=== PATIENT | male | born 1950 ===

== ENCOUNTER 2017-04-07 19:30 | Inpatient (IN) | payer OTHER ==
[2017-04-07 21:13] LABS: BASO % 0.6 % (0.0-2.0); EOS % 0.8 % (0.0-4.0); HEMOGLOBIN 9.1 g/dL (12.0-18.0); LYMPH # 0.8 K/uL (1.0-4.3); LYMPH % 20.7 % (20.0-40.0); MEAN CELL VOLUME 88.1 fl (80.0-94.0); MEAN CORPUSCULAR HEMOGLOBIN 28.6 pg (27.0-31.0); MEAN CORPUSCULAR HGB CONC 32.4 g/dL (33.0-37.0); MEAN PLATELET VOLUME 10.5 fl (7.2-11.7); MONO # 0.5 K/uL (0.0-0.8); MONO % 11.8 % (0.0-10.0); NEUT # 2.7 K/uL (1.8-7.0); NEUT % 66.1 % (50.0-75.0); RBC 3.17 Mil/uL (4.40-5.90); RED CELL DISTRIBUTION WIDTH 13.8 % (11.5-14.5)
[2017-04-07 21:21] LABS: BLOOD UREA NITROGEN 17 mg/dl (9-20); CALCIUM 8.5 mg/dL (8.4-10.2); GFR AFRICAN-AMERICAN > 60; GFR NON-AFRICAN AMERICAN > 60; LIPASE 169 U/L (23-300)
[2017-04-07 21:42] LABS: INR 1.2 (0.9-1.2); PROTHROMBIN TIME 12.2 Seconds (9.8-13.1)
[2017-04-07 22:02] LABS: WHITE BLOOD COUNT 4.1 K/uL (4.8-10.8)
--- NOTE | 2017-04-07 22:08 | CT ---
EXAM: CT Head Without Intravenous Contrast CLINICAL HISTORY: 66 years old, male; Signs and symptoms; Altered mental status/memory loss; Confusion or disorientation; Additional info: AMS TECHNIQUE: Axial computed tomography images of the head/brain without intravenous contrast. All CT scans at this facility use one or more dose reduction techniques, viz.: automated exposure control; ma/kV adjustment per patient size (including targeted exams where dose is matched to indication; i.e. head); or iterative reconstruction technique. Coronal and sagittal reformatted images were created and reviewed. COMPARISON: No relevant prior studies available. FINDINGS: Brain: No acute intracranial hemorrhage. Age-appropriate periventricular white matter disease. No edema. Ventricles: Age-appropriate ventriculomegaly. Bones: No acute displaced fracture. Sinuses: Unremarkable as visualized. No acute sinusitis. Mastoid air cells: Unremarkable as visualized. No mastoid effusion. IMPRESSION: No acute intracranial hemorrhage, or suspicious mass effect.
--- NOTE | 2017-04-07 22:22 | ED PDOC ---
HPI: Altered Mental Status Time Seen by Provider: 04/07/17 20:27 Chief Complaint (Nursing): Weakness/Neurological Deficit Chief Complaint (Provider): Altered mental status History Per: Patient Onset/Duration Of Symptoms: Days Additional Complaint(s): Patient is a 49 year old male with a past medical history of diabetes, hypertension, and chronic pain brought in to the emergency department by his family for altered mental status, tremors, and bilateral leg swelling. Family reports seeing a progressive cognitive decline over the past few weeks in which he is unable to recall the date and has become more confused and tired. Of note , patient is on 100 mg Tramadol three times a day and started Gabepentin and Metformin last week. PCP: none provided. Past Medical History Reviewed: Historical Data, Nursing Documentation, Vital Signs Vital Signs: Last Vital Signs Temp 98.0 F 04/07/17 19:38 Pulse 90 04/07/17 19:38 Resp 16 04/07/17 19:38 BP 129/71 04/07/17 19:38 Pulse Ox 100 04/07/17 19:38 - Medical History PMH: Anemia, Arthritis, COPD, Diabetes, HTN, Peripheral Edema (BLE) Other PMH: Chronic pain - Surgical History Surgical History: Appendectomy (Exploratory Laporatomy for ruptured AP), Cholecystectomy, Hernia Repair - Family History Family History: States: Unknown Family Hx - Immunization History Hx Tetanus Toxoid Vaccination: No Hx Influenza Vaccination: No Hx Pneumococcal Vaccination: No - Allergies Allergies/Adverse Reactions: Allergies Allergy/AdvReac Type Severity Reaction Status Date / Time Penicillins Allergy RASH Verified 12/13/15 13:38 Review of Systems ROS Statement: Except As Marked, All Systems Reviewed And Found Negative Musculoskeletal: Positive for: Other (bilateral leg swelling) Neurological: Positive for: Altered Mental Status (progessively declining cognitive state over the past few weeks), Other (Tremors) Physical Exam - Reviewed Nursing Documentation Reviewed: Yes Vital Signs Reviewed: Yes - Physical Exam Appears: Positive for: Well, Non-toxic, No Acute Distress Head Exam: Positive for: ATRAUMATIC, NORMAL INSPECTION, NORMOCEPHALIC Skin: Positive for: Normal Color, Warm, Dry Eye Exam: Positive for: EOMI, Normal appearance, PERRL ENT: Positive for: Normal ENT Inspection Neck: Positive for: Normal, Supple Cardiovascular/Chest: Positive for: Regular Rate, Rhythm. Negative for: Murmur Respiratory: Positive for: Normal Breath Sounds. Negative for: Accessory Muscle Use, Respiratory Distress Gastrointestinal/Abdominal: Positive for: Normal Exam, Soft Back: Positive for: Normal Inspection Extremity: Positive for: Normal ROM, Swelling (bilateral pitting edema 1+ to the knees). Negative for: Pedal Edema Neurologic/Psych: Positive for: Alert, Oriented (x2), Other (Intention tremor) - Laboratory Results Result Diagrams: 04/07/17 20:45 04/07/17 20:45 - ECG O2 Sat by Pulse Oximetry: 100 (RA) Pulse Ox Interpretation: Normal Medical Decision Making Medical Decision Making: Time: 20:38 Initial Impression: Altered mental status secondary to polypharmacy Initial Plan: -EKG -Head CT Scan -Drug Screening -Chest X-Ray -Reevaluation 22:[address] Scan Findings: Brain: No acute intracranial hemorrhage. Age-appropriate periventricular white matter disease. No edema. Ventricles: Age-appropriate ventriculomegaly. Bones: No acute displaced fracture. Sinuses: Unremarkable as visualized. No acute sinusitis. Mastoid air cells: Unremarkable as visualized. No mastoid effusion. IMPRESSION: No acute intracranial hemorrhage, or suspicious mass effect. 22:30 Workup largely negative. Daughter states that his platelets are at his baseline and had a comprehensive evaluation for thrombocytopenia this year. Will admit for AMS. Case discussed with Dr. Graff. Scribe Attestation: Documented by Sherry Beltrán, acting as a scribe for Humphrey Malik MD. Provider Scribe Attestation: All medical record entries made by the Scribe were at my direction and personally dictated by me. I have reviewed the chart and agree that the record accurately reflects my personal performance of the history, physical exam, medical decision making, and the department course for this patient. I have also personally directed, reviewed, and agree with the discharge instructions and disposition. Disposition - Clinical Impression Clinical Impression: Altered mental status - Disposition Disposition Time: 22:30 Condition: STABLE Forms: Training Advisor (Pashto)
[2017-04-07 22:23] LABS: URINE BACTERIA RARE (<OCC); URINE BILIRUBIN NEGATIVE (NEGATIVE); URINE BLOOD NEGATIVE (NEGATIVE); URINE CLARITY SLIGHTY-CLOUDY (Clear); URINE COLOR YELLOW (YELLOW); URINE GLUCOSE (UA) NEG (Normal); URINE LEUKOCYTE ESTERASE NEG Leu/uL (Negative); URINE NITRATE NEGATIVE (NEGATIVE); URINE PROTEIN NEGATIVE (NEGATIVE)
[2017-04-07 22:36] LABS: BARBITURATES, UR NEGATIVE (NEGATIVE); BENZODIAZEPINES, UR NEGATIVE (NEGATIVE); OPIATES, UR POSITIVE (NEGATIVE); PHENCYCLIDINE, UR NEGATIVE (NEGATIVE)
[2017-04-08 01:16] VITALS: RESP 20
--- NOTE | 2017-04-08 07:23 | CARD ---
APPROVED REPORT EKG Measurement Heart [id number] MD [id number] <Conclusion> Normal sinus rhythm Nonspecific ST and T wave abnormality Abnormal ECG
[2017-04-08] MEDS ORDERED: Albuterol HFA 90 mcg/actuation (8 g) INH PRN (08:21)
[2017-04-08] MEDS ORDERED: Pneumococcal 23-Valent Vaccine IM ONE (10:00)
[2017-04-08] MEDS: Multivitamin With Minerals Tab PO SCH (10:33)
[2017-04-08] MEDS: Pantoprazole 40 mg EC Tab PO SCH (10:35)
--- NOTE | 2017-04-08 10:48 | RAD ---
PROCEDURE: CHEST RADIOGRAPH, 1 VIEW HISTORY: AMS COMPARISON: 05/19/2016. FINDINGS: LUNGS: Clear. PLEURA: No pneumothorax or pleural fluid seen. CARDIOVASCULAR: No radiographic findings to suggest acute or significant cardiovascular disease. OSSEOUS STRUCTURES: No significant abnormalities. VISUALIZED UPPER ABDOMEN: Normal. OTHER FINDINGS: None. IMPRESSION: No active disease. No acute/significant interval changes.
--- NOTE | 2017-04-08 11:08 | US ---
PROCEDURE: Bilateral lower extremity venous duplex Doppler. HISTORY: dvt COMPARISON: Comparison is made to the previous study dated 06/15/2013 TECHNIQUE: Bilateral common femoral, superficial femoral, popliteal and posterior tibial veins were evaluated. Flow was assessed with color Doppler, compressibility, assessment of phasic flow and augmentation response. FINDINGS: COMMON FEMORAL VEIN: Right CFV: Unremarkable. Left CFV: Unremarkable. SUPERFICIAL FEMORAL VEIN: Right SFV: Unremarkable. Left SFV: Unremarkable. POPLITEAL VEIN: Right Popliteal: Unremarkable. Left Popliteal: Unremarkable. POSTERIOR TIBIAL VEIN: Right PTV: Unremarkable. Left PTV: Unremarkable. 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 Re- demonstration of right popliteal fossa complex cystic lesion likely represent Beltran's cyst
[2017-04-08 11:46] VITALS: BMI 48.2
--- NOTE | 2017-04-08 12:16 | RAD ---
PROCEDURE: Radiographs of the bilateral Tibiae and Fibula. HISTORY: fracture COMPARISON: None available. TECHNIQUE: Frontal and lateral views obtained. FINDINGS: BONES: RIGHT TIBIA: No fracture or destructive lesion. LEFT TIBIA: No fracture or destructive lesion. There is focal heterogeneous sclerotic changes seen at the proximal left tibia may represent small old infarction. There is bilateral fibula periosteal thickening noted of uncertain etiology. JOINT SPACES: RIGHT TIBIA: Osteoarthritic degenerative changes LEFT TIBIA: Osteoarthritic degenerative changes SOFT TISSUES: RIGHT TIBIA: Mild soft tissue swelling seen. LEFT TIBIA: Mild soft tissue swelling seen. OTHER FINDINGS: None. IMPRESSION: No evidence of acute fracture or dislocation. Bilateral periosteal thickening seen in the fibula. Small sclerotic changes seen at the proximal left tibia likely old infarction. Bilateral soft tissue swelling.
--- NOTE | 2017-04-09 00:09 | HP ---
HISTORY OF PRESENT ILLNESS: Mr. Palacios is a 66-year-old male, who was admitted via the emergency room because of altered mental status, was brought to the hospital by family because of altered mental status, tremors and bilateral swelling of the legs. Family indicates that the patient has been getting more confused for the past several days. He is on multiple medications about a page long and had been following up with the pain management doctor, in [place]. 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 FAMILY HISTORY: Non-revealing. SOCIAL HISTORY: The patient denies drug use at present, but is on multiple medications. He also denies alcohol use. PHYSICAL EXAMINATION: GENERAL: The patient is alert, and oriented this morning, but does not remember reason why he came to the hospital. VITAL SIGNS: Blood pressure 129/70 with a pulse of 90, respirations 18. He is afebrile. O2 sat is 100% on room air. The patient appears awake and alert. Responsive to verbal command. HEENT: Pupils equal, reactive to light, and accommodation. Mouth shows fair hygiene. JVP is flat. LUNGS: Clear. HEART: Regular, no murmurs or gallops. ABDOMEN: Soft, nontender, no organomegaly appreciated. EXTREMITIES: Bilateral pitting pedal edema with bilateral leg tenderness, right worse than left. CENTRAL NERVOUS SYSTEM: Grossly intact. LABORATORY DATA: Remarkable for WBC of 4.1, hemoglobin 9.1, platelet count 98,000. Sodium 140, potassium 3.8, BUN of 17, creatinine 1.0, serum glucose 158. Urine toxicology positive for opioids. CT scan of the head, no acute intracranial hemorrhage, age appropriate periventricular white matter disease. No other pathology noted. Chest x-ray: Official report pending. EKG: Normal sinus rhythm, nonspecific ST-T changes. IMPRESSION: Altered mental status probably secondary to polypharmacy, history of diabetes mellitus, history of hypertension, history of heroin use in the past, history of hypersplenism and cirrhosis of the liver, history of thrombocytopenia in the past and history of chronic alcohol and drug abuse in the past. PLAN: Discontinue most of the patient's multiple medications. Obtain venous Doppler of lower extremities to rule out deep venous thrombosis of the lower extremity with edema and tenderness. We will give analgesics for pain in the lower extremities. Monitor blood pressure and serum glucose properly. Further therapy will depend on findings. Mehdi Graff MD
[2017-04-09 00:23] VITALS: O2SAT 98
[2017-04-09 08:16] VITALS: BP 136/81; PULSE 78; TEMP 98.4
[2017-04-09] MEDS: Pantoprazole 40 mg EC Tab PO SCH (08:39)
[2017-04-09] MEDS: Multivitamin With Minerals Tab PO SCH (08:46)
--- NOTE | 2017-04-09 10:50 | CP.PCM.DIS ---
Provider - Provider Date of Admission: 04/08/17 08:12 Attending physician: Mehdi Graff MD Time Spent in preparation of Discharge (in minutes): 35 Diagnosis - Discharge Diagnosis (1) Diabetes 1.5, managed as type 2 Status: Acute (2) Neuropathy Status: Acute (3) Hypertension Status: Acute (4) Altered mental status Status: Acute (5) Multiple substance abuse Status: Acute (6) Osteoarthritis Status: Acute (7) Thrombocythemia Status: Acute (8) Cirrhosis of liver Status: Acute (9) Occasional tremors Status: Acute Hospital Course - Lab Results Lab Results: Most Recent Lab Values WBC 4.1 K/uL (4.8-10.8) L D 04/07/17 20:45 RBC 3.17 Mil/uL (4.40-5.90) L 04/07/17 20:45 Hgb 9.1 g/dL (12.0-18.0) L 04/07/17 20:45 Hct 27.9 % (35.0-51.0) L 04/07/17 20:45 MCV 88.1 fl (80.0-94.0) D 04/07/17 20:45 MCH 28.6 pg (27.0-31.0) 04/07/17 20:45 MCHC 32.4 g/dL (33.0-37.0) L 04/07/17 20:45 RDW 13.8 % (11.5-14.5) 04/07/17 20:45 Plt Count 98 K/uL (130-400) L D 04/07/17 20:45 MPV 10.5 fl (7.2-11.7) 04/07/17 20:45 Neut % (Auto) 66.1 % (50.0-75.0) 04/07/17 20:45 Lymph % (Auto) 20.7 % (20.0-40.0) 04/07/17 20:45 [place] % (Auto) 11.8 % (0.0-10.0) H 04/07/17 20:45 Eos % (Auto) 0.8 % (0.0-4.0) 04/07/17 20:45 Baso % (Auto) 0.6 % (0.0-2.0) 04/07/17 20:45 Neut # 2.7 K/uL (1.8-7.0) 04/07/17 20:45 Lymph # 0.8 K/uL (1.0-4.3) L 04/07/17 20:45 [place] # 0.5 K/uL (0.0-0.8) 04/07/17 20:45 Eos # 0.0 K/uL (0.0-0.7) 04/07/17 20:45 Baso # 0.0 K/uL (0.0-0.2) 04/07/17 20:45 PT 12.2 Seconds (9.8-13.1) 04/07/17 20:45 INR 1.2 (0.9-1.2) 04/07/17 20:45 APTT 29.0 Seconds (25.6-37.1) 04/07/17 20:45 Sodium 140 mmol/l (132-148) 04/07/17 20:45 Potassium 3.8 MMOL/L (3.6-5.0) 04/07/17 20:45 Chloride 108 mmol/L (98-107) H 04/07/17 20:45 Carbon Dioxide 25 mmol/L (22-30) 04/07/17 20:45 Anion Gap 11 (10-20) 04/07/17 20:45 BUN 17 mg/dl (9-20) 04/07/17 20:45 Creatinine 1.0 mg/dL (0.8-1.5) 04/07/17 20:45 Est GFR ( Amer) > 60 04/07/17 20:45 Est GFR (Non-Af Amer) > 60 04/07/17 20:45 POC Glucose (mg/dL) 155 mg/dL (65-110) H 04/09/17 05:44 Random Glucose 142 mg/dL (75-110) H 04/07/17 20:45 Calcium 8.5 mg/dL (8.4-10.2) 04/07/17 20:45 Troponin I < 0.0120 ng/mL (0.00-0.120) 04/07/17 20:45 NT-Pro-B Natriuret Pep 74.4 pg/ml (0-900) 04/07/17 21:24 Lipase 169 U/L (23-300) 04/07/17 20:45 Urine Color Yellow (YELLOW) 04/07/17 22:10 Urine Clarity Slighty-cloudy (Clear) 04/07/17 22:10 Urine pH 6.0 (5.0-8.0) 04/07/17 22:10 Ur Specific [place] 1.011 (1.003-1.030) 04/07/17 22:10 Urine Protein Negative mg/dL (NEGATIVE) 04/07/17 22:10 Urine Glucose (UA) Neg mg/dL (Normal) 04/07/17 22:10 Urine Ketones Negative mg/dL (NEGATIVE) 04/07/17 22:10 Urine Blood Negative (NEGATIVE) 04/07/17 22:10 Urine Nitrate Negative (NEGATIVE) 04/07/17 22:10 Urine Bilirubin Negative (NEGATIVE) 04/07/17 22:10 Urine Urobilinogen 2.0 mg/dL (0.2-1.0) 04/07/17 22:10 Ur Leukocyte Esterase Neg [place]/uL (Negative) 04/07/17 22:10 Urine RBC (Auto) 1 /hpf (0-3) 04/07/17 22:10 Urine Microscopic WBC 1 /hpf (0-5) 04/07/17 22:10 Urine Bacteria Rare (<OCC) 04/07/17 22:10 Urine Opiates Screen Positive (NEGATIVE) H 04/07/17 22:10 Urine Methadone Screen Negative (NEGATIVE) 04/07/17 22:10 Ur Barbiturates Screen Negative (NEGATIVE) 04/07/17 22:10 Ur Phencyclidine Scrn Negative (NEGATIVE) 04/07/17 22:10 Ur Amphetamines Screen Negative (NEGATIVE) 04/07/17 22:10 U Benzodiazepines Scrn Negative (NEGATIVE) 04/07/17 22:10 U Oth Cocaine Metabols Negative (NEGATIVE) 04/07/17 22:10 U Cannabinoids Screen Negative (NEGATIVE) 04/07/17 22:10 Alcohol, Quantitative < 10 mg/dl (0-10) 04/07/17 20:45 - Hospital Course Hospital Course: ALERT AND ORIENTED X 3 JT PAINS IMPROVED Discharge Exam - Head Exam Head Exam: ATRAUMATIC, NORMAL INSPECTION, NORMOCEPHALIC - Eye Exam Eye Exam: EOMI, Normal appearance, PERRL Pupil Exam: NORMAL ACCOMODATION, PERRL - GI/Abdominal Exam GI & Abdominal Exam: Normal Bowel Sounds - Rectal Exam Rectal Exam: NORMAL INSPECTION - Extremities Exam Extremities exam: tenderness - Neurological Exam Neurological exam: Alert, CN II-XII Intact, Normal Gait, Oriented x3, Reflexes Normal - Psychiatric Exam Psychiatric exam: Normal Affect, Normal Mood - Skin Skin Exam: Dry, Intact, Normal Color, Warm Discharge Plan - Follow Up Plan Condition: STABLE Disposition: HOME/ ROUTINE Patient education suggested?: Yes Additional Instructions: REDUCE NUMBER OF MEDS AND DOSAGE ADVISED FOLLOW UP WITH PMD AND NEUROLOGIST OUT PT CASE DISCUSSEDWITH PT AND MARIAN
== END 2017-04-09 14:33 | disposition home or self-care (01) | DRG 463 ==
LOC: H.ER 19:30 → H.ERHOLD 22:42 → H.MEDSURG1 04-08 00:45 → OBSVTOIN 04-08 08:12
PROVIDERS: ADMIT Internal Medicine Pulmonary Disease; ATTEND Internal Medicine Pulmonary Disease
DX: R41.82 Altered mental status, unspecified (principal); J44.9 Chronic obstructive pulmonary disease, unspecified; E13.42 Other specified diabetes mellitus with diabetic polyneuropathy; K74.60 Unspecified cirrhosis of liver; F11.90 Opioid use, unspecified, uncomplicated; I10 Essential (primary) hypertension; D47.3 Essential (hemorrhagic) thrombocythemia; D73.1 Hypersplenism; M19.90 Unspecified osteoarthritis, unspecified site; R25.1 Tremor, unspecified

== ENCOUNTER 2017-05-19 09:09 | Inpatient (IN) | payer OTHER ==
[2017-05-19 09:32] VITALS: BMI 37.3
[2017-05-19] MEDS ORDERED: Iohexol 240 (50 ml) PO ONE (10:41)
--- NOTE | 2017-05-19 10:45 | ED PDOC ---
HPI: General Adult Time Seen by Provider: 05/19/17 10:04 Chief Complaint (Nursing): Abdominal Pain History Per: Patient Additional Complaint(s): Pt. states since yesterday he's had diffuse abdominal pain associated with constipation. States he has not had a BM since Tuesday. He attempted to have one yesterday without success. Also reports feeling nauseous. States that abdominal pain came about after he began taking a new medication. Pt. is uncertain of the name of the medication and also does not know why he is taking it. Denies vomiting, fever, chest pain, melena, hematocheiza, BRBPR, hematemesis , SOB, dysuria, hematuria. Pt. is a poor historian. Attempted to call his niece, Eva, who according to him knows his medical hx. Past Medical History Reviewed: Historical Data, Nursing Documentation, Vital Signs Vital Signs: Last Vital Signs Temp 98.2 F 05/19/17 15:17 Pulse 92 H 05/19/17 15:17 Resp 18 05/19/17 15:17 BP 118/60 05/19/17 15:17 Pulse Ox 99 05/19/17 16:07 - Medical History PMH: Anemia, Arthritis, COPD, Diabetes, HTN, Peripheral Edema (BLE) Denies: Chronic Kidney Disease - Surgical History Surgical History: Appendectomy (Exploratory Laporatomy for ruptured AP), Cholecystectomy, Hernia Repair - Family History Family History: States: No Known Family Hx - Immunization History Hx Tetanus Toxoid Vaccination: No Hx Influenza Vaccination: No Hx Pneumococcal Vaccination: No - Home Medications Home Medications: Ambulatory Orders Medication Instructions Recorded Albuterol HFA [Ventolin HFA 90 2 puff INH Q6H PRN 04/08/17 mcg/actuation (8 g)] Pantoprazole Sodium [Protonix] 40 mg PO DAILY 04/08/17 metFORMIN [glucOPHAGE] 500 mg PO BID 04/08/17 traMADol [Ultram] 100 mg PO TID 04/08/17 Losartan [Cozaar] 100 mg PO DAILY #30 tab 04/09/17 Ergocalciferol (Vitamin D2) 50,000 unit PO SAT 05/19/17 [Vitamin D2] Etodolac [Etodolac] 500 mg PO BID 05/19/17 Ferrous Sulfate [Ferosul] 325 mg PO TID 05/19/17 Furosemide [Lasix] 20 mg PO DAILY PRN 05/19/17 Gabapentin [Neurontin] 600 mg PO TID 05/19/17 Multivitamin [Multi-Vitamin Daily] 1 tab PO DAILY 05/19/17 Potassium Chloride [K-Dur 20 mEq 20 meq PO DAILY PRN 05/19/17 ER Tab] SITagliptin [Januvia] 100 mg PO DAILY 05/19/17 - Allergies Allergies/Adverse Reactions: Allergies Allergy/AdvReac Type Severity Reaction Status Date / Time Penicillins Allergy RASH Verified 12/13/15 13:38 Review of Systems ROS Statement: Except As Marked, All Systems Reviewed And Found Negative Gastrointestinal: Positive for: Nausea, Abdominal Pain, Constipation Physical Exam - Reviewed Nursing Documentation Reviewed: Yes Vital Signs Reviewed: Yes - Physical Exam Appears: Positive for: Well, Non-toxic, No Acute Distress Head Exam: Positive for: ATRAUMATIC, NORMAL INSPECTION, NORMOCEPHALIC Skin: Positive for: Normal Color, Warm. Negative for: Rash Eye Exam: Positive for: EOMI, Normal appearance, PERRL ENT: Positive for: Normal ENT Inspection Neck: Positive for: Normal, Painless ROM Cardiovascular/Chest: Positive for: Regular Rate, Rhythm Respiratory: Positive for: CNT, Normal Breath Sounds Gastrointestinal/Abdominal: Positive for: Normal Exam, Bowel Sounds, Soft, Distended, Other (large ventral surgical scar noted). Negative for: Tenderness Back: Positive for: Normal Inspection. Negative for: L CVA Tenderness, R CVA Tenderness Extremity: Positive for: Normal ROM Neurologic/Psych: Positive for: Alert, Oriented - Laboratory Results Result Diagrams: 05/19/17 11:34 05/19/17 11:34 - ECG O2 Sat by Pulse Oximetry: 99 ED OBSERVATION Date of observation admission: 05/19/17 Time of observation admission: 10:46 - Observation admission statement Patient is being placed in observation because:: abdominal pain - Progress Note Progress Note: 05/19/17 10:[address] abd/pelvis w/ PO and IV contrast ordered. Obstructive series ordered. 05/19/17 12:44 Pt. in no distress. HgB 7.4 Rectal exam showed brown stool. Hemoccult positive. Consent for transfusion obtained. 2 Units ordered. 05/19/17 15:49 CT abd/pelvis w/ PO and IV contrast: Dyuwzw-cg-iaavptjobv dilated small bowel loops demonstrate diffuse mild wall thickening up to right lateral abdominal wall ventral hernia. The terminal ileum is partially collapse. Findings suspicious for low grade bowel obstruction likely due to adhesions adjacent to the right lateral ventral hernia. Oral contrast reached the large bowel. Nonspecific mesenteric stranding and infiltrate at the right mid and lower abdomen. No CT evidence of appendicitis. Large diastases recti in the mid and lower anterior abdominal wall. Mild splenomegaly. Aizx-lo-ruxymyxv urinary bladder circumferential wall thickening. Small amount of free fluid in the lower abdomen and pelvis. Case d/w Dr. López, covering for Dr. Delcid, and agrees with care. Pt. evaluated by Kacey, vice president fixed income. Case d/w Dr. Foote, covering for Dr. Michael, and requests that pt. be given Protonix 40mg PO daily instead of IV since pt. is tolerating PO. Also requests that pt. be kept NPO. Case d/w Vel Mandujano and arrangements made for admission. Disposition - Clinical Impression Clinical Impression: GI bleed, Partial bowel obstruction, Severe anemia - Patient ED Disposition Is Patient to be Admitted: Yes - Disposition Disposition Time: 16:53 Condition: STABLE
--- NOTE | 2017-05-19 11:04 | RAD ---
PROCEDURE: Radiographs of the chest and abdomen (obstructive series) HISTORY: abdominal pain w/ constipation COMPARISON: No prior. TECHNIQUE: AP radiograph of the chest, with upright and supine radiographs of the abdomen. FINDINGS: CHEST: Lungs: Clear. Cardiovascular: Normal size heart. No pulmonary vascular congestion. Pleura: No pleural fluid. No pneumothorax. Other findings: None. ABDOMEN AND PELVIS: Bowel: Slightly dilated bowel loop at the midline lower abdomen may represent mildly dilated large bowel. Mild constipation is noted. Free air: None. Bones: Unremarkable. Other findings: None. IMPRESSION: No radiographic evidence of small bowel obstruction. Mildly dilated bowel loop at the midline lower abdomen may represent mildly dilated large bowel loops. Mild constipation.
[2017-05-19 11:10] LABS: URINE BILIRUBIN MODERATE (NEGATIVE); URINE BLOOD NEGATIVE (NEGATIVE); URINE COLOR YELLOW (YELLOW); URINE GLUCOSE (UA) NEG (Normal); URINE KETONE NEGATIVE (NEGATIVE); URINE LEUKOCYTE ESTERASE NEG Leu/uL (Negative); URINE PROTEIN NEGATIVE (NEGATIVE)
[2017-05-19] MEDS ORDERED: Iohexol 240 (50 ml) ONE (11:34)
[2017-05-19 11:42] LABS: BASO % 0.6 % (0.0-2.0); EOS % 0.2 % (0.0-4.0); HEMATOCRIT 23.5 % (35.0-51.0); LYMPH # 0.9 K/uL (1.0-4.3); LYMPH % 17.2 % (20.0-40.0); MEAN CELL VOLUME 75.8 fl (80.0-94.0); MEAN CORPUSCULAR HEMOGLOBIN 23.7 pg (27.0-31.0); MEAN CORPUSCULAR HGB CONC 31.3 g/dL (33.0-37.0); MEAN PLATELET VOLUME 10.3 fl (7.2-11.7); MONO # 0.5 K/uL (0.0-0.8); MONO % 9.3 % (0.0-10.0); NEUT # 3.8 K/uL (1.8-7.0); NEUT % 72.7 % (50.0-75.0); NRBC % 0.1 % (0.0-0.0); RED CELL DISTRIBUTION WIDTH 16.1 % (11.5-14.5); WHITE BLOOD COUNT 5.2 K/uL (4.8-10.8)
[2017-05-19 11:46] LABS: ALKALINE PHOSPHATASE 81 U/L (38-126); ALT/SGPT 32 U/L (21-72); AST/SGOT 26 U/L (17-59); BILIRUBIN,TOTAL 0.7 mg/dl (0.2-1.3); BLOOD UREA NITROGEN 12 mg/dl (9-20); CALCIUM 8.5 mg/dL (8.4-10.2); CARBON DIOXIDE 23 mmol/L (22-30); CHLORIDE 108 mmol/L (98-107); GFR AFRICAN-AMERICAN > 60; GLUCOSE,RANDOM 148 mg/dL (75-110); LIPASE 113 U/L (23-300); SODIUM 141 mmol/l (132-148); TOTAL PROTEIN 7.1 G/DL (6.3-8.2)
[2017-05-19 11:48] LABS: PARTIAL THROMBOPLASTIN TIME 23.5 Seconds (25.6-37.1)
[2017-05-19] MEDS ORDERED: Pantoprazole 40 MG in Sodium Chloride 0.9% 100 ML IVPB SCH (12:30)
[2017-05-19] MEDS ORDERED: Iohexol 300 100 ML IJ ONE (13:37)
[2017-05-19] MEDS ORDERED: Sodium Chloride 0.9% 50 ML IV ONE (13:38)
--- NOTE | 2017-05-19 15:41 | CT ---
PROCEDURE: CT Abdomen and Pelvis with contrast HISTORY: abdominal pain COMPARISON: Comparison is made to the previous study dated 11/13/2010 TECHNIQUE: Contrast dose: 1067.09 Radiation dose: Total exam DLP = 1067.09 mGy-cm. This CT exam was performed using one or more of the following dose reduction techniques: Automated exposure control, adjustment of the mA and/or kV according to patient size, and/or use of iterative reconstruction technique. FINDINGS: LOWER THORAX: No evidence of acute pathology at the lung bases. Small hiatus hernia. Cardiomegaly. No evidence of pleural effusion. LIVER: Unremarkable. No gross lesion or ductal dilatation. GALLBLADDER AND BILE DUCTS: Unremarkable. PANCREAS: Unremarkable. No gross lesion or ductal dilatation. SPLEEN: Mild splenomegaly is noted measures up to 15 centimeter. ADRENALS: Unremarkable. No mass. KIDNEYS AND URETERS: Unremarkable. No hydronephrosis. No solid mass. VASCULATURE: Unremarkable. No aortic aneurysm. BOWEL: Unremarkable. No obstruction. NoThere are zqodns-pt-rvahsgmkkb dilated small bowel loops demonstrate diffuse mild wall thickening. The terminal ileum is partially collapse. Findings suspicious for partial/low grade small bowel obstruction at the right lateral lower abdominal wall hernia or due to adhesion adjacent to the right abdominal wall hernia. Mild constipation is noted in the sigmoid colon. The oral contrast reached the cecum. The stomach is not distended. APPENDIX: There is no evidence of appendicitis. PERITONEUM: There is a small amount of free fluid at the lower abdomen/upper pelvis. No evidence of free air. Mesenteric stranding seen at the mid and right lower abdomen. LYMPH NODES: Unremarkable. No enlarged lymph nodes. BLADDER: Moderate circumferential urinary bladder wall thickening is noted. REPRODUCTIVE: Unremarkable. BONES: No acute fracture. OTHER FINDINGS: None. IMPRESSION: Gcstsj-ex-qjppnsylre dilated small bowel loops demonstrate diffuse mild wall thickening up to right lateral abdominal wall ventral hernia. The terminal ileum is partially collapse. Findings suspicious for low grade bowel obstruction likely due to adhesions adjacent to the right lateral ventral hernia. Oral contrast reached the large bowel. Nonspecific mesenteric stranding and infiltrate at the right mid and lower abdomen. No CT evidence of appendicitis. Large diastases recti in the mid and lower anterior abdominal wall. Mild splenomegaly. Naql-xd-ywvwfjnz urinary bladder circumferential wall thickening. Small amount of free fluid in the lower abdomen and pelvis.
--- NOTE | 2017-05-19 16:07 | CARD ---
APPROVED REPORT EKG Measurement Heart [id number] NM [id number] <Conclusion> Normal sinus rhythm Nonspecific ST and T wave abnormality Abnormal ECG
[2017-05-19 16:28] LABS: VENOUS BLOOD GAS BASE EXCESS 1.7 mmol/L (0.0-2.0); VENOUS BLOOD GAS PCO2 42 mmHg (40-60); VENOUS BLOOD PH 7.41 (7.32-7.43)
[2017-05-19] MEDS ORDERED: Albuterol HFA 90 mcg/actuation (8 g) INH PRN (17:46)
--- NOTE | 2017-05-19 18:23 | CP.PCM.CON ---
History of Present Illness - History of Present Illness History of Present Illness: General Surgery consult note for Dr. Lam Consulted for: SBO and GI bleed Patient is a 66M with PMH of HLD, HTN, DM, COPD, anemia and PSH of appendectomy , cholecystectomy, and ventral hernia repair who presents with 3 days of abdominal pain. Patient states that pain is diffuse, worse with eating. Patient states that he hasn't had a bowel movement since yesterday but is passing gas. Patient was found to have a hemoglobin of 7.9 and a positive hemocult blood test and is receiving a unit of blood. Patient denies any nausea, vomiting, hematochezia or melena, fevers, chills, diarrhea, dysuria, or hematuria. Patient denies any sick contacts or foreign travel. CT shows a recurrent incisional hernia right lateral to the previous surgery containing loops of small bowel. There are mildly dilated proximal small bowel loops with decompression distal to the hernia but contrast travels through to the colon. No free air. PMH: HLD, HTN, DM, COPD, anemia PSH: appendectomy, cholecystectomy, ventral hernia repair All: PCN Social: former smoker >30 pack years, quit 1 year ago. Former heavy drinker. Admits to former multiple drug use Review of Systems - Review of Systems All systems: reviewed and no additional remarkable complaints except - Constitutional Constitutional: absent: Chills, Fever - Cardiovascular Cardiovascular: absent: Chest Pain, Chest Pain at Rest, Dyspnea - Respiratory Respiratory: absent: Cough, Dyspnea, Dyspnea on Exertion - Gastrointestinal Gastrointestinal: As Per HPI, Abdominal Pain. absent: Constipation, Diarrhea, Hematochezia, Melena, Nausea, Vomiting - Genitourinary Genitourinary: Nocturia. absent: Dysuria, Hematuria - Musculoskeletal Musculoskeletal: Arthralgias. absent: Back Pain Additional comments: knee pain - Neurological Neurological: absent: Numbness, Tingling Past Patient History - Past Medical History & Family History Past Medical History?: Yes - Past Social History Smoking Status: Former Smoker - CARDIAC Hx Hypertension: Yes Hx Peripheral Edema: Yes (BLE) - PULMONARY Hx Chronic Obstructive Pulmonary Disease (COPD): Yes - NEUROLOGICAL Hx Neurological Disorder: Yes Other/Comment: Hx Diabetic Neuropathy BLE - HEENT Hx HEENT Problems: No - RENAL Hx Chronic Kidney Disease: No - ENDOCRINE/METABOLIC Hx Endocrine Disorders: Yes Hx Diabetes Mellitus Type 2: Yes - HEMATOLOGICAL/ONCOLOGICAL Hx Anemia: Yes - INTEGUMENTARY Hx Dermatological Problems: No - MUSCULOSKELETAL/RHEUMATOLOGICAL Hx Arthritis: Yes - GASTROINTESTINAL Hx Gastrointestinal Disorders: Yes Hx Gastroesophageal Reflux: Yes - GENITOURINARY/GYNECOLOGICAL Hx Genitourinary Disorders: No - PSYCHIATRIC Hx Psychophysiologic Disorder: Yes Hx Substance Use: Yes (Heroine abuse- quit one year ago) - SURGICAL HISTORY Hx Appendectomy: Yes (Exploratory Laporatomy for ruptured AP) Hx Cholecystectomy: Yes - ANESTHESIA Hx Anesthesia: Yes Hx Anesthesia Reactions: No Meds Allergies/Adverse Reactions: Allergies Allergy/AdvReac Type Severity Reaction Status Date / Time Penicillins Allergy RASH Verified 12/13/15 13:38 - Medications Medications: Current Medications Albuterol (Ventolin Hfa 90 Mcg/Actuation (8 G)) 2 puff INH Q6H PRN PRN Reason: Shortness of Breath Ergocalciferol (Drisdol 50,000 Intl Units Cap) cap PO SAT [facility] Gabapentin (Neurontin) 600 mg PO TID [facility] Home Med (Multivitamin [Multi-Vitamin Daily]) 1 tab PO DAILY [facility] Lactated Ringer's (Lactated Ringer's) 1,000 mls @ 150 mls/hr IV .Q6H40M [facility] Losartan Potassium (Cozaar) 100 mg PO DAILY [facility] Metformin HCl (Glucophage) 500 mg PO BID [facility] Pantoprazole Sodium (Protonix Ec Tab) 40 mg PO DAILY [facility] Pantoprazole Sodium (Protonix Inj) 40 mg IVP DAILY [facility] Sitagliptin Phosphate (Januvia) 100 mg PO DAILY [facility] Tramadol HCl (Ultram) 100 mg PO TID [facility]ISA Physical Exam - Constitutional Appears: Non-toxic, No Acute Distress - Head Exam Head Exam: ATRAUMATIC, NORMOCEPHALIC - Eye Exam Eye Exam: Normal appearance. absent: Conjunctival injection, Scleral icterus - ENT Exam ENT Exam: Mucous Membranes Moist, Normal Oropharynx - Respiratory Exam Respiratory Exam: NORMAL BREATHING PATTERN. absent: Accessory Muscle Use, Respiratory Distress - Cardiovascular Exam Cardiovascular Exam: RRR - GI/Abdominal Exam GI & Abdominal Exam: Distended, Guarding (voluntary), Soft, Tenderness (LLQ and RLQ). absent: Rigid Additional comments: diastasis recti, hernia in RLQ--soft, non-tender, non-reducible - Extremities Exam Extremities exam: Positive for: pedal edema, pedal pulses present. Negative for : calf tenderness, tenderness - Back Exam Back exam: NORMAL INSPECTION. absent: CVA tenderness (L), CVA tenderness (R), rash noted - Neurological Exam Neurological exam: Alert, Oriented x3 - Psychiatric Exam Psychiatric exam: Normal Affect, Normal Mood - Skin Skin Exam: Dry, Normal Color, Warm Results - Vital Signs Recent Vital Signs: Last Vital Signs Temp 98.2 F 05/19/17 15: Pulse 92 H 05/19/17 15: Resp 18 05/19/17 15:17 BP 118/60 05/19/17 15: Pulse Ox 99 05/19/17 16:07 - Labs Result Diagrams: 05/19/17 11:34 05/19/17 11:34 Labs: Laboratory Results - last 24 hr 05/19/17 05/19/17 05/19/17 10:00 10:03 11:34 WBC 5.2 RBC 3.11 L Hgb 7.4 L Hct 23.5 L MCV 75.8 L D MCH 23.7 L MCHC 31.3 L RDW 16.1 H Plt Count 118 L D MPV 10.3 Neut % (Auto) 72.7 Lymph % (Auto) 17.2 L [place] % (Auto) 9.3 Eos % (Auto) 0.2 Baso % (Auto) 0.6 Neut # 3.8 Lymph # 0.9 L [place] # 0.5 Eos # 0.0 Baso # 0.0 PT INR APTT pO2 VBG pH VBG pCO2 VBG HCO3 VBG Total CO2 VBG O2 Sat (Calc) VBG Base Excess VBG Potassium Glucose Lactate FiO2 Sodium Potassium Chloride Carbon Dioxide Anion Gap BUN Creatinine Est GFR ( Amer) Est GFR (Non-Af Amer) POC Glucose (mg/dL) 190 H Random Glucose Calcium Total Bilirubin AST ALT Alkaline Phosphatase Total Protein Albumin Globulin Albumin/Globulin Ratio Lipase Venous Blood Potassium Urine Color Yellow Urine Clarity Slighty-cloudy Urine pH 6.0 Ur Specific [place] 1.021 Urine Protein Negative Urine Glucose (UA) Neg Urine Ketones Negative Urine Blood Negative Urine Nitrate Negative Urine Bilirubin Moderate Urine Urobilinogen 4.0 Ur Leukocyte Esterase Neg Ur Squamous Epith Cells < 1 Amorphous Sediment Rare H Blood Type Blood Type Confirm Antibody Screen Crossmatch BBK History Checked 05/19/17 05/19/17 05/19/17 11:34 11:34 11:34 WBC RBC Hgb Hct MCV MCH MCHC RDW Plt Count MPV Neut % (Auto) Lymph % (Auto) [place] % (Auto) Eos % (Auto) Baso % (Auto) Neut # Lymph # [place] # Eos # Baso # PT 12.5 INR 1.2 APTT 23.5 L pO2 VBG pH VBG pCO2 VBG HCO3 VBG Total CO2 VBG O2 Sat (Calc) VBG Base Excess VBG Potassium Glucose Lactate FiO2 Sodium 141 Potassium 4.0 Chloride 108 H Carbon Dioxide 23 Anion Gap 14 BUN 12 Creatinine 0.9 Est GFR ( Amer) > 60 Est GFR (Non-Af Amer) > 60 POC Glucose (mg/dL) Random Glucose 148 H Calcium 8.5 Total Bilirubin 0.7 AST 26 ALT 32 Alkaline Phosphatase 81 Total Protein 7.1 Albumin 3.5 Globulin 3.6 Albumin/Globulin Ratio 1.0 Lipase 113 Venous Blood Potassium Urine Color Urine Clarity Urine pH Ur Specific [place] Urine Protein Urine Glucose (UA) Urine Ketones Urine Blood Urine Nitrate Urine Bilirubin Urine Urobilinogen Ur Leukocyte Esterase Ur Squamous Epith Cells Amorphous Sediment Blood Type B POSITIVE Blood Type Confirm Antibody Screen Negative Crossmatch See Detail BBK History Checked No verified bt 05/19/17 05/19/17 05/19/17 12:43 16:20 18:04 WBC RBC Hgb Hct MCV MCH MCHC RDW Plt Count MPV Neut % (Auto) Lymph % (Auto) [place] % (Auto) Eos % (Auto) Baso % (Auto) Neut # Lymph # [place] # Eos # Baso # PT INR APTT pO2 24 L VBG pH 7.41 VBG pCO2 42 VBG HCO3 24.8 VBG Total CO2 27.9 VBG O2 Sat (Calc) 51.2 VBG Base Excess 1.7 VBG Potassium 3.3 L Glucose 105 Lactate 2.0 FiO2 21.0 Sodium 141.0 Potassium Chloride 110.0 H Carbon Dioxide Anion Gap BUN Creatinine Est GFR ( Amer) Est GFR (Non-Af Amer) POC Glucose (mg/dL) 135 H Random Glucose Calcium Total Bilirubin AST ALT Alkaline Phosphatase Total Protein Albumin Globulin Albumin/Globulin Ratio Lipase Venous Blood Potassium 3.3 L Urine Color Urine Clarity Urine pH Ur Specific [place] Urine Protein Urine Glucose (UA) Urine Ketones Urine Blood Urine Nitrate Urine Bilirubin Urine Urobilinogen Ur Leukocyte Esterase Ur Squamous Epith Cells Amorphous Sediment Blood Type Blood Type Confirm B POSITIVE Antibody Screen Crossmatch BBK History Checked Assessment & Plan - Assessment and Plan (Free Text) Assessment: 66M with PMH of GERD, anemia, obesity, COPD and many other comorbidities and PSH including incisional hernia repair with abdominal pain, partial small bowel obstruction, and GI bleed Hgb: 7.4 CT: mild and moderately dilated small bowel loops in a ventral hernia with partial collapse in the distal small bowel. Contrast reached the colon. No free air Plan: - No emergent surgical intervention indicated at this time as patient is not fully obstructed - Continue to trend CBC and CMP - Follow up GI recs - Serial abdominal exams - NPO - Agressive fluid resuscitation - Electrolyte supplementation - Pain and nausea medication PRN - GI/DVT ppx Patient seen and discussed with Dr. Rene Camacho, PGY2 Thank you for this consult
[2017-05-19] MEDS: Lactated Ringer's 1,000 ML IV SCH (19:44)
[2017-05-20] MEDS: Lactated Ringer's 1,000 ML IV SCH ×3 (00:43→14:02)
--- NOTE | 2017-05-20 08:54 | CP.PCM.PN ---
Subjective - Date & Time of Evaluation Date of Evaluation: 05/20/17 Time of Evaluation: 06:40 - Subjective Subjective: Patient seen and examined at bedside this AM. MICHOACANOEO. Patient states that his pain is improved, denies nausea and vomiting, and is passing gas Objective - Vital Signs/Intake and Output Vital Signs (last 24 hours): Temp Pulse Resp BP Pulse Ox 98.4 F 72 18 115/69 99 05/20/17 08:17 05/20/17 08:17 05/20/17 08:17 05/20/17 08:17 05/20/17 08:17 - Medications Medications: Current Medications Albuterol (Ventolin Hfa 90 Mcg/Actuation (8 G)) 2 puff INH Q6H PRN PRN Reason: Shortness of Breath Ergocalciferol (Drisdol 50,000 Intl Units Cap) 1 cap PO SAT [facility] Gabapentin (Neurontin) 600 mg PO TID [facility] Lactated Ringer's (Lactated Ringer's) 1,000 mls @ 150 mls/hr IV .Q6H40M [facility] Last Admin: 05/20/17 00:43 Dose: Not Given Influenza Virus Vaccine (Afluria (Pf)(18yr & Older)) 0.5 ml IM .ONCE ONE Stop: 05/20/17 09:01 Losartan Potassium (Cozaar) 100 mg PO DAILY [facility] Metformin HCl (Glucophage) 500 mg PO BIDWM [facility] Morphine Sulfate (Morphine) 2 mg IVP Q4 PRN PRN Reason: Pain, moderate (4-7) Multivitamins/Minerals (Therapeutic-M Tab) 1 tab PO DAILY [facility] Ondansetron HCl (Zofran Inj) 4 mg IVP Q6 PRN PRN Reason: Nausea/Vomiting Pantoprazole Sodium (Protonix Ec Tab) 40 mg PO DAILY [facility] Pantoprazole Sodium (Protonix Inj) 40 mg IVP DAILY [facility] Pneumococcal Polyvalent Vaccine (Pneumovax 23 Vaccine) 0.5 ml IM .ONCE ONE Stop: 05/20/17 09:01 Sitagliptin Phosphate (Januvia) 100 mg PO DAILY [facility] Tramadol HCl (Ultram) 100 mg PO TID [facility] - Labs Labs: 05/19/17 11:34 05/19/17 11:34 PT 12.5 Seconds (9.8-13.1) 05/19/17 11:34 INR 1.2 (0.9-1.2) 05/19/17 11:34 APTT 23.5 Seconds (25.6-37.1) L 05/19/17 11:34 - Constitutional Appears: Non-toxic, No Acute Distress - Head Exam Head Exam: ATRAUMATIC, NORMOCEPHALIC - Eye Exam Eye Exam: Normal appearance. absent: Conjunctival injection, Scleral icterus - ENT Exam ENT Exam: Mucous Membranes Moist, Normal Oropharynx - Respiratory Exam Respiratory Exam: NORMAL BREATHING PATTERN. absent: Accessory Muscle Use, Respiratory Distress - GI/Abdominal Exam GI & Abdominal Exam: Distended, Soft, Tenderness Additional comments: diastasis recti - Extremities Exam Extremities Exam: Pedal Edema. absent: Calf Tenderness, Tenderness - Back Exam Back Exam: absent: CVA tenderness (L), CVA tenderness (R) - Neurological Exam Neurological Exam: Alert, Awake, Oriented x3 - Psychiatric Exam Psychiatric exam: Normal Affect, Normal Mood - Skin Skin Exam: Dry, Normal Color, Warm Assessment and Plan - Assessment and Plan (Free Text) Assessment: 66M with recurrent incisional hernia with partial small bowel obstruction and GI bleed Plan: - No surgical intervention indicated at this time - Continue to trend CBC and CMP - Follow up GI recs - NPO--Advance diet per GI recs - Agressive fluid resuscitation - Electrolyte supplementation - Pain and nausea medication PRN - Encourage ambulation and incentive spirometer use - GI/DVT ppx Discussed with Dr. López--further recs per him Meredith Camacho, PGY2
[2017-05-20] MEDS ORDERED: Influenza Vaccine 18yr & older 0.5 ML/45 MCG SYR IM ONE (09:00)
[2017-05-20] MEDS ORDERED: Pneumococcal 23-Valent Vaccine IM ONE (09:00)
--- NOTE | 2017-05-20 09:01 | CP.PCM.HP ---
History of Present Illness - History of Present Illness History of Present Illness: pt admitted for sbo/gi bleeding. no pain at present states has had pain for a long time but worsened over last coupld days. no f/c, n/v/d. at present feels better and is passing gas. no further bloody bm. states had a coupld bloody bm at home. bw noted from [facility] abd tender and firm ruq surgical note appriciated. pending gi eval, ?? endo s/p 2 unit prb. pending am labs Present on Admission - Present on Admission Any Indicators Present on Admission: Yes History of Uncontrolled Diabetes: Yes Review of Systems - Gastrointestinal Gastrointestinal: As Per HPI, Abdominal Pain, Hematochezia Past Patient History - Past Medical History & Family History Past Medical History?: Yes - Past Social History Smoking Status: Former Smoker - CARDIAC Hx Cardiac Disorders: Yes Hx Hypercholesterolemia: Yes Hx Hypertension: Yes Hx Peripheral Edema: Yes (BLE) - PULMONARY Hx Respiratory Disorders: Yes Hx Chronic Obstructive Pulmonary Disease (COPD): Yes - NEUROLOGICAL Hx Neurological Disorder: Yes Other/Comment: Hx Diabetic Neuropathy BLE - HEENT Hx HEENT Problems: Yes Other/Comment: eyeglasses - RENAL Hx Chronic Kidney Disease: No - ENDOCRINE/METABOLIC Hx Endocrine Disorders: Yes Hx Diabetes Mellitus Type 2: Yes - HEMATOLOGICAL/ONCOLOGICAL Hx Blood Disorders: Yes Hx AIDS: No Hx Anemia: Yes Hx Hepatitis C: No Hx Human Immunodeficiency Virus (HIV): No - INTEGUMENTARY Hx Dermatological Problems: No - MUSCULOSKELETAL/RHEUMATOLOGICAL Hx Musculoskeletal Disorders: Yes Hx Falls: Yes (1 month ago denies fx) Hx Fractures: No - GASTROINTESTINAL Hx Gastrointestinal Disorders: Yes Hx Gastroesophageal Reflux: Yes - GENITOURINARY/GYNECOLOGICAL Hx Genitourinary Disorders: No - PSYCHIATRIC Hx Psychophysiologic Disorder: Yes Hx Substance Use: Yes (opiod use and heroin, quit 1 yr ago) Other/Comment: hx of etoh abuse, quit 1 yr ago - SURGICAL HISTORY Hx Surgeries: Yes Hx Appendectomy: Yes (Exploratory Laporatomy for ruptured AP) Hx Cholecystectomy: Yes - ANESTHESIA Hx Anesthesia: Yes Hx Anesthesia Reactions: No Meds Allergies/Adverse Reactions: Allergies Allergy/AdvReac Type Severity Reaction Status Date / Time Penicillins Allergy RASH Verified 12/13/15 13:38 Physical Exam - Constitutional Appears: Well, Non-toxic, No Acute Distress - Head Exam Head Exam: ATRAUMATIC, NORMAL INSPECTION, NORMOCEPHALIC - Eye Exam Eye Exam: EOMI, Normal appearance, PERRL Pupil Exam: NORMAL ACCOMODATION, PERRL - ENT Exam ENT Exam: Mucous Membranes Moist, Normal Exam - Neck Exam Neck exam: Positive for: Normal Inspection - Respiratory Exam Respiratory Exam: Clear to Auscultation Bilateral, NORMAL BREATHING PATTERN - Cardiovascular Exam Cardiovascular Exam: REGULAR RHYTHM, RRR, +S1, +S2 - GI/Abdominal Exam GI & Abdominal Exam: Distended, Firm, Normal Bowel Sounds, Soft. absent: Tenderness - Extremities Exam Extremities exam: Positive for: full ROM, normal capillary refill, normal inspection, pedal pulses present - Back Exam Back exam: NORMAL INSPECTION - Neurological Exam Neurological exam: Alert, CN II-XII Intact, Normal Gait, Oriented x3, Reflexes Normal - Psychiatric Exam Psychiatric exam: Normal Affect, Normal Mood - Skin Skin Exam: Dry, Intact, Normal Color, Warm Results - Vital Signs Recent Vital Signs: Last Vital Signs Temp 98.4 F 05/20/17 08:17 Pulse 72 05/20/17 08:17 Resp 18 05/20/17 08:17 BP 115/69 05/20/17 08:17 Pulse Ox 99 05/20/17 08:17 - Labs Result Diagrams: 05/19/17 11:34 05/19/17 11:34 Labs: Laboratory Results - last 24 hr 05/19/17 05/19/17 05/19/17 10:00 10:03 11:34 WBC 5.2 RBC 3.11 L Hgb 7.4 L Hct 23.5 L MCV 75.8 L D MCH 23.7 L MCHC 31.3 L RDW 16.1 H Plt Count 118 L D MPV 10.3 Neut % (Auto) 72.7 Lymph % (Auto) 17.2 L [place] % (Auto) 9.3 Eos % (Auto) 0.2 Baso % (Auto) 0.6 Neut # 3.8 Lymph # 0.9 L [place] # 0.5 Eos # 0.0 Baso # 0.0 PT INR APTT pO2 VBG pH VBG pCO2 VBG HCO3 VBG Total CO2 VBG O2 Sat (Calc) VBG Base Excess VBG Potassium Glucose Lactate FiO2 Sodium Potassium Chloride Carbon Dioxide Anion Gap BUN Creatinine Est GFR ( Amer) Est GFR (Non-Af Amer) POC Glucose (mg/dL) 190 H Random Glucose Calcium Total Bilirubin AST ALT Alkaline Phosphatase Total Protein Albumin Globulin Albumin/Globulin Ratio Lipase Venous Blood Potassium Urine Color Yellow Urine Clarity Slighty-cloudy Urine pH 6.0 Ur Specific [place] 1.021 Urine Protein Negative Urine Glucose (UA) Neg Urine Ketones Negative Urine Blood Negative Urine Nitrate Negative Urine Bilirubin Moderate Urine Urobilinogen 4.0 Ur Leukocyte Esterase Neg Ur Squamous Epith Cells < 1 Amorphous Sediment Rare H Blood Type Blood Type Confirm Antibody Screen Crossmatch BBK History Checked 05/19/17 05/19/17 05/19/17 11:34 11:34 11:34 WBC RBC Hgb Hct MCV MCH MCHC RDW Plt Count MPV Neut % (Auto) Lymph % (Auto) [place] % (Auto) Eos % (Auto) Baso % (Auto) Neut # Lymph # [place] # Eos # Baso # PT 12.5 INR 1.2 APTT 23.5 L pO2 VBG pH VBG pCO2 VBG HCO3 VBG Total CO2 VBG O2 Sat (Calc) VBG Base Excess VBG Potassium Glucose Lactate FiO2 Sodium 141 Potassium 4.0 Chloride 108 H Carbon Dioxide 23 Anion Gap 14 BUN 12 Creatinine 0.9 Est GFR ( Amer) > 60 Est GFR (Non-Af Amer) > 60 POC Glucose (mg/dL) Random Glucose 148 H Calcium 8.5 Total Bilirubin 0.7 AST 26 ALT 32 Alkaline Phosphatase 81 Total Protein 7.1 Albumin 3.5 Globulin 3.6 Albumin/Globulin Ratio 1.0 Lipase 113 Venous Blood Potassium Urine Color Urine Clarity Urine pH Ur Specific [place] Urine Protein Urine Glucose (UA) Urine Ketones Urine Blood Urine Nitrate Urine Bilirubin Urine Urobilinogen Ur Leukocyte Esterase Ur Squamous Epith Cells Amorphous Sediment Blood Type B POSITIVE Blood Type Confirm Antibody Screen Negative Crossmatch See Detail BBK History Checked No verified bt 05/19/17 05/19/17 05/19/17 12:43 16:20 18:04 WBC RBC Hgb Hct MCV MCH MCHC RDW Plt Count MPV Neut % (Auto) Lymph % (Auto) [place] % (Auto) Eos % (Auto) Baso % (Auto) Neut # Lymph # [place] # Eos # Baso # PT INR APTT pO2 24 L VBG pH 7.41 VBG pCO2 42 VBG HCO3 24.8 VBG Total CO2 27.9 VBG O2 Sat (Calc) 51.2 VBG Base Excess 1.7 VBG Potassium 3.3 L Glucose 105 Lactate 2.0 FiO2 21.0 Sodium 141.0 Potassium Chloride 110.0 H Carbon Dioxide Anion Gap BUN Creatinine Est GFR ( Amer) Est GFR (Non-Af Amer) POC Glucose (mg/dL) 135 H Random Glucose Calcium Total Bilirubin AST ALT Alkaline Phosphatase Total Protein Albumin Globulin Albumin/Globulin Ratio Lipase Venous Blood Potassium 3.3 L Urine Color Urine Clarity Urine pH Ur Specific [place] Urine Protein Urine Glucose (UA) Urine Ketones Urine Blood Urine Nitrate Urine Bilirubin Urine Urobilinogen Ur Leukocyte Esterase Ur Squamous Epith Cells Amorphous Sediment Blood Type Blood Type Confirm B POSITIVE Antibody Screen Crossmatch BBK History Checked 05/19/17 05/20/17 23:27 05:07 WBC RBC Hgb Hct MCV MCH MCHC RDW Plt Count MPV Neut % (Auto) Lymph % (Auto) [place] % (Auto) Eos % (Auto) Baso % (Auto) Neut # Lymph # [place] # Eos # Baso # PT INR APTT pO2 VBG pH VBG pCO2 VBG HCO3 VBG Total CO2 VBG O2 Sat (Calc) VBG Base Excess VBG Potassium Glucose Lactate FiO2 Sodium Potassium Chloride Carbon Dioxide Anion Gap BUN Creatinine Est GFR ( Amer) Est GFR (Non-Af Amer) POC Glucose (mg/dL) 143 H 137 H Random Glucose Calcium Total Bilirubin AST ALT Alkaline Phosphatase Total Protein Albumin Globulin Albumin/Globulin Ratio Lipase Venous Blood Potassium Urine Color Urine Clarity Urine pH Ur Specific [place] Urine Protein Urine Glucose (UA) Urine Ketones Urine Blood Urine Nitrate Urine Bilirubin Urine Urobilinogen Ur Leukocyte Esterase Ur Squamous Epith Cells Amorphous Sediment Blood Type Blood Type Confirm Antibody Screen Crossmatch BBK History Checked Assessment & Plan (1) DVT prophylaxis Assessment and Plan: scd nad ae hose hold anticoag r/i gib ambulation Status: Acute (2) GI bleed Assessment and Plan: gi surgery ppi npo ivf pain and nausea control Status: Acute (3) Partial bowel obstruction Assessment and Plan: surgery-no intervention planned. monitor npo Status: Acute (4) Severe anemia Assessment and Plan: s/p 2 unit prbc. pending am labs. further transfusion prn Status: Acute (5) Diabetes 1.5, managed as type 2 Assessment and Plan: cont hoem meds, dietary control, fsbg bmi is 37.3 dx [id number] control, outpt f/u Status: Acute Decision To Admit - Pt Status Changed To: Hospital Disposition Of: Inpatient - Admit Certification Admit to Inpatient:: After my assessment, the patient will require hospitalization for at least two midnights. This is because of the severity of symptoms shown, intensity of services needed, and/or the medical risk in this patient being treated as an outpatient. - . Bed Request Type: Telemetry Admitting Physician: Vinicio Beltran
[2017-05-20 09:04] LABS: BASO % 1.2 % (0.0-2.0); EOS % 0.8 % (0.0-4.0); LYMPH # 0.9 K/uL (1.0-4.3); LYMPH % 27.9 % (20.0-40.0); MEAN CELL VOLUME 78.2 fl (80.0-94.0); MEAN CORPUSCULAR HEMOGLOBIN 24.9 pg (27.0-31.0); MEAN CORPUSCULAR HGB CONC 31.9 g/dL (33.0-37.0); MEAN PLATELET VOLUME 9.2 fl (7.2-11.7); MONO # 0.4 K/uL (0.0-0.8); MONO % 11.6 % (0.0-10.0); NEUT # 1.8 K/uL (1.8-7.0); NEUT % 58.5 % (50.0-75.0); NRBC % 0.1 % (0.0-0.0); RED CELL DISTRIBUTION WIDTH 16.7 % (11.5-14.5); WHITE BLOOD COUNT 3.1 K/uL (4.8-10.8)
[2017-05-20 09:15] LABS: ALKALINE PHOSPHATASE 82 U/L (38-126); ALT/SGPT 30 U/L (21-72); AST/SGOT 31 U/L (17-59); BILIRUBIN,TOTAL 1.3 mg/dl (0.2-1.3); BLOOD UREA NITROGEN 9 mg/dl (9-20); CARBON DIOXIDE 24 mmol/L (22-30); CHLORIDE 112 mmol/L (98-107); GFR AFRICAN-AMERICAN > 60; GLUCOSE,RANDOM 143 mg/dL (75-110); SODIUM 147 mmol/l (132-148); TOTAL PROTEIN 7.6 G/DL (6.3-8.2)
[2017-05-20] MEDS: Multivitamin With Minerals Tab PO SCH (09:19)
[2017-05-20] MEDS: Pantoprazole 40 mg EC Tab PO SCH (09:22)
--- NOTE | 2017-05-20 10:49 | CP.PCM.CON ---
<Cathy Foote - Last Filed: 05/20/17 13:37> History of Present Illness - History of Present Illness History of Present Illness: Vijay Palacios is a 66M w/ hx of HLD, HTN, DM, COPD, and anemia who presents with abd pain and found to have anemia. Pt states that he has had chronic abd pain for years. He states that the pain is diffuse. He cannot recall any aggravating or alleviating factors. He states that the pain has not progressively worsens and usually alleviated after time. He denies any pain post -prandialy. He denies any melena, hematesesis, coffee-ground emesis, nausea and vomiting. Pt initially presented with a hgb of 7.4. He was given 2 units of PBC which increased his hgb to 9.4. Since admission does not report any gross GI bleed and did not have any vital changes. Patient denies any sick contacts or foreign travel. CT shows a recurrent incisional hernia right lateral to the previous surgery containing loops of small bowel. There are mildly dilated proximal small bowel loops with decompression distal to the hernia but contrast travels through to the colon. No free air. PMH: HLD, HTN, DM, COPD, anemia PSH: appendectomy, cholecystectomy, ventral hernia repair All: PCN Social: former smoker >30 pack years, quit 1 year ago. Former heavy drinker. Admits to former multiple drug use Endoscopy hx: none ROS: 12point ROS conducted, neg other than above Past Patient History - Past Medical History & Family History Past Medical History?: Yes - Past Social History Smoking Status: Former Smoker - CARDIAC Hx Cardiac Disorders: Yes Hx Hypercholesterolemia: Yes Hx Hypertension: Yes Hx Peripheral Edema: Yes (BLE) - PULMONARY Hx Respiratory Disorders: Yes Hx Chronic Obstructive Pulmonary Disease (COPD): Yes - NEUROLOGICAL Hx Neurological Disorder: Yes Other/Comment: Hx Diabetic Neuropathy BLE - HEENT Hx HEENT Problems: Yes Other/Comment: eyeglasses - RENAL Hx Chronic Kidney Disease: No - ENDOCRINE/METABOLIC Hx Endocrine Disorders: Yes Hx Diabetes Mellitus Type 2: Yes - HEMATOLOGICAL/ONCOLOGICAL Hx Blood Disorders: Yes Hx AIDS: No Hx Anemia: Yes Hx Hepatitis C: No Hx Human Immunodeficiency Virus (HIV): No - INTEGUMENTARY Hx Dermatological Problems: No - MUSCULOSKELETAL/RHEUMATOLOGICAL Hx Musculoskeletal Disorders: Yes Hx Falls: Yes (1 month ago denies fx) Hx Fractures: No - GASTROINTESTINAL Hx Gastrointestinal Disorders: Yes Hx Gastroesophageal Reflux: Yes - GENITOURINARY/GYNECOLOGICAL Hx Genitourinary Disorders: No - PSYCHIATRIC Hx Psychophysiologic Disorder: Yes Hx Substance Use: Yes (opiod use and heroin, 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 ago) Other/Comment: hx of etoh abuse, quit 1 yr ago - SURGICAL HISTORY Hx Surgeries: Yes Hx Appendectomy: Yes (Exploratory Laporatomy for ruptured AP) Hx Cholecystectomy: Yes - ANESTHESIA Hx Anesthesia: Yes Hx Anesthesia Reactions: No Meds Allergies/Adverse Reactions: Allergies Allergy/AdvReac Type Severity Reaction Status Date / Time Penicillins Allergy RASH Verified 12/13/15 13:38 - Medications Medications: Current Medications Albuterol (Ventolin Hfa 90 Mcg/Actuation (8 G)) 2 puff INH Q6H PRN PRN Reason: Shortness of Breath Ergocalciferol (Drisdol 50,000 Intl Units Cap) 1 cap PO SAT [facility] Gabapentin (Neurontin) 600 mg PO TID [facility] Last Admin: 05/20/17 09:18 Dose: 600 mg Lactated Ringer's (Lactated Ringer's) 1,000 mls @ 150 mls/hr IV .Q6H40M [facility] Last Admin: 05/20/17 09:17 Dose: 150 mls/hr Losartan Potassium (Cozaar) 100 mg PO DAILY [facility] Last Admin: 05/20/17 09:16 Dose: 100 mg Metformin HCl (Glucophage) 500 mg PO BIDWM [facility] Last Admin: 05/20/17 09:17 Dose: 500 mg Morphine Sulfate (Morphine) 2 mg IVP Q4 PRN PRN Reason: Pain, moderate (4-7) Multivitamins/Minerals (Therapeutic-M Tab) 1 tab PO DAILY [facility] Last Admin: 05/20/17 09:19 Dose: 1 tab Ondansetron HCl (Zofran Inj) 4 mg IVP Q6 PRN PRN Reason: Nausea/Vomiting Pantoprazole Sodium (Protonix Ec Tab) 40 mg PO DAILY [facility] Last Admin: 05/20/17 09:22 Dose: Not Given Pantoprazole Sodium (Protonix Inj) 40 mg IVP DAILY [facility] Last Admin: 05/20/17 09:19 Dose: 40 mg Sitagliptin Phosphate (Januvia) 100 mg PO DAILY [facility] Last Admin: 05/20/17 09:17 Dose: 100 mg Tramadol HCl (Ultram) 100 mg PO TID [facility] Last Admin: 05/20/17 09:38 Dose: 100 mg Physical Exam - Constitutional Appears: Well, Non-toxic, No Acute Distress - Head Exam Head Exam: ATRAUMATIC, NORMOCEPHALIC - Eye Exam Eye Exam: Normal appearance - ENT Exam ENT Exam: Mucous Membranes Moist, Normal Exam - Respiratory Exam Respiratory Exam: Clear to Auscultation Bilateral, NORMAL BREATHING PATTERN. absent: Prolonged Expiratory Phase, Rales, Rhonchi, Wheezes, Respiratory Distress - Cardiovascular Exam Cardiovascular Exam: REGULAR RHYTHM, +S1, +S2 - GI/Abdominal Exam GI & Abdominal Exam: Hernia, Normal Bowel Sounds, Soft. absent: Distended, Firm , Guarding, Organomegaly - Neurological Exam Neurological exam: Alert, Oriented x3 - Psychiatric Exam Psychiatric exam: Normal Affect, Normal Mood - Skin Skin Exam: Dry, Intact, Normal Color, Warm Results - Vital Signs Recent Vital Signs: Last Vital Signs Temp 98.4 F 05/20/17 08:17 Pulse 72 05/20/17 09:16 Resp 18 05/20/17 08:17 BP 115/69 05/20/17 09:16 Pulse Ox 99 05/20/17 08:17 - Labs Result Diagrams: 05/20/17 08:45 05/20/17 08:45 Labs: Laboratory Results - last 24 hr 05/19/17 05/19/17 05/19/17 10:00 10:03 11:34 WBC 5.2 RBC 3.11 L Hgb 7.4 L Hct 23.5 L MCV 75.8 L D MCH 23.7 L MCHC 31.3 L RDW 16.1 H Plt Count 118 L D MPV 10.3 Neut % (Auto) 72.7 Lymph % (Auto) 17.2 L Barber % (Auto) 9.3 Eos % (Auto) 0.2 Baso % (Auto) 0.6 Neut # 3.8 Lymph # 0.9 L Barber # 0.5 Eos # 0.0 Baso # 0.0 PT INR APTT pO2 VBG pH VBG pCO2 VBG HCO3 VBG Total CO2 VBG O2 Sat (Calc) VBG Base Excess VBG Potassium Glucose Lactate FiO2 Sodium Potassium Chloride Carbon Dioxide Anion Gap BUN Creatinine Est GFR ( Amer) Est GFR (Non-Af Amer) POC Glucose (mg/dL) 190 H Random Glucose Calcium Total Bilirubin AST ALT Alkaline Phosphatase Total Protein Albumin Globulin Albumin/Globulin Ratio Lipase Venous Blood Potassium Urine Color Yellow Urine Clarity Slighty-cloudy Urine pH 6.0 Ur Specific [place] 1.021 Urine Protein Negative Urine Glucose (UA) Neg Urine Ketones Negative Urine Blood Negative Urine Nitrate Negative Urine Bilirubin Moderate Urine Urobilinogen 4.0 Ur Leukocyte Esterase Neg Ur Squamous Epith Cells < 1 Amorphous Sediment Rare H Blood Type Blood Type Confirm Antibody Screen Crossmatch BBK History Checked 05/19/17 05/19/17 05/19/17 11:34 11:34 11:34 WBC RBC Hgb Hct MCV MCH MCHC RDW Plt Count MPV Neut % (Auto) Lymph % (Auto) Barber % (Auto) Eos % (Auto) Baso % (Auto) Neut # Lymph # Barber # Eos # Baso # PT 12.5 INR 1.2 APTT 23.5 L pO2 VBG pH VBG pCO2 VBG HCO3 VBG Total CO2 VBG O2 Sat (Calc) VBG Base Excess VBG Potassium Glucose Lactate FiO2 Sodium 141 Potassium 4.0 Chloride 108 H Carbon Dioxide 23 Anion Gap 14 BUN 12 Creatinine 0.9 Est GFR ( Amer) > 60 Est GFR (Non-Af Amer) > 60 POC Glucose (mg/dL) Random Glucose 148 H Calcium 8.5 Total Bilirubin 0.7 AST 26 ALT 32 Alkaline Phosphatase 81 Total Protein 7.1 Albumin 3.5 Globulin 3.6 Albumin/Globulin Ratio 1.0 Lipase 113 Venous Blood Potassium Urine Color Urine Clarity Urine pH Ur Specific [place] Urine Protein Urine Glucose (UA) Urine Ketones Urine Blood Urine Nitrate Urine Bilirubin Urine Urobilinogen Ur Leukocyte Esterase Ur Squamous Epith Cells Amorphous Sediment Blood Type B POSITIVE Blood Type Confirm Antibody Screen Negative Crossmatch See Detail BBK History Checked No verified bt 05/19/17 05/19/17 05/19/17 12:43 16:20 18:04 WBC RBC Hgb Hct MCV MCH MCHC RDW Plt Count MPV Neut % (Auto) Lymph % (Auto) Barber % (Auto) Eos % (Auto) Baso % (Auto) Neut # Lymph # Barber # Eos # Baso # PT INR APTT pO2 24 L VBG pH 7.41 VBG pCO2 42 VBG HCO3 24.8 VBG Total CO2 27.9 VBG O2 Sat (Calc) 51.2 VBG Base Excess 1.7 VBG Potassium 3.3 L Glucose 105 Lactate 2.0 FiO2 21.0 Sodium 141.0 Potassium Chloride 110.0 H Carbon Dioxide Anion Gap BUN Creatinine Est GFR ( Amer) Est GFR (Non-Af Amer) POC Glucose (mg/dL) 135 H Random Glucose Calcium Total Bilirubin AST ALT Alkaline Phosphatase Total Protein Albumin Globulin Albumin/Globulin Ratio Lipase Venous Blood Potassium 3.3 L Urine Color Urine Clarity Urine pH Ur Specific [place] Urine Protein Urine Glucose (UA) Urine Ketones Urine Blood Urine Nitrate Urine Bilirubin Urine Urobilinogen Ur Leukocyte Esterase Ur Squamous Epith Cells Amorphous Sediment Blood Type Blood Type Confirm B POSITIVE Antibody Screen Crossmatch BBK History Checked 05/19/17 05/20/17 05/20/17 23:27 05:07 08:45 WBC 3.1 L RBC 3.71 L Hgb 9.3 L Hct 29.0 L MCV 78.2 L D MCH 24.9 L MCHC 31.9 L RDW 16.7 H Plt Count 111 L MPV 9.2 Neut % (Auto) 58.5 Lymph % (Auto) 27.9 Barber % (Auto) 11.6 H Eos % (Auto) 0.8 Baso % (Auto) 1.2 Neut # 1.8 Lymph # 0.9 L Barber # 0.4 Eos # 0.0 Baso # 0.0 PT INR APTT pO2 VBG pH VBG pCO2 VBG HCO3 VBG Total CO2 VBG O2 Sat (Calc) VBG Base Excess VBG Potassium Glucose Lactate FiO2 Sodium Potassium Chloride Carbon Dioxide Anion Gap BUN Creatinine Est GFR ( Amer) Est GFR (Non-Af Amer) POC Glucose (mg/dL) 143 H 137 H Random Glucose Calcium Total Bilirubin AST ALT Alkaline Phosphatase Total Protein Albumin Globulin Albumin/Globulin Ratio Lipase Venous Blood Potassium Urine Color Urine Clarity Urine pH Ur Specific [place] Urine Protein Urine Glucose (UA) Urine Ketones Urine Blood Urine Nitrate Urine Bilirubin Urine Urobilinogen Ur Leukocyte Esterase Ur Squamous Epith Cells Amorphous Sediment Blood Type Blood Type Confirm Antibody Screen Crossmatch BBK History Checked 05/20/17 08:45 WBC RBC Hgb Hct MCV MCH MCHC RDW Plt Count MPV Neut % (Auto) Lymph % (Auto) Barber % (Auto) Eos % (Auto) Baso % (Auto) Neut # Lymph # Barber # Eos # Baso # PT INR APTT pO2 VBG pH VBG pCO2 VBG HCO3 VBG Total CO2 VBG O2 Sat (Calc) VBG Base Excess VBG Potassium Glucose Lactate FiO2 Sodium 147 Potassium 4.0 Chloride 112 H Carbon Dioxide 24 Anion Gap 15 BUN 9 Creatinine 0.9 Est GFR ( Amer) > 60 Est GFR (Non-Af Amer) > 60 POC Glucose (mg/dL) Random Glucose 143 H Calcium 9.0 Total Bilirubin 1.3 AST 31 ALT 30 Alkaline Phosphatase 82 Total Protein 7.6 Albumin 3.9 Globulin 3.7 Albumin/Globulin Ratio 1.0 Lipase Venous Blood Potassium Urine Color Urine Clarity Urine pH Ur Specific [place] Urine Protein Urine Glucose (UA) Urine Ketones Urine Blood Urine Nitrate Urine Bilirubin Urine Urobilinogen Ur Leukocyte Esterase Ur Squamous Epith Cells Amorphous Sediment Blood Type Blood Type Confirm Antibody Screen Crossmatch BBK History Checked Assessment & Plan - Assessment and Plan (Free Text) Assessment: Vijay Palacios is a 66M w/ hx of HTN, obesity, IV drug use who present with abd pain and microcytic anemia. DDx: iron-def, chronic disease, bone marrow suppression; r/o GI pathology including malignancy, AVM, polyps, diverticular Microcytic Anemia etiology unknown Chronic abd pain Ventral Hernia Plan: -s/p 2 units PRBC -recommend only transfusing to keep hgb >7 -monitor hgb -there is no active bleeding -pt is stable -would recommend endoscopy and colonscopy as oupt -contact information to Dr. cronin office given D/W Dr. Cronin <Alec MÉNDEZ,[facility] - Last Filed: 05/20/17 16:28> Meds - Medications Medications: Current Medications Albuterol (Ventolin Hfa 90 Mcg/Actuation (8 G)) 2 puff INH Q6H PRN PRN Reason: Shortness of Breath Ergocalciferol (Drisdol 50,000 Intl Units Cap) 1 cap PO SAT [facility] Gabapentin (Neurontin) 600 mg PO TID [facility] Last Admin: 05/20/17 12:10 Dose: 600 mg Lactated Ringer's (Lactated Ringer's) 1,000 mls @ 150 mls/hr IV .Q6H40M [facility] Last Admin: 05/20/17 14:02 Dose: 150 mls/hr Losartan Potassium (Cozaar) 100 mg PO DAILY [facility] Last Admin: 05/20/17 09:16 Dose: 100 mg Metformin HCl (Glucophage) 500 mg PO BIDWM [facility] Last Admin: 05/20/17 09:17 Dose: 500 mg Morphine Sulfate (Morphine) 2 mg IVP Q4 PRN PRN Reason: Pain, moderate (4-7) Multivitamins/Minerals (Therapeutic-M Tab) 1 tab PO DAILY [facility] Last Admin: 05/20/17 09:19 Dose: 1 tab Ondansetron HCl (Zofran Inj) 4 mg IVP Q6 PRN PRN Reason: Nausea/Vomiting Pantoprazole Sodium (Protonix Ec Tab) 40 mg PO DAILY [facility] Last Admin: 05/20/17 09:22 Dose: Not Given Pantoprazole Sodium (Protonix Inj) 40 mg IVP DAILY [facility] Last Admin: 05/20/17 09:19 Dose: 40 mg Sitagliptin Phosphate (Januvia) 100 mg PO DAILY [facility] Last Admin: 05/20/17 09:17 Dose: 100 mg Tramadol HCl (Ultram) 100 mg PO TID [facility] Last Admin: 05/20/17 13:14 Dose: 100 mg Results - Vital Signs Recent Vital Signs: Last Vital Signs Temp 98.1 F 05/20/17 15:42 Pulse 80 05/20/17 15:42 Resp 20 05/20/17 15:42 BP 116/67 05/20/17 15:42 Pulse Ox 96 05/20/17 15:42 - Labs Result Diagrams: 05/20/17 08:45 05/20/17 08:45 Labs: Laboratory Results - last 24 hr 05/19/17 05/19/17 05/19/17 10:03 11:34 16:20 WBC RBC Hgb Hct MCV MCH MCHC RDW Plt Count MPV Neut % (Auto) Lymph % (Auto) Barber % (Auto) Eos % (Auto) Baso % (Auto) Neut # Lymph # Barber # Eos # Baso # pO2 24 L VBG pH 7.41 VBG pCO2 42 VBG HCO3 24.8 VBG Total CO2 27.9 VBG O2 Sat (Calc) 51.2 VBG Base Excess 1.7 VBG Potassium 3.3 L Sodium 141.0 Chloride 110.0 H Glucose 105 Lactate 2.0 FiO2 21.0 Potassium Carbon Dioxide Anion Gap BUN Creatinine Est GFR ( Amer) Est GFR (Non-Af Amer) POC Glucose (mg/dL) 190 H Random Glucose Calcium Iron TIBC % Saturation Ferritin Total Bilirubin AST ALT Alkaline Phosphatase Total Protein Albumin Globulin Albumin/Globulin Ratio Vitamin B12 Venous Blood Potassium 3.3 L Blood Type B POSITIVE Antibody Screen Negative Crossmatch See Detail BBK History Checked No verified bt 05/19/17 05/19/17 05/20/17 18:04 23:27 05:07 WBC RBC Hgb Hct MCV MCH MCHC RDW Plt Count MPV Neut % (Auto) Lymph % (Auto) Barber % (Auto) Eos % (Auto) Baso % (Auto) Neut # Lymph # Barber # Eos # Baso # pO2 VBG pH VBG pCO2 VBG HCO3 VBG Total CO2 VBG O2 Sat (Calc) VBG Base Excess VBG Potassium Sodium Chloride Glucose Lactate FiO2 Potassium Carbon Dioxide Anion Gap BUN Creatinine Est GFR ( Amer) Est GFR (Non-Af Amer) POC Glucose (mg/dL) 135 H 143 H 137 H Random Glucose Calcium Iron TIBC % Saturation Ferritin Total Bilirubin AST ALT Alkaline Phosphatase Total Protein Albumin Globulin Albumin/Globulin Ratio Vitamin B12 Venous Blood Potassium Blood Type Antibody Screen Crossmatch BBK History Checked 05/20/17 05/20/17 05/20/17 08:45 08:45 08:45 WBC 3.1 L RBC 3.71 L Hgb 9.3 L Hct 29.0 L MCV 78.2 L D MCH 24.9 L MCHC 31.9 L RDW 16.7 H Plt Count 111 L MPV 9.2 Neut % (Auto) 58.5 Lymph % (Auto) 27.9 Barber % (Auto) 11.6 H Eos % (Auto) 0.8 Baso % (Auto) 1.2 Neut # 1.8 Lymph # 0.9 L Barber # 0.4 Eos # 0.0 Baso # 0.0 pO2 VBG pH VBG pCO2 VBG HCO3 VBG Total CO2 VBG O2 Sat (Calc) VBG Base Excess VBG Potassium Sodium 147 Chloride 112 H Glucose Lactate FiO2 Potassium 4.0 Carbon Dioxide 24 Anion Gap 15 BUN 9 Creatinine 0.9 Est GFR ( Amer) > 60 Est GFR (Non-Af Amer) > 60 POC Glucose (mg/dL) Random Glucose 143 H Calcium 9.0 Iron 57 TIBC 434 % Saturation 13 L Ferritin Total Bilirubin 1.3 AST 31 ALT 30 Alkaline Phosphatase 82 Total Protein 7.6 Albumin 3.9 Globulin 3.7 Albumin/Globulin Ratio 1.0 Vitamin B12 Venous Blood Potassium Blood Type Antibody Screen Crossmatch BBK History Checked 05/20/17 05/20/17 05/20/17 08:45 11:02 15:52 WBC RBC Hgb Hct MCV MCH MCHC RDW Plt Count MPV Neut % (Auto) Lymph % (Auto) Barber % (Auto) Eos % (Auto) Baso % (Auto) Neut # Lymph # Barber # Eos # Baso # pO2 VBG pH VBG pCO2 VBG HCO3 VBG Total CO2 VBG O2 Sat (Calc) VBG Base Excess VBG Potassium Sodium Chloride Glucose Lactate FiO2 Potassium Carbon Dioxide Anion Gap BUN Creatinine Est GFR ( Amer) Est GFR (Non-Af Amer) POC Glucose (mg/dL) 129 H 205 H Random Glucose Calcium Iron TIBC % Saturation Ferritin 12.1 Total Bilirubin AST ALT Alkaline Phosphatase Total Protein Albumin Globulin Albumin/Globulin Ratio Vitamin B12 510 Venous Blood Potassium Blood Type Antibody Screen Crossmatch BBK History Checked Attending/Attestation - Attestation I have personally seen and examined this patient.: Yes I have fully participated in the care of the patient.: Yes I have reviewed all pertinent clinical information: Yes Notes (Text): 05/20/17 16:25 Patient seen and examined with GI fellow on rounds. This is a 66 yr old M w/ hx of HTN, obesity, IV drug use who present with abdominal pain now resolved and microcytic anemia. DDx: iron-def, chronic disease, bone marrow suppression; r/o GI pathology including malignancy, AVM, polyps, diverticular. Physical exam without any s/s of bowel obstruction. s/p 2 units PRBC which he responded. No overt GI bleeding. Can get EGD/ colonoscopy as outpatient. Information given for my office for outpatient procedure
[2017-05-20 11:02] LABS: IRON 57 ug/dL (49-181)
--- NOTE | 2017-05-20 15:15 | PQF GENQUE ---
Jeffrey Mandujano HEALTH CARE FACILITIES INSPECTOR, Etiology of GI Bleed? if known after the work up is completed OR: Unable to determine H and P: diagnoses include: (2) GI bleed: PPI, NPO, IVF, pain and nausea control GI consult pending This form is a permanent part of the medical record Clarification of your documentation is requested to better reflect the severity of illness and intensity of treatment of your patient. Indicators present [] Specify: [] [] Specify: [] [] Specify: [] [] Specify: [] Location in the medical record that reflects the above clinical findings: [] Treatment Provided: [] PHYSICIAN'S RESPONSE Based on your medical judgment of the clinical indicators outlined above please clarify the following: [] Practitioner response unkn at this time [] If unable to determine, please check the box, sign and date. Present On Admission (POA) Indicator: [] Present at the time of admission x [] Not present at the time of admission [] Clinically Undetermined In responding to this query, please exercise your independent professional judgment. The fact that a question is asked does not imply that any particular answer is desired or expected. Thank you for your clarification on this documentation. If you have any questions please call. * Thank you, Poly Nielsen RN BSN ext. #[phone]: Chitra Sainz RN MTDD
--- NOTE | 2017-05-20 15:20 | PQF GENQUE ---
Nicole Mandujano CALL OR CONTACT CENTRE OPERATOR, Is there an associated diagnosis to go along with the following clinical lab: : WBC:3.1 ;RBC:3.71 ; H/H:9.3/29.0; Plt Ct.:111: and etiology if known ? OR: Disagree OR: Other explanation of clinical finding This form is a permanent part of the medical record Clarification of your documentation is requested to better reflect the severity of illness and intensity of treatment of your patient. Indicators present [] Specify: [] [] Specify: [] [] Specify: [] [] Specify: [] Location in the medical record that reflects the above clinical findings: [] Treatment Provided: [] PHYSICIAN'S RESPONSE Based on your medical judgment of the clinical indicators outlined above please clarify the following: [] Practitioner response anemia r/t gib, itp unkn etiology, likley gib [] If unable to determine, please check the box, sign and date. Present On Admission (POA) Indicator: [] Present at the time of admission [] Not present at the time of admission [] Clinically Undetermined In responding to this query, please exercise your independent professional judgment. The fact that a question is asked does not imply that any particular answer is desired or expected. Thank you for your clarification on this documentation. If you have any questions please call. * Thank you, Poly Nielsen RN ext. #[phone]: Chitra Sainz delinquent tax collector assistant SIENA
[2017-05-20 17:56] LABS: FOLATE > 20.0 ng/mL
[2017-05-20] MEDS: Potassium Ch 20mEq in D5-1/2NS 1,000 ML IV SCH (19:00)
[2017-05-21] MEDS: Potassium Ch 20mEq in D5-1/2NS 1,000 ML IV SCH ×3 (01:48→13:30)
[2017-05-21 07:37] LABS: EOS % 1.5 % (0.0-4.0); HEMATOCRIT 26.4 % (35.0-51.0); LYMPH # 0.6 K/uL (1.0-4.3); LYMPH % 24.7 % (20.0-40.0); MEAN CELL VOLUME 79.2 fl (80.0-94.0); MEAN CORPUSCULAR HEMOGLOBIN 24.7 pg (27.0-31.0); MEAN CORPUSCULAR HGB CONC 31.2 g/dL (33.0-37.0); MEAN PLATELET VOLUME 10.2 fl (7.2-11.7); MONO # 0.3 K/uL (0.0-0.8); MONO % 13.2 % (0.0-10.0); NEUT # 1.5 K/uL (1.8-7.0); NEUT % 59.6 % (50.0-75.0); NRBC % 0.1 % (0.0-0.0); RED CELL DISTRIBUTION WIDTH 17.1 % (11.5-14.5); WHITE BLOOD COUNT 2.5 K/uL (4.8-10.8)
[2017-05-21 07:50] LABS: ALB/GLOB RATIO 0.9 (1.0-2.1); ALKALINE PHOSPHATASE 67 U/L (38-126); AST/SGOT 26 U/L (17-59); BILIRUBIN,TOTAL 0.8 mg/dl (0.2-1.3); BLOOD UREA NITROGEN 6 mg/dl (9-20); CALCIUM 8.3 mg/dL (8.4-10.2); CARBON DIOXIDE 22 mmol/L (22-30); CHLORIDE 113 mmol/L (98-107); GFR AFRICAN-AMERICAN > 60; GLUCOSE,RANDOM 162 mg/dL (75-110); POTASSIUM 3.9 MMOL/L (3.6-5.0); SODIUM 146 mmol/l (132-148); TOTAL PROTEIN 6.5 G/DL (6.3-8.2)
[2017-05-21 08:06] LABS: ALT/SGPT 28 U/L (21-72)
[2017-05-21] MEDS ORDERED: Ergocalciferol 50,000 Intl Units Cap PO SCH (09:00)
--- NOTE | 2017-05-21 09:22 | CP.PCM.PN ---
<Kerrie GalindoJessicamaya - Last Filed: 05/21/17 09:19> Subjective - Date & Time of Evaluation Date of Evaluation: 05/21/17 Time of Evaluation: 09:19 - Subjective Subjective: Surgery: Dr. Jenkins Patient doing well today. Denies pain in the abdomen. Denies bowel movement since being admitted. He denies noticing any further bleeding episodes. He states the GI doctor saw him and he is for scopes on Tuesday. Objective - Vital Signs/Intake and Output Vital Signs (last 24 hours): Temp Pulse Resp BP Pulse Ox 98.3 F 68 20 143/82 100 05/21/17 08:20 05/21/17 08:20 05/21/17 08:20 05/21/17 08:20 05/21/17 08:20 - Medications Medications: Current Medications Albuterol (Ventolin Hfa 90 Mcg/Actuation (8 G)) 2 puff INH Q6H PRN PRN Reason: Shortness of Breath Ergocalciferol (Drisdol 50,000 Intl Units Cap) 1 cap PO SAT [facility] Gabapentin (Neurontin) 600 mg PO TID [facility] Last Admin: 05/20/17 17:27 Dose: 600 mg Potassium Chloride/Dextrose/Sod Cl (Potassium Chl 20 Meq In D5-1/2ns) 1,000 mls @ 150 mls/hr IV .Q6H40M [facility] Stop: 05/21/17 17:18 Last Admin: 05/21/17 01:48 Dose: 150 mls/hr Losartan Potassium (Cozaar) 100 mg PO DAILY [facility] Last Admin: 05/20/17 09:16 Dose: 100 mg Metformin HCl (Glucophage) 500 mg PO BIDWM [facility] Last Admin: 05/20/17 17:27 Dose: 500 mg Morphine Sulfate (Morphine) 2 mg IVP Q4 PRN PRN Reason: Pain, moderate (4-7) Multivitamins/Minerals (Therapeutic-M Tab) 1 tab PO DAILY [facility] Last Admin: 05/20/17 09:19 Dose: 1 tab Ondansetron HCl (Zofran Inj) 4 mg IVP Q6 PRN PRN Reason: Nausea/Vomiting Pantoprazole Sodium (Protonix Ec Tab) 40 mg PO DAILY [facility] Last Admin: 05/20/17 09:22 Dose: Not Given Pantoprazole Sodium (Protonix Inj) 40 mg IVP DAILY [facility] Last Admin: 05/20/17 09:19 Dose: 40 mg Sitagliptin Phosphate (Januvia) 100 mg PO DAILY [facility] Last Admin: 05/20/17 09:17 Dose: 100 mg Tramadol HCl (Ultram) 100 mg PO TID [facility] Last Admin: 05/20/17 17:28 Dose: Not Given - Labs Labs: 05/21/17 07:00 05/21/17 05:30 PT 12.5 Seconds (9.8-13.1) 05/19/17 11:34 INR 1.2 (0.9-1.2) 05/19/17 11:34 APTT 23.5 Seconds (25.6-37.1) L 05/19/17 11:34 - Constitutional Appears: Non-toxic, No Acute Distress - Head Exam Head Exam: ATRAUMATIC, NORMOCEPHALIC - Eye Exam Eye Exam: EOMI, Normal appearance - ENT Exam ENT Exam: Mucous Membranes Moist - Respiratory Exam Respiratory Exam: NORMAL BREATHING PATTERN. absent: Prolonged Expiratory Phase - Cardiovascular Exam Cardiovascular Exam: REGULAR RHYTHM. absent: Tachycardia - GI/Abdominal Exam GI & Abdominal Exam: Soft, Hernia. absent: Guarding, Rigid, Tenderness, Rebound - Neurological Exam Neurological Exam: Alert, Awake - Psychiatric Exam Psychiatric exam: Normal Affect, Normal Mood - Skin Skin Exam: Normal Color, Warm Assessment and Plan - Assessment and Plan (Free Text) Assessment: 66 y/o male admitted for GI bleed w/ recurrent ventral wall hernia- nonobstructing Plan: -cont CLD -scope per GI -transfuse prn per primary -monitor for bowel function -encourage OOB -no acute surgical intervention at this time -will follow -d/w Dr. Jenkins [facility] PGY3 <Vijay Jenkins - Last Filed: 05/21/17 13:54> Subjective - Date & Time of Evaluation Time of Evaluation: 13:35 - Subjective Subjective: Patient was seen and examined at the bedside. Agree with resident's note above. Objective - Vital Signs/Intake and Output Vital Signs (last 24 hours): Temp Pulse Resp BP Pulse Ox 98.3 F 68 18 115/65 100 05/21/17 12:15 05/21/17 12:15 05/21/17 12:15 05/21/17 12:15 05/21/17 12:15 - Medications Medications: Current Medications Albuterol (Ventolin Hfa 90 Mcg/Actuation (8 G)) 2 puff INH Q6H PRN PRN Reason: Shortness of Breath Ergocalciferol (Drisdol 50,000 Intl Units Cap) 1 cap PO SAT [facility] Last Admin: 05/21/17 10:03 Dose: 1 cap Gabapentin (Neurontin) 600 mg PO TID [facility] Last Admin: 05/21/17 12:14 Dose: 600 mg Potassium Chloride/Dextrose/Sod Cl (Potassium Chl 20 Meq In D5-1/2ns) 1,000 mls @ 150 mls/hr IV .Q6H40M [facility] Stop: 05/21/17 17:18 Last Admin: 05/21/17 11:21 Dose: 150 mls/hr Insulin Human Regular (Humulin R) 0 units SC ACHS [facility] PRN Reason: Protocol Losartan Potassium (Cozaar) 100 mg PO DAILY [facility] Last Admin: 05/21/17 10:03 Dose: 100 mg Metformin HCl (Glucophage) 500 mg PO BIDWM [facility] Last Admin: 05/21/17 10:04 Dose: 500 mg Morphine Sulfate (Morphine) 2 mg IVP Q4 PRN PRN Reason: Pain, moderate (4-7) Multivitamins/Minerals (Therapeutic-M Tab) 1 tab PO DAILY [facility] Last Admin: 05/21/17 10:05 Dose: 1 tab Ondansetron HCl (Zofran Inj) 4 mg IVP Q6 PRN PRN Reason: Nausea/Vomiting Pantoprazole Sodium (Protonix Ec Tab) 40 mg PO DAILY [facility] Last Admin: 05/21/17 10:05 Dose: Not Given Pantoprazole Sodium (Protonix Inj) 40 mg IVP DAILY [facility] Last Admin: 05/21/17 10:05 Dose: 40 mg Sitagliptin Phosphate (Januvia) 100 mg PO DAILY [facility] Last Admin: 05/21/17 10:04 Dose: 100 mg Tramadol HCl (Ultram) 100 mg PO TID [facility] Last Admin: 05/21/17 12:13 Dose: Not Given - Labs Labs: 05/21/17 07:00 05/21/17 05:30 PT 12.5 Seconds (9.8-13.1) 05/19/17 11:34 INR 1.2 (0.9-1.2) 05/19/17 11:34 APTT 23.5 Seconds (25.6-37.1) L 05/19/17 11:34 Assessment and Plan - Assessment and Plan (Free Text) Plan: - advance diet as tolerated - repeat labs in am
[2017-05-21] MEDS: Multivitamin With Minerals Tab PO SCH (10:05)
[2017-05-21] MEDS: Pantoprazole 40 mg EC Tab PO SCH (10:05)
--- NOTE | 2017-05-21 10:29 | CP.PCM.PN ---
Subjective - Date & Time of Evaluation Date of Evaluation: 05/21/17 Time of Evaluation: 10:29 - Subjective Subjective: pt doing well, no f/c, n/v/d. no further blood in bm. hgb up to 9.3 then today 8.2 mild ruq pain. less distention/firmness Objective - Vital Signs/Intake and Output Vital Signs (last 24 hours): Temp Pulse Resp BP Pulse Ox 98.3 F 68 20 143/82 100 05/21/17 08:20 05/21/17 10:03 05/21/17 08:20 05/21/17 10:03 05/21/17 08:20 - Medications Medications: Current Medications Albuterol (Ventolin Hfa 90 Mcg/Actuation (8 G)) 2 puff INH Q6H PRN PRN Reason: Shortness of Breath Ergocalciferol (Drisdol 50,000 Intl Units Cap) 1 cap PO SAT [facility] Last Admin: 05/21/17 10:03 Dose: 1 cap Gabapentin (Neurontin) 600 mg PO TID [facility] Last Admin: 05/21/17 10:04 Dose: 600 mg Potassium Chloride/Dextrose/Sod Cl (Potassium Chl 20 Meq In D5-1/2ns) 1,000 mls @ 150 mls/hr IV .Q6H40M [facility] Stop: 05/21/17 17:18 Last Admin: 05/21/17 01:48 Dose: 150 mls/hr Losartan Potassium (Cozaar) 100 mg PO DAILY [facility] Last Admin: 05/21/17 10:03 Dose: 100 mg Metformin HCl (Glucophage) 500 mg PO BIDWM [facility] Last Admin: 05/21/17 10:04 Dose: 500 mg Morphine Sulfate (Morphine) 2 mg IVP Q4 PRN PRN Reason: Pain, moderate (4-7) Multivitamins/Minerals (Therapeutic-M Tab) 1 tab PO DAILY [facility] Last Admin: 05/21/17 10:05 Dose: 1 tab Ondansetron HCl (Zofran Inj) 4 mg IVP Q6 PRN PRN Reason: Nausea/Vomiting Pantoprazole Sodium (Protonix Ec Tab) 40 mg PO DAILY [facility] Last Admin: 05/21/17 10:05 Dose: Not Given Pantoprazole Sodium (Protonix Inj) 40 mg IVP DAILY [facility] Last Admin: 05/21/17 10:05 Dose: 40 mg Sitagliptin Phosphate (Januvia) 100 mg PO DAILY [facility] Last Admin: 05/21/17 10:04 Dose: 100 mg Tramadol HCl (Ultram) 100 mg PO TID [facility] Last Admin: 05/21/17 10:05 Dose: Not Given - Labs Labs: 05/21/17 07:00 05/21/17 05:30 PT 12.5 Seconds (9.8-13.1) 05/19/17 11:34 INR 1.2 (0.9-1.2) 05/19/17 11:34 APTT 23.5 Seconds (25.6-37.1) L 05/19/17 11:34 - Constitutional Appears: Well, Non-toxic, No Acute Distress - Head Exam Head Exam: ATRAUMATIC, NORMAL INSPECTION, NORMOCEPHALIC - Eye Exam Eye Exam: EOMI, Normal appearance, PERRL Pupil Exam: NORMAL ACCOMODATION, PERRL - ENT Exam ENT Exam: Mucous Membranes Moist, Normal Exam - Neck Exam Neck Exam: Full ROM, Normal Inspection. absent: Lymphadenopathy - Respiratory Exam Respiratory Exam: Clear to Ausculation Bilateral, NORMAL BREATHING PATTERN - Cardiovascular Exam Cardiovascular Exam: REGULAR RHYTHM, RRR, +S1, +S2. absent: Murmur - GI/Abdominal Exam GI & Abdominal Exam: Distended, Firm, Soft, Normal Bowel Sounds. absent: Tenderness - Extremities Exam Extremities Exam: Full ROM, Normal Capillary Refill, Normal Inspection. absent : Joint Swelling, Pedal Edema - Back Exam Back Exam: NORMAL INSPECTION - Neurological Exam Neurological Exam: Alert, Awake, CN II-XII Intact, Normal Gait, Oriented x3 - Psychiatric Exam Psychiatric exam: Normal Affect, Normal Mood - Skin Skin Exam: Dry, Intact, Normal Color, Warm Assessment and Plan (1) DVT prophylaxis Status: Acute (2) GI bleed Status: Acute (3) Partial bowel obstruction Status: Acute (4) Severe anemia Status: Acute (5) Diabetes 1.5, managed as type 2 Status: Acute - Assessment and Plan (Free Text) Assessment: (1) DVT prophylaxis Assessment and Plan: scd nad ae hose hold anticoag r/i gib ambulation Status: Acute (2) GI bleed Assessment and Plan: gi surgery ppi npo ivf pain and nausea control Status: Acute (3) Partial bowel obstruction Assessment and Plan: surgery-no intervention planned. monitor npo Status: Acute (4) Severe anemia Assessment and Plan: s/p 2 unit prbc. pending am labs. further transfusion prn Status: Acute (5) Diabetes 1.5, managed as type 2 Assessment and Plan: cont hoem meds, dietary control, fsbg bmi is 37.3 dx [id number] control, outpt f/u transfuse less than 7 downgrade to m/s
[2017-05-21] MEDS: Insulin Regular 100 units/ml SC SCH ×2 (17:48→21:23)
[2017-05-22] MEDS: Insulin Regular 100 units/ml SC SCH ×4 (06:53→23:00)
[2017-05-22 08:16] LABS: BASO % 0.7 % (0.0-2.0); EOS % 1.4 % (0.0-4.0); HEMATOCRIT 27.4 % (35.0-51.0); LYMPH # 0.7 K/uL (1.0-4.3); LYMPH % 23.8 % (20.0-40.0); MEAN CELL VOLUME 79.2 fl (80.0-94.0); MEAN CORPUSCULAR HEMOGLOBIN 24.6 pg (27.0-31.0); MEAN PLATELET VOLUME 10.5 fl (7.2-11.7); MONO # 0.4 K/uL (0.0-0.8); MONO % 12.6 % (0.0-10.0); NEUT # 1.7 K/uL (1.8-7.0); NEUT % 61.5 % (50.0-75.0); NRBC % 0.2 % (0.0-0.0); RED CELL DISTRIBUTION WIDTH 17.4 % (11.5-14.5); WHITE BLOOD COUNT 2.8 K/uL (4.8-10.8)
[2017-05-22 08:29] LABS: ALKALINE PHOSPHATASE 70 U/L (38-126); ALT/SGPT 29 U/L (21-72); AST/SGOT 25 U/L (17-59); BILIRUBIN,TOTAL 0.8 mg/dl (0.2-1.3); BLOOD UREA NITROGEN 8 mg/dl (9-20); CALCIUM 8.4 mg/dL (8.4-10.2); CARBON DIOXIDE 22 mmol/L (22-30); CHLORIDE 111 mmol/L (98-107); GFR AFRICAN-AMERICAN > 60; GLUCOSE,RANDOM 122 mg/dL (75-110); SODIUM 145 mmol/l (132-148); TOTAL PROTEIN 6.7 G/DL (6.3-8.2)
[2017-05-22 08:31] LABS: POTASSIUM 3.8 MMOL/L (3.6-5.0)
[2017-05-22] MEDS: Multivitamin With Minerals Tab PO SCH (09:20)
[2017-05-22] MEDS: Pantoprazole 40 mg EC Tab PO SCH (09:23)
--- NOTE | 2017-05-22 09:59 | CP.PCM.PN ---
Subjective - Date & Time of Evaluation Date of Evaluation: 05/22/17 Time of Evaluation: 09:56 - Subjective Subjective: doign well, less pain. no f/c, n/v/d bw noted w/ pancytopenia but hgb stable in 8.5 no bleeding. all consults appriciated. Objective - Vital Signs/Intake and Output Vital Signs (last 24 hours): Temp Pulse Resp BP Pulse Ox 98.4 F 76 20 124/77 98 05/22/17 08:40 05/22/17 08:40 05/22/17 08:40 05/22/17 09:22 05/22/17 08:40 - Medications Medications: Current Medications Albuterol (Ventolin Hfa 90 Mcg/Actuation (8 G)) 2 puff INH Q6H PRN PRN Reason: Shortness of Breath Ergocalciferol (Drisdol 50,000 Intl Units Cap) 1 cap PO SAT [facility] Last Admin: 05/21/17 10:03 Dose: 1 cap Gabapentin (Neurontin) 600 mg PO TID [facility] Last Admin: 05/22/17 09:22 Dose: 600 mg Insulin Human Regular (Humulin R) 0 units SC ACHS [facility] PRN Reason: Protocol Last Admin: 05/22/17 06:53 Dose: Not Given Losartan Potassium (Cozaar) 100 mg PO DAILY [facility] Last Admin: 05/22/17 09:22 Dose: 100 mg Metformin HCl (Glucophage) 500 mg PO BIDWM [facility] Last Admin: 05/22/17 09:20 Dose: 500 mg Morphine Sulfate (Morphine) 2 mg IVP Q4 PRN PRN Reason: Pain, moderate (4-7) Multivitamins/Minerals (Therapeutic-M Tab) 1 tab PO DAILY [facility] Last Admin: 05/22/17 09:20 Dose: 1 tab Ondansetron HCl (Zofran Inj) 4 mg IVP Q6 PRN PRN Reason: Nausea/Vomiting Pantoprazole Sodium (Protonix Ec Tab) 40 mg PO DAILY [facility] Last Admin: 05/22/17 09:23 Dose: 40 mg Sitagliptin Phosphate (Januvia) 100 mg PO DAILY [facility] Last Admin: 05/22/17 09:22 Dose: 100 mg Tramadol HCl (Ultram) 100 mg PO TID [facility] Last Admin: 05/22/17 09:26 Dose: 100 mg - Labs Labs: 05/22/17 07:00 05/22/17 07:00 PT 12.5 Seconds (9.8-13.1) 05/19/17 11:34 INR 1.2 (0.9-1.2) 05/19/17 11:34 APTT 23.5 Seconds (25.6-37.1) L 05/19/17 11:34 - Constitutional Appears: Well, Non-toxic, No Acute Distress - Head Exam Head Exam: ATRAUMATIC, NORMAL INSPECTION, NORMOCEPHALIC - Eye Exam Eye Exam: EOMI, Normal appearance, PERRL Pupil Exam: NORMAL ACCOMODATION, PERRL - ENT Exam ENT Exam: Mucous Membranes Moist, Normal Exam - Neck Exam Neck Exam: Full ROM, Normal Inspection. absent: Lymphadenopathy - Respiratory Exam Respiratory Exam: Clear to Ausculation Bilateral, NORMAL BREATHING PATTERN - Cardiovascular Exam Cardiovascular Exam: REGULAR RHYTHM, RRR, +S1, +S2. absent: Murmur - GI/Abdominal Exam GI & Abdominal Exam: Soft, Normal Bowel Sounds. absent: Tenderness - Extremities Exam Extremities Exam: Full ROM, Normal Capillary Refill, Normal Inspection. absent : Joint Swelling, Pedal Edema - Back Exam Back Exam: NORMAL INSPECTION - Neurological Exam Neurological Exam: Alert, Awake, CN II-XII Intact, Normal Gait, Oriented x3 - Psychiatric Exam Psychiatric exam: Normal Affect, Normal Mood - Skin Skin Exam: Dry, Intact, Normal Color, Warm Assessment and Plan (1) DVT prophylaxis Status: Acute (2) GI bleed Status: Acute (3) Partial bowel obstruction Status: Acute (4) Severe anemia Status: Acute (5) Diabetes 1.5, managed as type 2 Status: Acute - Assessment and Plan (Free Text) Assessment: (1) DVT prophylaxis Assessment and Plan: scd nad ae hose hold anticoag r/i gib ambulation Status: Acute (2) GI bleed Assessment and Plan: gi surgery ppi ivf pain and nausea control Status: Acute (3) Partial bowel obstruction Assessment and Plan: surgery-no intervention planned. monitor adv diet as eliel, doing well Status: Acute (4) Severe anemia/pancytopenia Assessment and Plan: s/p 2 unit prbc. pending am labs. further transfusion prn heme/onc consult Status: Acute (5) Diabetes 1.5, managed as type 2 Assessment and Plan: cont hoem meds, dietary control, fsbg bmi is 37.3 dx [id number] control, outpt f/u transfuse less than 7
--- NOTE | 2017-05-22 11:53 | CP.PCM.PN ---
<Chana Pappas - Last Filed: 05/22/17 11:54> Subjective - Date & Time of Evaluation Date of Evaluation: 05/22/17 Time of Evaluation: 08:00 - Subjective Subjective: GENERAL SURGERY PROGRESS NOTE FOR DR. JENKINS Patient seen and examined at bedside. He reports feeling better than yesterday. He had some pain in his right abdomen last night but it is now resolved. He is tolerating CLD and denies nausea or vomiting. He had a BM yesterday which was brown/black per nursing notes. Objective - Vital Signs/Intake and Output Vital Signs (last 24 hours): Temp Pulse Resp BP Pulse Ox 98.4 F 76 20 124/77 98 05/22/17 08:40 05/22/17 08:40 05/22/17 08:40 05/22/17 09:22 05/22/17 08:40 - Medications Medications: Current Medications Albuterol (Ventolin Hfa 90 Mcg/Actuation (8 G)) 2 puff INH Q6H PRN PRN Reason: Shortness of Breath Ergocalciferol (Drisdol 50,000 Intl Units Cap) 1 cap PO SAT [facility] Last Admin: 05/21/17 10:03 Dose: 1 cap Gabapentin (Neurontin) 600 mg PO TID [facility] Last Admin: 05/22/17 09:22 Dose: 600 mg Insulin Human Regular (Humulin R) 0 units SC ACHS [facility] PRN Reason: Protocol Last Admin: 05/22/17 06:53 Dose: Not Given Losartan Potassium (Cozaar) 100 mg PO DAILY [facility] Last Admin: 05/22/17 09:22 Dose: 100 mg Metformin HCl (Glucophage) 500 mg PO BIDWM [facility] Last Admin: 05/22/17 09:20 Dose: 500 mg Morphine Sulfate (Morphine) 2 mg IVP Q4 PRN PRN Reason: Pain, moderate (4-7) Multivitamins/Minerals (Therapeutic-M Tab) 1 tab PO DAILY [facility] Last Admin: 05/22/17 09:20 Dose: 1 tab Ondansetron HCl (Zofran Inj) 4 mg IVP Q6 PRN PRN Reason: Nausea/Vomiting Pantoprazole Sodium (Protonix Ec Tab) 40 mg PO DAILY [facility] Last Admin: 05/22/17 09:23 Dose: 40 mg Sitagliptin Phosphate (Januvia) 100 mg PO DAILY [facility] Last Admin: 05/22/17 09:22 Dose: 100 mg Tramadol HCl (Ultram) 100 mg PO TID [facility] Last Admin: 05/22/17 09:26 Dose: 100 mg - Labs Labs: 05/22/17 07:00 05/22/17 07:00 PT 12.5 Seconds (9.8-13.1) 05/19/17 11:34 INR 1.2 (0.9-1.2) 05/19/17 11:34 APTT 23.5 Seconds (25.6-37.1) L 05/19/17 11:34 - Constitutional Appears: Non-toxic, No Acute Distress - Head Exam Head Exam: ATRAUMATIC, NORMAL INSPECTION - Respiratory Exam Respiratory Exam: NORMAL BREATHING PATTERN. absent: Respiratory Distress - Cardiovascular Exam Cardiovascular Exam: +S1, +S2 - GI/Abdominal Exam GI & Abdominal Exam: Soft, Tenderness (mild tenderness right and left of umbilicus). absent: Firm, Guarding, Rigid, Rebound - Neurological Exam Neurological Exam: Alert, Awake, Oriented x3 - Psychiatric Exam Psychiatric exam: Normal Affect, Normal Mood - Skin Skin Exam: Dry, Normal Color, Warm Assessment and Plan - Assessment and Plan (Free Text) Assessment: 66yo M with GI bleedin and recurrent ventral wall hernia - non obstructing - Pancytopenia, Hgb 8.5 - Continue CLD - Possible colonoscopy tomorrow - Encourage OOB - No acute surgical intervention at this time - Discussed plan with Dr. Alice Pappas PGY-3 <Vijay Jenkins - Last Filed: 05/22/17 14:00> Subjective - Date & Time of Evaluation Time of Evaluation: 13:25 - Subjective Subjective: Patient was seen and examined at the bedside. Agree with resident's note above. Objective - Vital Signs/Intake and Output Vital Signs (last 24 hours): Temp Pulse Resp BP Pulse Ox 98.4 F 76 20 124/77 98 05/22/17 08:40 05/22/17 08:40 05/22/17 08:40 05/22/17 09:22 05/22/17 08:40 - Medications Medications: Current Medications Albuterol (Ventolin Hfa 90 Mcg/Actuation (8 G)) 2 puff INH Q6H PRN PRN Reason: Shortness of Breath Ergocalciferol (Drisdol 50,000 Intl Units Cap) 1 cap PO SAT [facility] Last Admin: 05/21/17 10:03 Dose: 1 cap Gabapentin (Neurontin) 600 mg PO TID [facility] Last Admin: 05/22/17 09:22 Dose: 600 mg Insulin Human Regular (Humulin R) 0 units SC ACHS [facility] PRN Reason: Protocol Last Admin: 05/22/17 06:53 Dose: Not Given Losartan Potassium (Cozaar) 100 mg PO DAILY [facility] Last Admin: 05/22/17 09:22 Dose: 100 mg Metformin HCl (Glucophage) 500 mg PO BIDWM [facility] Last Admin: 05/22/17 09:20 Dose: 500 mg Morphine Sulfate (Morphine) 2 mg IVP Q4 PRN PRN Reason: Pain, moderate (4-7) Multivitamins/Minerals (Therapeutic-M Tab) 1 tab PO DAILY [facility] Last Admin: 05/22/17 09:20 Dose: 1 tab Ondansetron HCl (Zofran Inj) 4 mg IVP Q6 PRN PRN Reason: Nausea/Vomiting Pantoprazole Sodium (Protonix Ec Tab) 40 mg PO DAILY [facility] Last Admin: 05/22/17 09:23 Dose: 40 mg Sitagliptin Phosphate (Januvia) 100 mg PO DAILY [facility] Last Admin: 05/22/17 09:22 Dose: 100 mg Tramadol HCl (Ultram) 100 mg PO TID [facility] Last Admin: 05/22/17 09:26 Dose: 100 mg - Labs Labs: 05/22/17 07:00 05/22/17 07:00 PT 12.5 Seconds (9.8-13.1) 05/19/17 11:34 INR 1.2 (0.9-1.2) 05/19/17 11:34 APTT 23.5 Seconds (25.6-37.1) L 05/19/17 11:34 Assessment and Plan - Assessment and Plan (Free Text) Plan: - Continue regular diet - pain control - Monitor Hb/Hct - GI follow up - repeat labs in am - Will follow
--- NOTE | 2017-05-22 15:39 | CP.PCM.CON ---
History of Present Illness - History of Present Illness History of Present Illness: 66 year old male with a history of HL, HTN, DM, COPD, admitted with abdominal pain, found to be pancytopenic. The patient reports to increasing abdominal pain for 3-4 days. His pain was associated with blood bowel movements. He denies fevers and chills. He has no nausea/vomiting, and diarrhea. He is unaware of having blood problems in the past. He is currently s/p 2U PRBC and reports to feeling better. Past medical history: HL, HTN, DM, COPD Past surgical history: Ventral hernia repair, appendectomy, cholecystectomy Family history: Denies hematologic and oncologic problems Social history: Former tobacco and alcohol abuse, denies illicit drug use. Allergies: Penicillins Review of systems: All remaining review of systems including HEENT, cardiovascular, respiratory, gastrointestinal, genitourinary, musculoskeletal, dermatologic, neurologic, and psychiatric are negative unless mentioned in the HPI. Past Patient History - Past Medical History & Family History Past Medical History?: Yes - Past Social History Smoking Status: Former Smoker - CARDIAC Hx Cardiac Disorders: Yes Hx Hypercholesterolemia: Yes Hx Hypertension: Yes Hx Peripheral Edema: Yes (BLE) - PULMONARY Hx Respiratory Disorders: Yes Hx Chronic Obstructive Pulmonary Disease (COPD): Yes - NEUROLOGICAL Hx Neurological Disorder: Yes Other/Comment: Hx Diabetic Neuropathy BLE - HEENT Hx HEENT Problems: Yes Other/Comment: eyeglasses - RENAL Hx Chronic Kidney Disease: No - ENDOCRINE/METABOLIC Hx Endocrine Disorders: Yes Hx Diabetes Mellitus Type 2: Yes - HEMATOLOGICAL/ONCOLOGICAL Hx Blood Disorders: Yes Hx AIDS: No Hx Anemia: Yes Hx Hepatitis C: No Hx Human Immunodeficiency Virus (HIV): No - INTEGUMENTARY Hx Dermatological Problems: No - MUSCULOSKELETAL/RHEUMATOLOGICAL Hx Musculoskeletal Disorders: Yes Hx Falls: Yes (1 month ago denies fx) Hx Fractures: No - GASTROINTESTINAL Hx Gastrointestinal Disorders: Yes Hx Gastroesophageal Reflux: Yes - GENITOURINARY/GYNECOLOGICAL Hx Genitourinary Disorders: No - PSYCHIATRIC Hx Psychophysiologic Disorder: Yes Hx Substance Use: Yes (opiod use and heroin, quit 1 yr ago) Other/Comment: hx of etoh abuse, quit 1 yr ago - SURGICAL HISTORY Hx Surgeries: Yes Hx Appendectomy: Yes (Exploratory Laporatomy for ruptured AP) Hx Cholecystectomy: Yes - ANESTHESIA Hx Anesthesia: Yes Hx Anesthesia Reactions: No Meds Allergies/Adverse Reactions: Allergies Allergy/AdvReac Type Severity Reaction Status Date / Time Penicillins Allergy RASH Verified 12/13/15 13:38 - Medications Medications: Current Medications Albuterol (Ventolin Hfa 90 Mcg/Actuation (8 G)) 2 puff INH Q6H PRN PRN Reason: Shortness of Breath Ergocalciferol (Drisdol 50,000 Intl Units Cap) 1 cap PO SAT [facility] Last Admin: 05/21/17 10:03 Dose: 1 cap Gabapentin (Neurontin) 600 mg PO TID [facility] Last Admin: 05/22/17 09:22 Dose: 600 mg Insulin Human Regular (Humulin R) 0 units SC ACHS [facility] PRN Reason: Protocol Last Admin: 05/22/17 06:53 Dose: Not Given Losartan Potassium (Cozaar) 100 mg PO DAILY [facility] Last Admin: 05/22/17 09:22 Dose: 100 mg Metformin HCl (Glucophage) 500 mg PO BIDWM [facility] Last Admin: 05/22/17 09:20 Dose: 500 mg Morphine Sulfate (Morphine) 2 mg IVP Q4 PRN PRN Reason: Pain, moderate (4-7) Multivitamins/Minerals (Therapeutic-M Tab) 1 tab PO DAILY [facility] Last Admin: 05/22/17 09:20 Dose: 1 tab Ondansetron HCl (Zofran Inj) 4 mg IVP Q6 PRN PRN Reason: Nausea/Vomiting Pantoprazole Sodium (Protonix Ec Tab) 40 mg PO DAILY [facility] Last Admin: 05/22/17 09:23 Dose: 40 mg Sitagliptin Phosphate (Januvia) 100 mg PO DAILY [facility] Last Admin: 05/22/17 09:22 Dose: 100 mg Tramadol HCl (Ultram) 100 mg PO TID [facility] Last Admin: 05/22/17 09:26 Dose: 100 mg Physical Exam - Head Exam Head Exam: ATRAUMATIC - Eye Exam Eye Exam: Normal appearance - ENT Exam ENT Exam: Mucous Membranes Dry - Respiratory Exam Respiratory Exam: NORMAL BREATHING PATTERN - Cardiovascular Exam Cardiovascular Exam: +S1, +S2 - GI/Abdominal Exam GI & Abdominal Exam: Normal Bowel Sounds - Extremities Exam Extremities exam: Positive for: normal inspection - Neurological Exam Neurological exam: Oriented x3 - Psychiatric Exam Psychiatric exam: Normal Affect, Normal Mood - Skin Skin Exam: Warm Results - Vital Signs Recent Vital Signs: Last Vital Signs Temp 98.4 F 05/22/17 08:40 Pulse 76 05/22/17 08:40 Resp 20 05/22/17 08:40 BP 124/77 05/22/17 09:22 Pulse Ox 98 05/22/17 08:40 - Labs Result Diagrams: 05/22/17 07:00 05/22/17 07:00 Labs: Laboratory Results - last 24 hr 05/21/17 05/21/17 05/22/17 16:18 21:16 06:24 WBC RBC Hgb Hct MCV MCH MCHC RDW Plt Count MPV Neut % (Auto) Lymph % (Auto) [place] % (Auto) Eos % (Auto) Baso % (Auto) Neut # Lymph # [place] # Eos # Baso # Sodium Potassium Chloride Carbon Dioxide Anion Gap BUN Creatinine Est GFR ( Amer) Est GFR (Non-Af Amer) POC Glucose (mg/dL) 146 H 133 H 132 H Random Glucose Calcium Total Bilirubin AST ALT Alkaline Phosphatase Total Protein Albumin Globulin Albumin/Globulin Ratio 05/22/17 05/22/17 05/22/17 07:00 07:00 11:11 WBC 2.8 L RBC 3.46 L Hgb 8.5 L Hct 27.4 L MCV 79.2 L MCH 24.6 L MCHC 31.0 L RDW 17.4 H Plt Count 95 L MPV 10.5 Neut % (Auto) 61.5 Lymph % (Auto) 23.8 [place] % (Auto) 12.6 H Eos % (Auto) 1.4 Baso % (Auto) 0.7 Neut # 1.7 L Lymph # 0.7 L [place] # 0.4 Eos # 0.0 Baso # 0.0 Sodium 145 Potassium 3.8 Chloride 111 H Carbon Dioxide 22 Anion Gap 16 BUN 8 L Creatinine 0.8 Est GFR ( Amer) > 60 Est GFR (Non-Af Amer) > 60 POC Glucose (mg/dL) 189 H Random Glucose 122 H Calcium 8.4 Total Bilirubin 0.8 AST 25 ALT 29 Alkaline Phosphatase 70 Total Protein 6.7 Albumin 3.3 L Globulin 3.4 Albumin/Globulin Ratio 1.0 Assessment & Plan (1) Pancytopenia Assessment and Plan: splenomegaly; element of splenic sequestration iron deficiency; will start Venofer agree with PRBC transfusion support GI w/u will add hepatitis panel and HIV Thank you for this interesting consult. Status: Acute
[2017-05-23 00:02] VITALS: TEMP 97.9
[2017-05-23 06:56] LABS: ALB/GLOB RATIO 0.9 (1.0-2.1); ALKALINE PHOSPHATASE 73 U/L (38-126); ALT/SGPT 28 U/L (21-72); AST/SGOT 22 U/L (17-59); BASO % 0.8 % (0.0-2.0); BILIRUBIN,TOTAL 0.6 mg/dl (0.2-1.3); BLOOD UREA NITROGEN 10 mg/dl (9-20); CALCIUM 8.7 mg/dL (8.4-10.2); CARBON DIOXIDE 23 mmol/L (22-30); CHLORIDE 109 mmol/L (98-107); EOS % 1.1 % (0.0-4.0); GFR AFRICAN-AMERICAN > 60; GLUCOSE,RANDOM 130 mg/dL (75-110); HEMATOCRIT 27.1 % (35.0-51.0); LYMPH # 0.7 K/uL (1.0-4.3); LYMPH % 24.5 % (20.0-40.0); MEAN CELL VOLUME 78.3 fl (80.0-94.0); MEAN CORPUSCULAR HEMOGLOBIN 24.8 pg (27.0-31.0); MEAN CORPUSCULAR HGB CONC 31.7 g/dL (33.0-37.0); MONO # 0.3 K/uL (0.0-0.8); MONO % 11.7 % (0.0-10.0); NEUT # 1.8 K/uL (1.8-7.0); NEUT % 61.9 % (50.0-75.0); RED CELL DISTRIBUTION WIDTH 17.9 % (11.5-14.5); SODIUM 142 mmol/l (132-148); TOTAL PROTEIN 6.9 G/DL (6.3-8.2); WHITE BLOOD COUNT 2.9 K/uL (4.8-10.8)
[2017-05-23] MEDS: Insulin Regular 100 units/ml SC SCH ×2 (06:58→12:43)
--- NOTE | 2017-05-23 07:51 | CP.PCM.PN ---
<Meredith Camacho - Last Filed: 05/23/17 08:09> Subjective - Date & Time of Evaluation Date of Evaluation: 05/23/17 Time of Evaluation: 06:40 - Subjective Subjective: Patient seen and examined this AM. NAEO. Patient denies any pain, nausea, vomiting, or bloody bowel movements. Is tolerating a regular diet. Objective - Vital Signs/Intake and Output Vital Signs (last 24 hours): Temp Pulse Resp BP Pulse Ox 97.9 F 73 19 115/71 97 05/23/17 00:01 05/23/17 00:01 05/23/17 00:01 05/23/17 00:01 05/23/17 00:01 - Medications Medications: Current Medications Albuterol (Ventolin Hfa 90 Mcg/Actuation (8 G)) 2 puff INH Q6H PRN PRN Reason: Shortness of Breath Ergocalciferol (Drisdol 50,000 Intl Units Cap) 1 cap PO SAT [facility] Last Admin: 05/21/17 10:03 Dose: 1 cap Gabapentin (Neurontin) 600 mg PO TID [facility] Last Admin: 05/22/17 16:16 Dose: 600 mg Iron Sucrose 200 mg/ Sodium (Chloride) 110 mls @ 110 mls/hr IVPB DAILY [facility] Stop: 05/27/17 15:46 Last Admin: 05/22/17 18:37 Dose: 110 mls/hr Insulin Human Regular (Humulin R) 0 units SC ACHS [facility] PRN Reason: Protocol Last Admin: 05/23/17 06:58 Dose: 1 unit Losartan Potassium (Cozaar) 100 mg PO DAILY [facility] Last Admin: 05/22/17 09:22 Dose: 100 mg Metformin HCl (Glucophage) 500 mg PO BIDWM [facility] Last Admin: 05/22/17 16:17 Dose: 500 mg Morphine Sulfate (Morphine) 2 mg IVP Q4 PRN PRN Reason: Pain, moderate (4-7) Multivitamins/Minerals (Therapeutic-M Tab) 1 tab PO DAILY [facility] Last Admin: 05/22/17 09:20 Dose: 1 tab Ondansetron HCl (Zofran Inj) 4 mg IVP Q6 PRN PRN Reason: Nausea/Vomiting Pantoprazole Sodium (Protonix Ec Tab) 40 mg PO DAILY [facility] Last Admin: 05/22/17 09:23 Dose: 40 mg Sitagliptin Phosphate (Januvia) 100 mg PO DAILY [facility] Last Admin: 05/22/17 09:22 Dose: 100 mg Tramadol HCl (Ultram) 100 mg PO Q8@0700,1500,2300 [facility] Last Admin: 05/23/17 06:00 Dose: 100 mg - Labs Labs: 05/22/17 07:00 05/22/17 07:00 PT 12.5 Seconds (9.8-13.1) 05/19/17 11:34 INR 1.2 (0.9-1.2) 05/19/17 11:34 APTT 23.5 Seconds (25.6-37.1) L 05/19/17 11:34 - Constitutional Appears: Non-toxic, No Acute Distress - Head Exam Head Exam: ATRAUMATIC, NORMOCEPHALIC - Eye Exam Eye Exam: Normal appearance. absent: Conjunctival injection, Scleral icterus - ENT Exam ENT Exam: Mucous Membranes Moist, Normal Oropharynx - Respiratory Exam Respiratory Exam: NORMAL BREATHING PATTERN. absent: Accessory Muscle Use, Respiratory Distress - Cardiovascular Exam Cardiovascular Exam: RRR - GI/Abdominal Exam GI & Abdominal Exam: Distended, Soft, Tenderness (mild RLQ tenderness), Hernia ( hernia contents soft and mildly tender, non-reducible) - Extremities Exam Extremities Exam: absent: Calf Tenderness, Pedal Edema, Tenderness - Neurological Exam Neurological Exam: Alert, Awake, Oriented x3 - Psychiatric Exam Psychiatric exam: Normal Affect, Normal Mood - Skin Skin Exam: Dry, Normal Color, Warm Assessment and Plan - Assessment and Plan (Free Text) Assessment: 66yo M with GI bleeding and recurrent incisional abdominal hernia Plan: - Follow up hgb this AM - No surgical intervention indicated at this time. Hernia is not obstructing - Per GI, will get a outpatient colonoscopy to assess for GI bleed - Encourage OOB - Continue diet as tolerating - Patient is clear for discharge with follow up with Dr. López in his office as an outpatient Discussed plan with attending Meredith Camacho, [id number] <Vijay Jenkins - Last Filed: 05/23/17 10:30> Subjective - Date & Time of Evaluation Time of Evaluation: 09:35 - Subjective Subjective: Patient was seen and examined at the bedside. Agree with resident's note above. Objective - Vital Signs/Intake and Output Vital Signs (last 24 hours): Temp Pulse Resp BP Pulse Ox 97.9 F 68 20 110/72 98 05/23/17 08:28 05/23/17 08:56 05/23/17 08:28 05/23/17 08:56 05/23/17 08:28 - Medications Medications: Current Medications Albuterol (Ventolin Hfa 90 Mcg/Actuation (8 G)) 2 puff INH Q6H PRN PRN Reason: Shortness of Breath Ergocalciferol (Drisdol 50,000 Intl Units Cap) 1 cap PO SAT [facility] Last Admin: 05/21/17 10:03 Dose: 1 cap Gabapentin (Neurontin) 600 mg PO TID [facility] Last Admin: 05/23/17 08:57 Dose: 600 mg Iron Sucrose 200 mg/ Sodium (Chloride) 110 mls @ 110 mls/hr IVPB DAILY [facility] Stop: 05/27/17 15:46 Last Admin: 05/22/17 18:37 Dose: 110 mls/hr Insulin Human Regular (Humulin R) 0 units SC ACHS [facility] PRN Reason: Protocol Last Admin: 05/23/17 06:58 Dose: 1 unit Losartan Potassium (Cozaar) 100 mg PO DAILY [facility] Last Admin: 05/23/17 08:56 Dose: 100 mg Metformin HCl (Glucophage) 500 mg PO BIDWM [facility] Last Admin: 05/23/17 08:56 Dose: 500 mg Morphine Sulfate (Morphine) 2 mg IVP Q4 PRN PRN Reason: Pain, moderate (4-7) Multivitamins/Minerals (Therapeutic-M Tab) 1 tab PO DAILY [facility] Last Admin: 05/23/17 08:57 Dose: 1 tab Ondansetron HCl (Zofran Inj) 4 mg IVP Q6 PRN PRN Reason: Nausea/Vomiting Pantoprazole Sodium (Protonix Ec Tab) 40 mg PO DAILY [facility] Last Admin: 05/23/17 08:57 Dose: 40 mg Sitagliptin Phosphate (Januvia) 100 mg PO DAILY [facility] Last Admin: 05/23/17 08:56 Dose: 100 mg Tramadol HCl (Ultram) 100 mg PO Q8@0700,1500,2300 [facility] Last Admin: 05/23/17 06:00 Dose: 100 mg - Labs Labs: 05/23/17 06:20 05/23/17 06:20 PT 12.5 Seconds (9.8-13.1) 05/19/17 11:34 INR 1.2 (0.9-1.2) 05/19/17 11:34 APTT 23.5 Seconds (25.6-37.1) L 05/19/17 11:34
--- NOTE | 2017-05-23 08:11 | CP.PCM.PN ---
Subjective - Date & Time of Evaluation Date of Evaluation: 05/23/17 Time of Evaluation: 08:09 - Subjective Subjective: no complaints. no f/c, n/v/d. no further bleeding. no abd pain. bw noted. hgb stable d/c case w/ baldemar mcdermott now states pt was abusing heroin and alcohol up to 1 yr ago. splenomegly on ct is old finding. Objective - Vital Signs/Intake and Output Vital Signs (last 24 hours): Temp Pulse Resp BP Pulse Ox 97.9 F 73 19 115/71 97 05/23/17 00:01 05/23/17 00:01 05/23/17 00:01 05/23/17 00:01 05/23/17 00:01 - Medications Medications: Current Medications Albuterol (Ventolin Hfa 90 Mcg/Actuation (8 G)) 2 puff INH Q6H PRN PRN Reason: Shortness of Breath Ergocalciferol (Drisdol 50,000 Intl Units Cap) 1 cap PO SAT [facility] Last Admin: 05/21/17 10:03 Dose: 1 cap Gabapentin (Neurontin) 600 mg PO TID [facility] Last Admin: 05/22/17 16:16 Dose: 600 mg Iron Sucrose 200 mg/ Sodium (Chloride) 110 mls @ 110 mls/hr IVPB DAILY [facility] Stop: 05/27/17 15:46 Last Admin: 05/22/17 18:37 Dose: 110 mls/hr Insulin Human Regular (Humulin R) 0 units SC ACHS [facility] PRN Reason: Protocol Last Admin: 05/23/17 06:58 Dose: 1 unit Losartan Potassium (Cozaar) 100 mg PO DAILY [facility] Last Admin: 05/22/17 09:22 Dose: 100 mg Metformin HCl (Glucophage) 500 mg PO BIDWM [facility] Last Admin: 05/22/17 16:17 Dose: 500 mg Morphine Sulfate (Morphine) 2 mg IVP Q4 PRN PRN Reason: Pain, moderate (4-7) Multivitamins/Minerals (Therapeutic-M Tab) 1 tab PO DAILY [facility] Last Admin: 05/22/17 09:20 Dose: 1 tab Ondansetron HCl (Zofran Inj) 4 mg IVP Q6 PRN PRN Reason: Nausea/Vomiting Pantoprazole Sodium (Protonix Ec Tab) 40 mg PO DAILY [facility] Last Admin: 05/22/17 09:23 Dose: 40 mg Sitagliptin Phosphate (Januvia) 100 mg PO DAILY [facility] Last Admin: 05/22/17 09:22 Dose: 100 mg Tramadol HCl (Ultram) 100 mg PO Q8@0700,1500,2300 [facility] Last Admin: 05/23/17 06:00 Dose: 100 mg - Labs Labs: 05/23/17 06:20 05/23/17 06:20 PT 12.5 Seconds (9.8-13.1) 05/19/17 11:34 INR 1.2 (0.9-1.2) 05/19/17 11:34 APTT 23.5 Seconds (25.6-37.1) L 05/19/17 11:34 - Constitutional Appears: Well, Non-toxic, No Acute Distress - Head Exam Head Exam: ATRAUMATIC, NORMAL INSPECTION, NORMOCEPHALIC - Eye Exam Eye Exam: EOMI, Normal appearance, PERRL Pupil Exam: NORMAL ACCOMODATION, PERRL - ENT Exam ENT Exam: Mucous Membranes Moist, Normal Exam - Neck Exam Neck Exam: Full ROM, Normal Inspection. absent: Lymphadenopathy - Respiratory Exam Respiratory Exam: Clear to Ausculation Bilateral, NORMAL BREATHING PATTERN - Cardiovascular Exam Cardiovascular Exam: REGULAR RHYTHM, RRR, +S1, +S2. absent: Murmur - GI/Abdominal Exam GI & Abdominal Exam: Soft, Normal Bowel Sounds. absent: Tenderness - Extremities Exam Extremities Exam: Full ROM, Normal Capillary Refill, Normal Inspection. absent : Joint Swelling, Pedal Edema - Back Exam Back Exam: NORMAL INSPECTION - Neurological Exam Neurological Exam: Alert, Awake, CN II-XII Intact, Normal Gait, Oriented x3 - Psychiatric Exam Psychiatric exam: Normal Affect, Normal Mood - Skin Skin Exam: Dry, Intact, Normal Color, Warm Assessment and Plan (1) DVT prophylaxis Status: Acute (2) GI bleed Status: Acute (3) Partial bowel obstruction Status: Acute (4) Severe anemia Status: Acute (5) Diabetes 1.5, managed as type 2 Status: Acute - Assessment and Plan (Free Text) Assessment: (1) DVT prophylaxis Assessment and Plan: scd nad ae hose hold anticoag r/i gib ambulation Status: Acute (2) GI bleed Assessment and Plan: gi surgery ppi ivf pain and nausea control Status: Acute (3) Partial bowel obstruction Assessment and Plan: surgery-no intervention planned. monitor adv diet as eliel, doing well Status: Acute (4) Severe anemia/pancytopenia Assessment and Plan: s/p 2 unit prbc. pending am labs. further transfusion prn heme/onc consult hiv pending h/o substance abuse-likely causing the pancytopenia Status: Acute (5) Diabetes 1.5, managed as type 2 Assessment and Plan: cont hoem meds, dietary control, fsbg bmi is 37.3 dx [id number] control, outpt f/u transfuse less than 7
[2017-05-23 08:28] VITALS: BP 110/72; PULSE 68; RESP 20; O2SAT 98
[2017-05-23] MEDS: Multivitamin With Minerals Tab PO SCH (08:57)
[2017-05-23] MEDS: Pantoprazole 40 mg EC Tab PO SCH (08:57)
--- NOTE | 2017-05-23 11:28 | CP.PCM.DIS ---
Provider - Provider Date of Admission: 05/19/17 16:53 Attending physician: Vinicio Beltran MD Time Spent in preparation of Discharge (in minutes): 15 Diagnosis - Discharge Diagnosis (1) DVT prophylaxis Status: Acute (2) GI bleed Status: Acute (3) Partial bowel obstruction Status: Acute (4) Severe anemia Status: Acute (5) Diabetes 1.5, managed as type 2 Status: Acute Hospital Course - Lab Results Lab Results: Most Recent Lab Values WBC 2.9 K/uL (4.8-10.8) L 05/23/17 06:20 RBC 3.46 Mil/uL (4.40-5.90) L 05/23/17 06:20 Hgb 8.6 g/dL (12.0-18.0) L 05/23/17 06:20 Hct 27.1 % (35.0-51.0) L 05/23/17 06:20 MCV 78.3 fl (80.0-94.0) L 05/23/17 06:20 MCH 24.8 pg (27.0-31.0) L 05/23/17 06:20 MCHC 31.7 g/dL (33.0-37.0) L 05/23/17 06:20 RDW 17.9 % (11.5-14.5) H 05/23/17 06:20 Plt Count 92 K/uL (130-400) L 05/23/17 06:20 MPV 10.0 fl (7.2-11.7) 05/23/17 06:20 Neut % (Auto) 61.9 % (50.0-75.0) 05/23/17 06:20 Lymph % (Auto) 24.5 % (20.0-40.0) 05/23/17 06:20 [place] % (Auto) 11.7 % (0.0-10.0) H 05/23/17 06:20 Eos % (Auto) 1.1 % (0.0-4.0) 05/23/17 06:20 Baso % (Auto) 0.8 % (0.0-2.0) 05/23/17 06:20 Neut # 1.8 K/uL (1.8-7.0) 05/23/17 06:20 Lymph # 0.7 K/uL (1.0-4.3) L 05/23/17 06:20 [place] # 0.3 K/uL (0.0-0.8) 05/23/17 06:20 Eos # 0.0 K/uL (0.0-0.7) 05/23/17 06:20 Baso # 0.0 K/uL (0.0-0.2) 05/23/17 06:20 PT 12.5 Seconds (9.8-13.1) 05/19/17 11:34 INR 1.2 (0.9-1.2) 05/19/17 11:34 APTT 23.5 Seconds (25.6-37.1) L 05/19/17 11:34 pO2 24 mm/Hg (30-55) L 05/19/17 16:20 VBG pH 7.41 (7.32-7.43) 05/19/17 16:20 VBG pCO2 42 mmHg (40-60) 05/19/17 16:20 VBG HCO3 24.8 mmol/L 05/19/17 16:20 VBG Total CO2 27.9 mmol/L (22-28) 05/19/17 16:20 VBG O2 Sat (Calc) 51.2 % (40-65) 05/19/17 16:20 VBG Base Excess 1.7 mmol/L (0.0-2.0) 05/19/17 16:20 VBG Potassium 3.3 mmol/L (3.6-5.2) L 05/19/17 16:20 Sodium 141.0 mmol/L (132-148) 05/19/17 16:20 Chloride 110.0 mmol/L (98-107) H 05/19/17 16:20 Glucose 105 mg/dL (75-110) 05/19/17 16:20 Lactate 2.0 mmol/L (0.7-2.1) 05/19/17 16:20 FiO2 21.0 % 05/19/17 16:20 Sodium 142 mmol/l (132-148) 05/23/17 06:20 Potassium 4.0 MMOL/L (3.6-5.0) 05/23/17 06:20 Chloride 109 mmol/L (98-107) H 05/23/17 06:20 Carbon Dioxide 23 mmol/L (22-30) 05/23/17 06:20 Anion Gap 14 (10-20) 05/23/17 06:20 BUN 10 mg/dl (9-20) 05/23/17 06:20 Creatinine 0.9 mg/dL (0.8-1.5) 05/23/17 06:20 Est GFR ( Amer) > 60 05/23/17 06:20 Est GFR (Non-Af Amer) > 60 05/23/17 06:20 POC Glucose (mg/dL) 159 mg/dL (65-110) H 05/23/17 06:39 Random Glucose 130 mg/dL (75-110) H 05/23/17 06:20 Calcium 8.7 mg/dL (8.4-10.2) 05/23/17 06:20 Iron 57 ug/dL (49-181) 05/20/17 08:45 TIBC 434 ug/dL (250-450) 05/20/17 08:45 % Saturation 13 % (20-55) L 05/20/17 08:45 Ferritin 12.1 ng/mL 05/20/17 08:45 Total Bilirubin 0.6 mg/dl (0.2-1.3) 05/23/17 06:20 AST 22 U/L (17-59) 05/23/17 06:20 ALT 28 U/L (21-72) 05/23/17 06:20 Alkaline Phosphatase 73 U/L (38-126) 05/23/17 06:20 Total Protein 6.9 G/DL (6.3-8.2) 05/23/17 06:20 Albumin 3.2 g/dL (3.5-5.0) L 05/23/17 06:20 Globulin 3.6 gm/dL (2.2-3.9) 05/23/17 06:20 Albumin/Globulin Ratio 0.9 (1.0-2.1) L 05/23/17 06:20 Lipase 113 U/L (23-300) 05/19/17 11:34 Vitamin B12 510 pg/mL (239-931) 05/20/17 08:45 Folate > 20.0 ng/mL 05/20/17 08:45 Venous Blood Potassium 3.3 mmol/L (3.6-5.2) L 05/19/17 16:20 Urine Color Yellow (YELLOW) 05/19/17 10:00 Urine Clarity Slighty-cloudy (Clear) 05/19/17 10:00 Urine pH 6.0 (5.0-8.0) 05/19/17 10:00 Ur Specific [place] 1.021 (1.003-1.030) 05/19/17 10:00 Urine Protein Negative mg/dL (NEGATIVE) 05/19/17 10:00 Urine Glucose (UA) Neg mg/dL (Normal) 05/19/17 10:00 Urine Ketones Negative mg/dL (NEGATIVE) 05/19/17 10:00 Urine Blood Negative (NEGATIVE) 05/19/17 10:00 Urine Nitrate Negative (NEGATIVE) 05/19/17 10:00 Urine Bilirubin Moderate (NEGATIVE) 05/19/17 10:00 Urine Urobilinogen 4.0 mg/dL (0.2-1.0) 05/19/17 10:00 Ur Leukocyte Esterase Neg [place]/uL (Negative) 05/19/17 10:00 Ur Squamous Epith Cells < 1 /hpf (0-5) 05/19/17 10:00 Amorphous Sediment Rare /ul (<OCC) H 05/19/17 10:00 Blood Type B POSITIVE 05/19/17 11:34 Blood Type Confirm B POSITIVE 05/19/17 12:43 Antibody Screen Negative 05/19/17 11:34 Crossmatch See Detail 05/19/17 11:34 BBK History Checked No verified bt 05/19/17 11:34 Discharge Exam - Head Exam Head Exam: ATRAUMATIC, NORMAL INSPECTION, NORMOCEPHALIC Discharge Plan - Follow Up Plan Condition: STABLE Disposition: HOME/ ROUTINE Instructions: Iron Supplements (By mouth), Tramadol (By mouth), Iron Rich Diet (DC), Blood Transfusion (DC), Anemia (DC) Additional Instructions: follow up with dr Beltran tomorrow 05/24/17 for d/c p venofer. f/u outpt primary, gi, heme/onc. no nsaids,etoh fianl dx- gibleed, abd pain, pancytopenia-chronic. spoke w/ neice, attempted to speak w/ pts heme/onc-no answer Referrals: Aleks Mejias MD [Staff Provider] - Vinicio Beltran MD [Staff Provider] - Alec MÉNDEZ,MD Lucio [Medical Doctor] -
== END 2017-05-23 13:20 | disposition home or self-care (01) | DRG 174 ==
LOC: H.ER 09:09 → H.EROBSV 10:40 → OBSVTOIN 16:53 → H.ERHOLD 17:19 → H.TEL 22:26 → H.MEDSURG1 05-21 15:18
PROVIDERS: ADMIT Family Medicine; ATTEND Family Medicine
PROC: 30233N1 Transfusion of Nonautologous Red Blood Cells into Peripheral Vein, Percutaneous Approach (ICD-10-PCS; 2017-05-19)
PROC: 3E0234Z Introduction of Serum, Toxoid and Vaccine into Muscle, Percutaneous Approach (ICD-10-PCS; principal; 2017-05-20)
DX: K92.2 Gastrointestinal hemorrhage, unspecified (principal); D61.818 Other pancytopenia; D69.3 Immune thrombocytopenic purpura; E11.40 Type 2 diabetes mellitus with diabetic neuropathy, unspecified; K43.0 Incisional hernia with obstruction, without gangrene; J44.9 Chronic obstructive pulmonary disease, unspecified; D50.0 Iron deficiency anemia secondary to blood loss (chronic); R16.1 Splenomegaly, not elsewhere classified; E66.9 Obesity, unspecified; Z68.37 Body mass index [BMI] 37.0-37.9, adult; Z87.891 Personal history of nicotine dependence; Z88.0 Allergy status to penicillin; Z23 Encounter for immunization; K21.9 Gastro-esophageal reflux disease without esophagitis; G89.29 Other chronic pain; I10 Essential (primary) hypertension; E78.5 Hyperlipidemia, unspecified

== ENCOUNTER 2017-05-29 10:50 | Inpatient (IN) | payer OTHER ==
[2017-05-29 10:51] VITALS: BMI 37.3
[2017-05-29] MEDS ORDERED: Sodium Chloride 0.9% 1,000 ML IV STA (11:32)
[2017-05-29 12:15] LABS: BASO % 0.4 % (0.0-2.0); EOS % 0.1 % (0.0-4.0); HEMATOCRIT 31.7 % (35.0-51.0); LYMPH # 0.5 K/uL (1.0-4.3); LYMPH % 12.3 % (20.0-40.0); MEAN CELL VOLUME 80.6 fl (80.0-94.0); MEAN CORPUSCULAR HEMOGLOBIN 25.3 pg (27.0-31.0); MEAN CORPUSCULAR HGB CONC 31.4 g/dL (33.0-37.0); MEAN PLATELET VOLUME 10.6 fl (7.2-11.7); MONO # 0.3 K/uL (0.0-0.8); MONO % 6.4 % (0.0-10.0); NEUT # 3.6 K/uL (1.8-7.0); NEUT % 80.8 % (50.0-75.0); RED CELL DISTRIBUTION WIDTH 21.6 % (11.5-14.5); WHITE BLOOD COUNT 4.5 K/uL (4.8-10.8)
[2017-05-29 12:25] LABS: ALKALINE PHOSPHATASE 79 U/L (38-126); ALT/SGPT 20 U/L (21-72); AST/SGOT 38 U/L (17-59); BILIRUBIN,TOTAL 1.1 mg/dl (0.2-1.3); BLOOD UREA NITROGEN 11 mg/dl (9-20); CALCIUM 9.3 mg/dL (8.4-10.2); CARBON DIOXIDE 21 mmol/L (22-30); CHLORIDE 110 mmol/L (98-107); GFR AFRICAN-AMERICAN > 60; GLUCOSE,RANDOM 165 mg/dL (75-110); SODIUM 146 mmol/l (132-148)
[2017-05-29 12:26] LABS: POTASSIUM 4.5 MMOL/L (3.6-5.0)
[2017-05-29 12:39] LABS: PARTIAL THROMBOPLASTIN TIME 30.6 Seconds (25.6-37.1)
--- NOTE | 2017-05-29 14:23 | ED PDOC ---
HPI: Abdomen Time Seen by Provider: 05/29/17 11:49 Chief Complaint (Nursing): Abdominal Pain Chief Complaint (Provider): abdominal pain Additional Complaint(s): 66yo M in ED for eval of abdominal pain developed last night worsened this AM with vomiting x4 and normal BM without blood occult noted. pt admits to increased fatigue and gas in belly. Pt was admitted to inpt 05/19/17-for GI bleeding and recurrent incisional abdominal hernia and pancytopenia. PT was evaluated by ISAAC Michael, GI/ surgical scrub technologist and has appointment with GI 06/09/17 and has been getting weekly iron infusions with f/u this week. Pt denies fever, chills, hemotypsis, melena, hematuira. denies use of NSAIDs. Past Medical History Reviewed: Historical Data, Nursing Documentation, Vital Signs - Medical History PMH: Anemia, Arthritis, COPD, Diabetes, HTN, Hypercholesterolemia, Peripheral Edema (BLE) Denies: Fractures, HIV, Chronic Kidney Disease - Surgical History Surgical History: Appendectomy (Exploratory Laporatomy for ruptured AP), Cholecystectomy, Hernia Repair - Family History Family History: States: Unknown Family Hx - Immunization History Hx Tetanus Toxoid Vaccination: No Hx Influenza Vaccination: No Hx Pneumococcal Vaccination: No - Home Medications Home Medications: Ambulatory Orders Medication Instructions Recorded Albuterol HFA [Ventolin HFA 90 2 puff INH Q6H PRN 04/08/17 mcg/actuation (8 g)] Pantoprazole Sodium [Protonix] 40 mg PO DAILY 04/08/17 metFORMIN [glucOPHAGE] 500 mg PO BID 04/08/17 Losartan [Cozaar] 100 mg PO DAILY #30 tab 04/09/17 Ergocalciferol (Vitamin D2) 50,000 unit PO SAT 05/19/17 [Vitamin D2] Ferrous Sulfate [Ferosul] 325 mg PO TID 05/19/17 Furosemide [Lasix] 20 mg PO DAILY PRN 05/19/17 Gabapentin [Neurontin] 600 mg PO TID 05/19/17 Multivitamin [Multi-Vitamin Daily] 1 tab PO DAILY 05/19/17 Potassium Chloride [K-Dur 20 mEq 20 meq PO DAILY PRN 05/19/17 ER Tab] SITagliptin [Januvia] 100 mg PO DAILY 05/19/17 traMADol [Ultram] 100 mg PO TID #6 05/23/17 - Allergies Allergies/Adverse Reactions: Allergies Allergy/AdvReac Type Severity Reaction Status Date / Time Penicillins Allergy RASH Verified 12/13/15 13:38 Review of Systems ROS Statement: Except As Marked, All Systems Reviewed And Found Negative Constitutional: Negative for: Fever, Chills Gastrointestinal: Positive for: Nausea, Vomiting, Abdominal Pain, Diarrhea Genitourinary Male: Negative for: Dysuria Physical Exam - Reviewed Nursing Documentation Reviewed: Yes Vital Signs Reviewed: Yes - Physical Exam Appears: Positive for: Non-toxic, No Acute Distress, Uncomfortable Head Exam: Positive for: ATRAUMATIC, NORMAL INSPECTION, NORMOCEPHALIC Skin: Positive for: Warm, Pallor Eye Exam: Positive for: EOMI, Normal appearance, PERRL Cardiovascular/Chest: Positive for: Regular Rate, Rhythm Respiratory: Positive for: CNT, Normal Breath Sounds Gastrointestinal/Abdominal: Positive for: Bowel Sounds (increased BS), Soft, Tenderness (diffuse), Distended. Negative for: Organomegaly, Mass, Guarding, Rebound, Asicites Back: Positive for: Normal Inspection Extremity: Positive for: Normal ROM Neurologic/Psych: Positive for: Alert, Oriented - Laboratory Results Result Diagrams: 05/29/17 12:05 05/29/17 12:05 - Progress ED Course And Treament: impression: obstruction vs abdominal pain. will get CT scan Orders Category Date Time Status TYPE AND SCREEN Stat BBK 05/29/17 13:35 Ordered ABD & PELVIS IV CONTRAST ONLY [CT] Stat CT 05/29/17 11:50 Ordered COMP METABOLIC PANEL Stat Chem 05/29/17 12:05 Completed CBC (WITH DIFFERENTIAL) Stat JOHN 05/29/17 12:05 Completed PARTIAL THROMBOPLASTIN TIME [COAG] Stat JOHN 05/29/17 12:05 Completed PROTHROMBIN TIME [COAG] Stat JOHN 05/29/17 12:05 Completed Morphine Med 05/29/17 12:41 Discontinued 4 mg .ROUTE .STK-MED ONE Morphine Med 05/29/17 11:50 Discontinued 4 mg IVP ONCE ONE Ondansetron [Zofran Inj] Med 05/29/17 12:42 Discontinued 4 mg .ROUTE .STK-MED ONE Ondansetron [Zofran Inj] Med 05/29/17 11:50 Discontinued 4 mg IVP STAT STA Sodium Chloride 0.9% 1,000 ml Med 05/29/17 11:32 Discontinued IV 1,000 mls/hr Guiac Stool [OCCULT BLOOD, STOOL] Stat URINALYSIS 05/29/17 12:56 Ordered UA [URINALYSIS] Stat URINALYSIS 05/29/17 11:31 Uncollected 05/29/17 05/29/17 05/29/17 12:05 12:05 12:05 WBC RBC Hgb Hct MCV MCH MCHC RDW Plt Count MPV Neut % (Auto) Lymph % (Auto) [place] % (Auto) Eos % (Auto) Baso % (Auto) Neut # Lymph # [place] # Eos # Baso # PT 12.2 INR 1.2 APTT 30.6 Sodium 146 Potassium 4.5 Chloride 110 H Carbon Dioxide 21 L Anion Gap 20 BUN 11 Creatinine 0.7 L Est GFR ( Amer) > 60 Est GFR (Non-Af Amer) > 60 Random Glucose 165 H Calcium 9.3 Total Bilirubin 1.1 AST 38 ALT 20 L D Alkaline Phosphatase 79 Total Protein 8.0 Albumin 4.0 Globulin 4.0 H Albumin/Globulin Ratio 1.0 Blood Type Cancelled Antibody Screen Cancelled BBK History Checked Cancelled 05/29/17 12:05 WBC 4.5 L D RBC 3.94 L Hgb 10.0 L Hct 31.7 L MCV 80.6 D MCH 25.3 L MCHC 31.4 L RDW 21.6 H Plt Count 85 L MPV 10.6 Neut % (Auto) 80.8 H Lymph % (Auto) 12.3 L [place] % (Auto) 6.4 Eos % (Auto) 0.1 Baso % (Auto) 0.4 Neut # 3.6 Lymph # 0.5 L [place] # 0.3 Eos # 0.0 Baso # 0.0 PT INR APTT Sodium Potassium Chloride Carbon Dioxide Anion Gap BUN Creatinine Est GFR ( Amer) Est GFR (Non-Af Amer) Random Glucose Calcium Total Bilirubin AST ALT Alkaline Phosphatase Total Protein Albumin Globulin Albumin/Globulin Ratio Blood Type Antibody Screen BBK History Checked Medical Decision Making Medical Decision Making: CT report shows worsened obstruction from prior examination. Kofman, surgery consults-pt will be admitted with NPO and NG tube in place and admission under [facility], [facility] medicine second vp hr assessment for consult in the AM. PT re-examined stable with no nasuea and mild abd pain. Disposition - Clinical Impression Clinical Impression: Bowel obstruction - Patient ED Disposition Is Patient to be Admitted: Yes - Disposition Disposition Time: 17:27 Condition: FAIR Forms: [facility] ([place]ovan) - Pt Status Changed To: Hospital Disposition Of: Inpatient - Admit Certification Admit to Inpatient:: After my assessment, the patient will require hospitalization for at least two midnights. This is because of the severity of symptoms shown, intensity of services needed, and/or the medical risk in this patient being treated as an outpatient. - POA Present On Arrival: None
[2017-05-29] MEDS ORDERED: Iohexol 300 100 ML IJ ONE (15:10)
[2017-05-29] MEDS ORDERED: Sodium Chloride 0.9% 50 ML IV ONE (15:10)
[2017-05-29 16:28] LABS: RBC URINE 2 /hpf (0-3); URINE BILIRUBIN NEGATIVE (NEGATIVE); URINE BLOOD NEGATIVE (NEGATIVE); URINE COLOR YELLOW (YELLOW); URINE GLUCOSE (UA) NEG (Normal); URINE KETONE NEGATIVE (NEGATIVE); URINE LEUKOCYTE ESTERASE NEG Leu/uL (Negative); URINE PROTEIN NEGATIVE (NEGATIVE); WBC URINE 1 /hpf (0-5)
--- NOTE | 2017-05-29 17:10 | CT ---
PROCEDURE: CT Abdomen and Pelvis with contrast HISTORY: abd distention, pain COMPARISON: 05/19/2017 CT scan TECHNIQUE: Contrast dose: 90 milliliters Radiation dose: Total exam DLP = 1087 mGy-cm. This CT exam was performed using one or more of the following dose reduction techniques: Automated exposure control, adjustment of the mA and/or kV according to patient size, and/or use of iterative reconstruction technique. FINDINGS: LOWER THORAX: Evaluation of the lung bases reveals no evidence of infiltrate or effusion. No pericardial effusion is seen. Visualized esophagus is evidence of small hiatal hernia. Visualized stomach shows no evidence of wall thickening. Duodenum is unremarkable. LIVER: Liver is fatty infiltrated, without evidence of focal mass or intrahepatic ductal dilatation. GALLBLADDER AND BILE DUCTS: Unremarkable. PANCREAS: Unremarkable. No gross lesion or ductal dilatation. SPLEEN: Spleen is stable in size but mildly enlarged without mass measuring 14.5 in length. ADRENALS: Unremarkable. No mass. KIDNEYS AND URETERS: Kidneys are unchanged in the prior examination. No new renal calculus, perinephric change, or hydronephrosis is seen. VASCULATURE: There is stable atherosclerotic disease of the aorta. No aneurysmal dilatation is seen. BOWEL: There is evidence of increased small bowel dilatation involving jejunal bowel loops in the anterior aspect of the abdomen and upper pelvis. Fecalization is appreciated in this area as well as increased air-fluid levels. There is once again evidence of a right lower anterior abdomen and upper pelvic ventral hernia with some decompressed bowel loops extending into the hernia. Site of obstruction is probably at the level of an area of anastomotic bowel in the anterior abdomen proximal to the ventral hernia. There is some mild new areas of thickening of the mesenteric and some mild new subtle ascites appreciated. Visualized colon is decompressed. Terminal ileum is unremarkable. Rectosigmoid region is unremarkable. APPENDIX: No right lower quadrant inflammatory process is appreciated. PERITONEUM: There may be some minor induration of portions of the right-sided omentum mesenteric, nonspecific. LYMPH NODES: No new adenopathy is seen. BLADDER: Unremarkable. REPRODUCTIVE: Unremarkable. BONES: Degenerative changes are once again seen in the spine without compression fracture. OTHER FINDINGS: None. IMPRESSION: Increased small-bowel obstruction from prior examination. Multiple dilated small bowel loops within the anterior aspect of the mid abdomen with fecalization appreciated. There is a right-sided anterior ventral hernia with some decompressed bowel loops extending into this region. Site of obstruction may be at the ventral hernia, although possibly related to adhesions in the region of what appears to be anastomotic bowel loops in the mid anterior abdomen and upper pelvis. Areas of induration now are appreciated within the mesenteric as well some mild fluid. Early closed-loop obstruction cannot fully be excluded.
--- NOTE | 2017-05-29 18:09 | CP.PCM.HP ---
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 He was discharged on 05/23/2017 after managed for SBO associated with GI bleed by Dr Beltran with advise to follow up as outpatient with Dr Michael for endoscopy and colonoscopy. Patient was also seen by the surgical group of Dr López and was advised to follow up on their clinic upon discharged. He was noted also to have pancytopenia and was seen by Dr Mejias. He was advised to follow up with his own weaving machine operator (Dr Argueta) when discharged. Present on Admission - Present on Admission Any Indicators Present on Admission: No History of DVT/PE: No History of Uncontrolled Diabetes: No Urinary Catheter: No Decubitus Ulcer Present: No Review of Systems - Review of Systems All systems: reviewed and no additional remarkable complaints except (aside from those mentioned above, 12 point system review were negative by me) Past Patient History - Past Medical History & Family History Past Medical History?: Yes Past Family History: Reviewed and not pertinent - Past Social History Smoking Status: Former Smoker (former heavy smoker) Alcohol: Other (former heavy alcohol drinker, last drink was a year ago) Drugs: Denies (former Heroin and Opioid abuser, quit a year ago) Home Situation {Lives}: Other (live with niece) - CARDIAC Hx Hypercholesterolemia: Yes Hx Hypertension: Yes Hx Peripheral Edema: Yes (BLE) - PULMONARY Hx Chronic Obstructive Pulmonary Disease (COPD): Yes - NEUROLOGICAL Hx Neurological Disorder: Yes Other/Comment: History of Diabetic Neuropathy on BLE - HEENT Hx HEENT Problems: Yes Other/Comment: eyeglasses - RENAL Hx Chronic Kidney Disease: No - ENDOCRINE/METABOLIC Hx Endocrine Disorders: Yes Hx Diabetes Mellitus Type 2: Yes - HEMATOLOGICAL/ONCOLOGICAL Hx Blood Disorders: Yes Hx Anemia: Yes Hx Blood Transfusions: Yes Hx Human Immunodeficiency Virus (HIV): No - INTEGUMENTARY Hx Dermatological Problems: No - MUSCULOSKELETAL/RHEUMATOLOGICAL Hx Arthritis: Yes Hx Fractures: No - GASTROINTESTINAL Hx Gastrointestinal Disorders: Yes Hx Gastroesophageal Reflux: Yes Hx Vomiting: Yes - GENITOURINARY/GYNECOLOGICAL Hx Genitourinary Disorders: No - PSYCHIATRIC Hx Psychophysiologic Disorder: Yes Hx Substance Use: Yes (opiod use and heroin, quit 1 yr ago) Other/Comment: history of etoh abuse, quit 1 yr ago - SURGICAL HISTORY Hx Appendectomy: Yes (Exploratory Laporatomy for ruptured AP) Hx Cholecystectomy: Yes Hx Herniorrhaphy: Yes - ANESTHESIA Hx Anesthesia: Yes Hx Anesthesia Reactions: No Meds Allergies/Adverse Reactions: Allergies Allergy/AdvReac Type Severity Reaction Status Date / Time Penicillins Allergy RASH Verified 12/13/15 13:38 Physical Exam - Constitutional Appears: No Acute Distress - Head Exam Head Exam: ATRAUMATIC - Eye Exam Eye Exam: absent: Scleral icterus - ENT Exam ENT Exam: Mucous Membranes Moist - Neck Exam Neck exam: Negative for: Meningismus - Respiratory Exam Respiratory Exam: absent: Rhonchi, Wheezes, Respiratory Distress - Cardiovascular Exam Cardiovascular Exam: REGULAR RHYTHM, +S1, +S2 - GI/Abdominal Exam GI & Abdominal Exam: Distended, Soft. absent: Guarding, Rebound, Tenderness - Rectal Exam Rectal Exam: Deferred - Extremities Exam Extremities exam: Positive for: pedal edema - Neurological Exam Neurological exam: Alert, Oriented x3 - Psychiatric Exam Psychiatric exam: Normal Affect - Skin Skin Exam: Dry, Intact Results - Labs Result Diagrams: 05/29/17 12:05 05/29/17 12:05 Labs: Laboratory Results - last 24 hr 05/29/17 05/29/17 05/29/17 12:05 12:05 12:05 WBC 4.5 L D RBC 3.94 L Hgb 10.0 L Hct 31.7 L MCV 80.6 D MCH 25.3 L MCHC 31.4 L RDW 21.6 H Plt Count 85 L MPV 10.6 Neut % (Auto) 80.8 H Lymph % (Auto) 12.3 L [place] % (Auto) 6.4 Eos % (Auto) 0.1 Baso % (Auto) 0.4 Neut # 3.6 Lymph # 0.5 L [place] # 0.3 Eos # 0.0 Baso # 0.0 PT 12.2 INR 1.2 APTT 30.6 Sodium 146 Potassium 4.5 Chloride 110 H Carbon Dioxide 21 L Anion Gap 20 BUN 11 Creatinine 0.7 L Est GFR ( Amer) > 60 Est GFR (Non-Af Amer) > 60 Random Glucose 165 H Calcium 9.3 Total Bilirubin 1.1 AST 38 ALT 20 L D Alkaline Phosphatase 79 Total Protein 8.0 Albumin 4.0 Globulin 4.0 H Albumin/Globulin Ratio 1.0 Urine Color Urine Clarity Urine pH Ur Specific [place] Urine Protein Urine Glucose (UA) Urine Ketones Urine Blood Urine Nitrate Urine Bilirubin Urine Urobilinogen Ur Leukocyte Esterase Urine RBC (Auto) Urine Microscopic WBC Blood Type Antibody Screen BBK History Checked 05/29/17 05/29/17 05/29/17 12:05 14:50 16:21 WBC RBC Hgb Hct MCV MCH MCHC RDW Plt Count MPV Neut % (Auto) Lymph % (Auto) [place] % (Auto) Eos % (Auto) Baso % (Auto) Neut # Lymph # [place] # Eos # Baso # PT INR APTT Sodium Potassium Chloride Carbon Dioxide Anion Gap BUN Creatinine Est GFR ( Amer) Est GFR (Non-Af Amer) Random Glucose Calcium Total Bilirubin AST ALT Alkaline Phosphatase Total Protein Albumin Globulin Albumin/Globulin Ratio Urine Color Yellow Urine Clarity Clear Urine pH 6.0 Ur Specific [place] 1.032 H Urine Protein Negative Urine Glucose (UA) Neg Urine Ketones Negative Urine Blood Negative Urine Nitrate Negative Urine Bilirubin Negative Urine Urobilinogen 2.0 Ur Leukocyte Esterase Neg Urine RBC (Auto) 2 Urine Microscopic WBC 1 Blood Type Cancelled B POSITIVE Antibody Screen Cancelled Negative BBK History Checked Cancelled Patient has bt Assessment & Plan (1) Bowel obstruction Status: Acute Comment: admit to med/surg. NGT insertion connected to low suction. surgical consult with Dr Jenkins. GI consult with Dr Michael. 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 hematology consult with Dr Mejias (3) Hypertension Status: Chronic Comment: BP stable. continue monitoring BP (4) DM2 (diabetes mellitus, type 2) Status: Acute Comment: accuchek ACHS with moderate Lispro coverage. HgA1C, BMP in am (5) COPD (chronic obstructive pulmonary disease) Status: Acute Comment: asymptomatic. Duoneb via nebulizer q 4hrs prn for wheezing/SOB (6) DVT prophylaxis Status: Acute Comment: venodyne boots while in bed. avoid anticoagulation because of recent GI bleed
[2017-05-29] MEDS ORDERED: Albuterol HFA 90 mcg/actuation (8 g) INH PRN (18:24)
--- NOTE | 2017-05-29 20:22 | CP.PCM.CON ---
Addendum entered and electronically signed by Oswaldo Mcduffie DO 05/29/17 21:52 : Discussed with Dr. Bhavin Mcduffie PGY4 Original Note: <Oswaldo Mcduffie - Last Filed: 05/29/17 20:22> History of Present Illness - History of Present Illness History of Present Illness: General Surgery Consult Re: SBO HPI: 66M well known to the surgical service presented to the ED c/o progressive abd pain and distension since last night. 4-5 episodes of brownish emesis since last night. Denies F/C, SOB, hematemesis, hematochezia, melena, dysuria. He was discharged on 05/23/2017 after managed for SBO associated with GI bleed. He was to follow up as outpatient with GI and Surgery. CT shows similar scan to the one on the but with slight increase in small bowel distension and fecalization. Currently pt's pain is under control. Last BM was this AM, and was normal and non bloody. PMH: HLD, HTN, DM, COPD, anemia PSH: appendectomy, cholecystectomy, ventral hernia repair SH: Former smoker > 30 pack years, quit ~1 year ago. Former heavy drinker. Admits to former multiple drug use All: PCN Meds: See MAR Review of Systems - Review of Systems All systems: reviewed and no additional remarkable complaints except (as per HPI ) Past Patient History - Past Medical History & Family History Past Medical History?: Yes Past Family History: Reviewed and not pertinent - Past Social History Smoking Status: Former Smoker (former heavy smoker) Alcohol: Other (former heavy alcohol drinker, last drink was a year ago) Drugs: Denies (former Heroin and Opioid abuser, quit a year ago) Home Situation {Lives}: Other (live with niece) - CARDIAC Hx Hypercholesterolemia: Yes Hx Hypertension: Yes Hx Peripheral Edema: Yes (BLE) - PULMONARY Hx Chronic Obstructive Pulmonary Disease (COPD): Yes - NEUROLOGICAL Hx Neurological Disorder: Yes Other/Comment: History of Diabetic Neuropathy on BLE - HEENT Hx HEENT Problems: Yes Other/Comment: eyeglasses - RENAL Hx Chronic Kidney Disease: No - ENDOCRINE/METABOLIC Hx Endocrine Disorders: Yes Hx Diabetes Mellitus Type 2: Yes - HEMATOLOGICAL/ONCOLOGICAL Hx Blood Disorders: Yes Hx Anemia: Yes Hx Blood Transfusions: Yes Hx Human Immunodeficiency Virus (HIV): No - INTEGUMENTARY Hx Dermatological Problems: No - MUSCULOSKELETAL/RHEUMATOLOGICAL Hx Arthritis: Yes Hx Fractures: No - GASTROINTESTINAL Hx Gastrointestinal Disorders: Yes Hx Gastroesophageal Reflux: Yes Hx Vomiting: Yes - GENITOURINARY/GYNECOLOGICAL Hx Genitourinary Disorders: No - PSYCHIATRIC Hx Psychophysiologic Disorder: Yes Hx Substance Use: Yes (opiod use and heroin, quit 1 yr ago) Other/Comment: history of etoh abuse, quit 1 yr ago - SURGICAL HISTORY Hx Appendectomy: Yes (Exploratory Laporatomy for ruptured AP) Hx Cholecystectomy: Yes Hx Herniorrhaphy: Yes - ANESTHESIA Hx Anesthesia: Yes Hx Anesthesia Reactions: No Meds Allergies/Adverse Reactions: Allergies Allergy/AdvReac Type Severity Reaction Status Date / Time Penicillins Allergy RASH Verified 12/13/15 13:38 - Medications Medications: Current Medications Albuterol (Ventolin Hfa 90 Mcg/Actuation (8 G)) 2 puff INH Q6H PRN PRN Reason: Shortness of Breath Sodium Chloride (Sodium Chloride 0.9%) 1,000 mls @ 100 mls/hr IV .Q10H LISA Insulin Human Lispro (Humalog) 0 units SC ACHS [facility] PRN Reason: Protocol Morphine Sulfate (Morphine) 2 mg IVP Q6 PRN PRN Reason: abdominal pain Ondansetron HCl (Zofran Inj) 4 mg IVP Q6 PRN PRN Reason: Nausea/Vomiting Pantoprazole Sodium (Protonix Inj) 40 mg IVP DAILY [facility] Physical Exam - Constitutional Appears: Non-toxic, No Acute Distress - Head Exam Head Exam: ATRAUMATIC, NORMOCEPHALIC - Eye Exam Eye Exam: EOMI. absent: Scleral icterus - ENT Exam ENT Exam: Mucous Membranes Dry Additional comments: NGT in place, minimal clear output - Respiratory Exam Respiratory Exam: NORMAL BREATHING PATTERN. absent: Respiratory Distress - Cardiovascular Exam Cardiovascular Exam: RRR, +S1, +S2 - GI/Abdominal Exam GI & Abdominal Exam: Firm (in area of ventral hernia), Hernia (ventral/ incisional), Soft, Tenderness (over old midline scar and around umbilicus). absent: Distended, Guarding, Rebound, Rigid Additional comments: old midline scar - Rectal Exam Rectal Exam: Deferred - Extremities Exam Extremities exam: Negative for: calf tenderness, pedal edema - Back Exam Back exam: absent: CVA tenderness (L), CVA tenderness (R) - Neurological Exam Neurological exam: Alert, Oriented x3 - Psychiatric Exam Psychiatric exam: Normal Affect, Normal Mood - Skin Skin Exam: Dry, Warm Results - Vital Signs Recent Vital Signs: Last Vital Signs Temp 98.4 F 05/29/17 18:55 Pulse 84 05/29/17 18:55 Resp 19 05/29/17 18:55 BP 152/76 H 05/29/17 18:55 Pulse Ox 100 05/29/17 18:40 - Labs Result Diagrams: 05/29/17 12:05 05/29/17 12:05 Labs: Laboratory Results - last 24 hr 05/29/17 05/29/17 05/29/17 12:05 12:05 12:05 WBC 4.5 L D RBC 3.94 L Hgb 10.0 L Hct 31.7 L MCV 80.6 D MCH 25.3 L MCHC 31.4 L RDW 21.6 H Plt Count 85 L MPV 10.6 Neut % (Auto) 80.8 H Lymph % (Auto) 12.3 L Tate % (Auto) 6.4 Eos % (Auto) 0.1 Baso % (Auto) 0.4 Neut # 3.6 Lymph # 0.5 L Tate # 0.3 Eos # 0.0 Baso # 0.0 PT 12.2 INR 1.2 APTT 30.6 Sodium 146 Potassium 4.5 Chloride 110 H Carbon Dioxide 21 L Anion Gap 20 BUN 11 Creatinine 0.7 L Est GFR ( Amer) > 60 Est GFR (Non-Af Amer) > 60 Random Glucose 165 H Calcium 9.3 Total Bilirubin 1.1 AST 38 ALT 20 L D Alkaline Phosphatase 79 Total Protein 8.0 Albumin 4.0 Globulin 4.0 H Albumin/Globulin Ratio 1.0 Urine Color Urine Clarity Urine pH Ur Specific [place] Urine Protein Urine Glucose (UA) Urine Ketones Urine Blood Urine Nitrate Urine Bilirubin Urine Urobilinogen Ur Leukocyte Esterase Urine RBC (Auto) Urine Microscopic WBC Blood Type Antibody Screen BBK History Checked 05/29/17 05/29/17 05/29/17 12:05 14:50 16:21 WBC RBC Hgb Hct MCV MCH MCHC RDW Plt Count MPV Neut % (Auto) Lymph % (Auto) Tate % (Auto) Eos % (Auto) Baso % (Auto) Neut # Lymph # Tate # Eos # Baso # PT INR APTT Sodium Potassium Chloride Carbon Dioxide Anion Gap BUN Creatinine Est GFR ( Amer) Est GFR (Non-Af Amer) Random Glucose Calcium Total Bilirubin AST ALT Alkaline Phosphatase Total Protein Albumin Globulin Albumin/Globulin Ratio Urine Color Yellow Urine Clarity Clear Urine pH 6.0 Ur Specific [place] 1.032 H Urine Protein Negative Urine Glucose (UA) Neg Urine Ketones Negative Urine Blood Negative Urine Nitrate Negative Urine Bilirubin Negative Urine Urobilinogen 2.0 Ur Leukocyte Esterase Neg Urine RBC (Auto) 2 Urine Microscopic WBC 1 Blood Type Cancelled B POSITIVE Antibody Screen Cancelled Negative BBK History Checked Cancelled Patient has bt - Imaging and Cardiology CT scan - abdomen Status: Image reviewed by me, Report reviewed by me Assessment & Plan - Assessment and Plan (Free Text) Assessment: 66M with incarcerated ventral hernia and pSBO/SBO Plan: NPO IVF Analgesia PRN Monitor for BMs Serial abd exams Zofran PRN I&Os Dr Alice Mcduffie PGY4 <Vijay Jenkins - Last Filed: 05/30/17 14:06> History of Present Illness - History of Present Illness History of Present Illness: Patient was seen and examined at the bedside. Agree with resident's note above. Meds - Medications Medications: Current Medications Albuterol (Ventolin Hfa 90 Mcg/Actuation (8 G)) 2 puff INH Q6H PRN PRN Reason: Shortness of Breath Potassium Chloride/Dextrose/Sod Cl (Potassium Chl 20 Meq In D5-1/2ns) 1,000 mls @ 150 mls/hr IV .Q6H40M [facility] Stop: 05/31/17 09:12 Last Admin: 05/30/17 11:51 Dose: 150 mls/hr Insulin Human Lispro (Humalog) 0 units SC ACHS [facility] PRN Reason: Protocol Last Admin: 05/30/17 11:45 Dose: Not Given Morphine Sulfate (Morphine) 2 mg IVP Q6 PRN PRN Reason: abdominal pain Last Admin: 05/30/17 09:17 Dose: 2 mg Ondansetron HCl (Zofran Inj) 4 mg IVP Q6 PRN PRN Reason: Nausea/Vomiting Pantoprazole Sodium (Protonix Inj) 40 mg IVP DAILY [facility] Last Admin: 05/30/17 09:02 Dose: 40 mg Results - Vital Signs Recent Vital Signs: Last Vital Signs Temp 98.0 F 05/30/17 09:15 Pulse 83 05/30/17 09:15 Resp 20 05/30/17 09:15 BP 124/77 05/30/17 09:15 Pulse Ox 98 05/30/17 09:15 - Labs Result Diagrams: 05/30/17 05:35 05/30/17 05:35 Labs: Laboratory Results - last 24 hr 05/29/17 05/29/17 05/29/17 14:50 16:21 17:54 WBC RBC Hgb Hct MCV MCH MCHC RDW Plt Count MPV Neut % (Auto) Lymph % (Auto) Tate % (Auto) Eos % (Auto) Baso % (Auto) Neut # Lymph # Tate # Eos # Baso # Sodium Potassium Chloride Carbon Dioxide Anion Gap BUN Creatinine Est GFR ( Amer) Est GFR (Non-Af Amer) POC Glucose (mg/dL) Random Glucose Calcium Urine Color Yellow Urine Clarity Clear Urine pH 6.0 Ur Specific [place] 1.032 H Urine Protein Negative Urine Glucose (UA) Neg Urine Ketones Negative Urine Blood Negative Urine Nitrate Negative Urine Bilirubin Negative Urine Urobilinogen 2.0 Ur Leukocyte Esterase Neg Urine RBC (Auto) 2 Urine Microscopic WBC 1 Stool Occult Blood Negative Urine Opiates Screen Urine Methadone Screen Ur Barbiturates Screen Ur Phencyclidine Scrn Ur Amphetamines Screen U Benzodiazepines Scrn U Oth Cocaine Metabols U Cannabinoids Screen Blood Type B POSITIVE Antibody Screen Negative BBK History Checked Patient has bt 05/29/17 05/30/17 05/30/17 21:32 05:35 05:35 WBC 2.9 L RBC 3.63 L Hgb 9.3 L Hct 29.1 L MCV 79.9 L MCH 25.5 L MCHC 31.9 L RDW 21.5 H Plt Count 79 L MPV 11.4 Neut % (Auto) 63.2 Lymph % (Auto) 23.7 Tate % (Auto) 11.3 H Eos % (Auto) 1.1 Baso % (Auto) 0.7 Neut # 1.8 Lymph # 0.7 L Tate # 0.3 Eos # 0.0 Baso # 0.0 Sodium 148 Potassium 3.6 Chloride 112 H Carbon Dioxide 21 L Anion Gap 19 BUN 8 L Creatinine 0.8 Est GFR ( Amer) > 60 Est GFR (Non-Af Amer) > 60 POC Glucose (mg/dL) 115 H Random Glucose 140 H Calcium 8.6 Urine Color Urine Clarity Urine pH Ur Specific [place] Urine Protein Urine Glucose (UA) Urine Ketones Urine Blood Urine Nitrate Urine Bilirubin Urine Urobilinogen Ur Leukocyte Esterase Urine RBC (Auto) Urine Microscopic WBC Stool Occult Blood Urine Opiates Screen Urine Methadone Screen Ur Barbiturates Screen Ur Phencyclidine Scrn Ur Amphetamines Screen U Benzodiazepines Scrn U Oth Cocaine Metabols U Cannabinoids Screen Blood Type Antibody Screen BBK History Checked 05/30/17 05/30/17 05/30/17 05:37 10:21 10:50 WBC RBC Hgb Hct MCV MCH MCHC RDW Plt Count MPV Neut % (Auto) Lymph % (Auto) Tate % (Auto) Eos % (Auto) Baso % (Auto) Neut # Lymph # Tate # Eos # Baso # Sodium Potassium Chloride Carbon Dioxide Anion Gap BUN Creatinine Est GFR ( Amer) Est GFR (Non-Af Amer) POC Glucose (mg/dL) 143 H 133 H Random Glucose Calcium Urine Color Urine Clarity Urine pH Ur Specific [place] Urine Protein Urine Glucose (UA) Urine Ketones Urine Blood Urine Nitrate Urine Bilirubin Urine Urobilinogen Ur Leukocyte Esterase Urine RBC (Auto) Urine Microscopic WBC Stool Occult Blood Urine Opiates Screen Positive H Urine Methadone Screen Negative Ur Barbiturates Screen Negative Ur Phencyclidine Scrn Negative Ur Amphetamines Screen Negative U Benzodiazepines Scrn Negative U Oth Cocaine Metabols Negative U Cannabinoids Screen Negative Blood Type Antibody Screen BBK History Checked
[2017-05-29] MEDS: Sodium Chloride 0.9% 1,000 ML IV SCH (20:32)
[2017-05-29] MEDS: Insulin Lispro (humaLOG) 100 Units/ml Inj SC SCH (22:37)
[2017-05-30] MEDS: Sodium Chloride 0.9% 1,000 ML IV SCH (05:29)
[2017-05-30] MEDS: Insulin Lispro (humaLOG) 100 Units/ml Inj SC SCH ×4 (06:30→21:32)
[2017-05-30 06:33] LABS: BASO % 0.7 % (0.0-2.0); EOS % 1.1 % (0.0-4.0); HEMATOCRIT 29.1 % (35.0-51.0); LYMPH # 0.7 K/uL (1.0-4.3); LYMPH % 23.7 % (20.0-40.0); MEAN CELL VOLUME 79.9 fl (80.0-94.0); MEAN CORPUSCULAR HEMOGLOBIN 25.5 pg (27.0-31.0); MEAN CORPUSCULAR HGB CONC 31.9 g/dL (33.0-37.0); MEAN PLATELET VOLUME 11.4 fl (7.2-11.7); MONO # 0.3 K/uL (0.0-0.8); MONO % 11.3 % (0.0-10.0); NEUT # 1.8 K/uL (1.8-7.0); NEUT % 63.2 % (50.0-75.0); NRBC % 0.1 % (0.0-0.0); RED CELL DISTRIBUTION WIDTH 21.5 % (11.5-14.5); WHITE BLOOD COUNT 2.9 K/uL (4.8-10.8)
[2017-05-30 06:46] LABS: BLOOD UREA NITROGEN 8 mg/dl (9-20); CALCIUM 8.6 mg/dL (8.4-10.2); CARBON DIOXIDE 21 mmol/L (22-30); CHLORIDE 112 mmol/L (98-107); GFR AFRICAN-AMERICAN > 60; GLUCOSE,RANDOM 140 mg/dL (75-110); POTASSIUM 3.6 MMOL/L (3.6-5.0); SODIUM 148 mmol/l (132-148)
--- NOTE | 2017-05-30 08:39 | CP.PCM.PN ---
Subjective - Date & Time of Evaluation Date of Evaluation: 05/30/17 Time of Evaluation: 08:49 - Subjective Subjective: 66 y/o male seen at bedside for abdominal pain and distention. Patient states he was able to pass gas today. Pt denies having any bowel movements today but was experiencing diarrhea yesterday. Pt states the pain is all over his abdomen. Pt states he has not had anything to eat or drink overnight or this morning. Pt says his NG tube was just removed by his nurse following orders from the surgery team. Pt denies any F/C/N/SOB. Objective - Vital Signs/Intake and Output Vital Signs (last 24 hours): Temp Pulse Resp BP Pulse Ox 98.0 F 83 20 124/77 98 05/30/17 07:28 05/30/17 07:28 05/30/17 07:28 05/30/17 07:28 05/30/17 07:28 Intake and Output: 05/30/17 05/30/17 06:59 18:59 Output Total 225 Balance -225 - Medications Medications: Current Medications Albuterol (Ventolin Hfa 90 Mcg/Actuation (8 G)) 2 puff INH Q6H PRN PRN Reason: Shortness of Breath Sodium Chloride (Sodium Chloride 0.9%) 1,000 mls @ 100 mls/hr IV .Q10H [facility] Last Admin: 05/30/17 05:29 Dose: Not Given Insulin Human Lispro (Humalog) 0 units SC ACHS [facility] PRN Reason: Protocol Last Admin: 05/30/17 06:30 Dose: Not Given Morphine Sulfate (Morphine) 2 mg IVP Q6 PRN PRN Reason: abdominal pain Ondansetron HCl (Zofran Inj) 4 mg IVP Q6 PRN PRN Reason: Nausea/Vomiting Pantoprazole Sodium (Protonix Inj) 40 mg IVP DAILY [facility] - Labs Labs: 05/30/17 05:35 05/30/17 05:35 PT 12.2 Seconds (9.8-13.1) 05/29/17 12:05 INR 1.2 (0.9-1.2) 05/29/17 12:05 APTT 30.6 Seconds (25.6-37.1) 05/29/17 12:05 Assessment and Plan (1) Bowel obstruction Assessment & Plan: NGT output 225 overnight clear gastric contents - removed this AM per surgery team Surgery recommends no surgical intervention at this time Recommended that patient see Dr. Michael as outpatient for endoscopic assessment of SBO Pt remains NPO at this time Abdominal pain decreasing since admission Status: Acute (2) Pancytopenia Assessment & Plan: If pt to go to OR, may need platelet infusion prior for medical optimization Hematology Dr. Mejias on board Status: Acute
--- NOTE | 2017-05-30 09:18 | CP.PCM.PN ---
<Meredith Camacho - Last Filed: 05/30/17 09:25> Subjective - Date & Time of Evaluation Date of Evaluation: 05/30/17 Time of Evaluation: 06:50 - Subjective Subjective: Patient seen and examined at bedside this AM. NAEO. Patient denies abdominal pain but report throat pain from the NGT. Denies nausea, vomiting this AM but reports passing gas. Objective - Vital Signs/Intake and Output Vital Signs (last 24 hours): Temp Pulse Resp BP Pulse Ox 98.0 F 83 20 124/77 98 05/30/17 07:28 05/30/17 07:28 05/30/17 07:28 05/30/17 07:28 05/30/17 07:28 Intake and Output: 05/30/17 05/30/17 06:59 18:59 Output Total 225 Balance -225 - Medications Medications: Current Medications Albuterol (Ventolin Hfa 90 Mcg/Actuation (8 G)) 2 puff INH Q6H PRN PRN Reason: Shortness of Breath Potassium Chloride/Dextrose/Sod Cl (Potassium Chl 20 Meq In D5-1/2ns) 1,000 mls @ 150 mls/hr IV .Q6H40M [facility] Stop: 05/31/17 09:12 Insulin Human Lispro (Humalog) 0 units SC ACHS [facility] PRN Reason: Protocol Last Admin: 05/30/17 06:30 Dose: Not Given Morphine Sulfate (Morphine) 2 mg IVP Q6 PRN PRN Reason: abdominal pain Ondansetron HCl (Zofran Inj) 4 mg IVP Q6 PRN PRN Reason: Nausea/Vomiting Pantoprazole Sodium (Protonix Inj) 40 mg IVP DAILY [facility] Last Admin: 05/30/17 09:02 Dose: 40 mg - Labs Labs: 05/30/17 05:35 05/30/17 05:35 PT 12.2 Seconds (9.8-13.1) 05/29/17 12:05 INR 1.2 (0.9-1.2) 05/29/17 12:05 APTT 30.6 Seconds (25.6-37.1) 05/29/17 12:05 - Constitutional Appears: Non-toxic, No Acute Distress - Head Exam Head Exam: ATRAUMATIC - Eye Exam Eye Exam: Normal appearance. absent: Conjunctival injection, Scleral icterus - ENT Exam ENT Exam: Mucous Membranes Moist, Normal Oropharynx - Respiratory Exam Respiratory Exam: NORMAL BREATHING PATTERN. absent: Accessory Muscle Use, Respiratory Distress - Cardiovascular Exam Cardiovascular Exam: RRR - GI/Abdominal Exam GI & Abdominal Exam: Distended, Soft, Hernia (RLQ recurrent ventral hernia soft , non-tender, easily reduced). absent: Guarding, Rigid, Tenderness - Extremities Exam Extremities Exam: absent: Calf Tenderness, Pedal Edema, Tenderness - Neurological Exam Neurological Exam: Alert, Awake, Oriented x3 - Psychiatric Exam Psychiatric exam: Agitated, Normal Affect - Skin Skin Exam: Dry, Normal Color, Warm Assessment and Plan - Assessment and Plan (Free Text) Assessment: 66M with a recurrent ventral hernia, with partial SBO vs gastroenteritis Plan: No indication for surgical intervention at this time--hernia is soft, non-tender , and reducible and patient is a very poor surgical candidate d/t comorbidities and multiple prior abdominal surgeries Monitor for further bowelfunction D/C NGT Continue NPO IVF Analgesia PRN, Zofran PRN I&Os Discussed with Dr. Jenkins--further recs per him Meredith Camacho, PGY2 <Vijay Jenkins - Last Filed: 05/30/17 14:03> Subjective - Date & Time of Evaluation Time of Evaluation: 14:00 - Subjective Subjective: Patient was seen and examined at the bedside. Agree with resident's note above. Objective - Vital Signs/Intake and Output Vital Signs (last 24 hours): Temp Pulse Resp BP Pulse Ox 98.0 F 83 20 124/77 98 05/30/17 09:15 05/30/17 09:15 05/30/17 09:15 05/30/17 09:15 05/30/17 09:15 Intake and Output: 05/30/17 05/30/17 06:59 18:59 Intake Total 300 Output Total 225 Balance -225 300 - Medications Medications: Current Medications Albuterol (Ventolin Hfa 90 Mcg/Actuation (8 G)) 2 puff INH Q6H PRN PRN Reason: Shortness of Breath Potassium Chloride/Dextrose/Sod Cl (Potassium Chl 20 Meq In D5-1/2ns) 1,000 mls @ 150 mls/hr IV .Q6H40M [facility] Stop: 05/31/17 09:12 Last Admin: 05/30/17 11:51 Dose: 150 mls/hr Insulin Human Lispro (Humalog) 0 units SC ACHS [facility] PRN Reason: Protocol Last Admin: 05/30/17 11:45 Dose: Not Given Morphine Sulfate (Morphine) 2 mg IVP Q6 PRN PRN Reason: abdominal pain Last Admin: 05/30/17 09:17 Dose: 2 mg Ondansetron HCl (Zofran Inj) 4 mg IVP Q6 PRN PRN Reason: Nausea/Vomiting Pantoprazole Sodium (Protonix Inj) 40 mg IVP DAILY [facility] Last Admin: 05/30/17 09:02 Dose: 40 mg - Labs Labs: 05/30/17 05:35 05/30/17 05:35 PT 12.2 Seconds (9.8-13.1) 05/29/17 12:05 INR 1.2 (0.9-1.2) 05/29/17 12:05 APTT 30.6 Seconds (25.6-37.1) 05/29/17 12:05
--- NOTE | 2017-05-30 09:50 | CP.PCM.CON ---
History of Present Illness - History of Present Illness History of Present Illness: 66 year old male with a history of HL, HTN, DM, COPD, polysubstance abuse, recently discharged and readmitted with abdominal pain, nausea and vomiting, found to be pancytopenic. The patient reports to increasing abdominal pain for 3-4 days with nausea and vomiting. The patient is well known to me from his prior admission for similar complaints. He was found to have splenomegaly and iron deficiency. He was treated with parenteral iron. He has not followed with me in the outpatient setting. Past medical history: HL, HTN, DM, COPD Past surgical history: Ventral hernia repair, appendectomy, cholecystectomy Family history: Denies hematologic and oncologic problems Social history: Former tobacco and alcohol abuse, denies illicit drug use. Allergies: Penicillins Review of systems: All remaining review of systems including HEENT, cardiovascular, respiratory, gastrointestinal, genitourinary, musculoskeletal, dermatologic, neurologic, and psychiatric are negative unless mentioned in the HPI. Past Patient History - Past Medical History & Family History Past Medical History?: Yes Past Family History: Reviewed and not pertinent - Past Social History Smoking Status: Former Smoker (former heavy smoker) Alcohol: Other (former heavy alcohol drinker, last drink was a year ago) Drugs: Denies (former Heroin and Opioid abuser, quit a year ago) Home Situation {Lives}: Other (live with niece) - CARDIAC Hx Hypercholesterolemia: Yes Hx Hypertension: Yes Hx Peripheral Edema: Yes (BLE) - PULMONARY Hx Chronic Obstructive Pulmonary Disease (COPD): Yes - NEUROLOGICAL Hx Neurological Disorder: Yes Other/Comment: History of Diabetic Neuropathy on BLE - HEENT Hx HEENT Problems: Yes Other/Comment: eyeglasses - RENAL Hx Chronic Kidney Disease: No - ENDOCRINE/METABOLIC Hx Endocrine Disorders: Yes Hx Diabetes Mellitus Type 2: Yes - HEMATOLOGICAL/ONCOLOGICAL Hx Blood Disorders: Yes Hx Anemia: Yes Hx Blood Transfusions: Yes Hx Human Immunodeficiency Virus (HIV): No - INTEGUMENTARY Hx Dermatological Problems: No - MUSCULOSKELETAL/RHEUMATOLOGICAL Hx Arthritis: Yes Hx Fractures: No - GASTROINTESTINAL Hx Gastrointestinal Disorders: Yes Hx Gastroesophageal Reflux: Yes Hx Vomiting: Yes - GENITOURINARY/GYNECOLOGICAL Hx Genitourinary Disorders: No - PSYCHIATRIC Hx Psychophysiologic Disorder: Yes Hx Substance Use: Yes (opiod use and heroin, quit 1 yr ago) Other/Comment: history of etoh abuse, quit 1 yr ago - SURGICAL HISTORY Hx Appendectomy: Yes (Exploratory Laporatomy for ruptured AP) Hx Cholecystectomy: Yes Hx Herniorrhaphy: Yes - ANESTHESIA Hx Anesthesia: Yes Hx Anesthesia Reactions: No Meds Allergies/Adverse Reactions: Allergies Allergy/AdvReac Type Severity Reaction Status Date / Time Penicillins Allergy RASH Verified 12/13/15 13:38 - Medications Medications: Current Medications Albuterol (Ventolin Hfa 90 Mcg/Actuation (8 G)) 2 puff INH Q6H PRN PRN Reason: Shortness of Breath Potassium Chloride/Dextrose/Sod Cl (Potassium Chl 20 Meq In D5-1/2ns) 1,000 mls @ 150 mls/hr IV .Q6H40M [facility] Stop: 05/31/17 09:12 Insulin Human Lispro (Humalog) 0 units SC ACHS [facility] PRN Reason: Protocol Last Admin: 05/30/17 06:30 Dose: Not Given Morphine Sulfate (Morphine) 2 mg IVP Q6 PRN PRN Reason: abdominal pain Last Admin: 05/30/17 09:17 Dose: 2 mg Ondansetron HCl (Zofran Inj) 4 mg IVP Q6 PRN PRN Reason: Nausea/Vomiting Pantoprazole Sodium (Protonix Inj) 40 mg IVP DAILY [facility] Last Admin: 05/30/17 09:02 Dose: 40 mg Physical Exam - Head Exam Head Exam: ATRAUMATIC - Eye Exam Eye Exam: Normal appearance - ENT Exam ENT Exam: Mucous Membranes Dry - Respiratory Exam Respiratory Exam: NORMAL BREATHING PATTERN - Cardiovascular Exam Cardiovascular Exam: +S1, +S2 - GI/Abdominal Exam GI & Abdominal Exam: Normal Bowel Sounds Results - Vital Signs Recent Vital Signs: Last Vital Signs Temp 98.0 F 05/30/17 07:28 Pulse 83 05/30/17 07:28 Resp 20 05/30/17 07:28 BP 124/77 05/30/17 07:28 Pulse Ox 98 05/30/17 07:28 - Labs Result Diagrams: 05/31/17 05:30 05/31/17 05:30 Labs: Laboratory Results - last 24 hr 05/29/17 05/29/17 05/29/17 12:05 12:05 12:05 WBC 4.5 L D RBC 3.94 L Hgb 10.0 L Hct 31.7 L MCV 80.6 D MCH 25.3 L MCHC 31.4 L RDW 21.6 H Plt Count 85 L MPV 10.6 Neut % (Auto) 80.8 H Lymph % (Auto) 12.3 L [place] % (Auto) 6.4 Eos % (Auto) 0.1 Baso % (Auto) 0.4 Neut # 3.6 Lymph # 0.5 L [place] # 0.3 Eos # 0.0 Baso # 0.0 PT 12.2 INR 1.2 APTT 30.6 Sodium 146 Potassium 4.5 Chloride 110 H Carbon Dioxide 21 L Anion Gap 20 BUN 11 Creatinine 0.7 L Est GFR ( Amer) > 60 Est GFR (Non-Af Amer) > 60 POC Glucose (mg/dL) Random Glucose 165 H Calcium 9.3 Total Bilirubin 1.1 AST 38 ALT 20 L D Alkaline Phosphatase 79 Total Protein 8.0 Albumin 4.0 Globulin 4.0 H Albumin/Globulin Ratio 1.0 Urine Color Urine Clarity Urine pH Ur Specific [place] Urine Protein Urine Glucose (UA) Urine Ketones Urine Blood Urine Nitrate Urine Bilirubin Urine Urobilinogen Ur Leukocyte Esterase Urine RBC (Auto) Urine Microscopic WBC Stool Occult Blood Blood Type Antibody Screen BBK History Checked 05/29/17 05/29/17 05/29/17 12:05 14:50 16:21 WBC RBC Hgb Hct MCV MCH MCHC RDW Plt Count MPV Neut % (Auto) Lymph % (Auto) [place] % (Auto) Eos % (Auto) Baso % (Auto) Neut # Lymph # [place] # Eos # Baso # PT INR APTT Sodium Potassium Chloride Carbon Dioxide Anion Gap BUN Creatinine Est GFR ( Amer) Est GFR (Non-Af Amer) POC Glucose (mg/dL) Random Glucose Calcium Total Bilirubin AST ALT Alkaline Phosphatase Total Protein Albumin Globulin Albumin/Globulin Ratio Urine Color Yellow Urine Clarity Clear Urine pH 6.0 Ur Specific [place] 1.032 H Urine Protein Negative Urine Glucose (UA) Neg Urine Ketones Negative Urine Blood Negative Urine Nitrate Negative Urine Bilirubin Negative Urine Urobilinogen 2.0 Ur Leukocyte Esterase Neg Urine RBC (Auto) 2 Urine Microscopic WBC 1 Stool Occult Blood Blood Type Cancelled B POSITIVE Antibody Screen Cancelled Negative BBK History Checked Cancelled Patient has bt 05/29/17 05/29/17 05/30/17 17:54 21:32 05:35 WBC 2.9 L RBC 3.63 L Hgb 9.3 L Hct 29.1 L MCV 79.9 L MCH 25.5 L MCHC 31.9 L RDW 21.5 H Plt Count 79 L MPV 11.4 Neut % (Auto) 63.2 Lymph % (Auto) 23.7 [place] % (Auto) 11.3 H Eos % (Auto) 1.1 Baso % (Auto) 0.7 Neut # 1.8 Lymph # 0.7 L [place] # 0.3 Eos # 0.0 Baso # 0.0 PT INR APTT Sodium Potassium Chloride Carbon Dioxide Anion Gap BUN Creatinine Est GFR ( Amer) Est GFR (Non-Af Amer) POC Glucose (mg/dL) 115 H Random Glucose Calcium Total Bilirubin AST ALT Alkaline Phosphatase Total Protein Albumin Globulin Albumin/Globulin Ratio Urine Color Urine Clarity Urine pH Ur Specific [place] Urine Protein Urine Glucose (UA) Urine Ketones Urine Blood Urine Nitrate Urine Bilirubin Urine Urobilinogen Ur Leukocyte Esterase Urine RBC (Auto) Urine Microscopic WBC Stool Occult Blood Negative Blood Type Antibody Screen BBK History Checked 05/30/17 05/30/17 05:35 05:37 WBC RBC Hgb Hct MCV MCH MCHC RDW Plt Count MPV Neut % (Auto) Lymph % (Auto) [place] % (Auto) Eos % (Auto) Baso % (Auto) Neut # Lymph # [place] # Eos # Baso # PT INR APTT Sodium 148 Potassium 3.6 Chloride 112 H Carbon Dioxide 21 L Anion Gap 19 BUN 8 L Creatinine 0.8 Est GFR ( Amer) > 60 Est GFR (Non-Af Amer) > 60 POC Glucose (mg/dL) 143 H Random Glucose 140 H Calcium 8.6 Total Bilirubin AST ALT Alkaline Phosphatase Total Protein Albumin Globulin Albumin/Globulin Ratio Urine Color Urine Clarity Urine pH Ur Specific [place] Urine Protein Urine Glucose (UA) Urine Ketones Urine Blood Urine Nitrate Urine Bilirubin Urine Urobilinogen Ur Leukocyte Esterase Urine RBC (Auto) Urine Microscopic WBC Stool Occult Blood Blood Type Antibody Screen BBK History Checked Assessment & Plan (1) Pancytopenia Assessment and Plan: chronic pt does have a history of alcohol abuse splenomegaly with sequestration; ?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 Status: Acute
--- NOTE | 2017-05-30 10:01 | CP.PCM.CON ---
<Megan Griffin - Last Filed: 05/30/17 14:16> History of Present Illness - History of Present Illness History of Present Illness: GI Fellow PGY4 Consult Note This is a 66M with pmhx of HLD, HTN, DM, COPD, Anemia, SBO, alcohol abuse who presents with abdominal pain, nausea and vomiting. Pt was just discharged on for SBO which resolved with conservative management, at that time pt was found to be anemic and told to follow up outpt for endoscopic evaluation. Pt reports that he was doing well initially when he first got home but then yesterday started having nausea and vomiting four times. He denies any melena, hematesesis, or coffee-ground emesis. Pt had an NGT overnight and put out 225cc of gastric contents, NGT was removed this am by surgery with no further episodes of nausea or vomiting. Pt reports passing gas but denies BM. No prior EGD/Colonoscopy. ROS: 12point ROS obtained and was negative except as above PmHx: HLD, HTN, DM, COPD, Anemia, Alcohol Abuse PsHx: Appendectomy, cholecystectomy, ventral hernia repair SHx: Former smoker >30 pack years, quit 1 year ago. Former heavy drinker. Admits to former multiple drug use FHx: Denies any hx of colon cancer Past Patient History - Past Medical History & Family History Past Medical History?: Yes Past Family History: Reviewed and not pertinent - Past Social History Smoking Status: Former Smoker (former heavy smoker) Alcohol: Other (former heavy alcohol drinker, last drink was a year ago) Drugs: Denies (former Heroin and Opioid abuser, quit a year ago) Home Situation {Lives}: Other (live with niece) - CARDIAC Hx Hypercholesterolemia: Yes Hx Hypertension: Yes Hx Peripheral Edema: Yes (BLE) - PULMONARY Hx Chronic Obstructive Pulmonary Disease (COPD): Yes - NEUROLOGICAL Hx Neurological Disorder: Yes Other/Comment: History of Diabetic Neuropathy on BLE - HEENT Hx HEENT Problems: Yes Other/Comment: eyeglasses - RENAL Hx Chronic Kidney Disease: No - ENDOCRINE/METABOLIC Hx Endocrine Disorders: Yes Hx Diabetes Mellitus Type 2: Yes - HEMATOLOGICAL/ONCOLOGICAL Hx Blood Disorders: Yes Hx Anemia: Yes Hx Blood Transfusions: Yes Hx Human Immunodeficiency Virus (HIV): No - INTEGUMENTARY Hx Dermatological Problems: No - MUSCULOSKELETAL/RHEUMATOLOGICAL Hx Arthritis: Yes Hx Fractures: No - GASTROINTESTINAL Hx Gastrointestinal Disorders: Yes Hx Gastroesophageal Reflux: Yes Hx Vomiting: Yes - GENITOURINARY/GYNECOLOGICAL Hx Genitourinary Disorders: No - PSYCHIATRIC Hx Psychophysiologic Disorder: Yes Hx Substance Use: Yes (opiod use and heroin, quit 1 yr ago) Other/Comment: history of etoh abuse, quit 1 yr ago - SURGICAL HISTORY Hx Appendectomy: Yes (Exploratory Laporatomy for ruptured AP) Hx Cholecystectomy: Yes Hx Herniorrhaphy: Yes - ANESTHESIA Hx Anesthesia: Yes Hx Anesthesia Reactions: No Meds Allergies/Adverse Reactions: Allergies Allergy/AdvReac Type Severity Reaction Status Date / Time Penicillins Allergy RASH Verified 12/13/15 13:38 - Medications Medications: Current Medications Albuterol (Ventolin Hfa 90 Mcg/Actuation (8 G)) 2 puff INH Q6H PRN PRN Reason: Shortness of Breath Potassium Chloride/Dextrose/Sod Cl (Potassium Chl 20 Meq In D5-1/2ns) 1,000 mls @ 150 mls/hr IV .Q6H40M [facility] Stop: 05/31/17 09:12 Insulin Human Lispro (Humalog) 0 units SC ACHS [facility] PRN Reason: Protocol Last Admin: 05/30/17 06:30 Dose: Not Given Morphine Sulfate (Morphine) 2 mg IVP Q6 PRN PRN Reason: abdominal pain Last Admin: 05/30/17 09:17 Dose: 2 mg Ondansetron HCl (Zofran Inj) 4 mg IVP Q6 PRN PRN Reason: Nausea/Vomiting Pantoprazole Sodium (Protonix Inj) 40 mg IVP DAILY [facility] Last Admin: 05/30/17 09:02 Dose: 40 mg Physical Exam - Constitutional Appears: Well, Non-toxic, No Acute Distress - Head Exam Head Exam: ATRAUMATIC, NORMAL INSPECTION, NORMOCEPHALIC - Eye Exam Eye Exam: EOMI, Normal appearance, PERRL Pupil Exam: PERRL - ENT Exam ENT Exam: Mucous Membranes Moist, Normal Exam - Respiratory Exam Respiratory Exam: Clear to Auscultation Bilateral, NORMAL BREATHING PATTERN - Cardiovascular Exam Cardiovascular Exam: RRR, +S1, +S2 - GI/Abdominal Exam GI & Abdominal Exam: Distended, Hernia, Normal Bowel Sounds, Soft, Tenderness. absent: Organomegaly Additional comments: Healed old Surgical scars seen on exam - Rectal Exam Rectal Exam: Deferred - Extremities Exam Extremities exam: Positive for: full ROM, normal inspection. Negative for: pedal edema - Back Exam Back exam: NORMAL INSPECTION - Neurological Exam Neurological exam: Alert, Oriented x3 - Psychiatric Exam Psychiatric exam: Normal Affect, Normal Mood - Skin Skin Exam: Dry, Intact, Normal Color, Warm Results - Vital Signs Recent Vital Signs: Last Vital Signs Temp 98.0 F 05/30/17 07:28 Pulse 83 05/30/17 07:28 Resp 20 05/30/17 07:28 BP 124/77 05/30/17 07:28 Pulse Ox 98 05/30/17 07:28 - Labs Result Diagrams: 05/30/17 05:35 05/30/17 05:35 Labs: Laboratory Results - last 24 hr 05/29/17 05/29/17 05/29/17 12:05 12:05 12:05 WBC 4.5 L D RBC 3.94 L Hgb 10.0 L Hct 31.7 L MCV 80.6 D MCH 25.3 L MCHC 31.4 L RDW 21.6 H Plt Count 85 L MPV 10.6 Neut % (Auto) 80.8 H Lymph % (Auto) 12.3 L [place] % (Auto) 6.4 Eos % (Auto) 0.1 Baso % (Auto) 0.4 Neut # 3.6 Lymph # 0.5 L [place] # 0.3 Eos # 0.0 Baso # 0.0 PT 12.2 INR 1.2 APTT 30.6 Sodium 146 Potassium 4.5 Chloride 110 H Carbon Dioxide 21 L Anion Gap 20 BUN 11 Creatinine 0.7 L Est GFR ( Amer) > 60 Est GFR (Non-Af Amer) > 60 POC Glucose (mg/dL) Random Glucose 165 H Calcium 9.3 Total Bilirubin 1.1 AST 38 ALT 20 L D Alkaline Phosphatase 79 Total Protein 8.0 Albumin 4.0 Globulin 4.0 H Albumin/Globulin Ratio 1.0 Urine Color Urine Clarity Urine pH Ur Specific [place] Urine Protein Urine Glucose (UA) Urine Ketones Urine Blood Urine Nitrate Urine Bilirubin Urine Urobilinogen Ur Leukocyte Esterase Urine RBC (Auto) Urine Microscopic WBC Stool Occult Blood Blood Type Antibody Screen BBK History Checked 05/29/17 05/29/17 05/29/17 12:05 14:50 16:21 WBC RBC Hgb Hct MCV MCH MCHC RDW Plt Count MPV Neut % (Auto) Lymph % (Auto) [place] % (Auto) Eos % (Auto) Baso % (Auto) Neut # Lymph # [place] # Eos # Baso # PT INR APTT Sodium Potassium Chloride Carbon Dioxide Anion Gap BUN Creatinine Est GFR ( Amer) Est GFR (Non-Af Amer) POC Glucose (mg/dL) Random Glucose Calcium Total Bilirubin AST ALT Alkaline Phosphatase Total Protein Albumin Globulin Albumin/Globulin Ratio Urine Color Yellow Urine Clarity Clear Urine pH 6.0 Ur Specific [place] 1.032 H Urine Protein Negative Urine Glucose (UA) Neg Urine Ketones Negative Urine Blood Negative Urine Nitrate Negative Urine Bilirubin Negative Urine Urobilinogen 2.0 Ur Leukocyte Esterase Neg Urine RBC (Auto) 2 Urine Microscopic WBC 1 Stool Occult Blood Blood Type Cancelled B POSITIVE Antibody Screen Cancelled Negative BBK History Checked Cancelled Patient has bt 05/29/17 05/29/17 05/30/17 17:54 21:32 05:35 WBC 2.9 L RBC 3.63 L Hgb 9.3 L Hct 29.1 L MCV 79.9 L MCH 25.5 L MCHC 31.9 L RDW 21.5 H Plt Count 79 L MPV 11.4 Neut % (Auto) 63.2 Lymph % (Auto) 23.7 [place] % (Auto) 11.3 H Eos % (Auto) 1.1 Baso % (Auto) 0.7 Neut # 1.8 Lymph # 0.7 L [place] # 0.3 Eos # 0.0 Baso # 0.0 PT INR APTT Sodium Potassium Chloride Carbon Dioxide Anion Gap BUN Creatinine Est GFR ( Amer) Est GFR (Non-Af Amer) POC Glucose (mg/dL) 115 H Random Glucose Calcium Total Bilirubin AST ALT Alkaline Phosphatase Total Protein Albumin Globulin Albumin/Globulin Ratio Urine Color Urine Clarity Urine pH Ur Specific [place] Urine Protein Urine Glucose (UA) Urine Ketones Urine Blood Urine Nitrate Urine Bilirubin Urine Urobilinogen Ur Leukocyte Esterase Urine RBC (Auto) Urine Microscopic WBC Stool Occult Blood Negative Blood Type Antibody Screen BBK History Checked 05/30/17 05/30/17 05:35 05:37 WBC RBC Hgb Hct MCV MCH MCHC RDW Plt Count MPV Neut % (Auto) Lymph % (Auto) [place] % (Auto) Eos % (Auto) Baso % (Auto) Neut # Lymph # [place] # Eos # Baso # PT INR APTT Sodium 148 Potassium 3.6 Chloride 112 H Carbon Dioxide 21 L Anion Gap 19 BUN 8 L Creatinine 0.8 Est GFR ( Amer) > 60 Est GFR (Non-Af Amer) > 60 POC Glucose (mg/dL) 143 H Random Glucose 140 H Calcium 8.6 Total Bilirubin AST ALT Alkaline Phosphatase Total Protein Albumin Globulin Albumin/Globulin Ratio Urine Color Urine Clarity Urine pH Ur Specific [place] Urine Protein Urine Glucose (UA) Urine Ketones Urine Blood Urine Nitrate Urine Bilirubin Urine Urobilinogen Ur Leukocyte Esterase Urine RBC (Auto) Urine Microscopic WBC Stool Occult Blood Blood Type Antibody Screen BBK History Checked Assessment & Plan - Assessment and Plan (Free Text) Assessment: This is a 66M with pmhx of HTN, COPD, Alcohol abuse, IV drug use who presents with abdominal pain and microcytic anemia. 1. Microcytic Anemia DDx: iron def, chronic disease, bone marrow suppression; r/ o GI pathology including malignancy, AVM, polyps, diverticulosis 2. SBO likely 2/2 adhesions, ventral hernia 3. Ventral Hernia 4. Pancytopenia- likely from splenic sequestration vs bone marrow suppression from chronic Etoh abuse Plan: -No active GI bleeding, Hgb stable, hemodynamically stable -Recommend endoscopy and colonoscopy as oupt, discussed with pt to make follow up appointment with Dr. Michael -SBO improving, NGT discontinued, still with mild abdominal pain, BSx4, passing gas -Follow surgical recommendations if pt needs any further interventions like lysis of adhesions -Please call with any questions or concerns. <Alec MÉNDEZ,[facility] - Last Filed: 05/31/17 09:05> Meds - Medications Medications: Current Medications Albuterol (Ventolin Hfa 90 Mcg/Actuation (8 G)) 2 puff INH Q6H PRN PRN Reason: Shortness of Breath Potassium Chloride/Dextrose/Sod Cl (Potassium Chl 20 Meq In D5-1/2ns) 1,000 mls @ 150 mls/hr IV .Q6H40M [facility] Stop: 05/31/17 09:12 Last Admin: 05/31/17 08:15 Dose: 150 mls/hr Insulin Human Lispro (Humalog) 0 units SC ACHS [facility] PRN Reason: Protocol Last Admin: 05/31/17 08:16 Dose: 2 units Morphine Sulfate (Morphine) 2 mg IVP Q6 PRN PRN Reason: abdominal pain Last Admin: 05/30/17 21:27 Dose: 2 mg Ondansetron HCl (Zofran Inj) 4 mg IVP Q6 PRN PRN Reason: Nausea/Vomiting Pantoprazole Sodium (Protonix Inj) 40 mg IVP DAILY [facility] Last Admin: 05/31/17 08:15 Dose: 40 mg Results - Vital Signs Recent Vital Signs: Last Vital Signs Temp 98.4 F 05/31/17 08:02 Pulse 60 05/31/17 08:02 Resp 20 05/31/17 08:02 BP 133/75 05/31/17 08:02 Pulse Ox 99 05/31/17 08:02 - Labs Result Diagrams: 05/31/17 05:30 05/31/17 05:30 Labs: Laboratory Results - last 24 hr 05/30/17 05/30/17 05/30/17 10:21 10:50 16:28 WBC RBC Hgb Hct MCV MCH MCHC RDW Plt Count MPV Neut % (Auto) Lymph % (Auto) [place] % (Auto) Eos % (Auto) Baso % (Auto) Neut # Lymph # [place] # Eos # Baso # Retic Count Sodium Potassium Chloride Carbon Dioxide Anion Gap BUN Creatinine Est GFR ( Amer) Est GFR (Non-Af Amer) POC Glucose (mg/dL) 133 H 152 H Random Glucose Calcium Ferritin Vitamin B12 Urine Opiates Screen Positive H Urine Methadone Screen Negative Ur Barbiturates Screen Negative Ur Phencyclidine Scrn Negative Ur Amphetamines Screen Negative U Benzodiazepines Scrn Negative U Oth Cocaine Metabols Negative U Cannabinoids Screen Negative 05/30/17 05/31/17 05/31/17 21:32 05:30 05:30 WBC 2.4 L RBC 3.58 L Hgb 9.1 L Hct 28.6 L MCV 79.8 L MCH 25.5 L MCHC 32.0 L RDW 20.9 H Plt Count 74 L MPV 10.7 Neut % (Auto) 56.2 Lymph % (Auto) 30.1 [place] % (Auto) 11.3 H Eos % (Auto) 1.5 Baso % (Auto) 0.9 Neut # 1.4 L Lymph # 0.7 L [place] # 0.3 Eos # 0.0 Baso # 0.0 Retic Count Sodium 147 Potassium 3.6 Chloride 113 H Carbon Dioxide 22 Anion Gap 16 BUN 6 L Creatinine 0.8 Est GFR ( Amer) > 60 Est GFR (Non-Af Amer) > 60 POC Glucose (mg/dL) 131 H Random Glucose 159 H Calcium 8.4 Ferritin 47.4 Vitamin B12 405 Urine Opiates Screen Urine Methadone Screen Ur Barbiturates Screen Ur Phencyclidine Scrn Ur Amphetamines Screen U Benzodiazepines Scrn U Oth Cocaine Metabols U Cannabinoids Screen 05/31/17 05/31/17 06:22 06:32 WBC RBC Hgb Hct MCV MCH MCHC RDW Plt Count MPV Neut % (Auto) Lymph % (Auto) [place] % (Auto) Eos % (Auto) Baso % (Auto) Neut # Lymph # [place] # Eos # Baso # Retic Count 2.5 H Sodium Potassium Chloride Carbon Dioxide Anion Gap BUN Creatinine Est GFR ( Amer) Est GFR (Non-Af Amer) POC Glucose (mg/dL) 157 H Random Glucose Calcium Ferritin Vitamin B12 Urine Opiates Screen Urine Methadone Screen Ur Barbiturates Screen Ur Phencyclidine Scrn Ur Amphetamines Screen U Benzodiazepines Scrn U Oth Cocaine Metabols U Cannabinoids Screen Attending/Attestation - Attestation I have personally seen and examined this patient.: Yes I have fully participated in the care of the patient.: Yes I have reviewed all pertinent clinical information: Yes Notes (Text): 05/31/17 09:00 Late entry- Patient seen and examined with GI fellow on rounds yesterday afternoon. This is a 66 yr old M with pmhx of HTN, COPD, Alcohol abuse, IV drug use who presents with abdominal pain in setting of recurrent ventral hernia and microcytic anemia. Anemia likely due to bone marrow suppression from chronic alcohol abuse. No s/s of overt GI bleeding. Hb stable. Hemodynamically stable. Passing flatus but no BM. Denies obstructive symptoms of nausea, vomiting. Mild abdominal pain. Physical exam with sluggish bowel sounds. Had long discussion with patient and niece at bedside regarding surgical intervention. Will hold off on luminal exam for anemia till SBO resolves. No GI intervention required currently. Diet as per surgery. Rest of plan as per surgery. Follow surgical recommendations if pt needs any further interventions like lysis of adhesions -Please call with any questions or concerns.
[2017-05-30] MEDS: Potassium Ch 20mEq in D5-1/2NS 1,000 ML IV SCH ×2 (11:51→18:14)
[2017-05-31] MEDS: Potassium Ch 20mEq in D5-1/2NS 1,000 ML IV SCH ×2 (00:57→08:15)
[2017-05-31 06:33] LABS: BLOOD UREA NITROGEN 6 mg/dl (9-20); CALCIUM 8.4 mg/dL (8.4-10.2); CARBON DIOXIDE 22 mmol/L (22-30); CHLORIDE 113 mmol/L (98-107); GFR AFRICAN-AMERICAN > 60; GLUCOSE,RANDOM 159 mg/dL (75-110); POTASSIUM 3.6 MMOL/L (3.6-5.0); SODIUM 147 mmol/l (132-148)
[2017-05-31 06:34] LABS: BASO % 0.9 % (0.0-2.0); EOS % 1.5 % (0.0-4.0); HEMATOCRIT 28.6 % (35.0-51.0); LYMPH # 0.7 K/uL (1.0-4.3); LYMPH % 30.1 % (20.0-40.0); MEAN CELL VOLUME 79.8 fl (80.0-94.0); MEAN CORPUSCULAR HEMOGLOBIN 25.5 pg (27.0-31.0); MEAN PLATELET VOLUME 10.7 fl (7.2-11.7); MONO # 0.3 K/uL (0.0-0.8); MONO % 11.3 % (0.0-10.0); NEUT # 1.4 K/uL (1.8-7.0); NEUT % 56.2 % (50.0-75.0); RED CELL DISTRIBUTION WIDTH 20.9 % (11.5-14.5)
[2017-05-31 06:44] LABS: WHITE BLOOD COUNT 2.4 K/uL (4.8-10.8)
[2017-05-31 08:02] VITALS: BP 133/75; PULSE 60; RESP 20; TEMP 98.4; O2SAT 99
[2017-05-31] MEDS: Insulin Lispro (humaLOG) 100 Units/ml Inj SC SCH ×2 (08:16→11:18)
--- NOTE | 2017-05-31 08:47 | CP.PCM.PN ---
Subjective - Date & Time of Evaluation Date of Evaluation: 05/31/17 Time of Evaluation: 07:15 - Subjective Subjective: General Surgery Pt S&E, NAEO. Pt requesting food. + flatus, no BM. Denies abd pain, N/V, F/C. No other C/O. Objective - Vital Signs/Intake and Output Vital Signs (last 24 hours): Temp Pulse Resp BP Pulse Ox 98.4 F 60 20 133/75 99 05/31/17 08:02 05/31/17 08:02 05/31/17 08:02 05/31/17 08:02 05/31/17 08:02 Intake and Output: 05/31/17 05/31/17 06:59 18:59 Intake Total 1800 Balance 1800 - Medications Medications: Current Medications Albuterol (Ventolin Hfa 90 Mcg/Actuation (8 G)) 2 puff INH Q6H PRN PRN Reason: Shortness of Breath Potassium Chloride/Dextrose/Sod Cl (Potassium Chl 20 Meq In D5-1/2ns) 1,000 mls @ 150 mls/hr IV .Q6H40M [facility] Stop: 05/31/17 09:12 Last Admin: 05/31/17 08:15 Dose: 150 mls/hr Insulin Human Lispro (Humalog) 0 units SC ACHS [facility] PRN Reason: Protocol Last Admin: 05/31/17 08:16 Dose: 2 units Morphine Sulfate (Morphine) 2 mg IVP Q6 PRN PRN Reason: abdominal pain Last Admin: 05/30/17 21:27 Dose: 2 mg Ondansetron HCl (Zofran Inj) 4 mg IVP Q6 PRN PRN Reason: Nausea/Vomiting Pantoprazole Sodium (Protonix Inj) 40 mg IVP DAILY [facility] Last Admin: 05/31/17 08:15 Dose: 40 mg - Labs Labs: 05/31/17 05:30 05/31/17 05:30 PT 12.2 Seconds (9.8-13.1) 05/29/17 12:05 INR 1.2 (0.9-1.2) 05/29/17 12:05 APTT 30.6 Seconds (25.6-37.1) 05/29/17 12:05 - Constitutional Appears: Non-toxic, No Acute Distress - Head Exam Head Exam: ATRAUMATIC, NORMOCEPHALIC - Eye Exam Eye Exam: EOMI. absent: Scleral icterus - Respiratory Exam Respiratory Exam: NORMAL BREATHING PATTERN. absent: Respiratory Distress - GI/Abdominal Exam GI & Abdominal Exam: Soft, Hernia. absent: Distended, Firm, Guarding, Rigid, Tenderness - Neurological Exam Neurological Exam: Alert, Awake - Skin Skin Exam: Dry, Warm Assessment and Plan - Assessment and Plan (Free Text) Assessment: 66M with a recurrent ventral hernia, with partial SBO vs gastroenteritis Plan: No indication for surgical intervention at this time. Pt is a poor surgical candidate d/t comorbidities and prior abd surgeries Monitor for further bowel function Advanced to CLD this AM IVF Will D/W Dr. Alice Mcduffie PGY4
--- NOTE | 2017-05-31 09:21 | CP.PCM.PN ---
Objective - Vital Signs/Intake and Output Vital Signs (last 24 hours): Temp Pulse Resp BP Pulse Ox 98.4 F 60 20 133/75 99 05/31/17 08:02 05/31/17 08:02 05/31/17 08:02 05/31/17 08:02 05/31/17 08:02 Intake and Output: 05/31/17 05/31/17 06:59 18:59 Intake Total 1800 Balance 1800 - Medications Medications: Current Medications Albuterol (Ventolin Hfa 90 Mcg/Actuation (8 G)) 2 puff INH Q6H PRN PRN Reason: Shortness of Breath Insulin Human Lispro (Humalog) 0 units SC ACHS LISA PRN Reason: Protocol Last Admin: 05/31/17 08:16 Dose: 2 units Morphine Sulfate (Morphine) 2 mg IVP Q6 PRN PRN Reason: abdominal pain Last Admin: 05/30/17 21:27 Dose: 2 mg Ondansetron HCl (Zofran Inj) 4 mg IVP Q6 PRN PRN Reason: Nausea/Vomiting Pantoprazole Sodium (Protonix Inj) 40 mg IVP DAILY [facility] Last Admin: 05/31/17 08:15 Dose: 40 mg - Labs Labs: 05/31/17 05:30 05/31/17 05:30 PT 12.2 Seconds (9.8-13.1) 05/29/17 12:05 INR 1.2 (0.9-1.2) 05/29/17 12:05 APTT 30.6 Seconds (25.6-37.1) 05/29/17 12:05 Assessment and Plan (1) Bowel obstruction Status: Acute (2) Pancytopenia Status: Acute
--- NOTE | 2017-05-31 10:20 | CP.PCM.PN ---
Subjective - Date & Time of Evaluation Date of Evaluation: 05/31/17 Time of Evaluation: 10:00 - Subjective Subjective: Hungry, no N/V Objective - Vital Signs/Intake and Output Vital Signs (last 24 hours): Temp Pulse Resp BP Pulse Ox 98.4 F 60 20 133/75 99 05/31/17 08:02 05/31/17 08:02 05/31/17 08:02 05/31/17 08:02 05/31/17 08:02 Intake and Output: 05/31/17 05/31/17 06:59 18:59 Intake Total 1800 Balance 1800 - Medications Medications: Current Medications Albuterol (Ventolin Hfa 90 Mcg/Actuation (8 G)) 2 puff INH Q6H PRN PRN Reason: Shortness of Breath Iron Sucrose 200 mg/ Sodium (Chloride) 110 mls @ 110 mls/hr IVPB DAILY [facility] Stop: 06/05/17 10:31 Insulin Human Lispro (Humalog) 0 units SC ACHS LISA PRN Reason: Protocol Last Admin: 05/31/17 08:16 Dose: 2 units Morphine Sulfate (Morphine) 2 mg IVP Q6 PRN PRN Reason: abdominal pain Last Admin: 05/30/17 21:27 Dose: 2 mg Ondansetron HCl (Zofran Inj) 4 mg IVP Q6 PRN PRN Reason: Nausea/Vomiting Pantoprazole Sodium (Protonix Inj) 40 mg IVP DAILY [facility] Last Admin: 05/31/17 08:15 Dose: 40 mg - Labs Labs: 05/31/17 05:30 05/31/17 05:30 PT 12.2 Seconds (9.8-13.1) 05/29/17 12:05 INR 1.2 (0.9-1.2) 05/29/17 12:05 APTT 30.6 Seconds (25.6-37.1) 05/29/17 12:05 - Head Exam Head Exam: ATRAUMATIC - Eye Exam Eye Exam: Normal appearance - ENT Exam ENT Exam: Mucous Membranes Dry - Respiratory Exam Respiratory Exam: NORMAL BREATHING PATTERN - Cardiovascular Exam Cardiovascular Exam: +S1, +S2 - GI/Abdominal Exam GI & Abdominal Exam: Normal Bowel Sounds Assessment and Plan (1) Pancytopenia Assessment & Plan: splenomegaly with splenic sequestration; ?pHTN iron deficiency; suspect chronic occult GI blood loss ?varices on IV iron Status: Acute
--- NOTE | 2017-05-31 11:31 | CP.PCM.DIS ---
Provider - Provider Date of Admission: 05/29/17 17:36 Attending physician: Graham Steinberg MD Time Spent in preparation of Discharge (in minutes): 25 Diagnosis - Discharge Diagnosis (1) Bowel obstruction Status: Acute Comment: pain decreasing. pt able to tolerate clear liquid diet this AM. (+) flatus. no diarrhea since 05/28. (2) Pancytopenia Status: Chronic Hospital Course - Lab Results Lab Results: Most Recent Lab Values WBC 2.4 K/uL (4.8-10.8) L 05/31/17 05:30 RBC 3.58 Mil/uL (4.40-5.90) L 05/31/17 05:30 Hgb 9.1 g/dL (12.0-18.0) L 05/31/17 05:30 Hct 28.6 % (35.0-51.0) L 05/31/17 05:30 MCV 79.8 fl (80.0-94.0) L 05/31/17 05:30 MCH 25.5 pg (27.0-31.0) L 05/31/17 05:30 MCHC 32.0 g/dL (33.0-37.0) L 05/31/17 05:30 RDW 20.9 % (11.5-14.5) H 05/31/17 05:30 Plt Count 74 K/uL (130-400) L 05/31/17 05:30 MPV 10.7 fl (7.2-11.7) 05/31/17 05:30 Neut % (Auto) 56.2 % (50.0-75.0) 05/31/17 05:30 Lymph % (Auto) 30.1 % (20.0-40.0) 05/31/17 05:30 [place] % (Auto) 11.3 % (0.0-10.0) H 05/31/17 05:30 Eos % (Auto) 1.5 % (0.0-4.0) 05/31/17 05:30 Baso % (Auto) 0.9 % (0.0-2.0) 05/31/17 05:30 Neut # 1.4 K/uL (1.8-7.0) L 05/31/17 05:30 Lymph # 0.7 K/uL (1.0-4.3) L 05/31/17 05:30 [place] # 0.3 K/uL (0.0-0.8) 05/31/17 05:30 Eos # 0.0 K/uL (0.0-0.7) 05/31/17 05:30 Baso # 0.0 K/uL (0.0-0.2) 05/31/17 05:30 Retic Count 2.5 % (0.5-1.5) H 05/31/17 06:22 PT 12.2 Seconds (9.8-13.1) 05/29/17 12:05 INR 1.2 (0.9-1.2) 05/29/17 12:05 APTT 30.6 Seconds (25.6-37.1) 05/29/17 12:05 Sodium 147 mmol/l (132-148) 05/31/17 05:30 Potassium 3.6 MMOL/L (3.6-5.0) 05/31/17 05:30 Chloride 113 mmol/L (98-107) H 05/31/17 05:30 Carbon Dioxide 22 mmol/L (22-30) 05/31/17 05:30 Anion Gap 16 (10-20) 05/31/17 05:30 BUN 6 mg/dl (9-20) L 05/31/17 05:30 Creatinine 0.8 mg/dL (0.8-1.5) 05/31/17 05:30 Est GFR ( Amer) > 60 05/31/17 05:30 Est GFR (Non-Af Amer) > 60 05/31/17 05:30 POC Glucose (mg/dL) 197 mg/dL (65-110) H 05/31/17 10:57 Random Glucose 159 mg/dL (75-110) H 05/31/17 05:30 Calcium 8.4 mg/dL (8.4-10.2) 05/31/17 05:30 Ferritin 47.4 ng/mL 05/31/17 05:30 Total Bilirubin 1.1 mg/dl (0.2-1.3) 05/29/17 12:05 AST 38 U/L (17-59) 05/29/17 12:05 ALT 20 U/L (21-72) L D 05/29/17 12:05 Alkaline Phosphatase 79 U/L (38-126) 05/29/17 12:05 Total Protein 8.0 G/DL (6.3-8.2) 05/29/17 12:05 Albumin 4.0 g/dL (3.5-5.0) 05/29/17 12:05 Globulin 4.0 gm/dL (2.2-3.9) H 05/29/17 12:05 Albumin/Globulin Ratio 1.0 (1.0-2.1) 05/29/17 12:05 Vitamin B12 405 pg/mL (239-931) 05/31/17 05:30 Urine Color Yellow (YELLOW) 05/29/17 16:21 Urine Clarity Clear (Clear) 05/29/17 16:21 Urine pH 6.0 (5.0-8.0) 05/29/17 16:21 Ur Specific [place] 1.032 (1.003-1.030) H 05/29/17 16:21 Urine Protein Negative mg/dL (NEGATIVE) 05/29/17 16:21 Urine Glucose (UA) Neg mg/dL (Normal) 05/29/17 16:21 Urine Ketones Negative mg/dL (NEGATIVE) 05/29/17 16:21 Urine Blood Negative (NEGATIVE) 05/29/17 16:21 Urine Nitrate Negative (NEGATIVE) 05/29/17 16:21 Urine Bilirubin Negative (NEGATIVE) 05/29/17 16:21 Urine Urobilinogen 2.0 mg/dL (0.2-1.0) 05/29/17 16:21 Ur Leukocyte Esterase Neg [place]/uL (Negative) 05/29/17 16:21 Urine RBC (Auto) 2 /hpf (0-3) 05/29/17 16:21 Urine Microscopic WBC 1 /hpf (0-5) 05/29/17 16:21 Stool Occult Blood Negative (NEGATIVE) 05/29/17 17:54 Urine Opiates Screen Positive (NEGATIVE) H 05/30/17 10:21 Urine Methadone Screen Negative (NEGATIVE) 05/30/17 10:21 Ur Barbiturates Screen Negative (NEGATIVE) 05/30/17 10:21 Ur Phencyclidine Scrn Negative (NEGATIVE) 05/30/17 10:21 Ur Amphetamines Screen Negative (NEGATIVE) 05/30/17 10:21 U Benzodiazepines Scrn Negative (NEGATIVE) 05/30/17 10:21 U Oth Cocaine Metabols Negative (NEGATIVE) 05/30/17 10:21 U Cannabinoids Screen Negative (NEGATIVE) 05/30/17 10:21 Blood Type B POSITIVE 05/29/17 14:50 Antibody Screen Negative 05/29/17 14:50 BBK History Checked Patient has bt 05/29/17 14:50 - Hospital Course Hospital Course: 66 y/o male with PMHx of small bowel obstruction, pancytopenia with thrombocytopenia, DM type II, HTN and COPD with abdominal pain and distention x 3 days. Pt is tolerating a clear liquid diet at this time. Pt admits to passing gas. Pt denies any bowel movement in the last day. Pt denies feeling any constipation at this time. Pt has not vomited since the night prior to his hospital admission. Pt denies F/C/N/V/SOB. Pt will follow up for endoscopic eval as outpatient with Dr. Michael. Discharge Exam - Head Exam Head Exam: ATRAUMATIC, NORMOCEPHALIC - Eye Exam Eye Exam: EOMI, PERRL - Respiratory Exam Respiratory Exam: NORMAL BREATHING PATTERN, UNREMARKABLE - Cardiovascular Exam Cardiovascular Exam: REGULAR RHYTHM - GI/Abdominal Exam GI & Abdominal Exam: Diminished Bowel Sounds, Distended - Neurological Exam Neurological exam: Alert, Oriented x3 - Psychiatric Exam Psychiatric exam: Normal Affect, Normal Mood Discharge Plan - Follow Up Plan Condition: FAIR Disposition: HOME/ ROUTINE Instructions: Low Fiber Diet (GEN), Osteoarthritis (DC), Bowel Obstruction (DC) Additional Instructions: Call Dr Michael to make appointment to be seen in 2 weeks. Referrals: Aleks Mejias MD [Staff Provider] - Alec MÉNDEZ,MD Lucio [Medical Doctor] - Vijay Jenkins MD [Staff Provider] -
[2017-05-31 13:26] LABS: FOLATE > 20.0 ng/mL
== END 2017-05-31 13:24 | disposition home or self-care (01) | DRG 188 ==
LOC: H.ER 10:50 → H.ERHOLD 17:36 → H.MEDSURG1 18:31
DX: K43.6 Other and unspecified ventral hernia with obstruction, without gangrene (principal); D61.818 Other pancytopenia; K76.6 Portal hypertension; E11.40 Type 2 diabetes mellitus with diabetic neuropathy, unspecified; D69.6 Thrombocytopenia, unspecified; Z68.41 Body mass index [BMI] 40.0-44.9, adult; J44.9 Chronic obstructive pulmonary disease, unspecified; R16.1 Splenomegaly, not elsewhere classified; D50.9 Iron deficiency anemia, unspecified; F10.10 Alcohol abuse, uncomplicated; I10 Essential (primary) hypertension; E78.5 Hyperlipidemia, unspecified; E78.00 Pure hypercholesterolemia, unspecified; K21.9 Gastro-esophageal reflux disease without esophagitis; Z79.899 Other long term (current) drug therapy; Z87.891 Personal history of nicotine dependence; Z90.49 Acquired absence of other specified parts of digestive tract; M19.90 Unspecified osteoarthritis, unspecified site; R60.0 Localized edema; Z79.84 Long term (current) use of oral hypoglycemic drugs; R07.0 Pain in throat; E66.9 Obesity, unspecified; Z71.3 Dietary counseling and surveillance; Z88.0 Allergy status to penicillin

== ENCOUNTER 2018-07-11 03:36 | Inpatient (IN) | payer MEDICAID, MEDICARE ==
[2018-07-11 03:36] VITALS: BMI 42.3
--- NOTE | 2018-07-11 04:25 | ED PDOC ---
HPI: Chest Pain Time Seen by Provider: 07/11/18 03:46 Chief Complaint (Nursing): Chest Pain Chief Complaint (Provider): Chest Pain History Per: Patient History/Exam Limitations: no limitations Onset/Duration Of Symptoms: Days (x 2) Current Symptoms Are (Timing): Still Present Quality: "Pain" Associated Symptoms: Dyspnea Exacerbating Factors: Exertion Additional Complaint(s): 67 year old male with a history of diabetes, hypertension, anemia and COPD presents to the ED with chest pain and shortness of breath for two day. Patient complains of intermittent shortness of breath, shortness of breath on exertion, generalized weakness and orthopnea. Denies fever and cough. PMD: Dr. Timothy Lam Past Medical History Reviewed: Historical Data, Nursing Documentation, Vital Signs Vital Signs: Last Vital Signs Temp 98.2 F 07/11/18 03:47 Pulse 68 07/11/18 03:47 Resp 18 07/11/18 03:47 BP 107/59 L 07/11/18 03:47 Pulse Ox 100 07/11/18 03:47 - Medical History PMH: Anemia, Arthritis, COPD, Diabetes, HTN, Hypercholesterolemia, Peripheral Edema (BLE) Denies: Colonic Polyps, Fractures, HIV, Chronic Kidney Disease - Surgical History Surgical History: Appendectomy (Exploratory Laporatomy for ruptured AP), Cholecystectomy, Hernia Repair Denies: Endoscopy - Family History Family History: States: Unknown Family Hx - Immunization History Hx Tetanus Toxoid Vaccination: No Hx Influenza Vaccination: No Hx Pneumococcal Vaccination: No - Home Medications Home Medications: Ambulatory Orders Medication Instructions Recorded RX: Albuterol HFA [Ventolin HFA 90 2 puff INH Q6H PRN 04/08/17 mcg/actuation (8 g)] RX: Pantoprazole Sodium [Protonix] 40 mg PO DAILY 04/08/17 RX: metFORMIN [glucOPHAGE] 500 mg PO BID 04/08/17 RX: Losartan [Cozaar] 100 mg PO DAILY #30 tab 04/09/17 RX: Ergocalciferol (Vitamin D2) 50,000 unit PO SAT 05/19/17 [Vitamin D2] RX: Ferrous Sulfate [Ferosul] 325 mg PO TID 05/19/17 RX: Furosemide [Lasix] 20 mg PO DAILY PRN 05/19/17 RX: Gabapentin [Neurontin] 600 mg PO TID 05/19/17 RX: Multivitamin [Multi-Vitamin 1 tab PO DAILY 05/19/17 Daily] RX: Potassium Chloride [K-Dur 20 20 meq PO DAILY PRN 05/19/17 mEq ER Tab] RX: SITagliptin [Januvia] 100 mg PO DAILY 05/19/17 RX: traMADol [Ultram] 100 mg PO TID #6 05/23/17 - Allergies Allergies/Adverse Reactions: Allergies Allergy/AdvReac Type Severity Reaction Status Date / Time Penicillins Allergy RASH Verified 07/11/18 03:50 Review of Systems ROS Statement: Except As Marked, All Systems Reviewed And Found Negative Constitutional: Positive for: Weakness. Negative for: Fever Cardiovascular: Positive for: Chest Pain, Orthopnea Respiratory: Positive for: Shortness of Breath, SOB with Exertion. Negative for: Cough Physical Exam - Reviewed Nursing Documentation Reviewed: Yes Vital Signs Reviewed: Yes - Physical Exam Appears: Positive for: Non-toxic, No Acute Distress (obese) Head Exam: Positive for: ATRAUMATIC, NORMAL INSPECTION, NORMOCEPHALIC Skin: Positive for: Warm, Dry, Pallor. Negative for: Rash Eye Exam: Positive for: EOMI, Normal appearance, PERRL Neck: Positive for: Normal, Painless ROM, Supple Cardiovascular/Chest: Positive for: Regular Rate, Rhythm. Negative for: Murmur Respiratory: Positive for: Normal Breath Sounds. Negative for: Wheezing, Respiratory Distress Gastrointestinal/Abdominal: Positive for: Normal Exam, Soft. Negative for: Tenderness Extremity: Positive for: Normal ROM (x 4). Negative for: Deformity Neurologic/Psych: Positive for: Alert, Oriented. Negative for: Motor/Sensory Deficits - Laboratory Results Result Diagrams: 07/11/18 04:20 07/11/18 04:20 - ECG O2 Sat by Pulse Oximetry: 100 (RA) Pulse Ox Interpretation: Normal Medical Decision Making Medical Decision Makin:02 Impression: 67 year old male with chest pain in setting of known diabetes and hypertension Initial Plan: --Alcohol --BNP --CBC --CMP --UDS --Troponin --Chest x-ray --EKG 04:50 Labs reviewed significant for marked anemia and pancytopenia Type and boss offered Dr. Fink and admitting resident Scribe Attestation: Documented by Salma Whalen, acting as a scribe for Noah Todd MD Provider Scribe Attestation: All medical record entries made by the Scribe were at my direction and personally dictated by me. I have reviewed the chart and agree that the record accurately reflects my personal performance of the history, physical exam, medical decision making, and the department course for this patient. I have also personally directed, reviewed, and agree with the discharge instructions and disposition. Disposition - Clinical Impression Clinical Impression: Chest pain, Pancytopenia, Symptomatic anemia - Patient ED Disposition Is Patient to be Admitted: Yes - Disposition Disposition Time: 05:00 Condition: FAIR - Pt Status Changed To: Hospital Disposition Of: Inpatient - Admit Certification Admit to Inpatient:: After my assessment, the patient will require hospitalizati on for at least two midnights. This is because of the severity of symptoms shown, intensity of services needed, and/or the medical risk in this patient being treated as an outpatient.
[2018-07-11 04:32] LABS: LYMPH # 0.3 K/uL (1.0-4.3); MONO # 0.3 K/uL (0.0-0.8); NEUT # 1.6 K/uL (1.8-7.0); WHITE BLOOD COUNT 2.3 K/uL (4.8-10.8)
[2018-07-11 04:36] LABS: EOS % 0.8 % (0.0-4.0); LYMPH % 13.9 % (20.0-40.0); MEAN CELL VOLUME 70.4 fl (80.0-94.0); MEAN CORPUSCULAR HEMOGLOBIN 19.9 pg (27.0-31.0); MEAN CORPUSCULAR HGB CONC 28.3 g/dL (33.0-37.0); MEAN PLATELET VOLUME 11.6 fl (7.2-11.7); MONO % 12.2 % (0.0-10.0); NEUT % 72.1 % (50.0-75.0); NRBC % 0.9 % (0.0-0.0); RBC 2.52 Mil/uL (4.40-5.90)
[2018-07-11 04:43] LABS: ALBUMIN 3.4 g/dL (3.5-5.0); ALT/SGPT 41 U/L (21-72); AST/SGOT 60 U/L (17-59); BLOOD UREA NITROGEN 14 mg/dl (9-20); GFR NON-AFRICAN AMERICAN > 60
[2018-07-11 04:56] LABS: BARBITURATES, UR NEGATIVE (NEGATIVE); BENZODIAZEPINES, UR NEGATIVE (NEGATIVE); OPIATES, UR POSITIVE (NEGATIVE); PHENCYCLIDINE, UR NEGATIVE (NEGATIVE)
[2018-07-11 05:05] LABS: B-TYPE NATRIURETIC PEPTIDE 2660 pg/ml (0-900)
--- NOTE | 2018-07-11 05:43 | CP.PCM.HP ---
<Jadon Foote - Last Filed: 07/11/18 06:34> History of Present Illness - History of Present Illness History of Present Illness: This is 67 y/o male with PMH of HLD, HTN, DM, COPD, chronic Anemia, SBO, alcohol abuse, IV drug user, pancytopenia, recurrent ventral hernias and liver disease admitted for eval and treat of symptomatic anemia. Patient presented to ER for 2 days history of chest pain, SOB, orthopnea and dyspnea on exertion. Patient reports everything started after he had too much to drink on tuesday and vomited few times with few loose BMs, Not sure about blood in vomit or with BMs. Patient reports chest pain is non-radiating, constant, associated with dyspnea, dizziness, and occasional blurred vision. Denies any fever/chills, abdominal pain, dysuria or weakness. ROS: 12point ROS obtained and was negative except as above PmHx: HLD, HTN, DM, COPD, chronic Anemia, SBO, alcohol abuse, IV drug user, pancytopenia, recurrent ventral hernias and liver disease PsHx: Appendectomy, cholecystectomy, ventral hernia repair SHx: Former smoker >30 pack years, smokes 2 cig/day. heavy drinker, last drink 2 days ago. Admits to former multiple drug use, +heroin use in last week FHx: Denies any hx of colon cancer but reports brother after liver cancer, Mother and sister with heart conditions Allg: Penicillin Meds: As per med rec, non-compliant ER course: VS: Afebrile, not tachy, stable BP CBC: Hgb 5/17.7 CMP: Sig for proBNP 2660 Utox: + Opioids Type and screen EKG Present on Admission - Present on Admission Any Indicators Present on Admission: No Past Patient History - Past Medical History & Family History Past Medical History?: Yes - Past Social History Smoking Status: Former Smoker - CARDIAC Hx Hypercholesterolemia: Yes Hx Hypertension: Yes Hx Peripheral Edema: Yes (BLE) - PULMONARY Hx Chronic Obstructive Pulmonary Disease (COPD): Yes - NEUROLOGICAL Hx Neurological Disorder: Yes Other/Comment: History of Diabetic Neuropathy on BLE - HEENT Hx HEENT Problems: Yes Other/Comment: eyeglasses - RENAL Hx Chronic Kidney Disease: No - ENDOCRINE/METABOLIC Hx Endocrine Disorders: Yes Hx Diabetes Mellitus Type 2: Yes - HEMATOLOGICAL/ONCOLOGICAL Hx Anemia: Yes Hx Human Immunodeficiency Virus (HIV): No - INTEGUMENTARY Hx Dermatological Problems: No - MUSCULOSKELETAL/RHEUMATOLOGICAL Hx Arthritis: Yes Hx Fractures: No - GASTROINTESTINAL Hx Gastrointestinal Disorders: Yes Hx Gastroesophageal Reflux: Yes - GENITOURINARY/GYNECOLOGICAL Hx Genitourinary Disorders: No - PSYCHIATRIC Hx Psychophysiologic Disorder: Yes Hx Substance Use: Yes (opiod use and heroin, quit 1 yr ago) Other/Comment: history of etoh abuse, quit 1 yr ago - SURGICAL HISTORY Hx Appendectomy: Yes (Exploratory Laporatomy for ruptured AP) Hx Cholecystectomy: Yes - ANESTHESIA Hx Anesthesia: Yes Hx Anesthesia Reactions: No Hx Malignant Hyperthermia: No Meds Allergies/Adverse Reactions: Allergies Allergy/AdvReac Type Severity Reaction Status Date / Time Penicillins Allergy RASH Verified 07/11/18 03:50 Physical Exam - Constitutional Appears: No Acute Distress - Head Exam Head Exam: NORMAL INSPECTION - Eye Exam Eye Exam: PERRL, Scleral icterus Pupil Exam: NORMAL ACCOMODATION - ENT Exam ENT Exam: Mucous Membranes Moist - Neck Exam Neck exam: Positive for: Normal Inspection - Respiratory Exam Respiratory Exam: Decreased Breath Sounds, NORMAL BREATHING PATTERN. absent: Accessory Muscle Use, Chest Wall Tenderness - Cardiovascular Exam Cardiovascular Exam: REGULAR RHYTHM, +S1, +S2 - GI/Abdominal Exam GI & Abdominal Exam: Normal Bowel Sounds, Soft. absent: Tenderness Additional comments: ventral hernia repair vertical scar Obese abdomen - Extremities Exam Extremities exam: Positive for: pedal edema (b/l +1-2 ) - Back Exam Back exam: NORMAL INSPECTION. absent: CVA tenderness (L), CVA tenderness (R) - Neurological Exam Neurological exam: Alert, CN II-XII Intact, Oriented x3 - Psychiatric Exam Psychiatric exam: Normal Affect - Skin Skin Exam: Dry, Intact, Pallor, Warm Results - Vital Signs Recent Vital Signs: Last Vital Signs Temp 98.2 F 07/11/18 03:47 Pulse 68 07/11/18 03:47 Resp 18 07/11/18 03:47 BP 107/59 L 07/11/18 03:47 Pulse Ox 100 07/11/18 04:57 - Labs Result Diagrams: 07/11/18 04:20 07/11/18 04:20 Labs: Laboratory Results - last 24 hr 07/11/18 07/11/18 07/11/18 04:20 04:20 04:20 WBC 2.3 L RBC 2.52 L Hgb 5.0 L* D Hct 17.7 L MCV 70.4 L D MCH 19.9 L MCHC 28.3 L RDW 20.0 H Plt Count 79 L MPV 11.6 Neut % (Auto) 72.1 Lymph % (Auto) 13.9 L [place] % (Auto) 12.2 H Eos % (Auto) 0.8 Baso % (Auto) 1.0 Neut # (Auto) 1.6 L Lymph # (Auto) 0.3 L [place] # (Auto) 0.3 Eos # (Auto) 0.0 Baso # (Auto) 0.0 Sodium 138 Potassium 4.3 Chloride 108 H Carbon Dioxide 22 Anion Gap 12 BUN 14 Creatinine 0.8 Est GFR ( Amer) > 60 Est GFR (Non-Af Amer) > 60 Random Glucose 142 H Calcium 8.0 L Total Bilirubin 1.0 AST 60 H D ALT 41 Alkaline Phosphatase 74 Troponin I 0.1040 NT-Pro-B Natriuret Pep 2660 H Total Protein 6.8 Albumin 3.4 L Globulin 3.4 Albumin/Globulin Ratio 1.0 Urine Opiates Screen Positive H Urine Methadone Screen Negative Ur Barbiturates Screen Negative Ur Phencyclidine Scrn Negative Ur Amphetamines Screen Negative U Benzodiazepines Scrn Negative U Oth Cocaine Metabols Negative U Cannabinoids Screen Negative Alcohol, Quantitative < 10 Assessment & Plan - Assessment and Plan (Free Text) Assessment: A/P: 67 y/o male with PMH of HLD, HTN, DM, COPD, chronic Anemia, SBO, alcohol abuse, IV drug user, pancytopenia, recurrent ventral hernias and liver disease admitted for eval and treat of symptomatic anemia, possible due to GI bleed. Symptomatic Anemia, likely due to GI bleed - Acute - Type and screen - 2U pRBCs odered, transfuse 2U for now - Consult GI, Dr. Mcclain, f/u rec - FOBT - Follow up Iron study, Ferritin and Retic count before pRBCs - State Protonix 40mg IV Hypertension - Chronic - Controlled - C/w Home Cozzaar 100mg PO daily B/l LEs edema and elevated pro-BNP likely due to acute CHF - Follow up Echo NIDDM-II - Controlled - Hold Metformin - Lispro/Sliding scale/high dose - Hypoglycemic protocol - AccuChecks ACHS - Follow up HBA1C Alcohol abuse - Last drink 2 days ago - CIWA protocol - Ativan prn for CIWA >8 Pancytopenia, Chronic - Seen by Hem-Onc in past - Out patient follow up DVT ppx - SCD for now, possible GI bleed <Art Fink - Last Filed: 07/11/18 09:53> Results - Vital Signs Recent Vital Signs: Last Vital Signs Temp 98 F 07/11/18 07:37 Pulse 65 07/11/18 07:37 Resp 12 07/11/18 07:37 BP 103/59 L 07/11/18 07:37 Pulse Ox 100 07/11/18 07:37 - Labs Result Diagrams: 07/11/18 04:20 07/11/18 04:20 Labs: Laboratory Results - last 24 hr 07/11/18 07/11/18 07/11/18 04:20 04:20 04:20 WBC 2.3 L RBC 2.52 L Hgb 5.0 L* D Hct 17.7 L MCV 70.4 L D MCH 19.9 L MCHC 28.3 L RDW 20.0 H Plt Count 79 L MPV 11.6 Neut % (Auto) 72.1 Lymph % (Auto) 13.9 L [place] % (Auto) 12.2 H Eos % (Auto) 0.8 Baso % (Auto) 1.0 Neut # (Auto) 1.6 L Lymph # (Auto) 0.3 L [place] # (Auto) 0.3 Eos # (Auto) 0.0 Baso # (Auto) 0.0 Retic Count PT INR APTT Sodium 138 Potassium 4.3 Chloride 108 H Carbon Dioxide 22 Anion Gap 12 BUN 14 Creatinine 0.8 Est GFR ( Amer) > 60 Est GFR (Non-Af Amer) > 60 POC Glucose (mg/dL) Random Glucose 142 H Calcium 8.0 L Iron TIBC % Saturation Ferritin Total Bilirubin 1.0 AST 60 H D ALT 41 Alkaline Phosphatase 74 Troponin I 0.1040 NT-Pro-B Natriuret Pep 2660 H Total Protein 6.8 Albumin 3.4 L Globulin 3.4 Albumin/Globulin Ratio 1.0 Urine Opiates Screen Positive H Urine Methadone Screen Negative Ur Barbiturates Screen Negative Ur Phencyclidine Scrn Negative Ur Amphetamines Screen Negative U Benzodiazepines Scrn Negative U Oth Cocaine Metabols Negative U Cannabinoids Screen Negative Alcohol, Quantitative < 10 Blood Type Antibody Screen Crossmatch BBK History Checked 07/11/18 07/11/18 07/11/18 04:47 06:25 06:25 WBC RBC Hgb Hct MCV MCH MCHC RDW Plt Count MPV Neut % (Auto) Lymph % (Auto) [place] % (Auto) Eos % (Auto) Baso % (Auto) Neut # (Auto) Lymph # (Auto) [place] # (Auto) Eos # (Auto) Baso # (Auto) Retic Count 3.1 H D PT INR APTT Sodium Potassium Chloride Carbon Dioxide Anion Gap BUN Creatinine Est GFR ( Amer) Est GFR (Non-Af Amer) POC Glucose (mg/dL) Random Glucose Calcium Iron < 10 L TIBC 414 % Saturation 2.4 L Ferritin Total Bilirubin AST ALT Alkaline Phosphatase Troponin I NT-Pro-B Natriuret Pep Total Protein Albumin Globulin Albumin/Globulin Ratio Urine Opiates Screen Urine Methadone Screen Ur Barbiturates Screen Ur Phencyclidine Scrn Ur Amphetamines Screen U Benzodiazepines Scrn U Oth Cocaine Metabols U Cannabinoids Screen Alcohol, Quantitative Blood Type B POSITIVE Antibody Screen Negative Crossmatch See Detail BBK History Checked Patient has bt 07/11/18 07/11/18 07/11/18 06:25 08:44 08:51 WBC RBC Hgb Hct MCV MCH MCHC RDW Plt Count MPV Neut % (Auto) Lymph % (Auto) [place] % (Auto) Eos % (Auto) Baso % (Auto) Neut # (Auto) Lymph # (Auto) [place] # (Auto) Eos # (Auto) Baso # (Auto) Retic Count PT 14.0 H INR 1.2 APTT 24.1 L Sodium Potassium Chloride Carbon Dioxide Anion Gap BUN Creatinine Est GFR ( Amer) Est GFR (Non-Af Amer) POC Glucose (mg/dL) 144 H Random Glucose Calcium Iron TIBC % Saturation Ferritin 6.4 L Total Bilirubin AST ALT Alkaline Phosphatase Troponin I NT-Pro-B Natriuret Pep Total Protein Albumin Globulin Albumin/Globulin Ratio Urine Opiates Screen Urine Methadone Screen Ur Barbiturates Screen Ur Phencyclidine Scrn Ur Amphetamines Screen U Benzodiazepines Scrn U Oth Cocaine Metabols U Cannabinoids Screen Alcohol, Quantitative Blood Type Antibody Screen Crossmatch BBK History Checked Attending/Attestation - Attestation I have personally seen and examined this patient.: Yes I have fully participated in the care of the patient.: Yes I have reviewed all pertinent clinical information: Yes Notes (Text): 07/11/18 09:32 I saw and examined this patient shoulder to shoulder with Dr Foote. I agree with the assessment and plan outlined above which represent my direct input. This is a 67 years old male with hx of liver cirrhosis, pancytopenia and GI bleed. He comes with generalized weakness, Orthopnea, , SOB on exertion and anterior chest pain which is localized and intermittent. In the ED the Hemoglobin was 5mg/dl with WBC 2.3 and platelets2.3 with MCV 70. and edema at both bilateral leg edema with a BNP of 2669. Transfuse 2 units of PRBC for symptomatic Anemia and follow with Venofer IV. consult Gastroenterology for possible Endoscopy. Refer to Hematology on discharge to investigate the Pancytopenia. Chest pain r/o ACS with serial Troponin and EKG. Treat with lasix and Follow ECHO because of the leg edemas and the elevated ProBNP. Art Fink MD
[2018-07-11] MEDS ORDERED: Albuterol HFA 90 mcg/actuation (8 g) INH PRN (05:53)
[2018-07-11] MEDS ORDERED: Glucagon Recombinant 1 mg Inj IM PRN (06:07)
[2018-07-11] MEDS ORDERED: Dextrose 50% SYRINGE Inj (50 ml) IV PRN (06:07)
--- NOTE | 2018-07-11 06:41 | CARD ---
APPROVED REPORT Date of service: 07/11/2018 EKG Measurement Heart [id number] <Conclusion> Normal sinus rhythm Nonspecific ST changes Prolonged QT Abnormal ECG
[2018-07-11 07:08] LABS: IRON < 10 ug/dL (49-181)
[2018-07-11] MEDS: Insulin Lispro (humaLOG) 100 Units/ml Inj SC SCH ×3 (07:30→21:40)
[2018-07-11 07:49] LABS: TOTAL IRON BINDING CAPACITY 414 ug/dL (250-450)
[2018-07-11 07:50] LABS: % IRON SATURATION 2.4 % (20-55)
[2018-07-11 09:04] LABS: INR 1.2
[2018-07-11 09:07] LABS: PARTIAL THROMBOPLASTIN TIME 24.1 Seconds (25.6-37.1)
[2018-07-11] MEDS ORDERED: Lactulose 10 gm/15 ml Syrup PO PRN (12:11)
--- NOTE | 2018-07-11 13:31 | RAD ---
Date of service: 07/11/2018 HISTORY: chest pain COMPARISON: 05/19/2017 FINDINGS: LUNGS: The lungs are well inflated. There is moderate pulmonary venous congestion. No focal consolidation. PLEURA: No pleural effusions or pneumothorax. CARDIOVASCULAR: Severe cardiomegaly. Atherosclerotic aortic arch calcifications are present. OSSEOUS STRUCTURES: Within normal limits for the patient's age. VISUALIZED UPPER ABDOMEN: Normal. OTHER FINDINGS: None. IMPRESSION: Severe cardiomegaly and moderate pulmonary venous congestion. No active pulmonary disease.
--- NOTE | 2018-07-11 19:18 | CP.PCM.CON ---
History of Present Illness - History of Present Illness History of Present Illness: 67 yo male admitted with weakness, SOB, and severe microcytic anemia. Patient has h/o alcohol and substance abuse. 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 Patient had been admitted last month and CT at that time showed evidence of mid small intestinal obstruction possibly from adhesions due to prior surgery. Upper endoscopy and colonoscopy were done on 06/27. No varices were seen and no colonic lesions apparent though prep suboptimal. PSH includes appendectomy, cholecystectomy and ventral hernia repair. Review of Systems - Constitutional Constitutional: absent: Chills - EENT Eyes: absent: Change in Vision Ears: absent: Decreased Hearing Nose/Mouth/Throat: absent: Epistaxis - Cardiovascular Cardiovascular: absent: Chest Pain - Respiratory Respiratory: Dyspnea - Gastrointestinal Gastrointestinal: Abdominal Pain - Genitourinary Genitourinary: absent: Change in Urinary Stream - Musculoskeletal Musculoskeletal: Muscle Weakness Past Patient History - Past Medical History & Family History Past Medical History?: Yes - Past Social History Smoking Status: Former Smoker - CARDIAC Hx Cardiac Disorders: Yes Hx Hypercholesterolemia: Yes Hx Hypertension: Yes Hx Peripheral Edema: Yes (BLE) - PULMONARY Hx Respiratory Disorders: Yes Hx Chronic Obstructive Pulmonary Disease (COPD): Yes - NEUROLOGICAL Hx Neurological Disorder: Yes Other/Comment: History of Diabetic Neuropathy on BLE - HEENT Hx HEENT Problems: Yes Other/Comment: eyeglasses - RENAL Hx Chronic Kidney Disease: No - ENDOCRINE/METABOLIC Hx Endocrine Disorders: Yes Hx Diabetes Mellitus Type 2: Yes - HEMATOLOGICAL/ONCOLOGICAL Hx Blood Disorders: Yes Hx AIDS: No Hx Anemia: Yes Hx Human Immunodeficiency Virus (HIV): No - INTEGUMENTARY Hx Dermatological Problems: No - MUSCULOSKELETAL/RHEUMATOLOGICAL Hx Musculoskeletal Disorders: Yes Hx Arthritis: Yes Hx Falls: No Hx Fractures: No - GASTROINTESTINAL Hx Gastrointestinal Disorders: Yes Hx Gastroesophageal Reflux: Yes - GENITOURINARY/GYNECOLOGICAL Hx Genitourinary Disorders: No - PSYCHIATRIC Hx Psychophysiologic Disorder: Yes Hx Substance Use: Yes (opiod use and heroin, quit 1 yr ago) Other/Comment: history of etoh abuse, quit 1 yr ago - SURGICAL HISTORY Hx Surgeries: Yes Hx Appendectomy: Yes (Exploratory Laporatomy for ruptured AP) Hx Cholecystectomy: Yes - ANESTHESIA Hx Anesthesia: Yes Hx Anesthesia Reactions: No Hx Malignant Hyperthermia: No Meds Allergies/Adverse Reactions: Allergies Allergy/AdvReac Type Severity Reaction Status Date / Time Penicillins Allergy RASH Verified 07/11/18 03:50 - Medications Medications: Current Medications Albuterol (Ventolin Hfa 90 Mcg/Actuation (8 G)) 2 puff INH Q6H PRN PRN Reason: Shortness of Breath Dextrose (Dextrose 50% Inj) 0 ml IV STAT PRN; Protocol PRN Reason: Hypoglycemia Protocol Dextrose (Glutose 15) 0 gm PO ONCE PRN; Protocol PRN Reason: Hypoglycemia Protocol Furosemide (Lasix) 20 mg PO DAILY PRN PRN Reason: leg swelling Furosemide (Lasix) 20 mg IVP BID [facility] Last Admin: 07/11/18 18:45 Dose: 20 mg Gabapentin (Neurontin) 600 mg PO TID [facility] Last Admin: 07/11/18 18:49 Dose: 600 mg Glucagon (Glucagen Diagnostic Kit) 0 mg IM STAT PRN; Protocol PRN Reason: Hypoglycemia Protocol Iron Sucrose 100 mg/ Sodium (Chloride) 105 mls @ 105 mls/hr IVPB DAILY [facility] Stop: 07/13/18 09:59 Insulin Human Lispro (Humalog) 0 units SC ACHS [facility]; Protocol Last Admin: 07/11/18 18:22 Dose: Not Given Lactulose (Enulose) 30 gm PO DAILY PRN PRN Reason: Constipation Lorazepam (Ativan) 1 mg IVP Q6 PRN PRN Reason: Agitation Thiamine HCl (Vitamin B1 Tab) 100 mg PO DAILY [facility] Physical Exam - Constitutional Appears: Older Than Stated Age - Head Exam Head Exam: ATRAUMATIC - Eye Exam Eye Exam: Normal appearance - ENT Exam ENT Exam: Normal Exam - Respiratory Exam Respiratory Exam: Clear to Auscultation Bilateral - Cardiovascular Exam Cardiovascular Exam: REGULAR RHYTHM - GI/Abdominal Exam GI & Abdominal Exam: Distended, Normal Bowel Sounds - Rectal Exam Rectal Exam: Deferred Results - Vital Signs Recent Vital Signs: Last Vital Signs Temp 99.2 F 07/11/18 16:32 Pulse 66 07/11/18 16:32 Resp 20 07/11/18 16:32 BP 129/70 07/11/18 18:45 Pulse Ox 100 07/11/18 16:32 - Labs Result Diagrams: 07/11/18 04:20 07/11/18 04:20 Labs: Laboratory Results - last 24 hr 07/11/18 07/11/18 07/11/18 04:20 04:20 04:20 WBC 2.3 L RBC 2.52 L Hgb 5.0 L* D Hct 17.7 L MCV 70.4 L D MCH 19.9 L MCHC 28.3 L RDW 20.0 H Plt Count 79 L MPV 11.6 Neut % (Auto) 72.1 Lymph % (Auto) 13.9 L [place] % (Auto) 12.2 H Eos % (Auto) 0.8 Baso % (Auto) 1.0 Neut # (Auto) 1.6 L Lymph # (Auto) 0.3 L [place] # (Auto) 0.3 Eos # (Auto) 0.0 Baso # (Auto) 0.0 Retic Count PT INR APTT Sodium 138 Potassium 4.3 Chloride 108 H Carbon Dioxide 22 Anion Gap 12 BUN 14 Creatinine 0.8 Est GFR ( Amer) > 60 Est GFR (Non-Af Amer) > 60 POC Glucose (mg/dL) Random Glucose 142 H Calcium 8.0 L Iron TIBC % Saturation Ferritin Total Bilirubin 1.0 AST 60 H D ALT 41 Alkaline Phosphatase 74 Troponin I 0.1040 NT-Pro-B Natriuret Pep 2660 H Total Protein 6.8 Albumin 3.4 L Globulin 3.4 Albumin/Globulin Ratio 1.0 Urine Opiates Screen Positive H Urine Methadone Screen Negative Ur Barbiturates Screen Negative Ur Phencyclidine Scrn Negative Ur Amphetamines Screen Negative U Benzodiazepines Scrn Negative U Oth Cocaine Metabols Negative U Cannabinoids Screen Negative Alcohol, Quantitative < 10 Blood Type Antibody Screen Crossmatch BBK History Checked 07/11/18 07/11/18 07/11/18 04:47 06:25 06:25 WBC RBC Hgb Hct MCV MCH MCHC RDW Plt Count MPV Neut % (Auto) Lymph % (Auto) [place] % (Auto) Eos % (Auto) Baso % (Auto) Neut # (Auto) Lymph # (Auto) [place] # (Auto) Eos # (Auto) Baso # (Auto) Retic Count 3.1 H D PT INR APTT Sodium Potassium Chloride Carbon Dioxide Anion Gap BUN Creatinine Est GFR ( Amer) Est GFR (Non-Af Amer) POC Glucose (mg/dL) Random Glucose Calcium Iron < 10 L TIBC 414 % Saturation 2.4 L Ferritin Total Bilirubin AST ALT Alkaline Phosphatase Troponin I NT-Pro-B Natriuret Pep Total Protein Albumin Globulin Albumin/Globulin Ratio Urine Opiates Screen Urine Methadone Screen Ur Barbiturates Screen Ur Phencyclidine Scrn Ur Amphetamines Screen U Benzodiazepines Scrn U Oth Cocaine Metabols U Cannabinoids Screen Alcohol, Quantitative Blood Type B POSITIVE Antibody Screen Negative Crossmatch See Detail BBK History Checked Patient has bt 07/11/18 07/11/18 07/11/18 06:25 08:44 08:51 WBC RBC Hgb Hct MCV MCH MCHC RDW Plt Count MPV Neut % (Auto) Lymph % (Auto) [place] % (Auto) Eos % (Auto) Baso % (Auto) Neut # (Auto) Lymph # (Auto) [place] # (Auto) Eos # (Auto) Baso # (Auto) Retic Count PT 14.0 H INR 1.2 APTT 24.1 L Sodium Potassium Chloride Carbon Dioxide Anion Gap BUN Creatinine Est GFR ( Amer) Est GFR (Non-Af Amer) POC Glucose (mg/dL) 144 H Random Glucose Calcium Iron TIBC % Saturation Ferritin 6.4 L Total Bilirubin AST ALT Alkaline Phosphatase Troponin I NT-Pro-B Natriuret Pep Total Protein Albumin Globulin Albumin/Globulin Ratio Urine Opiates Screen Urine Methadone Screen Ur Barbiturates Screen Ur Phencyclidine Scrn Ur Amphetamines Screen U Benzodiazepines Scrn U Oth Cocaine Metabols U Cannabinoids Screen Alcohol, Quantitative Blood Type Antibody Screen Crossmatch BBK History Checked 07/11/18 07/11/18 16:31 18:21 WBC RBC Hgb Hct MCV MCH MCHC RDW Plt Count MPV Neut % (Auto) Lymph % (Auto) [place] % (Auto) Eos % (Auto) Baso % (Auto) Neut # (Auto) Lymph # (Auto) [place] # (Auto) Eos # (Auto) Baso # (Auto) Retic Count PT INR APTT Sodium Potassium Chloride Carbon Dioxide Anion Gap BUN Creatinine Est GFR ( Amer) Est GFR (Non-Af Amer) POC Glucose (mg/dL) 117 H Random Glucose Calcium Iron TIBC % Saturation Ferritin Total Bilirubin AST ALT Alkaline Phosphatase Troponin I 0.1000 NT-Pro-B Natriuret Pep Total Protein Albumin Globulin Albumin/Globulin Ratio Urine Opiates Screen Urine Methadone Screen Ur Barbiturates Screen Ur Phencyclidine Scrn Ur Amphetamines Screen U Benzodiazepines Scrn U Oth Cocaine Metabols U Cannabinoids Screen Alcohol, Quantitative Blood Type Antibody Screen Crossmatch BBK History Checked Assessment & Plan (1) Symptomatic anemia Assessment and Plan: Severe symptomatic anemia and abdominal distention. Will get KUB. Needs to have Hgb and iron stores replemished. Follow for evidence of bleeding. Watch for DTs. Status: Acute
--- NOTE | 2018-07-11 20:41 | CARD ---
APPROVED REPORT Date of service: 07/11/2018 EKG Measurement Heart [id number] ID [id number] <Conclusion> Normal sinus rhythm Nonspecific T wave abnormality Prolonged QT Abnormal ECG
--- NOTE | 2018-07-11 21:09 | CARD ---
APPROVED REPORT Date of service: 07/11/2018 EXAM: Two-dimensional and M-mode echocardiogram with Doppler and color Doppler. Other Information Quality : GoodRhythm : NSR INDICATION Elevated PRO BNP 2D DIMENSIONS IVSd0.90 (0.7-1.1cm)LVDd5.55 (3.9-5.9cm) LVOT Diameter3.14 (1.8-2.4cm)PWd0.83 (0.7-1.1cm) IVSs0.76 (0.8-1.2cm)LVDs4.92 (2.5-4.0cm) FS (%) 11.3 %PWs1.22 (0.8-1.2cm) M-Mode DIMENSIONS Left Atrium (MM)6.03 (2.5-4.0cm)IVSd0.99 (0.7-1.1cm) Aortic Root3.49 (2.2-3.7cm)LVDd7.24 (4.0-5.6cm) Aortic Cusp Exc.1.99 (1.5-2.0cm)PWd0.88 (0.7-1.1cm) IVSs0.96 cmFS (%) 18 % LVDs5.96 (2.0-3.8cm)PWs0.99 cm Aortic Valve AoV Peak Tykfdaqx041.8cm/sAoV VTI27.2cmAO Peak GR.8mmHg LVOT Peak Yhysdzcw250.1cm/sLVOT VTI24.09cmAO Mean GR.4mmHg RADHA (VMAX)2.80ge9DBU (VTI)3.14cm2 Mitral Valve MV E Fyxlkscw896.8cm/sMV DECEL [id number] A Qbhbpxyc79.1cm/s MV ASE74xkN/A ratio1.8MVA (PHT)4.36cm2 TDI Lateral E' Peak V10.19cm/sMedial E' Peak V7.41cm/sE/Lateral E'10.3 E/Medial E'14.1 Tricuspid Valve TR Peak Pjsmngfk000ox/sRAP ISEKXUAV23lpSlSJ Peak Gr.40mmHg JSJY38cxWs LEFT VENTRICLE The left ventricle is normal size. There is normal left ventricular wall thickness. The left ventricular systolic function is normal. The estimated ejection fraction is 50-55% No regional wall motion abnormalities noted.. Transmitral Doppler flow pattern is Grade II-pseudonormal filling dynamics. No left ventricle thrombus noted on this study. There is no ventricular septal defect visualized. There is no left ventricular aneurysm. There is no mass noted in the left ventricle. RIGHT VENTRICLE The right ventricle is normal size. There is normal right ventricular wall thickness. The right ventricular systolic function is normal. ATRIA The left atrium is moderately dilated. The right atrium size is normal. The interatrial septum is intact with no evidence for an atrial septal defect. AORTIC VALVE The aortic valve is normal in structure. No aortic regurgitation is present. There is no aortic valvular stenosis. There is no aortic valvular vegetation. MITRAL VALVE The mitral valve is normal in structure. There is no evidence of mitral valve prolapse. There is no mitral valve stenosis. There is mild mitral valve regurgitation noted. TRICUSPID VALVE The tricuspid valve is normal in structure. There is mild tricuspid valve regurgitation noted. RVSP is calculated at 51 mm Hg. There is no tricuspid valve prolapse or vegetation. There is no tricuspid valve stenosis. PULMONIC VALVE The pulmonary valve is normal in structure. There is no pulmonic valvular regurgitation. There is no pulmonic valvular stenosis. GREAT VESSELS The aortic root is normal in size. The ascending aorta is normal in size. The pulmonary artery is normal. The IVC is dilated PERICARDIAL EFFUSION There is no pericardial effusion. There is no pleural effusion. <Conclusion> The estimated ejection fraction is 50-55% Transmitral Doppler flow pattern is Grade II-pseudonormal filling dynamics. The left atrium is moderately dilated. There is mild mitral valve regurgitation noted. There is mild tricuspid valve regurgitation noted. RVSP is calculated at 51 mm Hg. The IVC is dilated
[2018-07-12] MEDS ORDERED: Sodium Chloride 0.9% 1,000 ML IV SCH (01:00)
[2018-07-12 05:57] LABS: ALBUMIN 3.4 g/dL (3.5-5.0); ALT/SGPT 40 U/L (21-72); AST/SGOT 40 U/L (17-59); BLOOD UREA NITROGEN 11 mg/dl (9-20); CALCIUM 8.4 mg/dL (8.4-10.2); GFR NON-AFRICAN AMERICAN > 60
[2018-07-12 06:27] LABS: BASO % 0.7 % (0.0-2.0); EOS % 0.3 % (0.0-4.0); HEMOGLOBIN 6.7 g/dL (12.0-18.0); LYMPH # 0.3 K/uL (1.0-4.3); LYMPH % 13.6 % (20.0-40.0); MEAN CELL VOLUME 70.9 fl (80.0-94.0); MEAN CORPUSCULAR HEMOGLOBIN 21.5 pg (27.0-31.0); MEAN CORPUSCULAR HGB CONC 30.3 g/dL (33.0-37.0); MEAN PLATELET VOLUME 9.7 fl (7.2-11.7); MONO # 0.3 K/uL (0.0-0.8); MONO % 12.2 % (0.0-10.0); NEUT # 1.6 K/uL (1.8-7.0); NEUT % 73.2 % (50.0-75.0); NRBC % 2.8 % (0.0-0.0); RBC 3.13 Mil/uL (4.40-5.90); RED CELL DISTRIBUTION WIDTH 20.5 % (11.5-14.5); WHITE BLOOD COUNT 2.2 K/uL (4.8-10.8)
[2018-07-12] MEDS ORDERED: Influenza Vaccine 60 MCG/0.5 ML SYR (3 yr & up) IM ONE (07:30)
[2018-07-12] MEDS: Insulin Lispro (humaLOG) 100 Units/ml Inj SC SCH ×4 (07:40→22:00)
[2018-07-12] MEDS ORDERED: Pantoprazole 40 mg EC Tab PO SCH (09:00)
--- NOTE | 2018-07-12 10:17 | RAD ---
Date of service: 07/12/2018 HISTORY: Evaluate for pneumonia COMPARISON: 07/11/2018 TECHNIQUE: Chest PA and lateral FINDINGS: LINES AND TUBES: None. LUNG AND PLEURA: The lungs are well inflated and clear. No pleural effusion or pneumothorax. HEART AND MEDIASTINUM: The heart is not enlarged. Atherosclerotic aortic arch calcifications are present. The hilar and mediastinal contours are within normal limits. SKELETAL STRUCTURES: The bony structures are within normal limits for the patient's age. VISUALIZED UPPER ABDOMEN: Normal. OTHER FINDINGS: None. IMPRESSION: No active pulmonary disease.
--- NOTE | 2018-07-12 10:22 | RAD ---
Date of service: 07/12/2018 HISTORY: Abdominal distention. R/o obstruction COMPARISON: CT abdomen and pelvis from 05/29/2017 FINDINGS: BOWEL: There are normal caliber gas-filled small bowel loops in the abdomen. No evidence of bowel dilatation. BONES: Normal. OTHER FINDINGS: None. IMPRESSION: Nonspecific nonobstructive bowel gas pattern.
--- NOTE | 2018-07-12 11:21 | CP.PCM.PN ---
Subjective - Date & Time of Evaluation Date of Evaluation: 07/12/18 Time of Evaluation: 11:16 - Subjective Subjective: A 67 y/o male patient seen and evaluated at the bedside for symptomatic anemia, possible due to GI bleed. Patient states that he didn't have any hematemesis last night. He denies any overnight acute events. Patient states that he is still having chest pain which is heaviness pain, non-radiating, constant and associated with dyspnea. He denies any fever/chills, nausea, vomitting, abdominal pain, dysuria or weakness. Objective - Vital Signs/Intake and Output Vital Signs (last 24 hours): Temp Pulse Resp BP Pulse Ox 98.5 F 77 20 157/79 H 97 07/12/18 07:35 07/12/18 07:35 07/12/18 07:35 07/12/18 10:37 07/12/18 07:35 Intake and Output: 07/12/18 07/12/18 06:59 18:59 Intake Total 355 Output Total 900 Balance -545 - Medications Medications: Current Medications Albuterol (Ventolin Hfa 90 Mcg/Actuation (8 G)) 2 puff INH Q6H PRN PRN Reason: Shortness of Breath Dextrose (Dextrose 50% Inj) 0 ml IV STAT PRN; Protocol PRN Reason: Hypoglycemia Protocol Dextrose (Glutose 15) 0 gm PO ONCE PRN; Protocol PRN Reason: Hypoglycemia Protocol Furosemide (Lasix) 20 mg PO DAILY PRN PRN Reason: leg swelling Furosemide (Lasix) 20 mg IVP BID [facility] Last Admin: 07/12/18 10:37 Dose: 20 mg Gabapentin (Neurontin) 600 mg PO TID [facility] Last Admin: 07/12/18 10:37 Dose: 600 mg Glucagon (Glucagen Diagnostic Kit) 0 mg IM STAT PRN; Protocol PRN Reason: Hypoglycemia Protocol Iron Sucrose 100 mg/ Sodium (Chloride) 105 mls @ 105 mls/hr IVPB DAILY [facility] Stop: 07/13/18 09:59 Last Admin: 07/12/18 10:36 Dose: 105 mls/hr Sodium Chloride (Sodium Chloride 0.9%) 1,000 mls @ 70 mls/hr IV .[id number] [facility] Stop: 07/13/18 00:49 Last Admin: 07/12/18 01:55 Dose: 70 mls/hr Insulin Human Lispro (Humalog) 0 units SC ACHS [facility]; Protocol Last Admin: 07/12/18 07:40 Dose: Not Given Lactulose (Enulose) 30 gm PO DAILY PRN PRN Reason: Constipation Lorazepam (Ativan) 1 mg IVP Q6 PRN PRN Reason: Agitation Thiamine HCl (Vitamin B1 Tab) 100 mg PO DAILY [facility] Last Admin: 07/12/18 10:37 Dose: 100 mg - Labs Labs: 07/12/18 05:10 07/12/18 05:10 PT 14.0 Seconds (9.8-13.1) H 07/11/18 08:51 INR 1.2 07/11/18 08:51 APTT 24.1 Seconds (25.6-37.1) L 07/11/18 08:51 - Constitutional Appears: No Acute Distress - Head Exam Head Exam: ATRAUMATIC, NORMOCEPHALIC - Eye Exam Eye Exam: EOMI, Normal appearance Pupil Exam: NORMAL ACCOMODATION, PERRL - ENT Exam ENT Exam: Mucous Membranes Moist, Normal Exam - Neck Exam Neck Exam: Normal Inspection - Respiratory Exam Additional comments: - Noted fine basal cackles on auscultating the lungs. - Gynecomastia b/l - Cardiovascular Exam Cardiovascular Exam: REGULAR RHYTHM, RRR - GI/Abdominal Exam GI & Abdominal Exam: Distended, Soft, Normal Bowel Sounds Additional comments: - ventral hernia repair vertical scar - Obese abdomen - Moderat ascitis - - Extremities Exam Extremities Exam: Normal Capillary Refill Additional comments: - -+2 Pitting edema to b/l LE. - Neurological Exam Neurological Exam: Alert, Awake, Oriented x3 Neuro motor strength exam: Left Upper Extremity: 5, Right Upper Extremity: 5, Left Lower Extremity: 5, Right Lower Extremity: 5 - Psychiatric Exam Psychiatric exam: Normal Affect, Normal Mood - Skin Skin Exam: Dry, Intact, Normal Color, Warm Assessment and Plan - Assessment and Plan (Free Text) Assessment: 67 y/o male patient seen and evaluated for symptomatic anemia, possible due to GI bleed. Plan: Symptomatic Anemia, likely due to GI bleed - Acute - Type and screen - Consult GI, Dr. Mcclain, Recommendations appreciated. - FOBT - Follow up Iron study, Ferritin and Retic count before pRBCs - CBC done, Hb post 2 units packed RBCs transfusion is 6.7 - State Protonix 40mg IV - 2 units packed RBCs transfused yesterday. - 2 units packed RBCs ordered today. Hypertension - Chronic - Controlled - C/w Home Cozzaar 100mg PO daily Liver Disease - Ordered lactulose 30 mg/day. - Ordered Thiamine 100 mg PO daily. - Ordered abdominal ultrasound. B/l LEs edema and elevated pro-BNP likely due to acute CHF - Follow up Echo - Chest X-ray; no pulmonary disease noted. NIDDM-II - Controlled - Hold Metformin - Lispro/Sliding scale/high dose - Hypoglycemic protocol - AccuChecks ACHS - Follow up HBA1C Alcohol abuse - Last drink 2 days ago - CIWA protocol - Ativan prn for CIWA >8 Pancytopenia, Chronic - Seen by Hem-Onc in past - Out patient follow up DVT ppx - SCD for now, possible GI bleed
--- NOTE | 2018-07-12 13:30 | CP.PCM.PN ---
Subjective - Date & Time of Evaluation Date of Evaluation: 07/12/18 Time of Evaluation: 13:28 - Subjective Subjective: GI note for Dr. Mcclain 67M seen and examined at bedside. Patient denies any bleeding per rectum. Denies abdominal pain. NOAEN. Objective - Vital Signs/Intake and Output Vital Signs (last 24 hours): Temp Pulse Resp BP Pulse Ox 97.9 F 77 20 155/83 H 96 07/12/18 12:02 07/12/18 12:02 07/12/18 12:02 07/12/18 12:02 07/12/18 12:02 Intake and Output: 07/12/18 07/12/18 06:59 18:59 Intake Total 355 Output Total 900 Balance -545 - Medications Medications: Current Medications Albuterol (Ventolin Hfa 90 Mcg/Actuation (8 G)) 2 puff INH Q6H PRN PRN Reason: Shortness of Breath Dextrose (Dextrose 50% Inj) 0 ml IV STAT PRN; Protocol PRN Reason: Hypoglycemia Protocol Dextrose (Glutose 15) 0 gm PO ONCE PRN; Protocol PRN Reason: Hypoglycemia Protocol Furosemide (Lasix) 20 mg PO DAILY PRN PRN Reason: leg swelling Furosemide (Lasix) 20 mg IVP BID [facility] Last Admin: 07/12/18 10:37 Dose: 20 mg Gabapentin (Neurontin) 600 mg PO TID [facility] Last Admin: 07/12/18 10:37 Dose: 600 mg Glucagon (Glucagen Diagnostic Kit) 0 mg IM STAT PRN; Protocol PRN Reason: Hypoglycemia Protocol Iron Sucrose 100 mg/ Sodium (Chloride) 105 mls @ 105 mls/hr IVPB DAILY [facility] Stop: 07/13/18 09:59 Last Admin: 07/12/18 10:36 Dose: 105 mls/hr Sodium Chloride (Sodium Chloride 0.9%) 1,000 mls @ 70 mls/hr IV .[id number] [facility] Stop: 07/13/18 00:49 Last Admin: 07/12/18 01:55 Dose: 70 mls/hr Insulin Human Lispro (Humalog) 0 units SC ACHS [facility]; Protocol Last Admin: 07/12/18 07:40 Dose: Not Given Lactulose (Enulose) 30 gm PO DAILY PRN PRN Reason: Constipation Lorazepam (Ativan) 1 mg IVP Q6 PRN PRN Reason: Agitation Thiamine HCl (Vitamin B1 Tab) 100 mg PO DAILY [facility] Last Admin: 07/12/18 10:37 Dose: 100 mg - Labs Labs: 07/12/18 05:10 07/12/18 05:10 PT 14.0 Seconds (9.8-13.1) H 07/11/18 08:51 INR 1.2 07/11/18 08:51 APTT 24.1 Seconds (25.6-37.1) L 07/11/18 08:51 - Constitutional Appears: Non-toxic, No Acute Distress - Respiratory Exam Respiratory Exam: Clear to Ausculation Bilateral, NORMAL BREATHING PATTERN - Cardiovascular Exam Cardiovascular Exam: REGULAR RHYTHM, +S1, +S2 - GI/Abdominal Exam GI & Abdominal Exam: Soft. absent: Distended, Firm, Guarding, Rigid, Ten derness, Rebound Assessment and Plan - Assessment and Plan (Free Text) Assessment: 67M with anemia. Hx of GI bleed Responded well to 2PRBC Plan: - continue to monitor for bleed - H&H in AM - Transfuse as needed for hgb goal >7 Further recs discuss with Dr. Mcclain
[2018-07-12 22:49] VITALS: RESP 18
[2018-07-13 05:57] LABS: HEMOGLOBIN 8.5 g/dL (12.0-18.0); MEAN CELL VOLUME 73.5 fl (80.0-94.0); MEAN CORPUSCULAR HEMOGLOBIN 22.4 pg (27.0-31.0); MEAN CORPUSCULAR HGB CONC 30.4 g/dL (33.0-37.0); RBC 3.81 Mil/uL (4.40-5.90); RED CELL DISTRIBUTION WIDTH 21.3 % (11.5-14.5); WHITE BLOOD COUNT 2.6 K/uL (4.8-10.8)
[2018-07-13 06:19] LABS: ALBUMIN 3.3 g/dL (3.5-5.0); ALT/SGPT 47 U/L (21-72); AST/SGOT 38 U/L (17-59); BLOOD UREA NITROGEN 7 mg/dl (9-20); CALCIUM 8.4 mg/dL (8.4-10.2); GFR NON-AFRICAN AMERICAN > 60
[2018-07-13] MEDS: Insulin Lispro (humaLOG) 100 Units/ml Inj SC SCH (07:06)
[2018-07-13 08:00] VITALS: TEMP 98; O2SAT 98
[2018-07-13] MEDS ORDERED: Potassium Chloride 20 mEq/15 ml LIQ UD PO ONE (08:00)
--- NOTE | 2018-07-13 10:24 | CP.PCM.DIS ---
Provider - Provider Date of Admission: 07/11/18 04:48 Attending physician: Art Fink Time Spent in preparation of Discharge (in minutes): 30 Hospital Course - Lab Results Lab Results: Most Recent Lab Values WBC 2.6 K/uL (4.8-10.8) L 07/13/18 04:25 RBC 3.81 Mil/uL (4.40-5.90) L 07/13/18 04:25 Hgb 8.5 g/dL (12.0-18.0) L 07/13/18 04:25 Hct 28.0 % (35.0-51.0) L 07/13/18 04:25 MCV 73.5 fl (80.0-94.0) L D 07/13/18 04:25 MCH 22.4 pg (27.0-31.0) L 07/13/18 04:25 MCHC 30.4 g/dL (33.0-37.0) L 07/13/18 04:25 RDW 21.3 % (11.5-14.5) H 07/13/18 04:25 Plt Count 67 K/uL (130-400) L 07/13/18 04:25 MPV 9.7 fl (7.2-11.7) 07/12/18 05:10 Neut % (Auto) 73.2 % (50.0-75.0) 07/12/18 05:10 Lymph % (Auto) 13.6 % (20.0-40.0) L 07/12/18 05:10 Treg[place] % (Auto) 12.2 % (0.0-10.0) H 07/12/18 05:10 Eos % (Auto) 0.3 % (0.0-4.0) 07/12/18 05:10 Baso % (Auto) 0.7 % (0.0-2.0) 07/12/18 05:10 Neut # (Auto) 1.6 K/uL (1.8-7.0) L 07/12/18 05:10 Lymph # (Auto) 0.3 K/uL (1.0-4.3) L 07/12/18 05:10 Trego # (Auto) 0.3 K/uL (0.0-0.8) 07/12/18 05:10 Eos # (Auto) 0.0 K/uL (0.0-0.7) 07/12/18 05:10 Baso # (Auto) 0.0 K/uL (0.0-0.2) 07/12/18 05:10 Retic Count 3.1 % (0.5-1.5) H D 07/11/18 06:25 PT 14.0 Seconds (9.8-13.1) H 07/11/18 08:51 INR 1.2 07/11/18 08:51 APTT 24.1 Seconds (25.6-37.1) L 07/11/18 08:51 Sodium 142 mmol/l (132-148) 07/13/18 04:25 Potassium 3.3 MMOL/L (3.6-5.0) L 07/13/18 04:25 Chloride 109 mmol/L (98-107) H 07/13/18 04:25 Carbon Dioxide 27 mmol/L (22-30) 07/13/18 04:25 Anion Gap 9 (10-20) L 07/13/18 04:25 BUN 7 mg/dl (9-20) L 07/13/18 04:25 Creatinine 0.8 mg/dl (0.8-1.5) 07/13/18 04:25 Est GFR ( Amer) > 60 07/13/18 04:25 Est GFR (Non-Af Amer) > 60 07/13/18 04:25 POC Glucose (mg/dL) 88 mg/dL (65-110) 07/13/18 05:36 Random Glucose 106 mg/dL (75-110) 07/13/18 04:25 Calcium 8.4 mg/dL (8.4-10.2) 07/13/18 04:25 Phosphorus 2.9 mg/dl (2.5-4.5) 07/12/18 05:10 Magnesium 2.2 MG/DL (1.6-2.3) 07/12/18 05:10 Iron < 10 ug/dL (49-181) L 07/11/18 06:25 TIBC 414 ug/dL (250-450) 07/11/18 06:25 % Saturation 2.4 % (20-55) L 07/11/18 06:25 Ferritin 6.4 ng/Ml (17.9-464) L 07/11/18 06:25 Total Bilirubin 2.4 mg/dl (0.2-1.3) H 07/13/18 04:25 AST 38 U/L (17-59) 07/13/18 04:25 ALT 47 U/L (21-72) 07/13/18 04:25 Alkaline Phosphatase 81 U/L (38-126) 07/13/18 04:25 Troponin I 0.1000 ng/mL (0.00-0.120) 07/11/18 16:31 NT-Pro-B Natriuret Pep 2660 pg/ml (0-900) H 07/11/18 04:20 Total Protein 6.7 G/DL (6.3-8.2) 07/13/18 04:25 Albumin 3.3 g/dL (3.5-5.0) L 07/13/18 04:25 Globulin 3.4 gm/dL (2.2-3.9) 07/13/18 04:25 Albumin/Globulin Ratio 1.0 (1.0-2.1) 07/13/18 04:25 TSH 3rd Generation 0.79 mIU/ML (0.46-4.68) 07/12/18 05:10 Urine Opiates Screen Positive (NEGATIVE) H 07/11/18 04:20 Urine Methadone Screen Negative (NEGATIVE) 07/11/18 04:20 Ur Barbiturates Screen Negative (NEGATIVE) 07/11/18 04:20 Ur Phencyclidine Scrn Negative (NEGATIVE) 07/11/18 04:20 Ur Amphetamines Screen Negative (NEGATIVE) 07/11/18 04:20 U Benzodiazepines Scrn Negative (NEGATIVE) 07/11/18 04:20 U Oth Cocaine Metabols Negative (NEGATIVE) 07/11/18 04:20 U Cannabinoids Screen Negative (NEGATIVE) 07/11/18 04:20 Alcohol, Quantitative < 10 mg/dl (0-10) 07/11/18 04:20 Blood Type B POSITIVE 07/11/18 04:47 Antibody Screen Negative 07/11/18 04:47 Crossmatch See Detail 07/11/18 04:47 BBK History Checked Patient has bt 07/11/18 04:47 - Hospital Course Hospital Course: Assessment: 67 y/o male patient seen and evaluated for symptomatic anemia, possible due to GI bleed. Plan: Symptomatic Anemia, likely due to GI bleed - Consult GI, Dr. Mcclain, Recommendations appreciated. - FOBT - CBC done, Hb post 4 units packed RBCs transfusion is 8.5 - Ferrous sulfate 325 mg PO BID - Colase 100 mg PO QD - S/P 4 units PRBCs infusion NIDDM-II - Controlled - Reconcile the home medications Patient has been found to have Symptomatic Anemia, likely due to GI bleed on presentation. Patient was started on Furosemide 20 mg PO BID and Thiamine 100 mg IV daily . anemia resolved. Patient was discharged home with Ferrous sulfate 325 mg PO BID, Colase 100 mg PO QD. patient home medications reconciled. Patient remained totally asymptomatic during hospital stay. After an uneventful hospital stay the patient was discharged to home. There were no acute changes to his prescribed medical regimen. Discharge Exam - Head Exam Head Exam: ATRAUMATIC, NORMOCEPHALIC - Eye Exam Eye Exam: EOMI, Normal appearance, PERRL Pupil Exam: NORMAL ACCOMODATION, PERRL - Neck Exam Neck exam: Full Rom - Respiratory Exam Respiratory Exam: Clear to PA & Lateral, NORMAL BREATHING PATTERN, UNREMARKABLE - Cardiovascular Exam Cardiovascular Exam: REGULAR RHYTHM, RRR - GI/Abdominal Exam GI & Abdominal Exam: Normal Bowel Sounds, Unremarkable - Extremities Exam Extremities exam: full ROM Additional comments: +1 R LE pitting edema - Back Exam Back exam: NORMAL INSPECTION - Neurological Exam Neurological exam: Alert, Oriented x3 - Psychiatric Exam Psychiatric exam: Normal Affect, Normal Mood - Skin Skin Exam: Dry, Intact, Normal Color, Warm Discharge Plan - Follow Up Plan Condition: FAIR Disposition: HOME/ ROUTINE
[2018-07-13 11:54] VITALS: PULSE 82
[2018-07-13 12:01] VITALS: BP 160/81
== END 2018-07-13 12:30 | disposition home or self-care (01) | DRG 810 ==
LOC: H.ER 03:36 → H.ERHOLD 04:48 → H.TEL 14:04
PROVIDERS: ADMIT Internal Medicine; ATTEND Internal Medicine
PROC: 30233N1 Transfusion of Nonautologous Red Blood Cells into Peripheral Vein, Percutaneous Approach (ICD-10-PCS; principal; 2018-07-11)
DX: D61.818 Other pancytopenia (principal); K70.9 Alcoholic liver disease, unspecified; E11.40 Type 2 diabetes mellitus with diabetic neuropathy, unspecified; I11.0 Hypertensive heart disease with heart failure; I50.9 Heart failure, unspecified; J44.9 Chronic obstructive pulmonary disease, unspecified; F10.20 Alcohol dependence, uncomplicated; K21.9 Gastro-esophageal reflux disease without esophagitis; E78.5 Hyperlipidemia, unspecified; E78.00 Pure hypercholesterolemia, unspecified; R07.9 Chest pain, unspecified; K43.2 Incisional hernia without obstruction or gangrene; Y90.0 Blood alcohol level of less than 20 mg/100 ml; Z79.84 Long term (current) use of oral hypoglycemic drugs; Z88.0 Allergy status to penicillin; Z87.891 Personal history of nicotine dependence

== ENCOUNTER 2018-09-13 09:21 | Emergency (ER) | payer MEDICARE, MEDICAID ==
[2018-09-13 09:22] VITALS: BMI 42.3
[2018-09-13 09:26] VITALS: RESP 18; TEMP 98.2; O2SAT 95
[2018-09-13] MEDS ORDERED: Sodium Chloride 0.9% 1,000 ML IV STA (10:26)
--- NOTE | 2018-09-13 10:26 | ED PDOC ---
HPI: Abdomen Time Seen by Provider: 09/13/18 09:51 Chief Complaint (Nursing): Abdominal Pain Chief Complaint (Provider): Abdominal Pain History Per: Patient History/Exam Limitations: no limitations Onset/Duration Of Symptoms: Days (x1 week) Current Symptoms Are (Timing): Still Present Associated Symptoms: Vomiting. denies: Fever Additional Complaint(s): Vijay Palacios is a 68 year old male with a past medical history of abdominal hernia surgery, HTN, and anemia, who presents to the emergency department complaining of left sided abdominal pain, associated with vomiting, that has worsened over the past x2 days. Patient denies having any fever or diarrhea but has been able to pass gas and stool. PMD: Diane Cuenca Past Medical History Reviewed: Historical Data, Nursing Documentation, Vital Signs Vital Signs: Last Vital Signs Temp 98.2 F 09/13/18 09:24 Pulse 95 H 09/13/18 09:24 Resp 18 09/13/18 09:24 BP 109/71 09/13/18 09:24 Pulse Ox 95 09/13/18 09:24 - Medical History PMH: Anemia, Arthritis, COPD, Diabetes, HTN, Hypercholesterolemia, Peripheral Edema (BLE) Denies: Colonic Polyps, Fractures, HIV, Chronic Kidney Disease - Surgical History Surgical History: Appendectomy (Exploratory Laporatomy for ruptured AP), Cholecystectomy, Hernia Repair Denies: Endoscopy - Family History Family History: States: Unknown Family Hx - Immunization History Hx Tetanus Toxoid Vaccination: No Hx Influenza Vaccination: No Hx Pneumococcal Vaccination: No - Home Medications Home Medications: Ambulatory Orders Medication Instructions Recorded Albuterol HFA [Ventolin HFA 90 2 puff INH Q6H PRN 04/08/17 mcg/actuation (8 g)] Pantoprazole Sodium [Protonix] 40 mg PO DAILY 04/08/17 Losartan [Cozaar] 100 mg PO DAILY #30 tab 04/09/17 Ergocalciferol (Vitamin D2) 50,000 unit PO SAT 05/19/17 [Vitamin D2] Ferrous Sulfate [Ferosul] 325 mg PO TID 05/19/17 Furosemide [Lasix] 20 mg PO DAILY PRN 05/19/17 Gabapentin [Neurontin] 600 mg PO TID 05/19/17 Multivitamin [Multi-Vitamin Daily] 1 tab PO DAILY 05/19/17 Potassium Chloride [K-Dur 20 mEq 20 meq PO DAILY PRN 05/19/17 ER Tab] traMADol [Ultram] 100 mg PO TID #6 05/23/17 Docusate Sodium [Colace] 100 mg PO DAILY #30 capsule 07/13/18 Ferrous Sulfate 325 mg PO BID #60 tablet 07/13/18 traMADol [Ultram] 50 mg PO Q8 #10 tab 09/13/18 - Allergies Allergies/Adverse Reactions: Allergies Allergy/AdvReac Type Severity Reaction Status Date / Time Penicillins Allergy RASH Verified 09/13/18 09:48 Review of Systems ROS Statement: Except As Marked, All Systems Reviewed And Found Negative Constitutional: Negative for: Fever Gastrointestinal: Positive for: Vomiting, Abdominal Pain (left sided ). Negative for: Diarrhea Physical Exam - Reviewed Nursing Documentation Reviewed: Yes Vital Signs Reviewed: Yes - Physical Exam Appears: Positive for: Non-toxic, No Acute Distress Head Exam: Positive for: ATRAUMATIC, NORMOCEPHALIC Skin: Positive for: Normal Color, Warm, Dry Eye Exam: Positive for: Normal appearance, EOMI, PERRL Neck: Positive for: Normal, Painless ROM, Supple Cardiovascular/Chest: Positive for: Regular Rate, Rhythm. Negative for: Murmur Respiratory: Positive for: Normal Breath Sounds. Negative for: Respiratory Distress Gastrointestinal/Abdominal: Positive for: Tenderness (LLQ), Distended, Other (large anterior surgical scar on left side) Back: Positive for: Normal Inspection. Negative for: L CVA Tenderness, R CVA Tenderness, Vertebral Tenderness Extremity: Positive for: Normal ROM. Negative for: Pedal Edema, Deformity Neurologic/Psych: Positive for: Alert, Oriented. Negative for: Motor/Sensory Deficits - Laboratory Results Result Diagrams: 09/13/18 10:40 09/13/18 10:40 - ECG O2 Sat by Pulse Oximetry: 95 (RA) Pulse Ox Interpretation: Normal Medical Decision Making Medical Decision Making: Time: 1000 Impression: Concern is for obstruction given prior surgery to repair hernia Plan: --CT abd/pelvis IV contrast --CMP --Urine dipstick --CBC with differential --Toradol 30 mg IV --Sodium chloride 1,[address] FINDINGS: LOWER THORAX: Interval small dependent bilateral pleural effusions. The 3 mm lateral lung base sub pleural peripheral solid-appearing nodule stable appearing. LIVER: Unremarkable. No gross lesion or ductal dilatation. GALLBLADDER AND BILE DUCTS: Unremarkable. PANCREAS: Unremarkable. No gross lesion or ductal dilatation. SPLEEN: The granulomas and mild splenic enlargement at 15 cm noted and similar. ADRENALS: Unremarkable. No mass. KIDNEYS AND URETERS: Unremarkable. No hydronephrosis. No solid mass. VASCULATURE: . No aortic aneurysm. There is presence of aortic atherosclerotic calcification and mural plaque on cross sectional studies. BOWEL: A ventral wide bulging and thinning of the anterior abdominal musculature with fecalized small bowel loops protruding into this anterior abdominal wall bulging is 1 finding. In addition a right spigelian hernia with nondistended small bowel loops protruding into it is another. The right spigelian small bowel containing hernia segments appear to have entering and exiting small-bowel loops noted. The more midline wide ventral lax bulging anterior abdominal wall with fecalized small bowel loops are borderline prominent small-bowel loops protruding as well. The caliber of these more midline fecalized small bowel loops here appear slightly increased at the 3 0.0 [id number]. Around this fecalized midline small bowel loop are similar anastomotic surgical changes (a xis series 6, image 56 to 59) this borderline to top-normal midline fecalized small bowel segment caliber prominence however appears slightly less now than before. Partial incomplete small-bowel obstructions are a consideration. No obstructing mass seen. The mild mesenteric edema surrounding the small large bowel loops are re-noted. There is interval small amount of fluid in the right and left hemipelvis in this male patient not seen previously. Few scattered diverticuli present. APPENDIX: Not identified. No CT suspect findings of acute appendicitis believed present. PERITONEUM: There is interval small amount of fluid in the right and left hemipelvis in this male patient not seen previously. No free air noted. LYMPH NODES: Unremarkable. No enlarged lymph nodes. BLADDER: Decompressed and unremarkable. REPRODUCTIVE: Small prostate with prostatic calcifications noted. BONES: Diffuse thoraco lumbar spondylosis. Facet hypertrophic arthrosis. OTHER FINDINGS: The right spigelian herniated sac is estimated to be 6.9 x 9.7 cm on coronal series 604, image 46. Neck here is approximately 2.4 cm. IMPRESSION: Right spigelian hernia containing a non distended entering and exiting small bowel loop as detailed above. Wide midline ventral abdominal wall thinning with fecalized borderline prominent small bowel loops protruding into this partially. Anastomotic surgical changes here are hree noted. No anastomotic masses or masses causing obstruction perceived. The caliber of these fecalized small bowel loops are borderline prominent yet smaller than that suggested previously. Partial mild degrees of small bowel obstruction can simulate this. Any partial small-bowel obstructions appear in close proximity to the anastomotic sutures thickening primarily small bowel segments only. No discrete mass is noted. Continued clinical follow-up recommended.. No high-grade or complete bowel obstruction suggested. Similar mesenteric edema. Interval increased bilateral hemipelvic fluid. Subcutaneous edema/anasarca changes also noted inferiorly. If the patient has not had a surgical consult today consider this. Evaluated by surgery. Can be discharged and followed as outpt with appointment with surgeon Dr. López next week. Scribe Attestation: Documented by Bogdan Piña, acting as a scribe for Rubio Alva MD. Provider Scribe Attestation: All medical record entries made by the Scribe were at my direction and personally dictated by me. I have reviewed the chart and agree that the record accurately reflects my personal performance of the history, physical exam, medical decision making, and the department course for this patient. I have also personally directed, reviewed, and agree with the discharge instructions and disposition. Disposition - Clinical Impression Clinical Impression: Ventral hernia - Patient ED Disposition Is Patient to be Admitted: No Counseled Patient/Family Regarding: Studies Performed, Diagnosis, Need For Followup, Rx Given - Disposition Referrals: Santi López MD [Staff Provider] - Disposition: Routine/Home Disposition Time: 15:27 Condition: FAIR Prescriptions: traMADol [Ultram] 50 mg PO Q8 #10 tab Instructions: Abdominal Hernia (DC) Forms: [employer] (Sami)
[2018-09-13 10:55] LABS: BASO % 0.7 % (0.0-2.0); EOS % 1.1 % (0.0-4.0); HEMOGLOBIN 9.9 g/dL (12.0-18.0); LYMPH # 0.4 K/uL (1.0-4.3); LYMPH % 14.5 % (20.0-40.0); MEAN CELL VOLUME 89.5 fl (80.0-94.0); MEAN CORPUSCULAR HEMOGLOBIN 27.6 pg (27.0-31.0); MEAN CORPUSCULAR HGB CONC 30.9 g/dL (33.0-37.0); MEAN PLATELET VOLUME 9.8 fl (7.2-11.7); MONO # 0.4 K/uL (0.0-0.8); MONO % 13.9 % (0.0-10.0); NEUT # 1.9 K/uL (1.8-7.0); NEUT % 69.8 % (50.0-75.0); NRBC % 0.5 % (0.0-0.0); RBC 3.57 Mil/uL (4.40-5.90); RED CELL DISTRIBUTION WIDTH 19.4 % (11.5-14.5); WHITE BLOOD COUNT 2.7 K/uL (4.8-10.8)
[2018-09-13 11:00] LABS: ALB/GLOB RATIO 0.9 (1.0-2.1); ALT/SGPT 29 U/L (21-72); AST/SGOT 41 U/L (17-59); BLOOD UREA NITROGEN 11 mg/dl (9-20); CALCIUM 8.2 mg/dL (8.4-10.2); GFR NON-AFRICAN AMERICAN > 60
[2018-09-13] MEDS ORDERED: Sodium Chloride 0.9% 50 ML IV ONE (11:07)
[2018-09-13] MEDS ORDERED: Iohexol 300 100 ML IJ ONE (11:07)
--- NOTE | 2018-09-13 13:20 | CT ---
Date of service: 09/13/2018 PROCEDURE: CT Abdomen and Pelvis with and without intravenous contrast HISTORY: Abd pain COMPARISON: 05/29/2017 CT abdomen and pelvis TECHNIQUE: Axial images of the abdomen were obtained in the pre contrast, portal venous and delayed phases of enhancement. Coronal and sagittal reformats were generated. Contrast dose: 95 cc Omnipaque 300 Radiation dose: Total exam DLP = 1701.62 mGy-cm. This CT exam was performed using one or more of the following dose reduction techniques: Automated exposure control, adjustment of the mA and/or kV according to patient size, and/or use of iterative reconstruction technique. FINDINGS: LOWER THORAX: Interval small dependent bilateral pleural effusions. The 3 mm lateral lung base sub pleural peripheral solid-appearing nodule stable appearing. LIVER: Unremarkable. No gross lesion or ductal dilatation. GALLBLADDER AND BILE DUCTS: Unremarkable. PANCREAS: Unremarkable. No gross lesion or ductal dilatation. SPLEEN: The granulomas and mild splenic enlargement at 15 cm noted and similar. ADRENALS: Unremarkable. No mass. KIDNEYS AND URETERS: Unremarkable. No hydronephrosis. No solid mass. VASCULATURE: . No aortic aneurysm. There is presence of aortic atherosclerotic calcification and mural plaque on cross sectional studies. BOWEL: A ventral wide bulging and thinning of the anterior abdominal musculature with fecalized small bowel loops protruding into this anterior abdominal wall bulging is 1 finding. In addition a right spigelian hernia with nondistended small bowel loops protruding into it is another. The right spigelian small bowel containing hernia segments appear to have entering and exiting small-bowel loops noted. The more midline wide ventral lax bulging anterior abdominal wall with fecalized small bowel loops are borderline prominent small-bowel loops protruding as well. The caliber of these more midline fecalized small bowel loops here appear slightly increased at the 3 0.0 [id number]. Around this fecalized midline small bowel loop are similar anastomotic surgical changes (axis series 6, image 56 to 59) this borderline to top-normal midline fecalized small bowel segment caliber prominence however appears slightly less now than before. Partial incomplete small-bowel obstructions are a consideration. No obstructing mass seen. The mild mesenteric edema surrounding the small large bowel loops are re-noted. There is interval small amount of fluid in the right and left hemipelvis in this male patient not seen previously. Few scattered diverticuli present. APPENDIX: Not identified. No CT suspect findings of acute appendicitis believed present. PERITONEUM: There is interval small amount of fluid in the right and left hemipelvis in this male patient not seen previously. No free air noted. LYMPH NODES: Unremarkable. No enlarged lymph nodes. BLADDER: Decompressed and unremarkable. REPRODUCTIVE: Small prostate with prostatic calcifications noted. BONES: Diffuse thoraco lumbar spondylosis. Facet hypertrophic arthrosis. OTHER FINDINGS: The right spigelian herniated sac is estimated to be 6.9 x 9.7 cm on coronal series 604, image 46. Neck here is approximately 2.4 cm. IMPRESSION: Right spigelian hernia containing a non distended entering and exiting small bowel loop as detailed above. Wide midline ventral abdominal wall thinning with fecalized borderline prominent small bowel loops protruding into this partially. Anastomotic surgical changes here are hree noted. No anastomotic masses or masses causing obstruction perceived. The caliber of these fecalized small bowel loops are borderline prominent yet smaller than that suggested previously. Partial mild degrees of small bowel obstruction can simulate this. Any partial small-bowel obstructions appear in close proximity to the anastomotic sutures thickening primarily small bowel segments only. No discrete mass is noted. Continued clinical follow-up recommended.. No high-grade or complete bowel obstruction suggested. Similar mesenteric edema. Interval increased bilateral hemipelvic fluid. Subcutaneous edema/anasarca changes also noted inferiorly. If the patient has not had a surgical consult today consider this.
[2018-09-13 15:55] VITALS: BP 112/74; PULSE 88
--- NOTE | 2018-09-13 15:55 | CP.PCM.CON ---
History of Present Illness - History of Present Illness History of Present Illness: 66M with PMHx of HTN, DM, hyperlipidemia, COPD, anemia presented to the ED with complaints of abdominal pain. Patient reports intermittent abdominal pain along right lower quadrant where abdominal wall hernia is present. Patient states he is passing flatus and having normal bowel movements. States he experienced nausea/vomiting earlier during the week but it has resolved. Denies fever/chills, chest pain, SOB, hematemesis, hematochezia, melena, dysuria. PMH: see above PSH: appendectomy, cholecystectomy, ventral hernia repair SH: smoker > 30 pack years. Former heavy drinker. Admits to former multiple drug use All: PCN Review of Systems - Review of Systems Review of Systems: 10 pt ROS unremarkable except as stated in HPI Past Patient History - Past Medical History & Family History Past Medical History?: Yes - Past Social History Smoking Status: Former Smoker - CARDIAC Hx Hypercholesterolemia: Yes Hx Hypertension: Yes Hx Peripheral Edema: Yes (BLE) - PULMONARY Hx Chronic Obstructive Pulmonary Disease (COPD): Yes - NEUROLOGICAL Hx Neurological Disorder: Yes Other/Comment: History of Diabetic Neuropathy on BLE - HEENT Hx HEENT Problems: Yes Other/Comment: eyeglasses - RENAL Hx Chronic Kidney Disease: No - ENDOCRINE/METABOLIC Hx Endocrine Disorders: Yes Hx Diabetes Mellitus Type 2: Yes - HEMATOLOGICAL/ONCOLOGICAL Hx Anemia: Yes Hx Human Immunodeficiency Virus (HIV): No - INTEGUMENTARY Hx Dermatological Problems: No - MUSCULOSKELETAL/RHEUMATOLOGICAL Hx Arthritis: Yes Hx Fractures: No - GASTROINTESTINAL Hx Gastrointestinal Disorders: Yes Hx Gastroesophageal Reflux: Yes - GENITOURINARY/GYNECOLOGICAL Hx Genitourinary Disorders: No - PSYCHIATRIC Hx Psychophysiologic Disorder: Yes Hx Substance Use: Yes (opioid use and heroin, quit 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 ago) Other/Comment: history of etoh abuse, quit 1 yr ago - SURGICAL HISTORY Hx Appendectomy: Yes (Exploratory Laporatomy for ruptured AP) Hx Cholecystectomy: Yes - ANESTHESIA Hx Anesthesia: Yes Hx Anesthesia Reactions: No Hx Malignant Hyperthermia: No Meds Home Medications: Home Medication List Medication Instructions Recorded Confirmed Type traMADol [Ultram] 50 mg PO Q8 #10 tab 09/13/18 Rx Allergies/Adverse Reactions: Allergies Allergy/AdvReac Type Severity Reaction Status Date / Time Penicillins Allergy RASH Verified 09/13/18 09:48 - Medications Medications: Current Medications Sodium Chloride (Sodium Chloride 0.9%) 1,000 mls @ 150 mls/hr IV .Q6H40M STA Stop: 09/13/18 17:05 Last Admin: 09/13/18 10:46 Dose: 150 mls/hr Physical Exam - Constitutional Appears: No Acute Distress - Head Exam Head Exam: NORMOCEPHALIC - Eye Exam Eye Exam: EOMI, Normal appearance - ENT Exam ENT Exam: Mucous Membranes Moist - Respiratory Exam Respiratory Exam: NORMAL BREATHING PATTERN - Cardiovascular Exam Cardiovascular Exam: +S1 - GI/Abdominal Exam GI & Abdominal Exam: Hernia, Soft. absent: Distended, Firm, Guarding, Rebound, Rigid, Tenderness Additional comments: RLQ spigelian hernia - Neurological Exam Neurological exam: Alert, Oriented x3 - Psychiatric Exam Psychiatric exam: Normal Mood - Skin Skin Exam: Dry, Intact, Warm Results - Vital Signs Recent Vital Signs: Last Vital Signs Temp 98.2 F 09/13/18 09:24 Pulse 95 H 09/13/18 09:24 Resp 18 09/13/18 09:24 BP 109/71 09/13/18 09:24 Pulse Ox 95 09/13/18 15:28 - Labs Result Diagrams: 09/13/18 10:40 09/13/18 10:40 Labs: Laboratory Results - last 24 hr 09/13/18 09/13/18 10:40 10:40 WBC 2.7 L RBC 3.57 L Hgb 9.9 L Hct 32.0 L MCV 89.5 D MCH 27.6 MCHC 30.9 L RDW 19.4 H Plt Count 79 L MPV 9.8 Neut % (Auto) 69.8 Lymph % (Auto) 14.5 L Haines % (Auto) 13.9 H Eos % (Auto) 1.1 Baso % (Auto) 0.7 Neut # (Auto) 1.9 Lymph # (Auto) 0.4 L Haines # (Auto) 0.4 Eos # (Auto) 0.0 Baso # (Auto) 0.0 Sodium 137 Potassium 4.4 Chloride 109 H Carbon Dioxide 24 Anion Gap 8 L BUN 11 Creatinine 0.8 Est GFR ( Amer) > 60 Est GFR (Non-Af Amer) > 60 Random Glucose 138 H Calcium 8.2 L Total Bilirubin 0.9 AST 41 ALT 29 Alkaline Phosphatase 90 Total Protein 6.4 Albumin 3.0 L Globulin 3.3 Albumin/Globulin Ratio 0.9 L Assessment & Plan - Assessment and Plan (Free Text) Assessment: 68M with right spigelian hernia Plan: -Patient is not peritoneal -No clinical signs of bowel obstruction -Patient passing flatus having normal BM -Patient can follow up with Dr. López in 1 week -Instructed to return to ED immediately if pain worsens, has fever, becomes nauseous, or has worsening abdominal distension -D/w Dr. Alice Portillo PGY3
== END 2018-09-13 15:34 | disposition home or self-care (01) ==
LOC: H.ER 09:21
DX: K43.9 Ventral hernia without obstruction or gangrene (principal); I10 Essential (primary) hypertension; D64.9 Anemia, unspecified; Z90.49 Acquired absence of other specified parts of digestive tract; Z87.891 Personal history of nicotine dependence
CPT/HCPCS: 74178; 80053; 85025; 96374; 99283; J1885; J7030; Q9967

== ENCOUNTER 2018-11-17 02:45 | Inpatient (IN) | payer MEDICARE, MEDICAID ==
[2018-11-17 02:45] VITALS: BMI 42.3
[2018-11-17] MEDS ORDERED: Morphine 4 MG/ML VIAL IVP ONE (03:18)
[2018-11-17] MEDS ORDERED: Morphine 4 MG/ML VIAL ONE (03:29)
--- NOTE | 2018-11-17 03:55 | ED PDOC ---
Syncope/Near Syncope/Dizziness Time Seen by Provider: 11/17/18 03:10 Chief Complaint (Nursing): Dizziness/Lightheaded Chief Complaint (Provider): Right leg injury/pre=syncope History Per: Patient History/Exam Limitations: no limitations Onset/Duration Of Symptoms: Hrs (one), Sudden Onset (Pt presents to the ED after becoming lightheaded this evening and falling, causeing injury to his right hip and upper leg. The patient denies head trauma, LOC or shortness of breath. THe patient has hypertension controlled by medication and D2M also medically controlled. The patient disavows any history of CVA, TIA or ACS) Current Symptoms Are (Timing): Still Present Number Of Syncopal Episodes: 1 Activity At Onset Of Symptoms: Walking, Had Just Stood up Associated Symptoms Preceding Syncopal Episode: No Predromal Symptoms (Sudden Onset) Past Medical History Reviewed: Historical Data, Nursing Documentation, Vital Signs Vital Signs: Last Vital Signs Temp 97.6 F 11/17/18 03:03 Pulse 70 11/17/18 03:03 Resp 17 11/17/18 03:03 BP 94/49 L 11/17/18 03:03 Pulse Ox 100 11/17/18 03:03 - Medical History PMH: Anemia, Arthritis, COPD, Diabetes, HTN, Hypercholesterolemia, Peripheral Edema (BLE) Denies: Colonic Polyps, Fractures, HIV, Chronic Kidney Disease - Surgical History Surgical History: Appendectomy (Exploratory Laporatomy for ruptured AP), Cholecystectomy, Hernia Repair Denies: Endoscopy - Family History Family History: States: Unknown Family Hx - Immunization History Hx Tetanus Toxoid Vaccination: No Hx Influenza Vaccination: No Hx Pneumococcal Vaccination: No - Home Medications Home Medications: Ambulatory Orders Medication Instructions Recorded Pantoprazole Sodium [Protonix] 40 mg PO DAILY 04/08/17 Losartan [Cozaar] 100 mg PO DAILY #30 tab 04/09/17 Ergocalciferol (Vitamin D2) 50,000 unit PO SAT 05/19/17 [Vitamin D2] Ferrous Sulfate [Ferosul] 325 mg PO TID 05/19/17 Furosemide [Lasix] 20 mg PO DAILY PRN 05/19/17 Gabapentin [Neurontin] 600 mg PO TID 05/19/17 Multivitamin [Multi-Vitamin Daily] 1 tab PO DAILY 05/19/17 Potassium Chloride [K-Dur 20 mEq 20 meq PO DAILY PRN 05/19/17 ER Tab] Albuterol HFA [Ventolin HFA 90 1 puff INH Q6 PRN 11/17/18 mcg/actuation (8 g)] Etodolac 1 tab PO BID 11/17/18 SITagliptin [Januvia] 100 mg PO DAILY 11/17/18 metFORMIN [glucOPHAGE] 500 mg PO BID 11/17/18 traMADol [Ultram] 100 mg PO TID 11/17/18 - Allergies Allergies/Adverse Reactions: Allergies Allergy/AdvReac Type Severity Reaction Status Date / Time Penicillins Allergy RASH Verified 11/17/18 03:07 Review of Systems Musculoskeletal: Positive for: Leg Pain Neurological: Positive for: Dizziness Physical Exam - Reviewed Nursing Documentation Reviewed: Yes Vital Signs Reviewed: Yes - Physical Exam Appears: Positive for: Uncomfortable, In Acute Distress Head Exam: Positive for: ATRAUMATIC, NORMAL INSPECTION Eye Exam: Positive for: Normal appearance. Negative for: Periorbital swelling, Periorbital tenderness Neck: Positive for: Normal, Supple Cardiovascular/Chest: Positive for: Regular Rate, Rhythm Respiratory: Positive for: Normal Breath Sounds Pulses-Carotid (L): 2+ Pulses-Carotid (R): 2+ Pulses-Radial (L): 2+ Pulses-Radial (R): 2+ Extremity: Positive for: Tenderness, Capillary Refill (<2 seconds distally), Swelling. Negative for: Normal ROM, Deformity - Laboratory Results Result Diagrams: 11/17/18 04:15 11/17/18 04:15 - ECG ECG: Positive for: Interpreted By Me, Viewed By Me ECG Rhythm: Positive for: Normal QRS, Normal ST Segment, Sinus Rhythm, Sinus Bradycardia Rate: 56 O2 Sat by Pulse Oximetry: 100 Pulse Ox Interpretation: Normal Medical Decision Making Medical Decision Making: I: syncope and leg fx P: xr hip, femur and knee with pelvis cbc cmp troponin morphine and zofran fluids 04:[address] There is normal configuration of sella turcica. There are no intra or extra- axial collections. There is no mass effect or midline shift. There is no evidence of hematoma formation. No hydrocephalus is present. The ventricles are symmetrical. No abnormal calcifications are present. There is diffuse age-appropriate cerebellar and cerebral atrophy with proportionally dilated ventricles and cortical sulci. There are bilateral periventricular and subcortical white matter hypolucencies compatible with mild chronic microvascular disease. Otherwise, no significant focal abnormalities are seen either in the posterior fossa or supratentorial compartment. IMPRESSION: 1. Age-appropriate cerebellar and cerebral atrophy. 2. Mild chronic microvascular disease. 3. No evidence of acute intracranial pathology. Plain film xr indicates that the patient has fractured his right hip just distal to the neck. Dr Fikn, hospitalist was consulted for admission A CT of the hip and pelvis was ordered 0540 - Dr Bebeto Rodríguez consulted concerning pt. CT and Plain film images sent to his cell phone. Disposition - Clinical Impression Clinical Impression: Hip fracture, right, Dizziness of unknown cause - Patient ED Disposition Is Patient to be Admitted: Yes Doctor Will See Patient In The: Hospital Counseled Patient/Family Regarding: Studies Performed, Diagnosis - Disposition Disposition Time: 04:42 Condition: STABLE - Pt Status Changed To: Hospital Disposition Of: Inpatient - Admit Certification Admit to Inpatient:: After my assessment, the patient will require hospitalization for at least two midnights. This is because of the severity of symptoms shown, intensity of services needed, and/or the medical risk in this patient being treated as an outpatient.
[2018-11-17] MEDS ORDERED: Sodium Chloride 0.9% 1,000 ML IV ONE (04:30)
[2018-11-17 04:41] LABS: ALBUMIN 3.6 g/dL (3.5-5.0); ALT/SGPT 29 U/L (21-72); AST/SGOT 35 U/L (17-59); BLOOD UREA NITROGEN 15 mg/dl (9-20); CALCIUM 8.6 mg/dL (8.4-10.2); GFR NON-AFRICAN AMERICAN > 60
[2018-11-17 04:50] LABS: BASO % 0.5 % (0.0-2.0); EOS % 0.4 % (0.0-4.0); HEMOGLOBIN 7.9 g/dL (12.0-18.0); LYMPH # 0.5 K/uL (1.0-4.3); LYMPH % 15.1 % (20.0-40.0); MEAN CELL VOLUME 73.1 fl (80.0-94.0); MEAN CORPUSCULAR HEMOGLOBIN 22.9 pg (27.0-31.0); MEAN CORPUSCULAR HGB CONC 31.3 g/dL (33.0-37.0); MEAN PLATELET VOLUME 10.9 fl (7.2-11.7); MONO # 0.3 K/uL (0.0-0.8); MONO % 9.3 % (0.0-10.0); NEUT # 2.3 K/uL (1.8-7.0); NEUT % 74.7 % (50.0-75.0); RBC 3.47 Mil/uL (4.40-5.90); RED CELL DISTRIBUTION WIDTH 18.3 % (11.5-14.5)
--- NOTE | 2018-11-17 05:29 | CP.PCM.HP ---
<Jesse Joshi - Last Filed: 11/17/18 06:14> History of Present Illness - History of Present Illness History of Present Illness: 68 y/o M with a PMH of HTN, HLD, DM, COPD, chronic Anemia, SBO, alcohol abuse, IV drug user, pancytopenia, recurrent ventral hernias and ?alcoholic liver disease presented to ED due to R hip and leg pain after sustaining a fall. Pt explains he went to bathroom, urinated, felt lightheaded and fell on his right side after 2-3 steps, and landed on his right hip. Pt denies LOC, head trauma, chest pain, SOB, palpitations, abdominal pain, N/V/D or change in bowel movement. --Pt reports drinking 1 beer every other day, last drink was 2 days ago. Pt reports taking all his medications but being tired of taking them. Pt reports no using rec drugs since 2 months ago. --Hx of blood transfusion in 06/2018. PMD: [facility]. Allergy: Penicillins Meds: As per med rec, non-compliant -PMHx: HLD, HTN, DM, COPD, chronic Anemia, SBO, alcohol abuse, IV drug user, pancytopenia, recurrent ventral hernias and liver disease -PSHx: Appendectomy, cholecystectomy, ventral hernia repair -SHx: Former smoker >30 pack years, smokes 2 cig/day. Hx of heavy drinker, now 1 beer every other day, last drink 2 days ago. Admits to former cocaine and heroine use until 2 months ago. -FHx: Denies any hx of colon cancer but reports brother after liver cancer, Mother and sister with heart conditions ED Course: --Vital signs hypotension at ED --CBC showed microcytic anemia, leukopenia and thrombocytopenia. CMP unremark able, AST/ALT were ENL. --Head CT: No evidence of acute intracranial pathology. --XR pelvis: R femur fracture. --Morphine and IV fluid administered at ED. Present on Admission - Present on Admission Any Indicators Present on Admission: No Review of Systems - Constitutional Constitutional: absent: Anorexia, Chills, Fever - EENT Nose/Mouth/Throat: absent: Epistaxis, Nasal Congestion, Nasal Discharge, Tongue Swelling, Neck Mass - Cardiovascular Cardiovascular: absent: Chest Pain, Dyspnea, Leg Edema, Lightheadedness, Palpitations - Respiratory Respiratory: absent: Cough, Dyspnea, Hemoptysis - Gastrointestinal Gastrointestinal: absent: Abdominal Pain, Coffee Ground Emesis, Hematemesis, Nausea, Vomiting - Genitourinary Genitourinary: absent: Dysuria, Flank Pain, Hematuria - Musculoskeletal Musculoskeletal: Limited Range of Motion (R hip) Past Patient History - Past Medical History & Family History Past Medical History?: Yes - Past Social History Smoking Status: Former Smoker - CARDIAC Hx Hypercholesterolemia: Yes Hx Hypertension: Yes Hx Peripheral Edema: Yes (BLE) - PULMONARY Hx Chronic Obstructive Pulmonary Disease (COPD): Yes - NEUROLOGICAL Hx Neurological Disorder: Yes Other/Comment: History of Diabetic Neuropathy on BLE - HEENT Hx HEENT Problems: Yes Other/Comment: eyeglasses - RENAL Hx Chronic Kidney Disease: No - ENDOCRINE/METABOLIC Hx Endocrine Disorders: Yes Hx Diabetes Mellitus Type 2: Yes - HEMATOLOGICAL/ONCOLOGICAL Hx Anemia: Yes Hx Human Immunodeficiency Virus (HIV): No - INTEGUMENTARY Hx Dermatological Problems: No - MUSCULOSKELETAL/RHEUMATOLOGICAL Hx Arthritis: Yes Hx Fractures: No - GASTROINTESTINAL Hx Gastrointestinal Disorders: Yes Hx Gastroesophageal Reflux: Yes - GENITOURINARY/GYNECOLOGICAL Hx Genitourinary Disorders: No - PSYCHIATRIC Hx Psychophysiologic Disorder: Yes Hx Substance Use: Yes (opioid use and heroin, quit 1 yr ago) Other/Comment: history of etoh abuse, quit 1 yr ago - SURGICAL HISTORY Hx Appendectomy: Yes (Exploratory Laporatomy for ruptured AP) Hx Cholecystectomy: Yes - ANESTHESIA Hx Anesthesia: Yes Hx Anesthesia Reactions: No Hx Malignant Hyperthermia: No Meds Allergies/Adverse Reactions: Allergies Allergy/AdvReac Type Severity Reaction Status Date / Time Penicillins Allergy RASH Verified 11/17/18 03:07 Physical Exam - Constitutional Appears: No Acute Distress - Head Exam Head Exam: NORMAL INSPECTION, NORMOCEPHALIC - Eye Exam Eye Exam: EOMI, Normal appearance, PERRL - ENT Exam ENT Exam: Mucous Membranes Dry - Neck Exam Neck exam: Positive for: Full Rom, Normal Inspection. Negative for: Meningismus, Tenderness - Respiratory Exam Respiratory Exam: NORMAL BREATHING PATTERN. absent: Rales, Rhonchi, Wheezes, Respiratory Distress - Cardiovascular Exam Cardiovascular Exam: REGULAR RHYTHM, +S1, +S2 - GI/Abdominal Exam GI & Abdominal Exam: Soft. absent: Guarding, Rebound, Rigid, Tenderness - Extremities Exam Extremities exam: Negative for: pedal edema Additional comments: R leg: tenderness over R hip area, temperature feels warm adn symmetric to L leg, presence of small scattered superficial varices on skin, tenderness on knee, decreased ROM due to pain, SILT, PT and DP pulses present. - Neurological Exam Neurological exam: Alert, Oriented x3 - Psychiatric Exam Psychiatric exam: Normal Affect, Normal Mood Results - Vital Signs Recent Vital Signs: Last Vital Signs Temp 97.6 F 11/17/18 03:03 Pulse 56 L 11/17/18 04:45 Resp 17 11/17/18 03:03 BP 94/49 L 11/17/18 03:03 Pulse Ox 100 11/17/18 04:45 - Labs Result Diagrams: 11/17/18 04:15 11/17/18 04:15 Labs: Laboratory Results - last 24 hr 11/17/18 11/17/18 04:15 04:15 WBC 3.0 L RBC 3.47 L Hgb 7.9 L D Hct 25.3 L MCV 73.1 L D MCH 22.9 L MCHC 31.3 L RDW 18.3 H Plt Count 74 L MPV 10.9 Neut % (Auto) 74.7 Lymph % (Auto) 15.1 L [place] % (Auto) 9.3 Eos % (Auto) 0.4 Baso % (Auto) 0.5 Neut # (Auto) 2.3 Lymph # (Auto) 0.5 L [place] # (Auto) 0.3 Eos # (Auto) 0.0 Baso # (Auto) 0.0 Sodium 137 Potassium 3.8 Chloride 103 Carbon Dioxide 27 Anion Gap 11 BUN 15 Creatinine 0.9 Est GFR ( Amer) > 60 Est GFR (Non-Af Amer) > 60 Random Glucose 195 H Calcium 8.6 Total Bilirubin 1.1 AST 35 ALT 29 Alkaline Phosphatase 134 H D Troponin I 0.0130 Total Protein 7.2 Albumin 3.6 Globulin 3.6 Albumin/Globulin Ratio 1.0 Assessment & Plan - Assessment and Plan (Free Text) Assessment: 68 y/o M with a PMH of HTN, HLD, DM, COPD, chronic Anemia, SBO, alcohol abuse, IV drug user, pancytopenia, recurrent ventral hernias and ?alcoholic liver d isease is admitted for evaluation and management of R femur fracture, anemia and pre-syncopal episode. --XR pelvis: R femur fracture. PLAN: >Right Femur Fracture --Orthopedic surgery consult, Dr Wright. --CT R lower leg. --NPO for possible surgery. --Hold PO meds for now --Pre-op orders: EKG, CXR, blood work. --Pain management: morphine for moderate and severe pain. --F/U ortho team recommendations. >Pre-syncope episode --Likely symptomatic anemia. Possibly orthostatic hypotension, vasovagal --Unable to get orthostatic BP due to R leg pain. --F/U vitals --IV fluids for hypotension --Hold PO meds for now >Chronic Microcytic Anemia --Hgb 7.9 - low --2 PRBC's ordered --Iron deficiency anemia as per last bloodwork. >Hypertension --Chronic --Controlled --Hold PO meds for now >NIDDM-II --Chronic --Hold PO meds for now >Alcohol abuse --Last drink 2 days ago --Serum alcohol ordered >Pancytopenia, Chronic --Seen by Hem-Onc in past >DVT ppx - SCD for now --No anticoagulation for possible surgery. <Art Fink - Last Filed: 11/17/18 09:50> Results - Vital Signs Recent Vital Signs: Last Vital Signs Temp 97.8 F 11/17/18 08:00 Pulse 74 11/17/18 08:00 Resp 20 11/17/18 08:00 BP 154/75 H 11/17/18 08:00 Pulse Ox 99 11/17/18 08:00 - Labs Result Diagrams: 11/17/18 04:15 11/17/18 04:15 Labs: Laboratory Results - last 24 hr 11/17/18 11/17/18 11/17/18 04:15 04:15 06:50 WBC 3.0 L RBC 3.47 L Hgb 7.9 L D Hct 25.3 L MCV 73.1 L D MCH 22.9 L MCHC 31.3 L RDW 18.3 H Plt Count 74 L MPV 10.9 Neut % (Auto) 74.7 Lymph % (Auto) 15.1 L [place] % (Auto) 9.3 Eos % (Auto) 0.4 Baso % (Auto) 0.5 Neut # (Auto) 2.3 Lymph # (Auto) 0.5 L [place] # (Auto) 0.3 Eos # (Auto) 0.0 Baso # (Auto) 0.0 PT INR APTT Sodium 137 Potassium 3.8 Chloride 103 Carbon Dioxide 27 Anion Gap 11 BUN 15 Creatinine 0.9 Est GFR ( Amer) > 60 Est GFR (Non-Af Amer) > 60 Random Glucose 195 H Calcium 8.6 Total Bilirubin 1.1 AST 35 ALT 29 Alkaline Phosphatase 134 H D Troponin I 0.0130 Total Protein 7.2 Albumin 3.6 Globulin 3.6 Albumin/Globulin Ratio 1.0 Alcohol, Quantitative Blood Type B POSITIVE Antibody Screen Negative Crossmatch See Detail BBK History Checked Patient has bt 11/17/18 11/17/18 06:50 06:50 WBC RBC Hgb Hct MCV MCH MCHC RDW Plt Count MPV Neut % (Auto) Lymph % (Auto) [place] % (Auto) Eos % (Auto) Baso % (Auto) Neut # (Auto) Lymph # (Auto) [place] # (Auto) Eos # (Auto) Baso # (Auto) PT 13.3 H INR 1.2 APTT 30.5 Sodium Potassium Chloride Carbon Dioxide Anion Gap BUN Creatinine Est GFR ( Amer) Est GFR (Non-Af Amer) Random Glucose Calcium Total Bilirubin AST ALT Alkaline Phosphatase Troponin I Total Protein Albumin Globulin Albumin/Globulin Ratio Alcohol, Quantitative < 10 Blood Type Antibody Screen Crossmatch BBK History Checked Attending/Attestation - Attestation I have personally seen and examined this patient.: Yes I have fully participated in the care of the patient.: Yes I have reviewed all pertinent clinical information: Yes Notes (Text): 11/17/18 09:11 I saw, examined and discussed this patient with Dr Joshi. i agree with the assessment and plan outlined above. This is a 68 years old male with hx of COPD, Alcohol abuse and pancytopenia who had a syncopal episode leaving the bathroom. he fell and fractured the neck of the right femur. The patient will be plaed on telemetry monitoring for the syncopal episode. IV fluids To increase the MAP to>65. The Orthopedist Dr Wright is consulted; the patient will be given nothing by mouth, IV Fluids, Pain management and prepared for surgery. For the anemia, his Hemoglobin will be uptimized for surgery by transfusion of 2 units of PRBC to increase to 10g/dl The patient has hx of COPD and will benifit form Bronchodilator if bronchospasm occurs and steroid if appropriate. Chest X Ray is Clear, with normal PTT an dINR. The EKG shows a bradycardia of 56/min. This patient is cleared for surgery Pending Cardiac clearance.. Art Fink MD 11/17/18 09:49
[2018-11-17] MEDS: Lactated Ringer's 1,000 ML IV SCH ×2 (06:46→23:33)
[2018-11-17 07:15] LABS: INR 1.2; PROTHROMBIN TIME 13.3 Seconds (9.8-13.1)
[2018-11-17 07:18] LABS: PARTIAL THROMBOPLASTIN TIME 30.5 Seconds (25.6-37.1)
[2018-11-17] MEDS: Morphine 4 MG/ML VIAL IVP PRN ×2 (08:22→23:29)
--- NOTE | 2018-11-17 09:11 | CT ---
Date of service: 11/17/2018 PROCEDURE: CT HEAD WITHOUT CONTRAST. HISTORY: presyncope COMPARISON: None available. TECHNIQUE: Axial computed tomography images were obtained through the head/brain without intravenous contrast. Radiation dose: Total exam DLP = 821.3 mGy-cm. This CT exam was performed using one or more of the following dose reduction techniques: Automated exposure control, adjustment of the mA and/or kV according to patient size, and/or use of iterative reconstruction technique. FINDINGS: HEMORRHAGE: No acute parenchymal, subarachnoid or extra-axial hemorrhage. BRAIN: Mild the diffuse/confluent chronic periventricular white matter ischemic changes. Moderate generalized volume loss Minor vascular calcifications both carotid siphons. VENTRICLES: No obstructive hydrocephalus. CALVARIUM: Unremarkable. PARANASAL SINUSES: Unremarkable as visualized. No significant inflammatory changes. MASTOID AIR CELLS: Unremarkable as visualized. No inflammatory changes. OTHER FINDINGS: None. IMPRESSION: No acute intracranial hemorrhage. Mild chronic periventricular white matter ischemic changes. Moderate generalized volume loss.
--- NOTE | 2018-11-17 09:27 | RAD ---
Date of service: 11/17/2018 HISTORY: Pre-op COMPARISON: Comparison made with chest radiograph 07/12/2018. FINDINGS: LUNGS: No active pulmonary disease. PLEURA: No significant pleural effusion identified, no pneumothorax apparent. CARDIOVASCULAR: Mild aortic atherosclerotic calcification present. Heart size upper limits of normal. OSSEOUS STRUCTURES: No significant abnormalities. VISUALIZED UPPER ABDOMEN: Normal. OTHER FINDINGS: None. IMPRESSION: No active disease.
--- NOTE | 2018-11-17 09:30 | CP.PCM.CON ---
History of Present Illness - History of Present Illness History of Present Illness: Orthopedic consultation Dr. Rodríguez 68M complains of right hip and leg pain after fall while going to the bathroom overnight. He says he has chronic pain in knees and legs and uses cane to walk. He was told he needs knee surgery for arthritis. He denies any pain in his left leg more than baseline and denies upper extremity pain, denies neck and back pain. He drinks alcohol daily. Denies numbness/tingling. Denies LOC, CP/SOB/dizziness/n/v PMH: HTN, DM, chronic anemia (transfusion 06/2018), ETOH abuse PSH: hernia repair all: PCN Review of Systems - Review of Systems All systems: reviewed and no additional remarkable complaints except - Constitutional Additional comments: no fever/chills - Cardiovascular Cardiovascular: As Per HPI - Respiratory Respiratory: As Per HPI - Gastrointestinal Gastrointestinal: As Per HPI - Musculoskeletal Musculoskeletal: As Per HPI - Integumentary Additional comments: skin intact - Neurological Neurological: As Per HPI - Hematologic/Lymphatic Hematologic: absent: As Per HPI, Easy Bleeding, Easy Bruising, Lymphadenopathy, Other Past Patient History - Past Medical History & Family History Past Medical History?: Yes Past Family History: Reviewed and not pertinent - Past Social History Smoking Status: Former Smoker - CARDIAC Hx Hypercholesterolemia: Yes Hx Hypertension: Yes Hx Peripheral Edema: Yes (BLE) - PULMONARY Hx Chronic Obstructive Pulmonary Disease (COPD): Yes - NEUROLOGICAL Hx Neurological Disorder: Yes Other/Comment: History of Diabetic Neuropathy on BLE - HEENT Hx HEENT Problems: Yes Other/Comment: eyeglasses - RENAL Hx Chronic Kidney Disease: No - ENDOCRINE/METABOLIC Hx Endocrine Disorders: Yes Hx Diabetes Mellitus Type 2: Yes - HEMATOLOGICAL/ONCOLOGICAL Hx Anemia: Yes Hx Human Immunodeficiency Virus (HIV): No - INTEGUMENTARY Hx Dermatological Problems: No - MUSCULOSKELETAL/RHEUMATOLOGICAL Hx Arthritis: Yes Hx Fractures: No - GASTROINTESTINAL Hx Gastrointestinal Disorders: Yes Hx Gastroesophageal Reflux: Yes - GENITOURINARY/GYNECOLOGICAL Hx Genitourinary Disorders: No - PSYCHIATRIC Hx Psychophysiologic Disorder: Yes Hx Substance Use: Yes (opioid use and heroin, quit 1 yr ago) Other/Comment: history of etoh abuse, quit 1 yr ago - SURGICAL HISTORY Hx Appendectomy: Yes (Exploratory Laporatomy for ruptured AP) Hx Cholecystectomy: Yes - ANESTHESIA Hx Anesthesia: Yes Hx Anesthesia Reactions: No Hx Malignant Hyperthermia: No Meds Allergies/Adverse Reactions: Allergies Allergy/AdvReac Type Severity Reaction Status Date / Time Penicillins Allergy RASH Verified 11/17/18 03:07 - Medications Medications: Current Medications Folic Acid (Folic Acid) 1 mg PO DAILY [facility] Lactated Ringer's (Lactated Ringer's) 1,000 mls @ 125 mls/hr IV .Q8H LISA Last Admin: 11/17/18 06:46 Dose: 125 mls/hr Insulin Human Lispro (Humalog) 0 units SC ACHS LISA; Protocol Lorazepam (Ativan) 1 mg IVP Q6 PRN PRN Reason: Agitation Morphine Sulfate (Morphine) 4 mg IVP Q4 PRN PRN Reason: Pain, severe (8-10) Last Admin: 11/17/18 08:22 Dose: 4 mg Morphine Sulfate (Morphine) 2 mg IVP Q4 PRN PRN Reason: Pain, moderate (4-7) Multivitamins/Vitamin C (Multi-Delyn Liquid) 15 ml PO DAILY [facility] Thiamine HCl (Vitamin B1 Tab) 100 mg PO DAILY [facility] Physical Exam - Constitutional Appears: Well, In Acute Distress (mild painful distress) - Respiratory Exam Respiratory Exam: NORMAL BREATHING PATTERN - Cardiovascular Exam Additional comments: +DP/PT pulses - Expanded Lower Extremities Exam Right Hip exam: external rotation, shortening Knee exam: effusion, tenderness Ankle exam: FULL ROM Neuro vacular tendon exam: no vascular compromise - Neurological Exam Neurological exam: Alert, Oriented x3 - Psychiatric Exam Psychiatric exam: Normal Affect, Normal Mood - Skin Skin Exam: Dry, Intact, Normal Color, Warm Results - Vital Signs Recent Vital Signs: Last Vital Signs Temp 97.8 F 11/17/18 08:00 Pulse 74 11/17/18 08:00 Resp 20 11/17/18 08:00 BP 154/75 H 11/17/18 08:00 Pulse Ox 99 11/17/18 08:00 - Labs Result Diagrams: 11/17/18 04:15 11/17/18 04:15 Labs: Laboratory Results - last 24 hr 11/17/18 11/17/18 11/17/18 04:15 04:15 06:50 WBC 3.0 L RBC 3.47 L Hgb 7.9 L D Hct 25.3 L MCV 73.1 L D MCH 22.9 L MCHC 31.3 L RDW 18.3 H Plt Count 74 L MPV 10.9 Neut % (Auto) 74.7 Lymph % (Auto) 15.1 L [place] % (Auto) 9.3 Eos % (Auto) 0.4 Baso % (Auto) 0.5 Neut # (Auto) 2.3 Lymph # (Auto) 0.5 L [place] # (Auto) 0.3 Eos # (Auto) 0.0 Baso # (Auto) 0.0 PT INR APTT Sodium 137 Potassium 3.8 Chloride 103 Carbon Dioxide 27 Anion Gap 11 BUN 15 Creatinine 0.9 Est GFR ( Amer) > 60 Est GFR (Non-Af Amer) > 60 Random Glucose 195 H Calcium 8.6 Total Bilirubin 1.1 AST 35 ALT 29 Alkaline Phosphatase 134 H D Troponin I 0.0130 Total Protein 7.2 Albumin 3.6 Globulin 3.6 Albumin/Globulin Ratio 1.0 Alcohol, Quantitative Blood Type B POSITIVE Antibody Screen Negative Crossmatch See Detail BBK History Checked Patient has bt 11/17/18 11/17/18 06:50 06:50 WBC RBC Hgb Hct MCV MCH MCHC RDW Plt Count MPV Neut % (Auto) Lymph % (Auto) [place] % (Auto) Eos % (Auto) Baso % (Auto) Neut # (Auto) Lymph # (Auto) [place] # (Auto) Eos # (Auto) Baso # (Auto) PT 13.3 H INR 1.2 APTT 30.5 Sodium Potassium Chloride Carbon Dioxide Anion Gap BUN Creatinine Est GFR ( Amer) Est GFR (Non-Af Amer) Random Glucose Calcium Total Bilirubin AST ALT Alkaline Phosphatase Troponin I Total Protein Albumin Globulin Albumin/Globulin Ratio Alcohol, Quantitative < 10 Blood Type Antibody Screen Crossmatch BBK History Checked Assessment & Plan (1) Closed intertrochanteric fracture of right hip Assessment and Plan: plan ORIF 11/18 10am pending medical optimization venodynes chck post transfusion labs check u/a, vo, to be d/c'd POD#1 check vitamin D repeat knee films (rotated) IS pain medication d/w Dr. Rodríguez, agrees with above Status: Acute (2) Anemia Assessment and Plan: acute on chronic for PRBC 2u today, T&C for tomorrow Status: Acute
[2018-11-17] MEDS ORDERED: Albuterol-Ipratrop 3 mg / 0.5 (3 ml) UD INH PRN (09:41)
--- NOTE | 2018-11-17 10:21 | CT ---
Date of service: 11/17/2018 PROCEDURE: CT right hip. HISTORY: Fracture COMPARISON: November 17, 2018 pelvis and right hip radiographs TECHNIQUE: 2.5 mm axial acquisition and display. Coronal and sagittal reconstructions. Dose report (mGy-cm): 1165.31 FINDINGS: Confirmation of comminuted inter trochanteric fracture. Lesser trochanter is avulsed. Hematoma emanating from the ileus psoas muscle a tests to the acuity of this fracture. There is overriding of the fracture of the greater trochanter. Remaining distal femur is visualized is unremarkable. Preserved femoral acetabular relationship. No pelvic ring abnormalities detected. IMPRESSION: Acute, comminuted fracture intertrochanteric location. Large hematoma primarily affecting ileus psoas and adjacent musculature. Concordant findings (preliminary report) provided by [facility].
--- NOTE | 2018-11-17 10:57 | RAD ---
Date of service: 11/17/2018 PROCEDURE: Pelvis right hip HISTORY: Fall COMPARISON: Correlation made with concurrent radiographs of the right femur and concurrent CT scan of the right hip TECHNIQUE: Frontal view of the pelvis and frontal/frogleg lateral views of the right hip performed. FINDINGS: Mildly displaced intertrochanteric fracture of the right hip IMPRESSION: Mildly displaced intertrochanteric fracture right hip.
[2018-11-17 11:23] LABS: ABG ALLEN TEST YES; ARTERIAL BLOOD GAS HCO3 27.4 mmol/L (21-28); ARTERIAL BLOOD GAS HEMOGLOBIN 7.8 g/dL (11.7-17.4); ARTERIAL BLOOD GAS O2 SAT 100.1 % (95-98); ARTERIAL BLOOD GAS PCO2 29 mm/Hg (35-45); ARTERIAL BLOOD GAS PH 7.55 (7.35-7.45); ARTERIAL BLOOD GAS PO2 110 mm/Hg (80-100); ARTERIAL BLOOD GAS TCO2 26.3 mmol/L (22-28)
[2018-11-17] MEDS: Insulin Lispro (humaLOG) 100 Units/ml Inj SC SCH ×3 (12:14→21:52)
--- NOTE | 2018-11-17 12:24 | RAD ---
Date of service: 11/17/2018 PROCEDURE: Right femur HISTORY: fall COMPARISON: November 17, [address] scan. TECHNIQUE: Standard protocol for this study/examination. FINDINGS: Comminuted inter trochanteric fracture proximal right femur. Preservation of femoral acetabular relationship. No visible pelvic ring abnormalities. Remainder of the femur is unremarkable as visualized. IMPRESSION: Acute, comminuted intertrochanteric fracture proximal right femur.
--- NOTE | 2018-11-17 12:25 | RAD ---
Date of service: 11/17/2018 PROCEDURE: Right Knee Radiographs. HISTORY: fall COMPARISON: 05/19/2016 knee radiographs. FINDINGS: BONES: No acute fracture. Progressive degenerative changes are incompletely visualized based technical limitations. Proliferative changes from both the distal femur and proximal tibia. JOINTS: Normal. No osteoarthritis. JOINT EFFUSION: None. OTHER FINDINGS: None. IMPRESSION: Severe degenerative changes right knee. No acute fractures.
[2018-11-17] MEDS: Multi Vitamins 15 mL UD Oral Solution PO SCH (12:28)
[2018-11-17] MEDS ORDERED: Ergocalciferol 50,000 Intl Units Cap PO SCH (12:30)
[2018-11-17 12:42] LABS: BARBITURATES, UR NEGATIVE (NEGATIVE); BENZODIAZEPINES, UR NEGATIVE (NEGATIVE); OPIATES, UR POSITIVE (NEGATIVE); PHENCYCLIDINE, UR NEGATIVE (NEGATIVE)
--- NOTE | 2018-11-17 13:15 | RAD ---
Date of service: 11/17/2018 PROCEDURE: Right Knee Radiographs. HISTORY: knee pain, repeat imaging true AP/lat COMPARISON: None. 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 JOINT EFFUSION: None. OTHER FINDINGS: None. 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
--- NOTE | 2018-11-17 13:58 | CP.PCM.CON ---
History of Present Illness - History of Present Illness History of Present Illness: 68 y/o M admitted with Right Hip Fx Pt explains he went to bathroom, urinated, felt lightheaded and fell on his right side after 2-3 steps, and landed on his right hip. Pt denies LOC, head trauma, chest pain, SOB, palpitations, abdominal pain, N/V/D or change in bowel movement. No Hx cardiac disease, chest pain,palpitations. Hgb: 8.9 Hct: 27.3 After 2 units of PRBC's Pt has been seen by Hematology in the past but has not followed up. EKG: Sinus Bradycardia @ 58 BPM PNH: COPD DM HTN Alcohol abuse pancytopenia GI Bleed IV Drug Abuse Alcohol liver disease Past Patient History - Past Medical History & Family History Past Medical History?: Yes Past Family History: Reviewed and not pertinent - Past Social History Smoking Status: Former Smoker - CARDIAC Hx Hypercholesterolemia: Yes Hx Hypertension: Yes Hx Peripheral Edema: Yes (BLE) - PULMONARY Hx Chronic Obstructive Pulmonary Disease (COPD): Yes - NEUROLOGICAL Hx Neurological Disorder: Yes Other/Comment: History of Diabetic Neuropathy on BLE - HEENT Hx HEENT Problems: Yes Other/Comment: eyeglasses - RENAL Hx Chronic Kidney Disease: No - ENDOCRINE/METABOLIC Hx Endocrine Disorders: Yes Hx Diabetes Mellitus Type 2: Yes - HEMATOLOGICAL/ONCOLOGICAL Hx Anemia: Yes Hx Human Immunodeficiency Virus (HIV): No - INTEGUMENTARY Hx Dermatological Problems: No - MUSCULOSKELETAL/RHEUMATOLOGICAL Hx Arthritis: Yes Hx Fractures: No - GASTROINTESTINAL Hx Gastrointestinal Disorders: Yes Hx Gastroesophageal Reflux: Yes - GENITOURINARY/GYNECOLOGICAL Hx Genitourinary Disorders: No - PSYCHIATRIC Hx Psychophysiologic Disorder: Yes Hx Substance Use: Yes (opioid use and heroin, quit 1 yr ago) Other/Comment: history of etoh abuse, quit 1 yr ago - SURGICAL HISTORY Hx Appendectomy: Yes (Exploratory Laporatomy for ruptured AP) Hx Cholecystectomy: Yes - ANESTHESIA Hx Anesthesia: Yes Hx Anesthesia Reactions: No Hx Malignant Hyperthermia: No Meds Allergies/Adverse Reactions: Allergies Allergy/AdvReac Type Severity Reaction Status Date / Time Penicillins Allergy RASH Verified 11/17/18 03:07 - Medications Medications: Current Medications Albuterol/Ipratropium (Duoneb 3 Mg/0.5 Mg (3 Ml) Ud) 3 ml INH RQ4 PRN PRN Reason: Shortness of Breath Ergocalciferol (Drisdol 50,000 Intl Units Cap) 1 cap PO Q7D [facility] Folic Acid (Folic Acid) 1 mg PO DAILY [facility] Last Admin: 11/17/18 12:27 Dose: 1 mg Lactated Ringer's (Lactated Ringer's) 1,000 mls @ 125 mls/hr IV .Q8H [facility] Last Admin: 11/17/18 06:46 Dose: 125 mls/hr Insulin Human Lispro (Humalog) 0 units SC ACHS [facility]; Protocol Lorazepam (Ativan) 1 mg IVP Q6 PRN PRN Reason: Agitation Morphine Sulfate (Morphine) 4 mg IVP Q4 PRN PRN Reason: Pain, severe (8-10) Last Admin: 11/17/18 08:22 Dose: 4 mg Morphine Sulfate (Morphine) 2 mg IVP Q4 PRN PRN Reason: Pain, moderate (4-7) Multivitamins/Vitamin C (Multi-Delyn Liquid) 15 ml PO DAILY [facility] Last Admin: 11/17/18 12:28 Dose: 15 ml Thiamine HCl (Vitamin B1 Tab) 100 mg PO DAILY [facility] Last Admin: 11/17/18 12:27 Dose: 100 mg Physical Exam - Constitutional Appears: Well - Head Exam Head Exam: NORMAL INSPECTION - Eye Exam Pupil Exam: NORMAL ACCOMODATION - ENT Exam ENT Exam: Normal Exam - Neck Exam Neck exam: Positive for: Normal Inspection - Respiratory Exam Respiratory Exam: NORMAL BREATHING PATTERN - Cardiovascular Exam Cardiovascular Exam: REGULAR RHYTHM Results - Vital Signs Recent Vital Signs: Last Vital Signs Temp 98.7 F 11/17/18 13:05 Pulse 85 11/17/18 13:05 Resp 20 11/17/18 13:05 BP 170/74 H 11/17/18 13:05 Pulse Ox 100 11/17/18 12:50 - Labs Result Diagrams: 11/18/18 04:30 11/18/18 04:30 Labs: Laboratory Results - last 24 hr 11/17/18 11/17/18 11/17/18 03:39 04:15 04:15 WBC 3.0 L RBC 3.47 L Hgb 7.9 L D Hct 25.3 L MCV 73.1 L D MCH 22.9 L MCHC 31.3 L RDW 18.3 H Plt Count 74 L MPV 10.9 Neut % (Auto) 74.7 Lymph % (Auto) 15.1 L [place] % (Auto) 9.3 Eos % (Auto) 0.4 Baso % (Auto) 0.5 Neut # (Auto) 2.3 Lymph # (Auto) 0.5 L [place] # (Auto) 0.3 Eos # (Auto) 0.0 Baso # (Auto) 0.0 PT INR APTT pCO2 pO2 HCO3 ABG pH ABG Total CO2 ABG O2 Saturation ABG O2 Content ABG Base Excess ABG Hemoglobin ABG Carboxyhemoglobin POC ABG HHb (Measured) ABG Methemoglobin ABG O2 Capacity Andrew Test A-a O2 Difference Hgb O2 Saturation FiO2 Sodium 137 Potassium 3.8 Chloride 103 Carbon Dioxide 27 Anion Gap 11 BUN 15 Creatinine 0.9 Est GFR ( Amer) > 60 Est GFR (Non-Af Amer) > 60 POC Glucose (mg/dL) 192 H Random Glucose 195 H Hemoglobin A1c Calcium 8.6 Total Bilirubin 1.1 AST 35 ALT 29 Alkaline Phosphatase 134 H D Troponin I 0.0130 Total Protein 7.2 Albumin 3.6 Globulin 3.6 Albumin/Globulin Ratio 1.0 25-OH Vitamin D Total TSH 3rd Generation Urine Opiates Screen Urine Methadone Screen Ur Barbiturates Screen Ur Phencyclidine Scrn Ur Amphetamines Screen U Benzodiazepines Scrn U Oth Cocaine Metabols U Cannabinoids Screen Alcohol, Quantitative Blood Type Antibody Screen Crossmatch BBK History Checked 11/17/18 11/17/18 11/17/18 06:00 06:50 06:50 WBC RBC Hgb Hct MCV MCH MCHC RDW Plt Count MPV Neut % (Auto) Lymph % (Auto) [place] % (Auto) Eos % (Auto) Baso % (Auto) Neut # (Auto) Lymph # (Auto) [place] # (Auto) Eos # (Auto) Baso # (Auto) PT 13.3 H INR 1.2 APTT 30.5 pCO2 pO2 HCO3 ABG pH ABG Total CO2 ABG O2 Saturation ABG O2 Content ABG Base Excess ABG Hemoglobin ABG Carboxyhemoglobin POC ABG HHb (Measured) ABG Methemoglobin ABG O2 Capacity Andrew Test A-a O2 Difference Hgb O2 Saturation FiO2 Sodium Potassium Chloride Carbon Dioxide Anion Gap BUN Creatinine Est GFR ( Amer) Est GFR (Non-Af Amer) POC Glucose (mg/dL) Random Glucose Hemoglobin A1c Calcium Total Bilirubin AST ALT Alkaline Phosphatase Troponin I Total Protein Albumin Globulin Albumin/Globulin Ratio 25-OH Vitamin D Total 15.1 L TSH 3rd Generation Urine Opiates Screen Urine Methadone Screen Ur Barbiturates Screen Ur Phencyclidine Scrn Ur Amphetamines Screen U Benzodiazepines Scrn U Oth Cocaine Metabols U Cannabinoids Screen Alcohol, Quantitative Blood Type B POSITIVE Antibody Screen Negative Crossmatch See Detail BBK History Checked Patient has bt 11/17/18 11/17/18 11/17/18 06:50 08:00 08:00 WBC RBC Hgb Hct MCV MCH MCHC RDW Plt Count MPV Neut % (Auto) Lymph % (Auto) [place] % (Auto) Eos % (Auto) Baso % (Auto) Neut # (Auto) Lymph # (Auto) [place] # (Auto) Eos # (Auto) Baso # (Auto) PT INR APTT pCO2 pO2 HCO3 ABG pH ABG Total CO2 ABG O2 Saturation ABG O2 Content ABG Base Excess ABG Hemoglobin ABG Carboxyhemoglobin POC ABG HHb (Measured) ABG Methemoglobin ABG O2 Capacity Andrew Test A-a O2 Difference Hgb O2 Saturation FiO2 Sodium Potassium Chloride Carbon Dioxide Anion Gap BUN Creatinine Est GFR ( Amer) Est GFR (Non-Af Amer) POC Glucose (mg/dL) Random Glucose Hemoglobin A1c 6.0 Calcium Total Bilirubin AST ALT Alkaline Phosphatase Troponin I Total Protein Albumin Globulin Albumin/Globulin Ratio 25-OH Vitamin D Total TSH 3rd Generation 1.98 Urine Opiates Screen Urine Methadone Screen Ur Barbiturates Screen Ur Phencyclidine Scrn Ur Amphetamines Screen U Benzodiazepines Scrn U Oth Cocaine Metabols U Cannabinoids Screen Alcohol, Quantitative < 10 Blood Type Antibody Screen Crossmatch BBK History Checked 11/17/18 11/17/18 09:35 12:10 WBC RBC Hgb Hct MCV MCH MCHC RDW Plt Count MPV Neut % (Auto) Lymph % (Auto) [place] % (Auto) Eos % (Auto) Baso % (Auto) Neut # (Auto) Lymph # (Auto) [place] # (Auto) Eos # (Auto) Baso # (Auto) PT INR APTT pCO2 29 L pO2 110 H HCO3 27.4 ABG pH 7.55 H ABG Total CO2 26.3 ABG O2 Saturation 100.1 H ABG O2 Content 11.0 L ABG Base Excess 3.1 H ABG Hemoglobin 7.8 L ABG Carboxyhemoglobin 1.7 H POC ABG HHb (Measured) -0.1 L ABG Methemoglobin 0.5 ABG O2 Capacity 11.0 L Andrew Test Yes A-a O2 Difference 3.0 Hgb O2 Saturation 97.9 FiO2 21.0 Sodium Potassium Chloride Carbon Dioxide Anion Gap BUN Creatinine Est GFR ( Amer) Est GFR (Non-Af Amer) POC Glucose (mg/dL) Random Glucose Hemoglobin A1c Calcium Total Bilirubin AST ALT Alkaline Phosphatase Troponin I Total Protein Albumin Globulin Albumin/Globulin Ratio 25-OH Vitamin D Total TSH 3rd Generation Urine Opiates Screen Positive H Urine Methadone Screen Negative Ur Barbiturates Screen Negative Ur Phencyclidine Scrn Negative Ur Amphetamines Screen Negative U Benzodiazepines Scrn Negative U Oth Cocaine Metabols Negative U Cannabinoids Screen Negative Alcohol, Quantitative Blood Type Antibody Screen Crossmatch BBK History Checked Assessment & Plan (1) Closed intertrochanteric fracture of right hip Assessment and Plan: Cardiac taylor the patient is cleared for surgery Status: Acute (2) COPD (chronic obstructive pulmonary disease) Status: Acute (3) Cirrhosis of liver Status: Acute (4) DM2 (diabetes mellitus, type 2) Status: Acute (5) Hypertension Status: Acute (6) Multiple substance abuse Status: Acute (7) Pancytopenia Status: Acute (8) Severe anemia Status: Acute
[2018-11-17 14:05] LABS: SQUAMOUS EPITHIAL < 1 /hpf (0-5); URINE BILIRUBIN NEGATIVE (NEGATIVE); URINE BLOOD NEGATIVE (NEGATIVE); URINE CLARITY CLEAR (Clear); URINE COLOR YELLOW (YELLOW); URINE GLUCOSE (UA) NEG (NEGATIVE); URINE LEUKOCYTE ESTERASE NEG Leu/uL (Negative); URINE PROTEIN NEGATIVE (NEGATIVE); URINE UROBILINOGEN 0.2-1.0 mg/dL (0.2-1.0)
[2018-11-17] MEDS ORDERED: Albuterol HFA 90 mcg/actuation (8 g) INH PRN (15:00)
[2018-11-17] MEDS ORDERED: Potassium Chloride 20 mEq ER Tab PO PRN (15:00)
--- NOTE | 2018-11-17 22:26 | CARD ---
APPROVED REPORT Date of service: 11/17/2018 EKG Measurement Heart [id number] <Conclusion> Sinus bradycardia with premature atrial complexes Nonspecific ST and T wave abnormality Prolonged QT Abnormal ECG
[2018-11-18 03:36] LABS: URINE BILIRUBIN NEGATIVE (NEGATIVE); URINE BLOOD NEGATIVE (NEGATIVE); URINE CLARITY CLEAR (Clear); URINE COLOR YELLOW (YELLOW); URINE GLUCOSE (UA) NEG (NEGATIVE); URINE LEUKOCYTE ESTERASE NEG Leu/uL (Negative); URINE PROTEIN NEGATIVE (NEGATIVE)
[2018-11-18] MEDS: Morphine 4 MG/ML VIAL IVP PRN ×4 (04:21→21:51)
[2018-11-18] MEDS: Lactated Ringer's 1,000 ML IV SCH ×3 (04:34→18:52)
[2018-11-18 06:23] LABS: HEMOGLOBIN 8.9 g/dL (12.0-18.0); MEAN CELL VOLUME 75.7 fl (80.0-94.0); MEAN CORPUSCULAR HEMOGLOBIN 24.8 pg (27.0-31.0); MEAN CORPUSCULAR HGB CONC 32.8 g/dL (33.0-37.0); RBC 3.6 Mil/uL (4.40-5.90); WHITE BLOOD COUNT 3.1 K/uL (4.8-10.8)
[2018-11-18 06:38] LABS: ALBUMIN 3.4 g/dL (3.5-5.0); ALT/SGPT 22 U/L (21-72); AST/SGOT 31 U/L (17-59); BLOOD UREA NITROGEN 7 mg/dl (9-20); CALCIUM 8.5 mg/dL (8.4-10.2); GFR NON-AFRICAN AMERICAN > 60
--- NOTE | 2018-11-18 06:46 | CP.PCM.PN ---
Subjective - Date & Time of Evaluation Date of Evaluation: 11/18/18 Time of Evaluation: 09:17 - Subjective Subjective: Patient seen and examined this morning at bedside. There are no acute events overnight, NAD. Patient completed transfusion of 2 units PRBCs last night. Patient had vo placed this morning and reports was slightly painful. Patient cleared by cardiology for surgery this morning. Patient scheduled for procedure at 10:00 AM. Objective - Vital Signs/Intake and Output Vital Signs (last 24 hours): Temp Pulse Resp BP Pulse Ox 98.1 F 88 18 168/78 H 97 11/18/18 05:34 11/18/18 05:34 11/18/18 05:34 11/18/18 05:34 11/18/18 05:34 Intake and Output: 11/17/18 11/18/18 18:59 06:59 Intake Total 250 100 Balance 250 100 - Medications Medications: Current Medications Albuterol (Ventolin Hfa 90 Mcg/Actuation (8 G)) 1 puff INH Q6 PRN PRN Reason: Shortness of Breath Albuterol/Ipratropium (Duoneb 3 Mg/0.5 Mg (3 Ml) Ud) 3 ml INH RQ4 PRN PRN Reason: Shortness of Breath Ergocalciferol (Drisdol 50,000 Intl Units Cap) 1 cap PO Q7D [facility] Last Admin: 11/17/18 13:57 Dose: 1 cap Ferrous Sulfate (Feosol) 325 mg PO TID [facility] Last Admin: 11/17/18 17:30 Dose: 325 mg Folic Acid (Folic Acid) 1 mg PO DAILY [facility] Last Admin: 11/17/18 12:27 Dose: 1 mg Furosemide (Lasix) 20 mg PO DAILY PRN PRN Reason: leg swelling Gabapentin (Neurontin) 600 mg PO TID [facility] Last Admin: 11/17/18 17:30 Dose: 600 mg Lactated Ringer's (Lactated Ringer's) 1,000 mls @ 125 mls/hr IV .Q8H [facility] Last Admin: 11/18/18 04:34 Dose: 125 mls/hr Insulin Human Lispro (Humalog) 0 units SC ACHS [facility]; Protocol Last Admin: 11/17/18 21:52 Dose: Not Given Lorazepam (Ativan) 1 mg IVP Q6 PRN PRN Reason: Agitation Losartan Potassium (Cozaar) 100 mg PO DAILY [facility] Morphine Sulfate (Morphine) 4 mg IVP Q4 PRN PRN Reason: Pain, severe (8-10) Last Admin: 11/18/18 04:21 Dose: 4 mg Morphine Sulfate (Morphine) 2 mg IVP Q4 PRN PRN Reason: Pain, moderate (4-7) Last Admin: 11/17/18 19:00 Dose: 2 mg Multivitamins/Vitamin C (Multi-Delyn Liquid) 15 ml PO DAILY [facility] Last Admin: 11/17/18 12:28 Dose: 15 ml Pantoprazole Sodium (Protonix Ec Tab) 40 mg PO DAILY [facility] Potassium Chloride (K-Dur 20 Meq Er Tab) 20 meq PO DAILY PRN PRN Reason: When taking furosemide Sitagliptin Phosphate (Januvia) 100 mg PO DAILY [facility] Thiamine HCl (Vitamin B1 Tab) 100 mg PO DAILY [facility] Last Admin: 11/17/18 12:27 Dose: 100 mg - Labs Labs: 11/18/18 04:30 11/18/18 04:30 PT 13.3 Seconds (9.8-13.1) H 11/17/18 06:50 INR 1.2 11/17/18 06:50 APTT 30.5 Seconds (25.6-37.1) 11/17/18 06:50 - Constitutional Appears: Non-toxic, No Acute Distress - Head Exam Head Exam: ATRAUMATIC, NORMAL INSPECTION, NORMOCEPHALIC - Eye Exam Eye Exam: EOMI, Normal appearance, PERRL - ENT Exam ENT Exam: Mucous Membranes Moist - Neck Exam Neck Exam: Full ROM. absent: Tenderness - Respiratory Exam Respiratory Exam: Clear to Ausculation Bilateral, NORMAL BREATHING PATTERN. absent: Rales, Rhonchi, Wheezes, Respiratory Distress - Cardiovascular Exam Cardiovascular Exam: REGULAR RHYTHM, RRR, +S1, +S2. absent: Tachycardia - GI/Abdominal Exam GI & Abdominal Exam: Soft, Normal Bowel Sounds. absent: Distended, Tenderness - Extremities Exam Extremities Exam: absent: Pedal Edema Additional comments: Right leg: decreased ROM due to pain, sensation to light touch intact, intact PT and DP pulses present. - Neurological Exam Neurological Exam: Alert, Awake, Oriented x3 - Skin Skin Exam: Dry, Normal Color, Warm Assessment and Plan - Assessment and Plan (Free Text) Assessment: 68 y/o man w/ PMH of HTN, HLD, NIDDM type 2, COPD, chronic anemia, Hx of alcohol abuse, Hx of IV drug use, pancytopenia, recurrent ventral hernias admitted for evaluation and management of right femur fracture, anemia and pre-syncopal episode. Plan: Right Femur Fracture - Orthopedic surgery consult, Dr. Rodríguez, recommendations appreciated - patient cleared by cardiology for procedure - CT Hip: acute, comminuted fracture intertrochanteric location - NPO for surgery, scheduled today at 10:00 AM - PO meds held temporarily for procedure - EKG: sinus bradycardia, prolonged QT, no acute ST or T wave changes - CXR: no active disease - CBC: 3.1>8.9/27.3<81, s/p 2 units PRBCs - Pain management: morphine 2 mg IV Q4h prn for moderate and morphine 4 mg IV Q4h for severe pain. - monitor for acute changes Pre-syncope episode - Likely symptomatic anemia vs. orthostatic hypotension vs. vasovagal - Unable to get orthostatic BP due to R leg pain. - monitor vitals - IVF LR @ 125mL/hr for hypotension - PO meds for now Chronic Microcytic Anemia - s/p 2 units PRBC - CBC: 3.1>8.9/27.3<81 - Iron deficiency anemia as per last bloodwork - c/w feosol 325 mg PO TID Hematuria - most likely from traumatic vo - f/u UA Hypertension - Chronic - elevated - c/w home medications NIDDM-II - Chronic - c/w home medications Alcohol abuse - Last drink 2 days ago - Serum alcohol <10 - c/w folic acid 1 mg PO daily - c/w multivitamin 15 mg PO daily - c/w thiamine 100 mg PO daily - CIWA protocol - no signs of withdrawal - monitor for acute changes Pancytopenia, Chronic - Seen by Hem-Onc in past Prophylactic Measures - DVT: SCD for now
[2018-11-18] MEDS: Insulin Lispro (humaLOG) 100 Units/ml Inj SC SCH ×4 (08:54→21:42)
[2018-11-18] MEDS: Pantoprazole 40 mg EC Tab PO SCH (08:55)
[2018-11-18] MEDS: Multi Vitamins 15 mL UD Oral Solution PO SCH (08:55)
[2018-11-18] MEDS ORDERED: Ergocalciferol 50,000 Intl Units Cap PO SCH (09:00)
[2018-11-18] MEDS ORDERED: Propofol 10 mg/ml Inj (20 ML) ONE (09:38)
[2018-11-18] MEDS ORDERED: Midazolam 2 MG/2 ML VIAL ONE (09:38)
[2018-11-18] MEDS ORDERED: Ketamine 50 mg/ml Inj (10 ml) ONE (09:39)
[2018-11-18] MEDS ORDERED: Lidocaine 1% 5ml Abboject ONE (09:39)
[2018-11-18] MEDS ORDERED: Succinylcholine Chloride 20 mg/ml Syr (5 ml) IV ONE (09:39)
[2018-11-18] MEDS ORDERED: Rocuronium 10 mg/ml (5 ml) ONE ×2 (09:40→11:51)
[2018-11-18] MEDS ORDERED: Bacitracin Ointment 30 GM TUBE ONE (09:42)
[2018-11-18] MEDS ORDERED: Bupivacaine 0.25%-Epinephrine 1:200,000 (30 ml) Inj ONE (09:52)
[2018-11-18] MEDS ORDERED: ePHEDrine 50 mg/ml Inj ONE (10:59)
[2018-11-18] MEDS ORDERED: Neostigmine 1:1000 (1 mg/ml) Inj ONE (11:57)
[2018-11-18] MEDS ORDERED: Bupivacaine 0.5% Inj(30mL) ONE (12:46)
[2018-11-18] MEDS ORDERED: Bupivacaine 0.5% 50 ML IJ ONE (12:50)
--- NOTE | 2018-11-18 13:07 | PCM.SURG1 ---
Surgeon's Initial Post Op Note - Surgeon's Notes Surgeon: Dr. Rodríguez Hearth Feeder: Dr. Jacque Ornelas PGY1 Type of Anesthesia: General Endo Anesthesia Administered By: Dr. Fung Pre-Operative Diagnosis: Closed intertrochanteric fracture of right hip Operative Findings: See dictation Post-Operative Diagnosis: Same Operation Performed: Right hip intramedullary nail fixation Specimen/Specimens Removed: none Estimated Blood Loss: EBL {In ML}: 80 Blood Products Given: N/A Drains Used: No Drains Post-Op Condition: Good Date of Surgery/Procedure: 11/18/18 Time of Surgery/Procedure: 13:07
[2018-11-18] MEDS ORDERED: HYDROmorphone 0.5 mg/0.5 ml ISec IVP PRN (13:16)
[2018-11-18] MEDS ORDERED: HYDROmorphone 0.5 mg/0.5 ml ISec ONE (13:35)
--- NOTE | 2018-11-18 15:23 | RAD ---
Date of service: 11/18/2018 PROCEDURE: Intraoperative Fluoroscopy. HISTORY: RT HIP FX FINDINGS: Fluoroscopic assistance was provided. Fluoroscopy time = to 43.2 sec. Radiation dose = 66.8 mGy. Please refer to the operative report from.
[2018-11-18 16:45] LABS: URINE BILIRUBIN NEGATIVE (NEGATIVE); URINE BLOOD LARGE (NEGATIVE); URINE CLARITY SLIGHTY-CLOUDY (Clear); URINE COLOR RED (YELLOW); URINE GLUCOSE (UA) NEG (NEGATIVE); URINE LEUKOCYTE ESTERASE NEG Leu/uL (Negative); URINE PROTEIN 30 mg/dL (NEGATIVE); URINE UROBILINOGEN 0.2-1.0 mg/dL (0.2-1.0)
--- NOTE | 2018-11-18 18:52 | CP.PCM.PCO ---
Addendum Addendum: Pt seen this afternoon; back from OR earlier in the day; POD 0 after right hip intramedullary nail fixation. Patient awake, alert, states he is thirsty and wants to drink water. Denies nausea. Pain alleviated with pain medication. PE: Vitals stable. Gen: awake, alert, NAD Resp: unlabored beathing, good air exchange CV: S1,S2. Abd: large, soft Ext: dressing in place upper RLE, extremities warm Assessment/Plan: 68 yo M POD 0 after right hip intramedullary nail fixation. Will advance diet at this time and continue current plan in place.
[2018-11-19] MEDS: Lactated Ringer's 1,000 ML IV SCH ×3 (00:14→21:22)
[2018-11-19] MEDS: Morphine 4 MG/ML VIAL IVP PRN ×2 (03:08→22:18)
[2018-11-19] MEDS: Insulin Lispro (humaLOG) 100 Units/ml Inj SC SCH ×4 (06:40→22:38)
[2018-11-19 06:43] LABS: HEMOGLOBIN 9.1 g/dL (12.0-18.0); MEAN CELL VOLUME 77.3 fl (80.0-94.0); MEAN CORPUSCULAR HEMOGLOBIN 25.1 pg (27.0-31.0); MEAN CORPUSCULAR HGB CONC 32.5 g/dL (33.0-37.0); RBC 3.61 Mil/uL (4.40-5.90); WHITE BLOOD COUNT 5.8 K/uL (4.8-10.8)
[2018-11-19 06:54] LABS: BLOOD UREA NITROGEN 7 mg/dl (9-20); GFR NON-AFRICAN AMERICAN > 60
--- NOTE | 2018-11-19 08:28 | CP.PCM.PN ---
Subjective - Date & Time of Evaluation Date of Evaluation: 11/19/18 Time of Evaluation: 08:00 - Subjective Subjective: Patient seen and examined this morning at bedside. There are no acute events overnight, NAD. Patient s/p right hip intramedullary nail fixation POD#1. Patient reports pain at surgical site. Patient recovering from procedure appropriately. Objective - Vital Signs/Intake and Output Vital Signs (last 24 hours): Temp Pulse Resp BP Pulse Ox 98.7 F 100 H 18 149/78 98 11/19/18 05:35 11/19/18 05:35 11/19/18 05:35 11/19/18 05:35 11/19/18 05:35 Intake and Output: 11/19/18 11/19/18 06:59 18:59 Intake Total 1752 Output Total 2220 Balance -468 - Medications Medications: Current Medications Albuterol (Ventolin Hfa 90 Mcg/Actuation (8 G)) 1 puff INH Q6 PRN PRN Reason: Shortness of Breath Albuterol/Ipratropium (Duoneb 3 Mg/0.5 Mg (3 Ml) Ud) 3 ml INH RQ4 PRN PRN Reason: Shortness of Breath Ergocalciferol (Drisdol 50,000 Intl Units Cap) 1 cap PO Q7D [facility] Last Admin: 11/17/18 13:57 Dose: 1 cap Ferrous Sulfate (Feosol) 325 mg PO TID [facility] Last Admin: 11/18/18 18:51 Dose: 325 mg Folic Acid (Folic Acid) 1 mg PO DAILY [facility] Last Admin: 11/18/18 08:54 Dose: 1 mg Furosemide (Lasix) 20 mg PO DAILY PRN PRN Reason: leg swelling Gabapentin (Neurontin) 600 mg PO TID [facility] Last Admin: 11/18/18 18:52 Dose: 600 mg Lactated Ringer's (Lactated Ringer's) 1,000 mls @ 125 mls/hr IV .Q8H [facility] Last Admin: 11/18/18 07:03 Dose: Not Given Lactated Ringer's (Lactated Ringer's) 1,000 mls @ 100 mls/hr IV .Q10H [facility] Last Admin: 11/19/18 00:14 Dose: 100 mls/hr Insulin Human Lispro (Humalog) 0 units SC ACHS [facility]; Protocol Last Admin: 11/19/18 06:40 Dose: 1 units Lorazepam (Ativan) 1 mg IVP Q6 PRN PRN Reason: Agitation Losartan Potassium (Cozaar) 100 mg PO DAILY [facility] Last Admin: 11/18/18 08:53 Dose: 100 mg Morphine Sulfate (Morphine) 4 mg IVP Q4 PRN PRN Reason: Pain, severe (8-10) Last Admin: 11/19/18 03:08 Dose: 4 mg Morphine Sulfate (Morphine) 2 mg IVP Q4 PRN PRN Reason: Pain, moderate (4-7) Last Admin: 11/17/18 19:00 Dose: 2 mg Multivitamins/Vitamin C (Multi-Delyn Liquid) 15 ml PO DAILY [facility] Last Admin: 11/18/18 08:55 Dose: 15 ml Pantoprazole Sodium (Protonix Ec Tab) 40 mg PO DAILY [facility] Last Admin: 11/18/18 08:55 Dose: 40 mg Potassium Chloride (K-Dur 20 Meq Er Tab) 20 meq PO DAILY PRN PRN Reason: When taking furosemide Sitagliptin Phosphate (Januvia) 100 mg PO DAILY [facility] Last Admin: 11/18/18 08:54 Dose: 100 mg Thiamine HCl (Vitamin B1 Tab) 100 mg PO DAILY [facility] Last Admin: 11/18/18 08:56 Dose: 100 mg - Labs Labs: 11/19/18 06:00 11/19/18 06:00 PT 13.3 Seconds (9.8-13.1) H 11/17/18 06:50 INR 1.2 11/17/18 06:50 APTT 30.5 Seconds (25.6-37.1) 11/17/18 06:50 - Constitutional Appears: Non-toxic, No Acute Distress - Head Exam Head Exam: ATRAUMATIC, NORMAL INSPECTION, NORMOCEPHALIC - Eye Exam Eye Exam: EOMI, Normal appearance, PERRL - ENT Exam ENT Exam: Mucous Membranes Moist - Respiratory Exam Respiratory Exam: Clear to Ausculation Bilateral, NORMAL BREATHING PATTERN. absent: Decreased Breath Sounds, Rales, Rhonchi, Wheezes, Respiratory Distress - Cardiovascular Exam Cardiovascular Exam: REGULAR RHYTHM, RRR, +S1, +S2. absent: Tachycardia - GI/Abdominal Exam GI & Abdominal Exam: Soft, Normal Bowel Sounds. absent: Distended, Tenderness - Extremities Exam Extremities Exam: absent: Calf Tenderness, Pedal Edema Additional comments: right hip dressing C/D/I - Neurological Exam Neurological Exam: Alert, Awake, Oriented x3 Assessment and Plan - Assessment and Plan (Free Text) Assessment: 68 y/o man w/ PMH of HTN, HLD, NIDDM type 2, COPD, chronic anemia, Hx of alcohol abuse, Hx of IV drug use, pancytopenia, recurrent ventral hernias admitted for evaluation and management of right femur fracture, anemia and pre-syncopal episode. Plan: Right Femur Fracture - s/p ORIF, right hip intramedullary nail fixation POD#1 - Orthopedic surgery consult, Dr. Rodríguez, recommendations appreciated - CT Hip: acute, comminuted fracture intertrochanteric location - CBC: 5.8>9.1/27.9<96 - Pain management: morphine 2 mg IV Q4h prn for moderate and morphine 4 mg IV Q4h for severe pain - incentive spirometer use - f/u XR hip/pelvis - f/u XR femur - monitor for acute changes Pre-syncope episode - Likely symptomatic anemia vs. orthostatic hypotension vs. vasovagal - Unable to get orthostatic BP due to R leg pain. - monitor vitals - IVF LR @ 100mL/hr for hypotension - monitor for acute changes Chronic Microcytic Anemia - s/p 2 units PRBC - s/p 1 unit platelets - CBC: 5.8>9.1/27.9<96 - Iron deficiency anemia as per last bloodwork - c/w feosol 325 mg PO TID Hematuria - Resolved - most likely from traumatic vo - urinal, yellow darline urine Hypertension - Chronic - elevated - c/w home medications NIDDM-II - Chronic - c/w home medications Alcohol abuse - Last drink 2 days ago - Serum alcohol <10 - c/w folic acid 1 mg PO daily - c/w multivitamin 15 mg PO daily - c/w thiamine 100 mg PO daily - CIWA protocol - no signs of withdrawal - monitor for acute changes Pancytopenia, Chronic - Seen by Hem-Onc in past Prophylactic Measures - DVT: lovenox 40 mg SC
[2018-11-19] MEDS: Pantoprazole 40 mg EC Tab PO SCH (09:17)
[2018-11-19] MEDS: Multi Vitamins 15 mL UD Oral Solution PO SCH (09:17)
--- NOTE | 2018-11-19 10:53 | RAD ---
Date of service: 11/19/2018 PROCEDURE: HISTORY: s/p R hip IM nail COMPARISON: Correlation made with concurrent radiographs of the right hip and prior radiographs of the right hip 11/17/2018. TECHNIQUE: Frontal view of the right femur performed. FINDINGS: ORIF previously noted intertrochanteric fracture right hip. There is an intramedullary fixation screw extending through the right femoral neck and head which is transfix to an intramedullary fixation nail proximal right femur satisfactory alignment IMPRESSION: ORIF intertrochanteric fracture right hip
--- NOTE | 2018-11-19 10:55 | RAD ---
Date of service: 11/19/2018 PROCEDURE: Pelvis and right hip HISTORY: s/p R hip IM nail COMPARISON: Comparison made with concurrent radiographs of the right femur and prior radiographs of the right hip 11/17/2018. TECHNIQUE: AP view of the pelvis and right femur performed FINDINGS: ORIF previously noted intertrochanteric fracture right hip. There is an intramedullary fixation screw extending through the right femoral neck and head which is transfix to an intramedullary fixation nail proximal right femur. Satisfactory alignment IMPRESSION: Multilevel degenerative spondylosis of the lower lumbar and sacral spine ORIF intertrochanteric fracture right hip as above
[2018-11-19 17:27] LABS: BASO % 0.5 % (0.0-2.0); EOS % 0.3 % (0.0-4.0); HEMOGLOBIN 9.2 g/dL (12.0-18.0); LYMPH # 0.7 K/uL (1.0-4.3); LYMPH % 11.2 % (20.0-40.0); MEAN CELL VOLUME 77.6 fl (80.0-94.0); MEAN CORPUSCULAR HEMOGLOBIN 25.5 pg (27.0-31.0); MEAN CORPUSCULAR HGB CONC 32.8 g/dL (33.0-37.0); MEAN PLATELET VOLUME 10.1 fl (7.2-11.7); MONO # 1.1 K/uL (0.0-0.8); MONO % 17.3 % (0.0-10.0); NEUT # 4.5 K/uL (1.8-7.0); NEUT % 70.7 % (50.0-75.0); NRBC % 0.2 % (0.0-0.0); RBC 3.62 Mil/uL (4.40-5.90); RED CELL DISTRIBUTION WIDTH 21.5 % (11.5-14.5); WHITE BLOOD COUNT 6.3 K/uL (4.8-10.8)
[2018-11-19 17:30] LABS: INR 1.2; PROTHROMBIN TIME 14.1 Seconds (9.8-13.1)
[2018-11-19 17:32] LABS: PARTIAL THROMBOPLASTIN TIME 28.3 Seconds (25.6-37.1)
[2018-11-19 17:43] LABS: ALB/GLOB RATIO 0.9 (1.0-2.1); ALT/SGPT 25 U/L (21-72); AST/SGOT 30 U/L (17-59); BLOOD UREA NITROGEN 5 mg/dl (9-20); CALCIUM 8.5 mg/dL (8.4-10.2); GFR NON-AFRICAN AMERICAN > 60
--- NOTE | 2018-11-19 17:45 | RAD ---
Date of service: 11/19/2018 HISTORY: Sepsis Patient COMPARISON: Comparison made with prior chest radiograph 11/17/2018 TECHNIQUE: 1 view obtained. FINDINGS: LUNGS: Suspect minor bibasilar atelectasis PLEURA: No significant pleural effusion identified, no pneumothorax apparent. CARDIOVASCULAR: Mild aortic atherosclerotic calcification present. Normal cardiac size. No pulmonary vascular congestion. OSSEOUS STRUCTURES: No significant abnormalities. VISUALIZED UPPER ABDOMEN: Normal. OTHER FINDINGS: None. IMPRESSION: Suspect minor bibasilar atelectasis.
[2018-11-19 17:52] LABS: ABG ALLEN TEST YES; ARTERIAL BLOOD GAS HCO3 28.2 mmol/L (21-28); ARTERIAL BLOOD GAS O2 SAT 99.7 % (95-98); ARTERIAL BLOOD GAS PCO2 35 mm/Hg (35-45); ARTERIAL BLOOD GAS PO2 115 mm/Hg (80-100); ARTERIAL BLOOD GAS TCO2 28.4 mmol/L (22-28)
[2018-11-19 22:38] LABS: VENOUS BLOOD GAS BASE EXCESS -5.5 mmol/L (0.0-2.0); VENOUS BLOOD GAS PCO2 27 mmHg (40-60); VENOUS BLOOD GAS PO2 36 mm/Hg (30-55); VENOUS BLOOD PH 7.42 (7.32-7.43)
[2018-11-19] MEDS ORDERED: Sodium Chloride 0.9% 1,000 ML IV SCH (23:00)
[2018-11-20 01:02] LABS: URINE BILIRUBIN NEGATIVE (NEGATIVE); URINE BLOOD MODERATE (NEGATIVE); URINE CLARITY CLEAR (Clear); URINE COLOR YELLOW (YELLOW); URINE GLUCOSE (UA) 50 mg/dL (NEGATIVE); URINE LEUKOCYTE ESTERASE NEG Leu/uL (Negative); URINE PROTEIN NEGATIVE (NEGATIVE); URINE UROBILINOGEN 0.2-1.0 mg/dL (0.2-1.0)
[2018-11-20 05:48] LABS: HEMOGLOBIN 8.4 g/dL (12.0-18.0); MEAN CELL VOLUME 78.3 fl (80.0-94.0); MEAN CORPUSCULAR HEMOGLOBIN 25.3 pg (27.0-31.0); MEAN CORPUSCULAR HGB CONC 32.4 g/dL (33.0-37.0); RBC 3.3 Mil/uL (4.40-5.90); RED CELL DISTRIBUTION WIDTH 21.7 % (11.5-14.5); WHITE BLOOD COUNT 5.5 K/uL (4.8-10.8)
[2018-11-20 06:14] LABS: BLOOD UREA NITROGEN 6 mg/dl (9-20); CALCIUM 8.1 mg/dL (8.4-10.2); GFR NON-AFRICAN AMERICAN > 60
[2018-11-20] MEDS: Insulin Lispro (humaLOG) 100 Units/ml Inj SC SCH ×4 (06:44→21:57)
[2018-11-20] MEDS: Sodium Chloride 0.9% 1,000 ML IV SCH ×3 (08:00→17:44)
[2018-11-20] MEDS ORDERED: Potassium Chloride 20 mEq ER Tab PO ONE (08:00)
--- NOTE | 2018-11-20 08:21 | OP ---
PROCEDURE DATE: 11/18/18 SURGEON: Will Rodríguez MD PREOPERATIVE DIAGNOSIS: Displaced right intertrochanteric hip fracture. POSTOPERATIVE DIAGNOSIS: Displaced right intertrochanteric hip fracture. PROCEDURE: Right hip intertrochanteric fracture closed reduction and intramedullary nail fixation, short TFN Synthes nail. [id number] BLOOD LOSS: 100 mL. ANESTHESIA: General. COMPLICATIONS: None. DISPOSITION: Stable to recovery room. DESCRIPTION OF PROCEDURE: The patient was brought to the operating room and placed supine on the operating room table. After general anesthesia was given and prophylactic antibiotics, the right lower extremity was placed into traction. Closed reduction was then performed with traction, adduction and internal rotation under fluoroscopic guidance. Fluoroscopic images confirmed a well aligned and reduction intertrochanteric fracture. The right leg was then prepped and draped in a standard surgical fashion. A 4-cm incision proximal to the greater trochanter was outlined. The incision was made through the skin only. All superficial veins were cauterized. Dissection was carried down to identifying the starting point of the greater trochanter. A guidewire was then advanced into the greater trochanter and confirmed on both AP and lateral fluoroscopic images. After this, opening reamer was used to open the medullary canal. The guidewire and the opening reamer were then removed. An 11-mm short TFN nail was now assembled and placed into the intramedullary canal with advancement of light hammer blows, and the nail was seated in good position. Work was then began on placing the helical blade. The guide for the helical blade was placed on the aiming guide. Incision was made towards the skin and then taken down to the lateral femoral cortex. The trocar was advanced, and the guidewire was then advanced from the trocar into the femoral neck. The guidewire was placed in anatomic position and confirmed both on AP and lateral fluoroscopic images. Appropriate-sized helical blade was then measured and selected. Reamer was used to open the medullary canal of the femoral neck. An appropriate-sized helical blade was then advanced over the guidewire with light hammer blows until fully seated. The helical blade was locked proximally into the nail. Next, the trocar was removed with the helical blade followed by placement of the trocar for the static locking distal screw. Trocar was advanced into the lateral femoral cortex and drilled bicortically. Appropriate-sized screw was then selected and advanced into the nail locking distally. The aiming guide and the trocars were then removed. The fluoroscopic images again confirmed well aligned and reduced intertrochanteric fracture with placement of the nail. The wounds were then copiously irrigated and closed with 0 Vicryl followed by 2-0 Vicryl followed by elizabeth for skin. Sterile dressing was applied. The traction was removed. The patient tolerated the procedure well and was returned to the recovery room and extubated in excellent condition. Due to the patient's obesity, this surgery was complex than standard intertrochanteric hip fracture surgery. The length of surgery was increased by 50% Will Rodríguez MD [facility]
--- NOTE | 2018-11-20 09:16 | CARD ---
APPROVED REPORT Date of service: 11/19/2018 EKG Measurement Heart [id number] <Conclusion> Sinus tachycardia with premature atrial complexes Nonspecific ST and T wave abnormality Abnormal ECG
[2018-11-20] MEDS: Enoxaparin 40 mg Syringe SC SCH (09:20)
[2018-11-20] MEDS: Pantoprazole 40 mg EC Tab PO SCH (09:20)
[2018-11-20] MEDS: Multi Vitamins 15 mL UD Oral Solution PO SCH (09:20)
--- NOTE | 2018-11-20 11:17 | CP.PCM.PN ---
<Jane Boyd - Last Filed: 11/20/18 11:13> Subjective - Date & Time of Evaluation Date of Evaluation: 11/20/18 Time of Evaluation: 11:13 - Subjective Subjective: Patient seen and examined this morning at bedside. There are no acute events overnight, NAD. Patient s/p right hip intramedullary nail fixation POD#12. Patient reports pain at surgical site however controlled by pain medications. Patient recovering from procedure appropriately. Objective - Vital Signs/Intake and Output Vital Signs (last 24 hours): Temp Pulse Resp BP Pulse Ox 98.7 F 90 20 146/71 98 11/20/18 08:35 11/20/18 09:18 11/20/18 08:35 11/20/18 09:19 11/20/18 08:35 - Medications Medications: Current Medications Albuterol (Ventolin Hfa 90 Mcg/Actuation (8 G)) 1 puff INH Q6 PRN PRN Reason: Shortness of Breath Albuterol/Ipratropium (Duoneb 3 Mg/0.5 Mg (3 Ml) Ud) 3 ml INH RQ4 PRN PRN Reason: Shortness of Breath Enoxaparin Sodium (Lovenox) 40 mg SC DAILY [facility]; Protocol Last Admin: 11/20/18 09:20 Dose: 40 mg Ergocalciferol (Drisdol 50,000 Intl Units Cap) 1 cap PO Q7D [facility] Last Admin: 11/17/18 13:57 Dose: 1 cap Ferrous Sulfate (Feosol) 325 mg PO TID [facility] Last Admin: 11/20/18 09:18 Dose: 325 mg Folic Acid (Folic Acid) 1 mg PO DAILY [facility] Last Admin: 11/20/18 09:18 Dose: 1 mg Furosemide (Lasix) 20 mg PO DAILY PRN PRN Reason: leg swelling Last Admin: 11/20/18 09:19 Dose: 20 mg Gabapentin (Neurontin) 600 mg PO TID [facility] Last Admin: 11/20/18 09:19 Dose: 600 mg Sodium Chloride (Sodium Chloride 0.9%) 1,000 mls @ 1,000 mls/hr IV .Q1H [facility] Stop: 11/20/18 22:49 Last Admin: 11/19/18 23:04 Dose: 1,000 mls/hr Sodium Chloride (Sodium Chloride 0.9%) 1,000 mls @ 125 mls/hr IV .Q8H [facility] Stop: 11/21/18 05:47 Last Admin: 11/20/18 08:00 Dose: 125 mls/hr Insulin Human Lispro (Humalog) 0 units SC ACHS [facility]; Protocol Last Admin: 11/20/18 06:44 Dose: 1 units Losartan Potassium (Cozaar) 100 mg PO DAILY [facility] Last Admin: 11/20/18 09:18 Dose: 100 mg Morphine Sulfate (Morphine) 4 mg IVP Q4 PRN PRN Reason: Pain, severe (8-10) Last Admin: 11/19/18 22:18 Dose: 4 mg Morphine Sulfate (Morphine) 2 mg IVP Q4 PRN PRN Reason: Pain, moderate (4-7) Last Admin: 11/20/18 09:14 Dose: 2 mg Multivitamins/Vitamin C (Multi-Delyn Liquid) 15 ml PO DAILY [facility] Last Admin: 11/20/18 09:20 Dose: 15 ml Pantoprazole Sodium (Protonix Ec Tab) 40 mg PO DAILY [facility] Last Admin: 11/20/18 09:20 Dose: 40 mg Potassium Chloride (K-Dur 20 Meq Er Tab) 20 meq PO DAILY PRN PRN Reason: When taking furosemide Sitagliptin Phosphate (Januvia) 100 mg PO DAILY [facility] Last Admin: 11/20/18 09:19 Dose: 100 mg Thiamine HCl (Vitamin B1 Tab) 100 mg PO DAILY [facility] Last Admin: 11/20/18 09:19 Dose: 100 mg - Labs Labs: 11/20/18 05:15 11/20/18 05:15 PT 14.1 Seconds (9.8-13.1) H 11/19/18 17:12 INR 1.2 11/19/18 17:12 APTT 28.3 Seconds (25.6-37.1) 11/19/18 17:12 - Constitutional Appears: Well, Non-toxic, No Acute Distress - Head Exam Head Exam: ATRAUMATIC, NORMOCEPHALIC - Eye Exam Eye Exam: Normal appearance Pupil Exam: NORMAL ACCOMODATION - ENT Exam ENT Exam: Mucous Membranes Moist - Respiratory Exam Respiratory Exam: NORMAL BREATHING PATTERN - Cardiovascular Exam Cardiovascular Exam: REGULAR RHYTHM, +S1, +S2 - Extremities Exam Additional comments: no erythema or edema at the surgical site. - Neurological Exam Neurological Exam: Alert, Awake Assessment and Plan - Assessment and Plan (Free Text) Assessment: 68 y/o man w/ PMH of HTN, HLD, NIDDM type 2, COPD, chronic anemia, Hx of alcohol abuse, Hx of IV drug use, pancytopenia, recurrent ventral hernias admitted for evaluation and management of right femur fracture, anemia and pre-syncopal episode. Plan: Right Femur Fracture - Febrile tmax- 101 - s/p ORIF, right hip intramedullary nail fixation POD#2 - Orthopedic surgery consult, Dr. Rodríguez, recommendations appreciated - CT Hip: acute, comminuted fracture intertrochanteric location - Pain management: morphine 2 mg IV Q4h prn for moderate and morphine 4 mg IV Q4h for severe pain - incentive spirometer use - XR hip/pelvis/XR femur- ORIF intertrochanteric fracture - monitor for acute changes - PT on board. Pre-syncope episode - Likely symptomatic anemia vs. orthostatic hypotension vs. vasovagal - Unable to get orthostatic BP due to R leg pain. - monitor vitals - IVF LR @ 100mL/hr for hypotension - monitor for acute changes Chronic Microcytic Anemia - s/p 2 units PRBC - s/p 1 unit platelets - CBC: 5.5>8.4/25.9<87 - Iron deficiency anemia as per last bloodwork - c/w feosol 325 mg PO TID Hematuria - Resolved - most likely from traumatic vo - urinal, yellow darline urine Hypertension - Chronic - elevated - c/w home medications NIDDM-II - Chronic - c/w home medications Alcohol abuse - Last drink 2 days ago - Serum alcohol <10 - c/w folic acid 1 mg PO daily - c/w multivitamin 15 mg PO daily - c/w thiamine 100 mg PO daily - CIWA protocol - no signs of withdrawal - monitor for acute changes Pancytopenia, Chronic - Seen by Hem-Onc in past Prophylactic Measures - DVT: lovenox 40 mg SC <Opal Paulson - Last Filed: 11/20/18 18:03> Objective - Vital Signs/Intake and Output Vital Signs (last 24 hours): Temp Pulse Resp BP Pulse Ox 97.9 F 93 H 18 154/76 H 97 11/20/18 16:35 11/20/18 16:35 11/20/18 16:35 11/20/18 16:35 11/20/18 16:35 - Medications Medications: Current Medications Albuterol (Ventolin Hfa 90 Mcg/Actuation (8 G)) 1 puff INH Q6 PRN PRN Reason: Shortness of Breath Albuterol/Ipratropium (Duoneb 3 Mg/0.5 Mg (3 Ml) Ud) 3 ml INH RQ4 PRN PRN Reason: Shortness of Breath Enoxaparin Sodium (Lovenox) 40 mg SC DAILY [facility]; Protocol Last Admin: 11/20/18 09:20 Dose: 40 mg Ergocalciferol (Drisdol 50,000 Intl Units Cap) 1 cap PO Q7D [facility] Last Admin: 11/17/18 13:57 Dose: 1 cap Ferrous Sulfate (Feosol) 325 mg PO TID [facility] Last Admin: 11/20/18 17:42 Dose: 325 mg Folic Acid (Folic Acid) 1 mg PO DAILY [facility] Last Admin: 11/20/18 09:18 Dose: 1 mg Furosemide (Lasix) 20 mg PO DAILY PRN PRN Reason: leg swelling Last Admin: 11/20/18 09:19 Dose: 20 mg Gabapentin (Neurontin) 600 mg PO TID [facility] Last Admin: 11/20/18 17:43 Dose: 600 mg Sodium Chloride (Sodium Chloride 0.9%) 1,000 mls @ 1,000 mls/hr IV .Q1H [facility] Stop: 11/20/18 22:49 Last Admin: 11/19/18 23:04 Dose: 1,000 mls/hr Sodium Chloride (Sodium Chloride 0.9%) 1,000 mls @ 125 mls/hr IV .Q8H [facility] Stop: 11/21/18 05:47 Last Admin: 11/20/18 17:44 Dose: 125 mls/hr Iron Sucrose 100 mg/ Sodium (Chloride) 105 mls @ 105 mls/hr IVPB DAILY [facility] Insulin Human Lispro (Humalog) 0 units SC ACHS [facility]; Protocol Last Admin: 11/20/18 17:42 Dose: 1 units Losartan Potassium (Cozaar) 100 mg PO DAILY [facility] Last Admin: 11/20/18 09:18 Dose: 100 mg Morphine Sulfate (Morphine) 4 mg IVP Q4 PRN PRN Reason: Pain, severe (8-10) Last Admin: 11/19/18 22:18 Dose: 4 mg Morphine Sulfate (Morphine) 2 mg IVP Q4 PRN PRN Reason: Pain, moderate (4-7) Last Admin: 11/20/18 09:14 Dose: 2 mg Multivitamins/Vitamin C (Multi-Delyn Liquid) 15 ml PO DAILY [facility] Last Admin: 11/20/18 09:20 Dose: 15 ml Pantoprazole Sodium (Protonix Ec Tab) 40 mg PO DAILY [facility] Last Admin: 11/20/18 09:20 Dose: 40 mg Potassium Chloride (K-Dur 20 Meq Er Tab) 20 meq PO DAILY PRN PRN Reason: When taking furosemide Last Admin: 11/20/18 17:43 Dose: 20 meq Sitagliptin Phosphate (Januvia) 100 mg PO DAILY [facility] Last Admin: 11/20/18 09:19 Dose: 100 mg Thiamine HCl (Vitamin B1 Tab) 100 mg PO DAILY [facility] Last Admin: 11/20/18 09:19 Dose: 100 mg - Labs Labs: 11/20/18 05:15 11/20/18 05:15 PT 14.1 Seconds (9.8-13.1) H 11/19/18 17:12 INR 1.2 11/19/18 17:12 APTT 28.3 Seconds (25.6-37.1) 11/19/18 17:12 Attending/Attestation - Attestation I have personally seen and examined this patient.: Yes I have fully participated in the care of the patient.: Yes I have reviewed all pertinent clinical information, including history, physical exam and plan: Yes Notes (Text): Fracture Right Femur s/p ORIF/Intramedullary Nailing Syncope/Fall prob Vasovagal Pancytopenia prob sec to Alcohol Hx of Alcohol and Drug Abuse DM type II HTN Hypokalemia - Pain mgt -DVT proph - PT/OT consulted - rec MEETA - tranfused 2 units PRBC - start Venofer
--- NOTE | 2018-11-20 12:48 | CP.PCM.PN ---
Subjective - Date & Time of Evaluation Date of Evaluation: 11/20/18 Time of Evaluation: 12:46 - Subjective Subjective: Patient complaining of significant hip pain. Denies CP/SOB/dizziness. Objective - Vital Signs/Intake and Output Vital Signs (last 24 hours): Temp Pulse Resp BP Pulse Ox 98.7 F 80 20 160/72 H 98 11/20/18 08:35 11/20/18 11:14 11/20/18 08:35 11/20/18 11:14 11/20/18 11:14 - Medications Medications: Current Medications Albuterol (Ventolin Hfa 90 Mcg/Actuation (8 G)) 1 puff INH Q6 PRN PRN Reason: Shortness of Breath Albuterol/Ipratropium (Duoneb 3 Mg/0.5 Mg (3 Ml) Ud) 3 ml INH RQ4 PRN PRN Reason: Shortness of Breath Enoxaparin Sodium (Lovenox) 40 mg SC DAILY [facility]; Protocol Last Admin: 11/20/18 09:20 Dose: 40 mg Ergocalciferol (Drisdol 50,000 Intl Units Cap) 1 cap PO Q7D [facility] Last Admin: 11/17/18 13:57 Dose: 1 cap Ferrous Sulfate (Feosol) 325 mg PO TID [facility] Last Admin: 11/20/18 09:18 Dose: 325 mg Folic Acid (Folic Acid) 1 mg PO DAILY [facility] Last Admin: 11/20/18 09:18 Dose: 1 mg Furosemide (Lasix) 20 mg PO DAILY PRN PRN Reason: leg swelling Last Admin: 11/20/18 09:19 Dose: 20 mg Gabapentin (Neurontin) 600 mg PO TID [facility] Last Admin: 11/20/18 09:19 Dose: 600 mg Sodium Chloride (Sodium Chloride 0.9%) 1,000 mls @ 1,000 mls/hr IV .Q1H [facility] Stop: 11/20/18 22:49 Last Admin: 11/19/18 23:04 Dose: 1,000 mls/hr Sodium Chloride (Sodium Chloride 0.9%) 1,000 mls @ 125 mls/hr IV .Q8H [facility] Stop: 11/21/18 05:47 Last Admin: 11/20/18 08:00 Dose: 125 mls/hr Insulin Human Lispro (Humalog) 0 units SC ACHS [facility]; Protocol Last Admin: 11/20/18 06:44 Dose: 1 units Losartan Potassium (Cozaar) 100 mg PO DAILY [facility] Last Admin: 11/20/18 09:18 Dose: 100 mg Morphine Sulfate (Morphine) 4 mg IVP Q4 PRN PRN Reason: Pain, severe (8-10) Last Admin: 11/19/18 22:18 Dose: 4 mg Morphine Sulfate (Morphine) 2 mg IVP Q4 PRN PRN Reason: Pain, moderate (4-7) Last Admin: 11/20/18 09:14 Dose: 2 mg Multivitamins/Vitamin C (Multi-Delyn Liquid) 15 ml PO DAILY [facility] Last Admin: 11/20/18 09:20 Dose: 15 ml Pantoprazole Sodium (Protonix Ec Tab) 40 mg PO DAILY [facility] Last Admin: 11/20/18 09:20 Dose: 40 mg Potassium Chloride (K-Dur 20 Meq Er Tab) 20 meq PO DAILY PRN PRN Reason: When taking furosemide Sitagliptin Phosphate (Januvia) 100 mg PO DAILY [facility] Last Admin: 11/20/18 09:19 Dose: 100 mg Thiamine HCl (Vitamin B1 Tab) 100 mg PO DAILY [facility] Last Admin: 11/20/18 09:19 Dose: 100 mg - Labs Labs: 11/20/18 05:15 11/20/18 05:15 PT 14.1 Seconds (9.8-13.1) H 11/19/18 17:12 INR 1.2 11/19/18 17:12 APTT 28.3 Seconds (25.6-37.1) 11/19/18 17:12 - Extremities Exam Additional comments: Right hip: dressing changed. Incisions intact, dry, no erythema, +ROM ankle/toes, sensation intact +DP/PT pulses calves soft NT neg homans, moderate expected swelling Assessment and Plan (1) Closed intertrochanteric fracture of right hip Assessment & Plan: POD#2 s/p right hip oRIF ortho stable PT/OT cont VTE proph d/c planning d/w DR. Ward, agrees with above Status: Acute (2) Anemia Status: Deleted (3) Vitamin D deficiency Status: Acute
[2018-11-20] MEDS: Morphine 4 MG/ML VIAL IVP PRN (20:23)
[2018-11-21] MEDS: Sodium Chloride 0.9% 1,000 ML IV SCH (01:00)
[2018-11-21 05:40] LABS: HEMOGLOBIN 8.7 g/dL (12.0-18.0); MEAN CELL VOLUME 78.5 fl (80.0-94.0); MEAN CORPUSCULAR HEMOGLOBIN 25.4 pg (27.0-31.0); MEAN CORPUSCULAR HGB CONC 32.4 g/dL (33.0-37.0); RBC 3.43 Mil/uL (4.40-5.90); RED CELL DISTRIBUTION WIDTH 23.1 % (11.5-14.5)
[2018-11-21] MEDS: Morphine 4 MG/ML VIAL IVP PRN ×2 (05:44→22:20)
[2018-11-21 06:08] LABS: BLOOD UREA NITROGEN 7 mg/dl (9-20); CALCIUM 8.2 mg/dL (8.4-10.2); GFR NON-AFRICAN AMERICAN > 60
[2018-11-21] MEDS: Insulin Lispro (humaLOG) 100 Units/ml Inj SC SCH ×4 (06:31→21:34)
[2018-11-21] MEDS: Pantoprazole 40 mg EC Tab PO SCH (08:38)
[2018-11-21] MEDS: Multi Vitamins 15 mL UD Oral Solution PO SCH (08:40)
[2018-11-21] MEDS: Enoxaparin 40 mg Syringe SC SCH (09:54)
--- NOTE | 2018-11-21 10:20 | CP.PCM.PN ---
<Jane Boyd - Last Filed: 11/21/18 10:17> Subjective - Date & Time of Evaluation Date of Evaluation: 11/21/18 Time of Evaluation: 10:20 - Subjective Subjective: Patient seen and examined this morning at bedside. There are no acute events overnight, NAD. Patient s/p right hip intramedullary nail fixation POD#3. Patient reports pain at surgical site however controlled by pain medications. Patient recovering from procedure appropriately. Patient states he has been ambulating with the help of physical therapy and feels a litttle more comfortable now. Objective - Vital Signs/Intake and Output Vital Signs (last 24 hours): Temp Pulse Resp BP Pulse Ox 98.6 F 90 18 163/74 H 95 11/21/18 08:00 11/21/18 08:39 11/21/18 08:00 11/21/18 08:39 11/21/18 08:00 - Medications Medications: Current Medications Albuterol (Ventolin Hfa 90 Mcg/Actuation (8 G)) 1 puff INH Q6 PRN PRN Reason: Shortness of Breath Albuterol/Ipratropium (Duoneb 3 Mg/0.5 Mg (3 Ml) Ud) 3 ml INH RQ4 PRN PRN Reason: Shortness of Breath Enoxaparin Sodium (Lovenox) 40 mg SC DAILY [facility]; Protocol Last Admin: 11/21/18 09:54 Dose: 40 mg Ergocalciferol (Drisdol 50,000 Intl Units Cap) 1 cap PO Q7D [facility] Last Admin: 11/17/18 13:57 Dose: 1 cap Ferrous Sulfate (Feosol) 325 mg PO TID [facility] Last Admin: 11/21/18 08:39 Dose: 325 mg Folic Acid (Folic Acid) 1 mg PO DAILY [facility] Last Admin: 11/21/18 08:39 Dose: 1 mg Furosemide (Lasix) 20 mg PO DAILY PRN PRN Reason: leg swelling Last Admin: 11/20/18 09:19 Dose: 20 mg Gabapentin (Neurontin) 600 mg PO TID [facility] Last Admin: 11/21/18 08:39 Dose: 600 mg Iron Sucrose 100 mg/ Sodium (Chloride) 105 mls @ 105 mls/hr IVPB DAILY [facility] Last Admin: 11/20/18 20:23 Dose: 105 mls/hr Insulin Human Lispro (Humalog) 0 units SC ACHS [facility]; Protocol Last Admin: 11/21/18 06:31 Dose: Not Given Losartan Potassium (Cozaar) 100 mg PO DAILY [facility] Last Admin: 11/21/18 08:39 Dose: 100 mg Morphine Sulfate (Morphine) 4 mg IVP Q4 PRN PRN Reason: Pain, severe (8-10) Last Admin: 11/21/18 05:44 Dose: 4 mg Morphine Sulfate (Morphine) 2 mg IVP Q4 PRN PRN Reason: Pain, moderate (4-7) Last Admin: 11/20/18 09:14 Dose: 2 mg Multivitamins/Vitamin C (Multi-Delyn Liquid) 15 ml PO DAILY [facility] Last Admin: 11/21/18 08:40 Dose: 15 ml Pantoprazole Sodium (Protonix Ec Tab) 40 mg PO DAILY [facility] Last Admin: 11/21/18 08:38 Dose: 40 mg Potassium Chloride (K-Dur 20 Meq Er Tab) 20 meq PO DAILY PRN PRN Reason: When taking furosemide Last Admin: 11/20/18 17:43 Dose: 20 meq Sitagliptin Phosphate (Januvia) 100 mg PO DAILY [facility] Last Admin: 11/21/18 08:39 Dose: 100 mg Thiamine HCl (Vitamin B1 Tab) 100 mg PO DAILY [facility] Last Admin: 11/21/18 08:42 Dose: 100 mg - Labs Labs: 11/21/18 04:30 11/21/18 04:30 PT 14.1 Seconds (9.8-13.1) H 11/19/18 17:12 INR 1.2 11/19/18 17:12 APTT 28.3 Seconds (25.6-37.1) 11/19/18 17:12 - Constitutional Appears: No Acute Distress - Head Exam Head Exam: ATRAUMATIC, NORMOCEPHALIC - Eye Exam Eye Exam: Normal appearance Pupil Exam: NORMAL ACCOMODATION - Extremities Exam Additional comments: no erythema noted on the right leg. - Neurological Exam Neurological Exam: Alert, Awake - Psychiatric Exam Psychiatric exam: Normal Affect Assessment and Plan - Assessment and Plan (Free Text) Assessment: 68 y/o man w/ PMH of HTN, HLD, NIDDM type 2, COPD, chronic anemia, Hx of alcohol abuse, Hx of IV drug use, pancytopenia, recurrent ventral hernias admitted for evaluation and management of right femur fracture, anemia and pre-syncopal episode Plan: Right Femur Fracture - Febrile tmax- 101 - s/p ORIF, right hip intramedullary nail fixation POD#2 - Orthopedic surgery consult, Dr. Rodríguez, recommendations appreciated - CT Hip: acute, comminuted fracture intertrochanteric location - Pain management: morphine 2 mg IV Q4h prn for moderate and morphine 4 mg IV Q4h for severe pain - incentive spirometer use - XR hip/pelvis/XR femur- ORIF intertrochanteric fracture - monitor for acute changes - PT on board. - D/c planning to [facility] Pre-syncope episode - Likely symptomatic anemia vs. orthostatic hypotension vs. vasovagal - Unable to get orthostatic BP due to R leg pain. - monitor vitals - IVF LR @ 100mL/hr for hypotension - monitor for acute changes Chronic Microcytic Anemia - s/p 2 units PRBC - s/p 1 unit platelets - CBC: 5.5>8.4/25.9<87 - Iron deficiency anemia as per last bloodwork - c/w feosol 325 mg PO TID Hematuria - Resolved - most likely from traumatic vo - urinal, yellow darline urine Hypertension - Chronic - elevated - c/w home medications NIDDM-II - Chronic - c/w home medications Alcohol abuse - Last drink 2 days ago - Serum alcohol <10 - c/w folic acid 1 mg PO daily - c/w multivitamin 15 mg PO daily - c/w thiamine 100 mg PO daily - [facility] protocol - no signs of withdrawal - monitor for acute changes Pancytopenia, Chronic - Seen by Hem-Onc in past Prophylactic Measures - DVT: lovenox 40 mg SC <Opal Paulson - Last Filed: 11/21/18 15:44> Objective - Vital Signs/Intake and Output Vital Signs (last 24 hours): Temp Pulse Resp BP Pulse Ox 98 F 88 18 134/70 98 11/21/18 11:51 11/21/18 14:09 11/21/18 11:51 11/21/18 11:51 11/21/18 14:09 - Medications Medications: Current Medications Albuterol (Ventolin Hfa 90 Mcg/Actuation (8 G)) 1 puff INH Q6 PRN PRN Reason: Shortness of Breath Albuterol/Ipratropium (Duoneb 3 Mg/0.5 Mg (3 Ml) Ud) 3 ml INH RQ4 PRN PRN Reason: Shortness of Breath Enoxaparin Sodium (Lovenox) 40 mg SC DAILY [facility]; Protocol Last Admin: 11/21/18 09:54 Dose: 40 mg Ergocalciferol (Drisdol 50,000 Intl Units Cap) 1 cap PO Q7D [facility] Last Admin: 11/17/18 13:57 Dose: 1 cap Ferrous Sulfate (Feosol) 325 mg PO TID [facility] Last Admin: 11/21/18 14:36 Dose: 325 mg Folic Acid (Folic Acid) 1 mg PO DAILY [facility] Last Admin: 11/21/18 08:39 Dose: 1 mg Furosemide (Lasix) 20 mg PO DAILY PRN PRN Reason: leg swelling Last Admin: 11/20/18 09:19 Dose: 20 mg Gabapentin (Neurontin) 600 mg PO TID [facility] Last Admin: 11/21/18 14:35 Dose: 600 mg Iron Sucrose 100 mg/ Sodium (Chloride) 105 mls @ 105 mls/hr IVPB DAILY [facility] Last Admin: 11/21/18 11:12 Dose: 105 mls/hr Insulin Human Lispro (Humalog) 0 units SC ACHS [facility]; Protocol Last Admin: 11/21/18 14:36 Dose: 2 units Losartan Potassium (Cozaar) 100 mg PO DAILY [facility] Last Admin: 11/21/18 08:39 Dose: 100 mg Morphine Sulfate (Morphine) 4 mg IVP Q4 PRN PRN Reason: Pain, severe (8-10) Last Admin: 11/21/18 05:44 Dose: 4 mg Morphine Sulfate (Morphine) 2 mg IVP Q4 PRN PRN Reason: Pain, moderate (4-7) Last Admin: 11/20/18 09:14 Dose: 2 mg Multivitamins/Vitamin C (Multi-Delyn Liquid) 15 ml PO DAILY [facility] Last Admin: 11/21/18 08:40 Dose: 15 ml Pantoprazole Sodium (Protonix Ec Tab) 40 mg PO DAILY [facility] Last Admin: 11/21/18 08:38 Dose: 40 mg Potassium Chloride (K-Dur 20 Meq Er Tab) 20 meq PO DAILY PRN PRN Reason: When taking furosemide Last Admin: 11/20/18 17:43 Dose: 20 meq Sitagliptin Phosphate (Januvia) 100 mg PO DAILY [facility] Last Admin: 11/21/18 08:39 Dose: 100 mg Thiamine HCl (Vitamin B1 Tab) 100 mg PO DAILY [facility] Last Admin: 11/21/18 08:42 Dose: 100 mg - Labs Labs: 11/21/18 04:30 11/21/18 04:30 PT 14.1 Seconds (9.8-13.1) H 11/19/18 17:12 INR 1.2 11/19/18 17:12 APTT 28.3 Seconds (25.6-37.1) 11/19/18 17:12 Attending/Attestation - Attestation I have personally seen and examined this patient.: Yes I have fully participated in the care of the patient.: Yes I have reviewed all pertinent clinical information, including history, physical exam and plan: Yes Notes (Text): Fracture Right Femur s/p ORIF/Intramedullary Nailing Syncope/Fall prob Vasovagal Pancytopenia prob sec to Alcohol Hx of Alcohol and Drug Abuse DM type II HTN Hypokalemia - Pain mgt -DVT proph - PT/OT consulted - rec [facility] -Pt transfused 2 units PRBC - cont Venofer -cont Thiamine - accucheck with coverage, cont Januvia
--- NOTE | 2018-11-21 14:27 | CP.PCM.PN ---
Subjective - Date & Time of Evaluation Date of Evaluation: 11/21/18 Time of Evaluation: 11:00 - Subjective Subjective: Patient seen OOB to chair comfortable. Pain well controlled. Tolerated PT well. No other complaints or acute events overnight. Objective - Vital Signs/Intake and Output Vital Signs (last 24 hours): Temp Pulse Resp BP Pulse Ox 98 F 88 18 134/70 98 11/21/18 11:51 11/21/18 14:09 11/21/18 11:51 11/21/18 11:51 11/21/18 14:09 - Medications Medications: Current Medications Albuterol (Ventolin Hfa 90 Mcg/Actuation (8 G)) 1 puff INH Q6 PRN PRN Reason: Shortness of Breath Albuterol/Ipratropium (Duoneb 3 Mg/0.5 Mg (3 Ml) Ud) 3 ml INH RQ4 PRN PRN Reason: Shortness of Breath Enoxaparin Sodium (Lovenox) 40 mg SC DAILY [facility]; Protocol Last Admin: 11/21/18 09:54 Dose: 40 mg Ergocalciferol (Drisdol 50,000 Intl Units Cap) 1 cap PO Q7D [facility] Last Admin: 11/17/18 13:57 Dose: 1 cap Ferrous Sulfate (Feosol) 325 mg PO TID [facility] Last Admin: 11/21/18 08:39 Dose: 325 mg Folic Acid (Folic Acid) 1 mg PO DAILY [facility] Last Admin: 11/21/18 08:39 Dose: 1 mg Furosemide (Lasix) 20 mg PO DAILY PRN PRN Reason: leg swelling Last Admin: 11/20/18 09:19 Dose: 20 mg Gabapentin (Neurontin) 600 mg PO TID [facility] Last Admin: 11/21/18 08:39 Dose: 600 mg Iron Sucrose 100 mg/ Sodium (Chloride) 105 mls @ 105 mls/hr IVPB DAILY [facility] Last Admin: 11/21/18 11:12 Dose: 105 mls/hr Insulin Human Lispro (Humalog) 0 units SC ACHS [facility]; Protocol Last Admin: 11/21/18 06:31 Dose: Not Given Losartan Potassium (Cozaar) 100 mg PO DAILY [facility] Last Admin: 11/21/18 08:39 Dose: 100 mg Morphine Sulfate (Morphine) 4 mg IVP Q4 PRN PRN Reason: Pain, severe (8-10) Last Admin: 11/21/18 05:44 Dose: 4 mg Morphine Sulfate (Morphine) 2 mg IVP Q4 PRN PRN Reason: Pain, moderate (4-7) Last Admin: 11/20/18 09:14 Dose: 2 mg Multivitamins/Vitamin C (Multi-Delyn Liquid) 15 ml PO DAILY [facility] Last Admin: 11/21/18 08:40 Dose: 15 ml Pantoprazole Sodium (Protonix Ec Tab) 40 mg PO DAILY [facility] Last Admin: 11/21/18 08:38 Dose: 40 mg Potassium Chloride (K-Dur 20 Meq Er Tab) 20 meq PO DAILY PRN PRN Reason: When taking furosemide Last Admin: 11/20/18 17:43 Dose: 20 meq Sitagliptin Phosphate (Januvia) 100 mg PO DAILY [facility] Last Admin: 11/21/18 08:39 Dose: 100 mg Thiamine HCl (Vitamin B1 Tab) 100 mg PO DAILY [facility] Last Admin: 11/21/18 08:42 Dose: 100 mg - Labs Labs: 11/21/18 04:30 11/21/18 04:30 PT 14.1 Seconds (9.8-13.1) H 11/19/18 17:12 INR 1.2 11/19/18 17:12 APTT 28.3 Seconds (25.6-37.1) 11/19/18 17:12 - Extremities Exam Additional comments: RLE: dressings CDI moderate thigh swelling sensation intact SP/DP/tn motor intact EHL/FHL/TA/G pedal pulse intact calves soft NT b/l Assessment and Plan (1) Closed intertrochanteric fracture of right hip Assessment & Plan: POD# 3 s/p R hip fx closed reduction internal fixation with short IM nail -pain control -DVT ppx -PT/OT WBAT -d/c planning -orthopedically stable -above d/w Dr. Rodríguez in agreement Status: Acute
[2018-11-21] MEDS ORDERED: Potassium Chloride 20 mEq ER Tab PO ONE (15:43)
[2018-11-22 06:05] LABS: HEMOGLOBIN 8.3 g/dL (12.0-18.0); MEAN CELL VOLUME 79.2 fl (80.0-94.0); MEAN CORPUSCULAR HEMOGLOBIN 26.1 pg (27.0-31.0); MEAN CORPUSCULAR HGB CONC 32.9 g/dL (33.0-37.0); RBC 3.2 Mil/uL (4.40-5.90); RED CELL DISTRIBUTION WIDTH 24.2 % (11.5-14.5); WHITE BLOOD COUNT 3.9 K/uL (4.8-10.8)
[2018-11-22 06:39] LABS: BLOOD UREA NITROGEN 10 mg/dl (9-20); CALCIUM 7.9 mg/dL (8.4-10.2); GFR NON-AFRICAN AMERICAN > 60
[2018-11-22] MEDS ORDERED: Potassium Chloride 20 mEq ER Tab PO ONE ×2 (07:45→13:28)
[2018-11-22] MEDS: Insulin Lispro (humaLOG) 100 Units/ml Inj SC SCH ×4 (08:44→22:00)
[2018-11-22] MEDS: Enoxaparin 40 mg Syringe SC SCH (08:45)
[2018-11-22] MEDS: Multi Vitamins 15 mL UD Oral Solution PO SCH (08:46)
[2018-11-22] MEDS: Pantoprazole 40 mg EC Tab PO SCH (08:47)
[2018-11-22] MEDS: Potassium CL 10 MEQ/50 ML 50 ML IVPB SCH ×4 (08:50→15:43)
--- NOTE | 2018-11-22 10:48 | CP.PCM.PN ---
<Jane Boyd - Last Filed: 11/22/18 11:27> Subjective - Date & Time of Evaluation Date of Evaluation: 11/22/18 Time of Evaluation: 10:46 - Subjective Subjective: Patient seen and examined this morning at bedside. There are no acute events overnight, NAD. Patient s/p right hip intramedullary nail fixation. Patient reports pain at surgical site however controlled by pain medications. Denies weakness. Patient states he has been ambulating with the help of physical therapy and feels a little more comfortable now. Objective - Vital Signs/Intake and Output Vital Signs (last 24 hours): Temp Pulse Resp BP Pulse Ox 98.2 F 90 18 137/77 96 11/22/18 08:17 11/22/18 08:39 11/22/18 08:17 11/22/18 08:39 11/22/18 08:17 - Medications Medications: Current Medications Albuterol (Ventolin Hfa 90 Mcg/Actuation (8 G)) 1 puff INH Q6 PRN PRN Reason: Shortness of Breath Albuterol/Ipratropium (Duoneb 3 Mg/0.5 Mg (3 Ml) Ud) 3 ml INH RQ4 PRN PRN Reason: Shortness of Breath Enoxaparin Sodium (Lovenox) 40 mg SC DAILY [facility]; Protocol Last Admin: 11/22/18 08:45 Dose: 40 mg Ergocalciferol (Drisdol 50,000 Intl Units Cap) 1 cap PO Q7D [facility] Last Admin: 11/17/18 13:57 Dose: 1 cap Ferrous Sulfate (Feosol) 325 mg PO TID [facility] Last Admin: 11/22/18 08:40 Dose: 325 mg Folic Acid (Folic Acid) 1 mg PO DAILY [facility] Last Admin: 11/22/18 08:44 Dose: 1 mg Furosemide (Lasix) 20 mg PO DAILY PRN PRN Reason: leg swelling Last Admin: 11/20/18 09:19 Dose: 20 mg Gabapentin (Neurontin) 600 mg PO TID [facility] Last Admin: 11/22/18 08:46 Dose: 600 mg Iron Sucrose 100 mg/ Sodium (Chloride) 105 mls @ 105 mls/hr IVPB DAILY [facility] Last Admin: 11/22/18 08:47 Dose: 105 mls/hr Potassium Chloride (Potassium Cl 10meq/50ml Sterile Water) 50 mls @ 50 mls/hr IVPB Q1 [facility] Stop: 11/22/18 11:59 Last Admin: 11/22/18 08:50 Dose: 50 mls/hr Insulin Human Lispro (Humalog) 0 units SC ACHS [facility]; Protocol Last Admin: 11/22/18 08:44 Dose: Not Given Losartan Potassium (Cozaar) 100 mg PO DAILY [facility] Last Admin: 11/22/18 08:39 Dose: 100 mg Morphine Sulfate (Morphine) 4 mg IVP Q4 PRN PRN Reason: Pain, severe (8-10) Last Admin: 11/21/18 22:20 Dose: 4 mg Morphine Sulfate (Morphine) 2 mg IVP Q4 PRN PRN Reason: Pain, moderate (4-7) Last Admin: 11/20/18 09:14 Dose: 2 mg Multivitamins/Vitamin C (Multi-Delyn Liquid) 15 ml PO DAILY [facility] Last Admin: 11/22/18 08:46 Dose: 15 ml Pantoprazole Sodium (Protonix Ec Tab) 40 mg PO DAILY [facility] Last Admin: 11/22/18 08:47 Dose: 40 mg Potassium Chloride (K-Dur 20 Meq Er Tab) 20 meq PO DAILY PRN PRN Reason: When taking furosemide Last Admin: 11/20/18 17:43 Dose: 20 meq Sitagliptin Phosphate (Januvia) 100 mg PO DAILY [facility] Last Admin: 11/22/18 08:44 Dose: 100 mg Thiamine HCl (Vitamin B1 Tab) 100 mg PO DAILY [facility] Last Admin: 11/22/18 08:47 Dose: 100 mg - Labs Labs: 11/22/18 05:15 11/22/18 05:15 PT 14.1 Seconds (9.8-13.1) H 11/19/18 17:12 INR 1.2 11/19/18 17:12 APTT 28.3 Seconds (25.6-37.1) 11/19/18 17:12 - Constitutional Appears: Well, Non-toxic, No Acute Distress - Head Exam Head Exam: ATRAUMATIC, NORMOCEPHALIC - Eye Exam Eye Exam: Normal appearance Pupil Exam: NORMAL ACCOMODATION - ENT Exam ENT Exam: Mucous Membranes Moist - Respiratory Exam Respiratory Exam: NORMAL BREATHING PATTERN - Cardiovascular Exam Cardiovascular Exam: REGULAR RHYTHM, +S1, +S2 - Extremities Exam Additional comments: no erythema noted on the right leg. - Neurological Exam Neurological Exam: Alert, Awake, Oriented x3 - Psychiatric Exam Psychiatric exam: Normal Affect - Skin Skin Exam: Normal Color Assessment and Plan - Assessment and Plan (Free Text) Assessment: 68 y/o man w/ PMH of HTN, HLD, NIDDM type 2, COPD, chronic anemia, Hx of alcohol abuse, Hx of IV drug use, pancytopenia, recurrent ventral hernias admitted for evaluation and management of right femur fracture, anemia and pre-syncopal episod. Plan: Right Femur Fracture - Febrile tmax- 101 - s/p ORIF, right hip intramedullary nail fixation POD#2 - Orthopedic surgery consult, Dr. Rodríguez, recommendations appreciated - CT Hip: acute, comminuted fracture intertrochanteric location - Pain management: morphine 2 mg IV Q4h prn for moderate and morphine 4 mg IV Q4h for severe pain - incentive spirometer use - XR hip/pelvis/XR femur- ORIF intertrochanteric fracture - monitor for acute changes - PT on board. - patient transferred to med/surg - D/c planning to [facility] Pre-syncope episode - Likely symptomatic anemia vs. orthostatic hypotension vs. vasovagal - Unable to get orthostatic BP due to R leg pain. - monitor vitals - IVF LR @ 100mL/hr for hypotension - monitor for acute changes Chronic Microcytic Anemia - s/p 2 units PRBC - s/p 1 unit platelets - CBC: 5.5>8.4/25.9<87 - Iron deficiency anemia as per last bloodwork - c/w feosol 325 mg PO TID Hematuria - Resolved - most likely from traumatic vo - urinal, yellow darline urine Hypokalemia -potassium chloride IV -K+ 2.6 Hypertension - Chronic - elevated - c/w home medications NIDDM-II - Chronic - c/w home medications Alcohol abuse - Last drink 2 days ago - Serum alcohol <10 - c/w folic acid 1 mg PO daily - c/w multivitamin 15 mg PO daily - c/w thiamine 100 mg PO daily - [facility] protocol - no signs of withdrawal - monitor for acute changes Pancytopenia, Chronic - Seen by Hem-Onc in past Prophylactic Measures - DVT: lovenox 40 mg SC <Opal Paulson - Last Filed: 11/22/18 13:32> Objective - Vital Signs/Intake and Output Vital Signs (last 24 hours): Temp Pulse Resp BP Pulse Ox 98.3 F 83 18 119/78 95 11/22/18 12:02 11/22/18 12:02 11/22/18 12:02 11/22/18 12:02 11/22/18 12:02 - Medications Medications: Current Medications Albuterol (Ventolin Hfa 90 Mcg/Actuation (8 G)) 1 puff INH Q6 PRN PRN Reason: Shortness of Breath Albuterol/Ipratropium (Duoneb 3 Mg/0.5 Mg (3 Ml) Ud) 3 ml INH RQ4 PRN PRN Reason: Shortness of Breath Enoxaparin Sodium (Lovenox) 40 mg SC DAILY [facility]; Protocol Last Admin: 11/22/18 08:45 Dose: 40 mg Ergocalciferol (Drisdol 50,000 Intl Units Cap) 1 cap PO Q7D [facility] Last Admin: 11/17/18 13:57 Dose: 1 cap Ferrous Sulfate (Feosol) 325 mg PO TID [facility] Last Admin: 11/22/18 12:26 Dose: 325 mg Folic Acid (Folic Acid) 1 mg PO DAILY [facility] Last Admin: 11/22/18 08:44 Dose: 1 mg Furosemide (Lasix) 20 mg PO DAILY PRN PRN Reason: leg swelling Last Admin: 11/20/18 09:19 Dose: 20 mg Gabapentin (Neurontin) 600 mg PO TID [facility] Last Admin: 11/22/18 12:26 Dose: 600 mg Iron Sucrose 100 mg/ Sodium (Chloride) 105 mls @ 105 mls/hr IVPB DAILY [facility] Last Admin: 11/22/18 08:47 Dose: 105 mls/hr Insulin Human Lispro (Humalog) 0 units SC ACHS [facility]; Protocol Last Admin: 11/22/18 12:33 Dose: 2 units Losartan Potassium (Cozaar) 100 mg PO DAILY [facility] Last Admin: 11/22/18 08:39 Dose: 100 mg Magnesium Oxide (Mag-Ox) 800 mg PO ONCE ONE Stop: 11/22/18 13:30 Morphine Sulfate (Morphine) 4 mg IVP Q4 PRN PRN Reason: Pain, severe (8-10) Last Admin: 11/21/18 22:20 Dose: 4 mg Multivitamins/Vitamin C (Multi-Delyn Liquid) 15 ml PO DAILY [facility] Last Admin: 11/22/18 08:46 Dose: 15 ml Pantoprazole Sodium (Protonix Ec Tab) 40 mg PO DAILY [facility] Last Admin: 11/22/18 08:47 Dose: 40 mg Potassium Chloride (K-Dur 20 Meq Er Tab) 20 meq PO DAILY PRN PRN Reason: When taking furosemide Last Admin: 11/20/18 17:43 Dose: 20 meq Potassium Chloride (K-Dur 20 Meq Er Tab) 40 meq PO ONCE ONE Stop: 11/22/18 13:29 Sitagliptin Phosphate (Januvia) 100 mg PO DAILY [facility] Last Admin: 11/22/18 08:44 Dose: 100 mg Thiamine HCl (Vitamin B1 Tab) 100 mg PO DAILY [facility] Last Admin: 11/22/18 08:47 Dose: 100 mg - Labs Labs: 11/22/18 05:15 11/22/18 12:02 PT 14.1 Seconds (9.8-13.1) H 11/19/18 17:12 INR 1.2 11/19/18 17:12 APTT 28.3 Seconds (25.6-37.1) 11/19/18 17:12 Attending/Attestation - Attestation I have personally seen and examined this patient.: Yes I have fully participated in the care of the patient.: Yes I have reviewed all pertinent clinical information, including history, physical exam and plan: Yes Notes (Text): Fracture Right Femur s/p ORIF/Intramedullary Nailing Syncope/Fall prob Vasovagal Pancytopenia prob sec to Alcohol Hx of Alcohol and Drug Abuse DM type II HTN Hypokalemia Constipation - Pain mgt -DVT proph - PT/OT consulted - rec [facility] -Pt transfused 2 units PRBC - cont Venofer -cont Thiamine - accucheck with coverage, cont Januvia -Lactulocse -replace K , KCL runs and PO - awaiting insurance approval for transfer to [facility]
[2018-11-22 12:38] LABS: BLOOD UREA NITROGEN 10 mg/dl (9-20); CALCIUM 8.4 mg/dL (8.4-10.2); GFR NON-AFRICAN AMERICAN > 60
--- NOTE | 2018-11-22 12:40 | CP.PCM.PN ---
Subjective - Date & Time of Evaluation Date of Evaluation: 11/22/18 Time of Evaluation: 12:00 - Subjective Subjective: Patient seen and examined at bedside comfortable. Pain well controlled. No new complaints. Denies CP/SOB/dizziness/fever. Objective - Vital Signs/Intake and Output Vital Signs (last 24 hours): Temp Pulse Resp BP Pulse Ox 98.3 F 83 18 119/78 95 11/22/18 12:02 11/22/18 12:02 11/22/18 12:02 11/22/18 12:02 11/22/18 12:02 - Medications Medications: Current Medications Albuterol (Ventolin Hfa 90 Mcg/Actuation (8 G)) 1 puff INH Q6 PRN PRN Reason: Shortness of Breath Albuterol/Ipratropium (Duoneb 3 Mg/0.5 Mg (3 Ml) Ud) 3 ml INH RQ4 PRN PRN Reason: Shortness of Breath Enoxaparin Sodium (Lovenox) 40 mg SC DAILY [facility]; Protocol Last Admin: 11/22/18 08:45 Dose: 40 mg Ergocalciferol (Drisdol 50,000 Intl Units Cap) 1 cap PO Q7D [facility] Last Admin: 11/17/18 13:57 Dose: 1 cap Ferrous Sulfate (Feosol) 325 mg PO TID [facility] Last Admin: 11/22/18 12:26 Dose: 325 mg Folic Acid (Folic Acid) 1 mg PO DAILY [facility] Last Admin: 11/22/18 08:44 Dose: 1 mg Furosemide (Lasix) 20 mg PO DAILY PRN PRN Reason: leg swelling Last Admin: 11/20/18 09:19 Dose: 20 mg Gabapentin (Neurontin) 600 mg PO TID [facility] Last Admin: 11/22/18 12:26 Dose: 600 mg Iron Sucrose 100 mg/ Sodium (Chloride) 105 mls @ 105 mls/hr IVPB DAILY [facility] Last Admin: 11/22/18 08:47 Dose: 105 mls/hr Insulin Human Lispro (Humalog) 0 units SC ACHS [facility]; Protocol Last Admin: 11/22/18 12:33 Dose: 2 units Losartan Potassium (Cozaar) 100 mg PO DAILY [facility] Last Admin: 11/22/18 08:39 Dose: 100 mg Morphine Sulfate (Morphine) 4 mg IVP Q4 PRN PRN Reason: Pain, severe (8-10) Last Admin: 11/21/18 22:20 Dose: 4 mg Multivitamins/Vitamin C (Multi-Delyn Liquid) 15 ml PO DAILY [facility] Last Admin: 11/22/18 08:46 Dose: 15 ml Pantoprazole Sodium (Protonix Ec Tab) 40 mg PO DAILY [facility] Last Admin: 11/22/18 08:47 Dose: 40 mg Potassium Chloride (K-Dur 20 Meq Er Tab) 20 meq PO DAILY PRN PRN Reason: When taking furosemide Last Admin: 11/20/18 17:43 Dose: 20 meq Sitagliptin Phosphate (Januvia) 100 mg PO DAILY [facility] Last Admin: 11/22/18 08:44 Dose: 100 mg Thiamine HCl (Vitamin B1 Tab) 100 mg PO DAILY [facility] Last Admin: 11/22/18 08:47 Dose: 100 mg - Labs Labs: 11/22/18 05:15 11/22/18 05:15 PT 14.1 Seconds (9.8-13.1) H 11/19/18 17:12 INR 1.2 11/19/18 17:12 APTT 28.3 Seconds (25.6-37.1) 11/19/18 17:12 - Extremities Exam Additional comments: RLE: dressings CDI distally, proximal dressings with mild serosang drainage moderate thigh swelling sensation intact SP/DP/NT motor intact EHL/FHL/TA/G pedal pulse intact calves soft NT b/l Assessment and Plan (1) Closed intertrochanteric fracture of right hip Assessment & Plan: POD# 4 s/p R hip fx closed reduction internal fixation with short IM nail -dressings changed -DVT ppx -PT/OT WBAT -d/c planning to [facility] -orthopedically stable for d/c to [facility] -above d/w Dr. Rodríguez in agreement Status: Acute
[2018-11-22] MEDS ORDERED: Magnesium Oxide 400 mg Tab UD PO ONE (13:29)
[2018-11-22] MEDS: Morphine 4 MG/ML VIAL IVP PRN (20:43)
[2018-11-23 06:40] LABS: HEMOGLOBIN 8.5 g/dL (12.0-18.0); MEAN CELL VOLUME 80.3 fl (80.0-94.0); MEAN CORPUSCULAR HEMOGLOBIN 25.7 pg (27.0-31.0); RBC 3.33 Mil/uL (4.40-5.90); RED CELL DISTRIBUTION WIDTH 24.9 % (11.5-14.5); WHITE BLOOD COUNT 3.7 K/uL (4.8-10.8)
[2018-11-23 07:02] LABS: BLOOD UREA NITROGEN 7 mg/dl (9-20); CALCIUM 7.9 mg/dL (8.4-10.2); GFR NON-AFRICAN AMERICAN > 60
[2018-11-23] MEDS ORDERED: Potassium Chloride 20 mEq ER Tab PO ONE (08:40)
[2018-11-23 08:42] VITALS: RESP 20
--- NOTE | 2018-11-23 09:12 | CP.PCM.PN ---
Subjective - Date & Time of Evaluation Date of Evaluation: 11/23/18 Time of Evaluation: 08:00 - Subjective Subjective: Patient seen and examined at bedside. In moderate pain this AM. Transferred to [facility] yesterday. No acute events overnight. Objective - Vital Signs/Intake and Output Vital Signs (last 24 hours): Temp Pulse Resp BP Pulse Ox 97.6 F 82 20 145/77 96 11/23/18 08:41 11/23/18 08:41 11/23/18 08:41 11/23/18 08:41 11/23/18 08:41 - Medications Medications: Current Medications Albuterol (Ventolin Hfa 90 Mcg/Actuation (8 G)) 1 puff INH Q6 PRN PRN Reason: Shortness of Breath Albuterol/Ipratropium (Duoneb 3 Mg/0.5 Mg (3 Ml) Ud) 3 ml INH RQ4 PRN PRN Reason: Shortness of Breath Enoxaparin Sodium (Lovenox) 40 mg SC DAILY [facility]; Protocol Last Admin: 11/22/18 08:45 Dose: 40 mg Ergocalciferol (Drisdol 50,000 Intl Units Cap) 1 cap PO Q7D [facility] Last Admin: 11/17/18 13:57 Dose: 1 cap Ferrous Sulfate (Feosol) 325 mg PO TID [facility] Last Admin: 11/22/18 17:35 Dose: 325 mg Folic Acid (Folic Acid) 1 mg PO DAILY [facility] Last Admin: 11/22/18 08:44 Dose: 1 mg Gabapentin (Neurontin) 600 mg PO TID [facility] Last Admin: 11/22/18 17:36 Dose: 600 mg Iron Sucrose 100 mg/ Sodium (Chloride) 105 mls @ 105 mls/hr IVPB DAILY [facility] Last Admin: 11/22/18 08:47 Dose: 105 mls/hr Potassium Chloride (Potassium Chloride 10 Meq/100 Ml) 100 mls @ 100 mls/hr IVPB Q1 [facility] Stop: 11/23/18 12:59 Insulin Human Lispro (Humalog) 0 units SC ACHS [facility]; Protocol Last Admin: 11/22/18 22:00 Dose: Not Given Losartan Potassium (Cozaar) 100 mg PO DAILY [facility] Last Admin: 11/22/18 08:39 Dose: 100 mg Morphine Sulfate (Morphine) 4 mg IVP Q4 PRN PRN Reason: Pain, severe (8-10) Last Admin: 11/23/18 03:40 Dose: 4 mg Multivitamins/Vitamin C (Multi-Delyn Liquid) 15 ml PO DAILY [facility] Last Admin: 11/22/18 08:46 Dose: 15 ml Pantoprazole Sodium (Protonix Ec Tab) 40 mg PO DAILY [facility] Last Admin: 11/22/18 08:47 Dose: 40 mg Sitagliptin Phosphate (Januvia) 100 mg PO DAILY [facility] Last Admin: 11/22/18 08:44 Dose: 100 mg Thiamine HCl (Vitamin B1 Tab) 100 mg PO DAILY [facility] Last Admin: 11/22/18 08:47 Dose: 100 mg - Labs Labs: 11/23/18 06:00 11/23/18 06:00 PT 14.1 Seconds (9.8-13.1) H 11/19/18 17:12 INR 1.2 11/19/18 17:12 APTT 28.3 Seconds (25.6-37.1) 11/19/18 17:12 - Extremities Exam Additional comments: RLE: proximal dressings with mild serous drainage, proximal incision CDI with elizabeth no active drainage, distal dressings CDI, incision CDI with elizabeth decompressed blister inferior to wound moderate thigh swelling sensation intact SP/DP/tn motor intact EHL/FHL/TA/G pedal pulse intact calves soft NT b/l Assessment and Plan (1) Closed intertrochanteric fracture of right hip Assessment & Plan: POD# 5 s/p R hip fx closed reduction internal fixation with short IM nail -Dressings changed, change dressings to dry as needed -electrolyte supplementation as per medicine -pain control -DVT ppx -PT/OT WBAT -d/c planning -orthopedically stable -above d/w Dr. Rodríguez in agreement Status: Acute
[2018-11-23] MEDS: Potassium CL 10mEq/100ml 100 ML IVPB SCH ×4 (10:09→13:29)
[2018-11-23] MEDS: Pantoprazole 40 mg EC Tab PO SCH (10:14)
[2018-11-23] MEDS: Insulin Lispro (humaLOG) 100 Units/ml Inj SC SCH ×3 (10:16→16:30)
[2018-11-23] MEDS: Enoxaparin 40 mg Syringe SC SCH (10:21)
[2018-11-23] MEDS: Multi Vitamins 15 mL UD Oral Solution PO SCH (10:22)
[2018-11-23] MEDS ORDERED: Oxycodone/Acetaminophen 5/325 mg Tab PO PRN ×2 (11:32→11:34)
--- NOTE | 2018-11-23 12:31 | CP.PCM.DIS ---
Provider - Provider Date of Admission: 11/17/18 04:31 Attending physician: Art Fink Consults: 11/17/18 05:39 Orthopedic Consult Stat Comment: Consulting Provider: Will Rodríguez Consulting Physician: Will Rodríguez Reason for Consult: right femur fracture 11/17/18 08:37 Cardiology Consult Routine Comment: Consulting Provider: Sekou Rod V Consulting Physician: Sekou Rod V Reason for Consult: preop clearance Time Spent in preparation of Discharge (in minutes): 30 Diagnosis - Discharge Diagnosis (1) Closed intertrochanteric fracture of right hip Status: Acute Hospital Course - Lab Results Lab Results: Micro Results 11/19/18 17:12 Blood Blood Culture - Preliminary NO GROWTH AFTER 3 DAYS 11/20/18 00:40 Urine Random Urine Culture - Final No Growth (<1,000 CFU/ML) Most Recent Lab Values WBC 3.7 K/uL (4.8-10.8) L 11/23/18 06:00 RBC 3.33 Mil/uL (4.40-5.90) L 11/23/18 06:00 Hgb 8.5 g/dL (12.0-18.0) L 11/23/18 06:00 Hct 26.7 % (35.0-51.0) L 11/23/18 06:00 MCV 80.3 fl (80.0-94.0) 11/23/18 06:00 MCH 25.7 pg (27.0-31.0) L 11/23/18 06:00 MCHC 32.0 g/dL (33.0-37.0) L 11/23/18 06:00 RDW 24.9 % (11.5-14.5) H 11/23/18 06:00 Plt Count 107 K/uL (130-400) L 11/23/18 06:00 MPV 10.1 fl (7.2-11.7) 11/19/18 17:12 Neut % (Auto) 70.7 % (50.0-75.0) 11/19/18 17:12 Lymph % (Auto) 11.2 % (20.0-40.0) L 11/19/18 17:12 [place] % (Auto) 17.3 % (0.0-10.0) H 11/19/18 17:12 Eos % (Auto) 0.3 % (0.0-4.0) 11/19/18 17:12 Baso % (Auto) 0.5 % (0.0-2.0) 11/19/18 17:12 Neut # (Auto) 4.5 K/uL (1.8-7.0) 11/19/18 17:12 Lymph # (Auto) 0.7 K/uL (1.0-4.3) L 11/19/18 17:12 [place] # (Auto) 1.1 K/uL (0.0-0.8) H 11/19/18 17:12 Eos # (Auto) 0.0 K/uL (0.0-0.7) 11/19/18 17:12 Baso # (Auto) 0.0 K/uL (0.0-0.2) 11/19/18 17:12 PT 14.1 Seconds (9.8-13.1) H 11/19/18 17:12 INR 1.2 11/19/18 17:12 APTT 28.3 Seconds (25.6-37.1) 11/19/18 17:12 pCO2 35 mm/Hg (35-45) 11/19/18 17:48 pO2 36 mm/Hg (30-55) 11/19/18 22:25 HCO3 28.2 mmol/L (21-28) H 11/19/18 17:48 ABG pH 7.50 (7.35-7.45) H 11/19/18 17:48 ABG Total CO2 28.4 mmol/L (22-28) H 11/19/18 17:48 ABG O2 Saturation 99.7 % (95-98) H 11/19/18 17:48 ABG O2 Content 11.0 ML/dL (15-23) L 11/17/18 09:35 ABG Base Excess 4.2 mmol/L (-2.0-3.0) H 11/19/18 17:48 ABG Hemoglobin 7.8 g/dL (11.7-17.4) L 11/17/18 09:35 ABG Carboxyhemoglobin 1.7 % (0.5-1.5) H 11/17/18 09:35 POC ABG HHb (Measured) -0.1 % (0.0-5.0) L 11/17/18 09:35 ABG Methemoglobin 0.5 % (0.0-3.0) 11/17/18 09:35 ABG O2 Capacity 11.0 mL/dL (16-24) L 11/17/18 09:35 Andrew Test Yes 11/19/18 17:48 ABG Potassium 3.4 mmol/L (3.6-5.2) L 11/19/18 17:48 VBG pH 7.42 (7.32-7.43) 11/19/18 22:25 VBG pCO2 27 mmHg (40-60) L 11/19/18 22:25 VBG HCO3 19.9 mmol/L 11/19/18 22:25 VBG Total CO2 18.3 mmol/L (22-28) L 11/19/18 22:25 VBG O2 Sat (Calc) 76.7 % (40-65) H 11/19/18 22:25 VBG Base Excess -5.5 mmol/L (0.0-2.0) L 11/19/18 22:25 VBG Potassium 3.7 mmol/L (3.6-5.2) 11/19/18 22:25 A-a O2 Difference 69.0 mm/Hg 11/19/18 17:48 Hgb O2 Saturation 97.9 % (95.0-98.0) 11/17/18 09:35 Sodium 134.0 mmol/L (132-148) 11/19/18 22:25 Chloride 107.0 mmol/L (98-107) 11/19/18 22:25 Glucose 104 mg/dL (75-110) 11/19/18 22:25 Lactate 10.4 mmol/L (0.7-2.1) H* 11/19/18 22:25 FiO2 21.0 % 11/19/18 22:25 Crit Value Called To Caro he rn 11/19/18 22:25 Crit Value Called By Rosario molina rt 11/19/18 22:25 Crit Value Read Back Y 11/19/18 22:25 Blood Gas Notified Time 223711/19/18 22:25 Sodium 139 mmol/l (132-148) 11/23/18 06:00 Potassium 2.7 MMOL/L (3.6-5.0) L 11/23/18 06:00 Chloride 111 mmol/L (98-107) H 11/23/18 06:00 Carbon Dioxide 22 mmol/L (22-30) 11/23/18 06:00 Anion Gap 9 (10-20) L 11/23/18 06:00 BUN 7 mg/dl (9-20) L 11/23/18 06:00 Creatinine 0.6 mg/dl (0.8-1.5) L 11/23/18 06:00 Est GFR ( Amer) > 60 11/23/18 06:00 Est GFR (Non-Af Amer) > 60 11/23/18 06:00 POC Glucose (mg/dL) 176 mg/dL (65-110) H 11/23/18 10:49 Random Glucose 127 mg/dL (75-110) H 11/23/18 06:00 Hemoglobin A1c 6.0 % (4.2-6.5) 11/17/18 08:00 Calcium 7.9 mg/dL (8.4-10.2) L 11/23/18 06:00 Phosphorus 1.8 mg/dl (2.5-4.5) L 11/19/18 17:12 Magnesium 1.9 MG/DL (1.6-2.3) 11/19/18 17:12 Total Bilirubin 2.6 mg/dl (0.2-1.3) H 11/19/18 17:12 AST 30 U/L (17-59) 11/19/18 17:12 ALT 25 U/L (21-72) 11/19/18 17:12 Alkaline Phosphatase 78 U/L (38-126) 11/19/18 17:12 Troponin I 0.0130 ng/mL (0.00-0.120) 11/17/18 04:15 Total Protein 6.5 G/DL (6.3-8.2) 11/19/18 17:12 Albumin 3.0 g/dL (3.5-5.0) L 11/19/18 17:12 Globulin 3.4 gm/dL (2.2-3.9) 11/19/18 17:12 Albumin/Globulin Ratio 0.9 (1.0-2.1) L 11/19/18 17:12 25-OH Vitamin D Total 15.1 NG/ML (30.0-100.0) L 11/17/18 06:00 TSH 3rd Generation 1.98 mIU/ML (0.46-4.68) 11/17/18 08:00 Arterial Blood Potassium 3.4 mmol/L (3.6-5.2) L 11/19/18 17:48 Venous Blood Potassium 3.7 mmol/L (3.6-5.2) 11/19/18 22:25 Urine Color Yellow (YELLOW) 11/20/18 00:40 Urine Clarity Clear (Clear) 11/20/18 00:40 Urine pH 7.0 (5.0-8.0) 11/20/18 00:40 Ur Specific [place] 1.008 (1.003-1.030) 11/20/18 00:40 Urine Protein Negative mg/dL (NEGATIVE) 11/20/18 00:40 Urine Glucose (UA) 50 mg/dL (NEGATIVE) 11/20/18 00:40 Urine Ketones Negative mg/dL (NEGATIVE) 11/20/18 00:40 Urine Blood Moderate (NEGATIVE) 11/20/18 00:40 Urine Nitrate Negative (NEGATIVE) 11/20/18 00:40 Urine Bilirubin Negative (NEGATIVE) 11/20/18 00:40 Urine Urobilinogen 0.2-1.0 mg/dL (0.2-1.0) 11/20/18 00:40 Ur Leukocyte Esterase Neg [place]/uL (Negative) 11/20/18 00:40 Urine RBC (Auto) 5 /hpf (0-3) H 11/20/18 00:40 Urine Microscopic WBC 1 /hpf (0-5) 11/20/18 00:40 Ur Squamous Epith Cells < 1 /hpf (0-5) 11/17/18 12:10 Urine Opiates Screen Positive (NEGATIVE) H 11/17/18 12:10 Urine Methadone Screen Negative (NEGATIVE) 11/17/18 12:10 Ur Barbiturates Screen Negative (NEGATIVE) 11/17/18 12:10 Ur Phencyclidine Scrn Negative (NEGATIVE) 11/17/18 12:10 Ur Amphetamines Screen Negative (NEGATIVE) 11/17/18 12:10 U Benzodiazepines Scrn Negative (NEGATIVE) 11/17/18 12:10 U Oth Cocaine Metabols Negative (NEGATIVE) 11/17/18 12:10 U Cannabinoids Screen Negative (NEGATIVE) 11/17/18 12:10 Alcohol, Quantitative < 10 mg/dl (0-10) 11/17/18 06:50 Blood Type B POSITIVE 11/17/18 06:50 Antibody Screen Negative 11/17/18 06:50 Crossmatch See Detail 11/17/18 06:50 BBK History Checked Patient has bt 11/17/18 06:50 - Hospital Course Hospital Course: 68 y/o man w/ PMH of HTN, HLD, NIDDM type 2, COPD, chronic anemia, Hx of alcohol abuse, Hx of IV drug use, pancytopenia, recurrent ventral hernias admitted for evaluation and management of right femur fracture, anemia and pre-syncopal episod. Patient is s/p ORIF, right hip intramedullary nail fixation (11/18). Patient has chronic microcytic anemia and was given 2 units of PRBC and 1 unit of platelets during his stay. K+ was noted to be 2.7, KCL IV was given. To be discharged with 40 mg K-dur. Patient to be discharged to [facility] for continued PT - Date & Time of H&P Date of H&P: 11/23/18 Time of H&P: 12:31 Discharge Exam - Head Exam Head Exam: ATRAUMATIC, NORMOCEPHALIC - Eye Exam Eye Exam: Normal appearance Pupil Exam: NORMAL ACCOMODATION - ENT Exam ENT Exam: Mucous Membranes Moist - Respiratory Exam Respiratory Exam: NORMAL BREATHING PATTERN - Cardiovascular Exam Cardiovascular Exam: REGULAR RHYTHM, +S1, +S2 - Neurological Exam Neurological exam: Alert, Oriented x3 - Psychiatric Exam Psychiatric exam: Normal Affect - Skin Skin Exam: Normal Color Discharge Plan - Follow Up Plan Condition: STABLE Disposition: REHAB FACILITY/REHAB UNIT Instructions: Hip Fracture (DC), Open Reduction and Internal Fixation Surgery (DC) Additional Instructions: follow up with primary MD and Dr. Rodríguez 1 week Referrals: Sekou Rod MD [Staff Provider] - Will Rodríguez MD [Medical Doctor] -
[2018-11-23 16:17] VITALS: BP 138/80; PULSE 81; TEMP 98.4; O2SAT 97
[2018-11-23] MEDS ORDERED: Alum-Mag Hydrox-Simethicone Susp (30 mL) PO ONE (18:54)
== END 2018-11-23 20:00 | DRG 481 ==
LOC: H.ER 02:45 → H.ERHOLD 04:31 → H.TEL 05:54 → H.MEDSURG1 11-22 21:22
PROVIDERS: ADMIT Internal Medicine; ATTEND Internal Medicine
PROC: 0QS636Z Reposition Right Upper Femur with Intramedullary Internal Fixation Device, Percutaneous Approach (ICD-10-PCS; principal; 2018-11-17)
DX: S72.141A Displaced intertrochanteric fracture of right femur, initial encounter for closed fracture (principal); D61.818 Other pancytopenia; Z68.41 Body mass index [BMI] 40.0-44.9, adult; K92.2 Gastrointestinal hemorrhage, unspecified; J44.9 Chronic obstructive pulmonary disease, unspecified; I10 Essential (primary) hypertension; E78.00 Pure hypercholesterolemia, unspecified; R60.9 Edema, unspecified; Z90.49 Acquired absence of other specified parts of digestive tract; K21.9 Gastro-esophageal reflux disease without esophagitis; E66.9 Obesity, unspecified; F17.200 Nicotine dependence, unspecified, uncomplicated; K70.9 Alcoholic liver disease, unspecified; F10.10 Alcohol abuse, uncomplicated; F19.10 Other psychoactive substance abuse, uncomplicated; E11.40 Type 2 diabetes mellitus with diabetic neuropathy, unspecified; W19.XXXA Unspecified fall, initial encounter; D63.8 Anemia in other chronic diseases classified elsewhere; E55.9 Vitamin D deficiency, unspecified; E78.5 Hyperlipidemia, unspecified; E87.6 Hypokalemia; G89.29 Other chronic pain; K59.00 Constipation, unspecified; T50.2X5A Adverse effect of carbonic-anhydrase inhibitors, benzothiadiazides and other diuretics, initial encounter

== ENCOUNTER 2018-11-24 16:47 | Emergency (ER) | payer MEDICARE, MEDICAID ==
[2018-11-24 16:48] VITALS: BMI 42.3
--- NOTE | 2018-11-24 17:19 | ED PDOC ---
HPI: SOB/CHF/COPD Time Seen by Provider: 11/24/18 17:03 Chief Complaint (Nursing): Respiratory Distress Chief Complaint (Provider): Respiratory Distress History Per: EMS History/Exam Limitations: clinical condition Current Symptoms Are (Timing): Still Present Additional Complaint(s): 68 year old male brought to the ED by paramedics from the skilled nursing after episode of respiratory difficulty. On arrival, patient desaturated on pulse ox. Despite effort for oxygenation, patient remained hypoxic. Patient was intubated with 8 Wolof ET tube and 1 dose of epi. Rhythm as per paramedics was atrial fibrillation. Patient recently had a right hip replacement surgery. PMD: none provided Past Medical History Reviewed: Historical Data, Nursing Documentation, Vital Signs Vital Signs: Last Vital Signs Temp Pulse 67 11/24/18 17:07 Resp 19 11/24/18 17:07 BP 138/101 H 11/24/18 17:07 Pulse Ox 100 11/24/18 17:07 - Medical History PMH: Anemia, Arthritis, COPD, Diabetes, HTN, Hypercholesterolemia, Peripheral Edema (BLE) Denies: Colonic Polyps, Fractures, HIV, Chronic Kidney Disease - Surgical History Surgical History: Appendectomy (Exploratory Laporatomy for ruptured AP), Cholecystectomy, Hernia Repair Denies: Endoscopy Other surgeries: Right hip surgery - Family History Family History: States: Unknown Family Hx - Immunization History Hx Tetanus Toxoid Vaccination: No Hx Influenza Vaccination: No Hx Pneumococcal Vaccination: No - Home Medications Home Medications: Ambulatory Orders Medication Instructions Recorded Pantoprazole Sodium [Protonix] 40 mg PO DAILY 04/08/17 Losartan [Cozaar] 100 mg PO DAILY #30 tab 04/09/17 Ergocalciferol (Vitamin D2) 50,000 unit PO SAT 05/19/17 [Vitamin D2] Ferrous Sulfate [Ferosul] 325 mg PO TID 05/19/17 Furosemide [Lasix] 20 mg PO DAILY PRN 05/19/17 Albuterol HFA [Ventolin HFA 90 1 puff INH Q6 PRN 11/17/18 mcg/actuation (8 g)] SITagliptin [Januvia] 100 mg PO DAILY 11/17/18 metFORMIN [glucOPHAGE] 500 mg PO BID 11/17/18 traMADol [Ultram] 100 mg PO TID 11/17/18 Enoxaparin [Lovenox] 40 mg SC DAILY syr 11/23/18 Folic Acid 1 mg PO DAILY tab 11/23/18 Gabapentin [Neurontin] 600 mg PO TID tab 11/23/18 Multivitamin UD 15 mL Oral 15 ml PO DAILY liq 11/23/18 [Multi-Delyn Liquid] Thiamine [Vitamin B1 Tab] 100 mg PO DAILY tab 11/23/18 Acetaminophen [Tylenol 325mg tab] 650 mg PO Q4 PRN 11/24/18 Acetaminophen [Tylenol 325mg tab] 650 mg PO Q4 PRN 11/24/18 Mag Hydrox/Aluminum Hyd/Simeth 30 ml PO Q4 PRN 11/24/18 [Maalox Advanced Suspension] Magnesium Hydroxide [Milk Of 30 ml PO DAILY PRN 11/24/18 Magnesia] Potassium Chloride [K-Dur 20] 20 meq PO DAILY PRN 11/24/18 oxyCODONE/Acetaminophen [Percocet 1 tab PO Q4 PRN 11/24/18 5/325 mg Tab] oxyCODONE/Acetaminophen [Percocet 2 tab PO Q4 PRN 11/24/18 5/325 mg Tab] - Allergies Allergies/Adverse Reactions: Allergies Allergy/AdvReac Type Severity Reaction Status Date / Time Penicillins Allergy RASH Verified 11/17/18 03:07 Review of Systems Review Of Systems: ROS cannot be obtained secondary to pt's inabilty to answer questions. Respiratory: Positive for: Shortness of Breath Physical Exam - Reviewed Nursing Documentation Reviewed: Yes Vital Signs Reviewed: Yes - Physical Exam Appears: Positive for: In Acute Distress Head Exam: Positive for: ATRAUMATIC, NORMOCEPHALIC Skin: Positive for: Normal Color, Warm, Dry Eye Exam: Positive for: Normal appearance Cardiovascular/Chest: Positive for: Regular Rate, Rhythm (Regular rate) Respiratory: Positive for: Normal Breath Sounds (Equal breath sounds while ventilating through ET tube. ) Gastrointestinal/Abdominal: Positive for: Distended, Other (surgical scar noted) Extremity: Negative for: Calf Tenderness, Other (erythema) Neurological/Psych: Positive for: Other (Unresponsive to verbal and physical stimuli after ketamine given in field prior to intubation) - Laboratory Results Result Diagrams: 11/24/18 17:40 11/24/18 17:20 - ECG O2 Sat by Pulse Oximetry: 100 - Critical Care Total Time (In Min): 60 Medical Decision Making Medical Decision Making: Initial Impression: Respiratory failure Initial Plan: --Type and screen stat --Arterial blood gas shock panel --CT angio chest --CT head --EKG --CMP --Magnesium stat --Phosphrous stat --B-type natriuretic peptide stat --Troponin stat --CBC --Prothrombin time --PTT --Chest X-ray Given recent history of hip surgery, will obtain CT chest to r/o PE. 17:10 Code blue called. 17:48 Blood pressure dropped to 68 systolic after second epi. Patient started on Levophed drip. Discussed with seismic interpreter Dr. Frazier. Patient awaiting CT chest to r/o PE. Will monitor blood pressure systolic while on 5mg of Levophed. Right femoral central line placed by Dr. Chao. Scribe Attestation: Documented by Harvinder Boyd acting as a scribe for Rubio Alva MD. Provider Scribe Attestation: All medical record entries made by the Scribe were at my direction and personally dictated by me. I have reviewed the chart and agree that the record accurately reflects my personal performance of the history, physical exam, medic al decision making, and the department course for this patient. I have also personally directed, reviewed, and agree with the discharge instructions and disposition. Disposition - Clinical Impression Clinical Impression: Respiratory failure - Patient ED Disposition Is Patient to be Admitted: Yes - Disposition Disposition Time: 19:11 Condition: GUARDED - Pt Status Changed To: Hospital Disposition Of: Inpatient - Admit Certification Admit to Inpatient:: After my assessment, the patient will require hospitalization for at least two midnights. This is because of the severity of symptoms shown, intensity of services needed, and/or the medical risk in this patient being treated as an outpatient. - POA Present On Arrival: None
[2018-11-24 17:41] LABS: INR 1.5; PROTHROMBIN TIME 16.8 Seconds (9.8-13.1)
[2018-11-24 17:44] LABS: PARTIAL THROMBOPLASTIN TIME 42.5 Seconds (25.6-37.1)
--- NOTE | 2018-11-24 18:00 | RAD ---
Date of service: 11/24/2018 HISTORY: sob ams resp failure COMPARISON: 11/19/2018. FINDINGS: LUNGS: No active pulmonary disease. PLEURA: No significant pleural effusion identified, no pneumothorax apparent. CARDIOVASCULAR: No radiographic findings to suggest acute or significant cardiovascular disease. Atherosclerotic calcifications identified primarily aortic arch. OSSEOUS STRUCTURES: No significant abnormalities. VISUALIZED UPPER ABDOMEN: Findings suggest either massive distention of colon and small bowel or free air. OTHER FINDINGS: Satisfactory position of endotracheal tube. IMPRESSION: Findings suspicious for free air. Communication of results: I discussed findings directly with the attending physician in the emergency department to indicates the patient is already scheduled for CT of the thorax and abdomen. Per institutional protocol the study and the interpretation there of has been reported as critical results read. Study completed 17:18. Verbal results provided 17:56.
[2018-11-24 18:03] LABS: TROPONIN I 0.083 ng/mL (0.00-0.120)
--- NOTE | 2018-11-24 18:03 | CP.PCM.HP ---
<Jesse Joshi - Last Filed: 11/25/18 03:45> History of Present Illness - History of Present Illness History of Present Illness: 68 y/o M with a PMHx of recent R hip fracture repair 1 week ago, was brought by EMS from custodial after complaining of breathing issues. Pt presented persis tent hypoxemia despite non-invasive oxygenation maneuvers, pt became pulseless, EMS intubated patient and administered 1 dose of epinephrine. --At ED, PEA was found. Cardiorespiratory measures were performed, with epinephrine being administered. Pt remained hypotensive after administration of 2 doses, Femoral IV line obtained and Levophed drip was initiated. --Pt currently stable but not responsive to verbal or tactile stimulation. --Pt was discharged yesterday. Pt had an ORIF with right hip intramedullary nail fixation on 11/18/18. Pt was also transfused 2 units of PRBC and 1 unit of platelets during PMD: [facility] [place]. Allergy: Penicillins Meds: As per med rec, non-compliant -PMHx: HTN, HLD, DM, COPD, chronic Anemia, SBO, alcohol abuse, IV drug user, pancytopenia, recurrent ventral hernias, ?alcoholic liver and recent R hip fracture. -PSHx: Appendectomy, cholecystectomy, ventral hernia repair -SHx: Former smoker >30 pack years, smokes 2 cig/day. Hx of heavy drinker, now 1 beer every other day, last drink 2 days ago. Admits to former cocaine and heroine use until 2 months ago. -FHx: Denies any hx of colon cancer but reports brother after liver cancer, Mother and sister with heart conditions. Present on Admission - Present on Admission Any Indicators Present on Admission: No Review of Systems - Review of Systems Systems not reviewed;Unavailable: Acuity of Condition, Altered Mental Status, Intubated Past Patient History - Past Medical History & Family History Past Medical History?: Yes - Past Social History Smoking Status: Former Smoker - CARDIAC Hx Hypercholesterolemia: Yes Hx Hypertension: Yes Hx Peripheral Edema: Yes (BLE) - PULMONARY Hx Chronic Obstructive Pulmonary Disease (COPD): Yes - NEUROLOGICAL Hx Neurological Disorder: Yes Other/Comment: History of Diabetic Neuropathy on BLE - HEENT Hx HEENT Problems: Yes Other/Comment: eyeglasses - RENAL Hx Chronic Kidney Disease: No - ENDOCRINE/METABOLIC Hx Endocrine Disorders: Yes Hx Diabetes Mellitus Type 2: Yes - HEMATOLOGICAL/ONCOLOGICAL Hx Anemia: Yes Hx Human Immunodeficiency Virus (HIV): No - INTEGUMENTARY Hx Dermatological Problems: No - MUSCULOSKELETAL/RHEUMATOLOGICAL Hx Arthritis: Yes Hx Fractures: No - GASTROINTESTINAL Hx Gastrointestinal Disorders: Yes Hx Gastroesophageal Reflux: Yes - GENITOURINARY/GYNECOLOGICAL Hx Genitourinary Disorders: No - PSYCHIATRIC Hx Psychophysiologic Disorder: Yes Hx Substance Use: Yes (opioid use and heroin, quit 1 yr ago) Other/Comment: history of etoh abuse, quit 1 yr ago - SURGICAL HISTORY Hx Appendectomy: Yes (Exploratory Laporatomy for ruptured AP) Hx Cholecystectomy: Yes - ANESTHESIA Hx Anesthesia: Yes Hx Anesthesia Reactions: No Hx Malignant Hyperthermia: No Meds Allergies/Adverse Reactions: Allergies Allergy/AdvReac Type Severity Reaction Status Date / Time Penicillins Allergy RASH Verified 11/17/18 03:07 Physical Exam - Constitutional Appears: In Acute Distress, Other (Unreponsive, intubated.) - Head Exam Head Exam: ATRAUMATIC Additional comments: Presence of vomit traces on blanket around head. - Eye Exam Eye Exam: absent: EOMI - ENT Exam ENT Exam: Mucous Membranes Dry - Respiratory Exam Respiratory Exam: Respiratory Distress Additional comments: Intubated. - Cardiovascular Exam Cardiovascular Exam: +S1, +S2 - GI/Abdominal Exam GI & Abdominal Exam: Distended - Exam Additional comments: Jessica in placed - Extremities Exam Extremities exam: Positive for: pedal edema - Neurological Exam Neurological exam: Altered - Expanded Neurological Exam Expanded Coma Scale Eye Opening: None Coma Scale Motor Response: None Coma Scale Verbal: None Coma Scale Total: 3 Results - Vital Signs Recent Vital Signs: Last Vital Signs Temp Pulse 93 H 11/24/18 17:42 Resp 84 H 11/24/18 18:01 BP 105/84 11/24/18 18:01 Pulse Ox 100 11/24/18 18:01 - Labs Result Diagrams: 11/24/18 17:40 11/24/18 17:20 Labs: Laboratory Results - last 24 hr 11/24/18 11/24/18 17:06 17:20 PT 16.8 H INR 1.5 APTT 42.5 H POC Glucose (mg/dL) 75 Assessment & Plan - Assessment and Plan (Free Text) Assessment: 68 y/o M with a PMH of HTN, HLD, DM, COPD, chronic Anemia, alcohol abuse, IV drug user, recurrent ventral hernias, SBO, alcoholic liver disease, s/p R hip O RIF/R hip intramedullary nail fixation is admitted for acute hypoxemic resp iratory failure and Return of Spontaneous Circulation after CPR. PLAN: >Acute hypoxemic respiratory failure --Admit to ICU --On mechanical ventilation --Possibly PE due to recent recent surgery. --CTA of chest ordered. --Monitor ABG's. >Acute encephalopathy, metabolic vs hypoxic vs ischemic --IV fluids and Levophed on board. --CT head ordered. --F/U labwork. >Hypotension/shock/hypoperfusion --Femoral central vein access obtained --Hypotensive, on Levophed and IV fluids. --C/w IV fluid resuscitation. --Hold home meds. --Considering Echocardiogram, troponin, serial EKG's. --Monitor CBC for possible hemorrhage. >?Pneumoperitoneum/?intra-abdominal perforation --Suspicion of air under diaphragm on CXR --CT Abdomen and pelvis ordered. --Hx of recurrent ventral hernias and SBO. --S/P R femur fracture repair. >Severe metabolic acidosis --pH 6.94, HCO3 7.0-low, pCO2 39. --Lactic acid 13.3-elevated --Sodium Bicarbonate administered. --Monitor ABG's. >Acute Kidney Injury --BUN/Creat 21/3.9 --Hypotension, hypoperfusion, hypovolemia --Continue IV fluids resuscitation >Transaminitis/hyperbilirubinemia --Likely due to liver hypoperfusion. --Maintain stable vital signs. >S/P Right Femur Fracture Repair --At increased risk for PE, hematoma, hemorrhage. >Chronic Anemia --Monitor CBC for clues of hemorrhage. >Hypertension --Chronic --Controlled --Hold PO meds. >NIDDM-II --Chronic --Currently hypoglycemic measurements. --Hold PO meds. >DVT ppx --No anticoagulation until hemorrhage is ruled out. - Date & Time Date: 11/24/18 Time: 17:57 <Cassi Broderick - Last Filed: 11/29/18 09:51> Results - Vital Signs Recent Vital Signs: Last Vital Signs Temp 93.2 F L 11/25/18 01:41 Pulse 0 L 11/25/18 05:30 Resp 0 L 11/25/18 05:30 BP 0/0 L 11/25/18 05:30 Pulse Ox 89 L 11/25/18 07:01 - Labs Result Diagrams: 11/24/18 17:40 11/24/18 17:20 Attending/Attestation - Attestation I have personally seen and examined this patient.: Yes I have fully participated in the care of the patient.: Yes I have reviewed all pertinent clinical information: Yes Notes (Text): 11/29/18 09:51 agree with findings and plan as above
[2018-11-24 18:10] LABS: ABG ALLEN TEST YES; ARTERIAL BLOOD GAS PCO2 39 mm/Hg (35-45); ARTERIAL BLOOD GAS PH 6.94 (7.35-7.45); ARTERIAL BLOOD GAS PO2 92 mm/Hg (80-100); ARTERIAL BLOOD GAS TCO2 9.6 mmol/L (22-28)
[2018-11-24 18:38] LABS: ALB/GLOB RATIO 0.8 (1.0-2.1); ALBUMIN 2.5 g/dL (3.5-5.0)
[2018-11-24] MEDS ORDERED: Sodium Chloride 0.9% 50 ML IV ONE ×2 (18:46→20:10)
[2018-11-24] MEDS ORDERED: Iodixanol 320 MG/ML 100 ML BOTTLE IV ONE ×2 (18:46→20:10)
[2018-11-24 19:09] LABS: BASO % 0.3 % (0.0-2.0); EOS % 0.3 % (0.0-4.0); HEMOGLOBIN 9.2 g/dL (12.0-18.0); LYMPH # 1.1 K/uL (1.0-4.3); LYMPH % 15.4 % (20.0-40.0); MEAN CELL VOLUME 92.9 fl (80.0-94.0); MEAN CORPUSCULAR HEMOGLOBIN 26.6 pg (27.0-31.0); MEAN CORPUSCULAR HGB CONC 28.6 g/dL (33.0-37.0); MEAN PLATELET VOLUME 10.9 fl (7.2-11.7); MONO # 0.1 K/uL (0.0-0.8); MONO % 0.9 % (0.0-10.0); NEUT % 83.1 % (50.0-75.0); RBC 3.44 Mil/uL (4.40-5.90); RED CELL DISTRIBUTION WIDTH 27.7 % (11.5-14.5); WHITE BLOOD COUNT 7.2 K/uL (4.8-10.8)
[2018-11-24] MEDS ORDERED: EPINEPHrine- 1 MG in Sodium Chloride 0.9% 250 ML IV STA (21:40)
--- NOTE | 2018-11-24 21:42 | CP.CCUPN ---
CCU Subjective - Physician Review Subjective (Free Text): 68[place] for acute resp distress, and subsequently orally intubated by EMS. In ER, underwent Code Blue resuscitation, given multiple doses of Epinephrine and ROSC established, started on Levophed drip for BP support, now up to 10 mcg dose with SBP 70s. HR 90 sinus. Otherwise appears comatose post resuscitation; breathing 15 on AC 14, SPO2 100% on 100% oxygen. PMH : underwent hip repair last week for R hip comminuted intratroch fracture after a fall at home. 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 Other PMSFH: All other Nursing and physician documentation reviewed to date; no new pertinent info noted relevant to current medical problems. EXAM- HEENT: no icterus, pupils equal, 4 mm and nonreactive, no nystagmus NECK: no visible JVD, supple, carotids equal upstroke bilat/no bruits CHEST: decreased BS bases, no wheezes audible HEART: Irregular, distant, S1S2, no murmur audible, no rubs. ABD: soft, obese, minimally distended, no focal tenderness / guarding; BS hypoactive. EXT: trace edema, no mottling, cool, no cyanosis, no calf tenderness or palpable cords, distal pulses intact and symmetrical, dressing intact along R lateral LE/thigh. NEURO: toes downgoing on plantar testing. SKIN: no rashes LABS: Coags; INR= 1.5, PTT= 42.5 WBC= 9.5 HGB= 9.8 PLTs = 254K 6.94/39/92 on MV Na= 142 K= 4.0 Cl= 108 HCO3= 10 BUN/Cr= 21/3.9 BS= 51 Trop negative x 1 CXR: (my interp)- ETT position OK above shelly, no gross consolidation, poor inspiratory film; small sliver of free air under R dixie diaphragm. IMPRESSIONS / MAJOR PROBLEMS: 1. Acute Hypoxemic Resp Failure 2' PTE / retained secretions/ Aspiration 2. PEA, r/o AMI, Hypovolemia, Severe Acidosis, PTE, Shock / Hypotension. Tamponade 3. r/o Free Intraperitoneal Air 4. Azotemia, r/o RIP / ATN versus Dehydration, no h/o CKD from previous hospital admissions 5. Shock Liver / Ischemic Hepatitis 6. S/p Repair R Femur Fracture PLAN: 1. MV and hemodynamic support: ABG, serial Lactates, Vasopressor / inotropic support with Levophed, Dobutamine. MAP goal during cooling = 80. 2. Targeted temperature mgmt: 32-36C 3. CT AP, CT Head. CT Chest may be problematic given elevated Cr: fluid challenges ordered. 4. Volume expansion. 5. ECHO 6. See orders. Time spent with this patient did not overlap with any other provider's medical or critical care time. Additionally the code selected for the services rendered in this note includes the time spent: talking to the patients family, associated physicians and reviewing hospital data/results not listed here which extended to a total of 35 minutes of critical care.
[2018-11-24] MEDS ORDERED: Sodium Chloride 0.9% 1,000 ML IV SCH (21:45)
[2018-11-24 21:54] LABS: ABG ALLEN TEST YES; ARTERIAL BLOOD GAS PH < 6.80 (7.35-7.45)
[2018-11-24] MEDS ORDERED: Sodium Bicarbonate (8.4%) 50 Meq Syringe IVP ONE ×2 (21:56→21:58)
[2018-11-24] MEDS ORDERED: Sodium Chloride 0.9% 2,000 ML IV STA (21:56)
[2018-11-24] MEDS ORDERED: Dextrose 50% SYRINGE Inj (50 ml) IVP ONE ×2 (21:57→21:58)
[2018-11-24] MEDS: Sodium Chloride 0.9% 1,000 ML IV SCH ×2 (22:13→22:15)
[2018-11-24 22:27] VITALS: O2SAT 89
[2018-11-24] MEDS ORDERED: Sodium Bicarbonate 8.4% 150 MEQ in Dextrose 5% In Water 1,000 ML IV SCH (22:30)
[2018-11-24] MEDS ORDERED: Piperacillin/Tazobact 3.375 GM in Sodium Chloride 0.9% 100 ML IVPB STA (22:43)
[2018-11-24] MEDS ORDERED: Vancomycin 1 g Inj ONE (22:48)
[2018-11-24] MEDS ORDERED: Piperacillin/Tazobact 3.375 gm Inj IVPB ONE (22:49)
[2018-11-25] MEDS ORDERED: DOBUTamine 500mg/250ml D5W 500 MG/250 ML BAG ONE (00:14)
[2018-11-25 01:26] LABS: ARTERIAL BLOOD GAS O2 SAT 75.2 % (95-98); ARTERIAL BLOOD GAS PCO2 65 mm/Hg (35-45); ARTERIAL BLOOD GAS PO2 50 mm/Hg (80-100)
--- NOTE | 2018-11-25 01:26 | CP.PCM.CON ---
<Bala Wolfe - Last Filed: 11/25/18 01:59> History of Present Illness - History of Present Illness History of Present Illness: 68M [facility] after reportedly having difficulty breathing. As per ED records on arrival patient began desaturating and remained hypoxic after aggressive measures to oxygenate and decision was made to intubate patient. Upon arrival patient was in atrial fibrillation as per paramedics. Patient is s/p right hip ORIF. General surgery was consulted for right parasagittal hernia found on CT Abd & Pelvis. At time general surgery was consulted patient had coded a total of 5 times and ROSC was achieved each time. At time of examination patient had increasing pressor requirements and was on bicarb drip. He did not have any urinary output. Patient received a total of 6L boluses at this time. His ABG values at time of examination- pH: 6.94, lactate: 13.3. Patient's daughter Emerita was at bedside. A thorough and in depth conversation about patient's critical condition was discussed. All questions and concerns were thoroughly answered. She asked for time to speak with family to determine how they would like to move forward. PSH: cholecystectomy, appendectomy, ventral hernia repair Allergies: penicillins Review of Systems - Review of Systems Systems not reviewed;Unavailable: Acuity of Condition, Intubated Past Patient History - Past Medical History & Family History Past Medical History?: Yes - Past Social History Smoking Status: Former Smoker - CARDIAC Hx Hypercholesterolemia: Yes Hx Hypertension: Yes Hx Peripheral Edema: Yes (BLE) - PULMONARY Hx Chronic Obstructive Pulmonary Disease (COPD): Yes - NEUROLOGICAL Hx Neurological Disorder: Yes Other/Comment: History of Diabetic Neuropathy on BLE - HEENT Hx HEENT Problems: Yes Other/Comment: eyeglasses - RENAL Hx Chronic Kidney Disease: No - ENDOCRINE/METABOLIC Hx Endocrine Disorders: Yes Hx Diabetes Mellitus Type 2: Yes - HEMATOLOGICAL/ONCOLOGICAL Hx Anemia: Yes Hx Human Immunodeficiency Virus (HIV): No - INTEGUMENTARY Hx Dermatological Problems: No - MUSCULOSKELETAL/RHEUMATOLOGICAL Hx Arthritis: Yes Hx Fractures: No - GASTROINTESTINAL Hx Gastrointestinal Disorders: Yes Hx Gastroesophageal Reflux: Yes - GENITOURINARY/GYNECOLOGICAL Hx Genitourinary Disorders: No - PSYCHIATRIC Hx Psychophysiologic Disorder: Yes Hx Substance Use: Yes (opioid use and heroin, quit 1 yr ago) Other/Comment: history of etoh abuse, quit 1 yr ago - SURGICAL HISTORY Hx Appendectomy: Yes (Exploratory Laporatomy for ruptured AP) Hx Cholecystectomy: Yes - ANESTHESIA Hx Anesthesia: Yes Hx Anesthesia Reactions: No Hx Malignant Hyperthermia: No Meds Allergies/Adverse Reactions: Allergies Allergy/AdvReac Type Severity Reaction Status Date / Time Penicillins Allergy RASH Verified 11/17/18 03:07 - Medications Medications: Current Medications Famotidine (Pepcid) 20 mg IVP DAILY LISA Norepinephrine Bitartrate 4 mg (/ Sodium Chloride) 254 mls @ 9.53 mls/hr IV .Q24H LISA; Protocol Last Admin: 11/24/18 17:35 Dose: 9.53 mls/hr Epinephrine HCl 1 mg/ Sodium (Chloride) 251 mls @ 15.06 mls/hr IV .[id number] STA; Protocol Stop: 11/25/18 14:19 Last Admin: 11/24/18 22:20 Dose: 15.06 mls/hr Sodium Chloride (Sodium Chloride 0.9%) 1,000 mls @ 100 mls/hr IV .Q10H LISA Sodium Bicarbonate 150 meq/ (Dextrose) 1,150 mls @ 250 mls/hr IV .Q4H36M LISA Stop: 11/25/18 22:31 Last Admin: 11/24/18 22:31 Dose: 250 mls/hr Physical Exam - Constitutional Appears: Toxic - Head Exam Head Exam: NORMOCEPHALIC - Eye Exam Eye Exam: absent: Scleral icterus - ENT Exam ENT Exam: Mucous Membranes Dry - Respiratory Exam Additional comments: intubated - Cardiovascular Exam Cardiovascular Exam: +S1, +S2 - GI/Abdominal Exam GI & Abdominal Exam: Distended, Hernia, Soft. absent: Rebound, Rigid Additional comments: strangulated ventral hernia laparotomy scar - Skin Skin Exam: Normal Color Results - Vital Signs Recent Vital Signs: Last Vital Signs Temp Pulse 86 11/24/18 22:20 Resp 14 11/24/18 22:20 BP 88/56 L 11/24/18 22:20 Pulse Ox 89 L 11/24/18 22:20 - Labs Result Diagrams: 11/24/18 17:40 11/24/18 17:20 Labs: Laboratory Results - last 24 hr 11/24/18 11/24/18 11/24/18 17:04 17:06 17:20 WBC RBC Hgb Hct MCV MCH MCHC RDW Plt Count MPV Neut % (Auto) Lymph % (Auto) Patrick % (Auto) Eos % (Auto) Baso % (Auto) Neut # (Auto) Lymph # (Auto) Patrick # (Auto) Eos # (Auto) Baso # (Auto) PT INR APTT pCO2 39 pO2 92 HCO3 7.0 L* ABG pH 6.94 L* ABG Total CO2 9.6 L ABG O2 Saturation 97.0 ABG Base Excess -22.9 L Andrew Test Yes ABG Potassium 4.4 A-a O2 Difference 572.0 Sodium 138.0 142 Chloride 110.0 H 108 H Glucose 67 L Lactate 13.3 H* Vent Mode A/c Mechanical Rate 14 FiO2 100.0 Tidal Volume 500 PEEP 5 Crit Value Called To Dr jake causey Crit Value Called By Chepe Crit Value Read Back Y Blood Gas Notified Time 1810 Potassium 4.0 Carbon Dioxide 10 L* D Anion Gap 28 H BUN 21 H Creatinine 3.9 H Est GFR ( Amer) 19 Est GFR (Non-Af Amer) 16 POC Glucose (mg/dL) 75 Random Glucose 51 L Calcium 8.0 L Phosphorus 8.9 H Magnesium 2.7 H Total Bilirubin 4.3 H AST 241 H D ALT 101 H D Alkaline Phosphatase 95 Troponin I 0.0830 NT-Pro-B Natriuret Pep 4910 H Total Protein 5.6 L Albumin 2.5 L Globulin 3.0 Albumin/Globulin Ratio 0.8 L Arterial Blood Potassium 4.4 Blood Type Antibody Screen Crossmatch BBK History Checked 11/24/18 11/24/18 11/24/18 17:20 17:20 17:40 WBC 7.2 D RBC 3.44 L Hgb 9.2 L Hct 32.0 L MCV 92.9 D MCH 26.6 L MCHC 28.6 L RDW 27.7 H Plt Count 191 MPV 10.9 Neut % (Auto) 83.1 H Lymph % (Auto) 15.4 L Patrick % (Auto) 0.9 Eos % (Auto) 0.3 Baso % (Auto) 0.3 Neut # (Auto) 6.0 Lymph # (Auto) 1.1 Patrick # (Auto) 0.1 Eos # (Auto) 0.0 Baso # (Auto) 0.0 PT 16.8 H INR 1.5 APTT 42.5 H pCO2 pO2 HCO3 ABG pH ABG Total CO2 ABG O2 Saturation ABG Base Excess Andrew Test ABG Potassium A-a O2 Difference Sodium Chloride Glucose Lactate Vent Mode Mechanical Rate FiO2 Tidal Volume PEEP Crit Value Called To Crit Value Called By Crit Value Read Back Blood Gas Notified Time Potassium Carbon Dioxide Anion Gap BUN Creatinine Est GFR ( Amer) Est GFR (Non-Af Amer) POC Glucose (mg/dL) Random Glucose Calcium Phosphorus Magnesium Total Bilirubin AST ALT Alkaline Phosphatase Troponin I NT-Pro-B Natriuret Pep Total Protein Albumin Globulin Albumin/Globulin Ratio Arterial Blood Potassium Blood Type B POSITIVE Antibody Screen Negative Crossmatch See Detail BBK History Checked Patient has bt 11/24/18 11/24/18 21:52 22:22 WBC RBC Hgb Hct MCV MCH MCHC RDW Plt Count MPV Neut % (Auto) Lymph % (Auto) Patrick % (Auto) Eos % (Auto) Baso % (Auto) Neut # (Auto) Lymph # (Auto) Patrick # (Auto) Eos # (Auto) Baso # (Auto) PT INR APTT pCO2 52 H pO2 97 HCO3 ABG pH < 6.80 L* ABG Total CO2 ABG O2 Saturation 97.3 ABG Base Excess Andrew Test Yes ABG Potassium 5.6 H A-a O2 Difference 551.0 Sodium 139.0 Chloride 109.0 H Glucose < 4 L* D Lactate 19.4 H* Vent Mode A/c Mechanical Rate 14 FiO2 100.0 Tidal Volume 500 PEEP 5 Crit Value Called To Dr maria ines lewis Crit Value Called By Chepe Crit Value Read Back Y Blood Gas Notified Time 2153 Potassium Carbon Dioxide Anion Gap BUN Creatinine Est GFR ( Amer) Est GFR (Non-Af Amer) POC Glucose (mg/dL) 176 H Random Glucose Calcium Phosphorus Magnesium Total Bilirubin AST ALT Alkaline Phosphatase Troponin I NT-Pro-B Natriuret Pep Total Protein Albumin Globulin Albumin/Globulin Ratio Arterial Blood Potassium 5.6 H Blood Type Antibody Screen Crossmatch BBK History Checked Assessment & Plan - Assessment and Plan (Free Text) Assessment: 68M with ventral hernia with CT evidence of strangulation and perforation Plan: Prognosis guarded Awaiting family decision At this point they agree with aggressive resuscitative measures Family gathering to decide whether or not they would consider moving forward with surgery At this point given patient's pCO2 levels recommend increasing respiratory rate Bicarb drip infusion Maintain MAP at least >65 Strict I&O Aim for UOP of at least 0.5cc/kg Obtain repeat ABG Will closely monitor and make adjustments as needed D/w Dr. Kidd PGY3 <Calvin Rangel N - Last Filed: 11/26/18 14:30> Results - Vital Signs Recent Vital Signs: Last Vital Signs Temp 93.2 F L 11/25/18 01:41 Pulse 0 L 11/25/18 05:30 Resp 0 L 11/25/18 05:30 BP 0/0 L 11/25/18 05:30 Pulse Ox 89 L 11/25/18 07:01 - Labs Result Diagrams: 11/24/18 17:40 11/24/18 17:20 Labs: Laboratory Results - last 24 hr 11/24/18 23:47 POC Glucose (mg/dL) 163 H Assessment & Plan - Assessment and Plan (Free Text) Plan: All medical record entries made by the resident were at my direction and personally directed by me. I have reviewed the chart and agree that the record accurately reflects my personal performance of the history, physical exam, medical decision making, When I was noitified, patient had already coded 4 times. At the time of my notification, the patient was on multiple pressors, with a pH or 6.9 and a lactate of 13, base deficit of -23. I instructed the resident to increase resuscitation, increase ventilation, correct the ph and notify the OR. Recieved a call an hour later, patient
[2018-11-25] MEDS ORDERED: Sodium Chloride 0.9% 1,000 ML IV STA (02:48)
[2018-11-25] MEDS ORDERED: DOBUTamine 250MG/250ML 250 MG/250 ML SOL IVPB ONE (02:49)
--- NOTE | 2018-11-25 03:10 | ED PDOC ---
- Laboratory Results Result Diagrams: 11/24/18 17:40 11/24/18 17:20 Lab Results: pCO2 65 mm/Hg (35-45) H 11/24/18 21:52 pO2 50 mm/Hg (80-100) L 11/24/18 21:52 HCO3 7.0 mmol/L (21-28) L* 11/24/18 17:04 ABG pH < 6.80 (7.35-7.45) L* 11/24/18 21:52 ABG Total CO2 9.6 mmol/L (22-28) L 11/24/18 17:04 ABG O2 Saturation 75.2 % (95-98) L 11/24/18 21:52 ABG Base Excess -22.9 mmol/L (-2.0-3.0) L 11/24/18 17:04 Andrew Test Yes 11/24/18 21:52 ABG Potassium 4.6 mmol/L (3.6-5.2) 11/24/18 21:52 A-a O2 Difference 551.0 mm/Hg 11/24/18 21:52 Sodium 142.0 mmol/L (132-148) 11/24/18 21:52 Chloride 111.0 mmol/L (98-107) H 11/24/18 21:52 Glucose 107 mg/dL (75-110) 11/24/18 21:52 Lactate > 20.0 mmol/L (0.7-2.1) H* 11/24/18 21:52 Vent Mode A/c 11/24/18 21:52 Mechanical Rate 14 11/24/18 21:52 FiO2 100.0 % 11/24/18 21:52 Tidal Volume 500 11/24/18 21:52 PEEP 7 11/24/18 21:52 Crit Value Called To King lewis 11/24/18 21:52 Crit Value Called By Ivon 11/24/18 21:52 Crit Value Read Back Y 11/24/18 21:52 Blood Gas Notified Time 126 11/24/18 21:52 PT 16.8 Seconds (9.8-13.1) H 11/24/18 17:20 INR 1.5 11/24/18 17:20 APTT 42.5 Seconds (25.6-37.1) H 11/24/18 17:20 Troponin I 0.0830 ng/mL (0.00-0.120) 11/24/18 17:20 NT-Pro-B Natriuret Pep 4910 pg/ml (0-900) H 11/24/18 17:20 Total Bilirubin 4.3 mg/dl (0.2-1.3) H 11/24/18 17:20 AST 241 U/L (17-59) H D 11/24/18 17:20 ALT 101 U/L (21-72) H D 11/24/18 17:20 Alkaline Phosphatase 95 U/L (38-126) 11/24/18 17:20 Total Protein 5.6 G/DL (6.3-8.2) L 11/24/18 17:20 Albumin 2.5 g/dL (3.5-5.0) L 11/24/18 17:20 Globulin 3.0 gm/dL (2.2-3.9) 11/24/18 17:20 Albumin/Globulin Ratio 0.8 (1.0-2.1) L 11/24/18 17:20 - ECG O2 Sat by Pulse Oximetry: 89 Pulse Ox Interpretation: Abnormal - Critical Care Total Time (In Min): 360 Documented Critical Care: Time excludes all time spent performint seperately billable procedures Medical Decision Making Medical Decision Making: [Timings are all approximate and may not reflect exact times, please refer to code room sheet for further clarification and information] Time: 1910 -- Patient admitted to the ICU by Dr. Alva. Time: 1946 -- Notified by RN Vanessa Marvin that patient did not have pulse. Examined patient who was pulseless. Code Blue activated and compression initiated. Time: 1947 -- One epinephrine given at this time, compressions continued. Time: 1948 -- Pulse found on pulse check. Bicarb additionally given. -- BP = 131/56 --Discussed with the family the gravity of the situation who wants everything done at this time. -- Patient brought to CT immediately for CTA to rule out Pulmonary Embolism EXAM: CTA Chest with Intravenous Contrast for Pulmonary Embolism CLINICAL HISTORY: Respiratory Failure TECHNIQUE: Axial CTA images of the chest with intravenous contrast using a pulmonary embolism protocol. Reconstructed images were created and reviewed. 1224.27 mGy-cm CONTRAST: With; Visipaque [id number] was administered without incident. COMPARISON: None provided. FINDINGS: TUBES/LINES: The patient is intubated. The lower tip of the endotracheal tube appears to res joe in satisfactory position. A nasogastric tube is present with its distal tip in the body of the stomach. PULMONARY ARTERIES No evidence of central or segmental pulmonary embolism is seen. AORTA There is no evidence for aneurysm or dissection of the thoracic aorta. LUNGS Large posterior bibasilar pneumonic consolidations are present. PLEURAL SPACES No evidence of pneumothorax. Bibasilar pleural effusions are noted. HEART Mild cardiomegaly. No pericardial effusion. LYMPH NODES No lymphadenopathy is evident. BONES No focal osseous abnormality or acute fracture. UPPER ABDOMEN Images of the upper abdomen demonstrate massive pneumoperitoneum. This may indicate a perforated hollow viscus. Surgical consultation recommended. IMPRESSION: 1. No identification of PE. 2. Bibasilar pneumonic consolidations and associated pleural effusions. 3. Mild cardiomegaly. 4. Massive pneumoperitoneum. Surgical consultation is advised. 5. An endotracheal tube and nasogastric tube appear to reside in satisfactory position. Electronically signed on Nov 24, 2018 9:43:17 PM EDT by: Trell Caraballo M.D., LUIS Certified By [employer] Fellowship Trained MRI and CT Specialist Time: 2105 -- Not able to obtain pulse Code Blue activated again and compressions initiated. Time: 2106 -- Epinephrine given at this time. No pulse found on pulse check, compressions continued Time: 2108 -- Patient regained pulse, TPA not given due to radiology reading of CTA as negative for PE over the phone. --Family informed of new findings Time: 2135 -- Notified by RN that patient did not have pulse. Examined patient who was pulseless. Code Blue activated again and compression initiated Time: 2136 -- One epinephrine given at this time. No pulse found, continued compression. Time: 2138 -- Regained pulse at this time. Patient to be placed on epi drip. -- BP = 165/94 Time: 2157 -- On repeat ABG, lab demonstrated a glucose less than 4. Two doses of D50 and a bicarb drip ordered additionally ordered. Time: 2215 -- Notified by RN that patient lost pulse again. Patient examined and found to be pulseless. Code Blue activated again. Time: 2216 -- One epinephrine given. Time: 2218 -- Patient regained pulse. ABG reviewed, severe acidosis and unreadable bicarb. Epinephrine drip and bicarb drip initiated. Provider confirmed correct tube placement using glidescope. Time: 2236 EXAM: CT Abdomen and Pelvis with IV contrast CLINICAL HISTORY: R/o kidney stones TECHNIQUE: Axial computed tomography images of the abdomen and pelvis with intravenous contrast. 1224.27 mGy-cm CONTRAST: With; Visipaque [id number] 95cc COMPARISON: None provided. FINDINGS: LUNG BASES: Posterior bibasilar pneumonic consolidations and associated pleural effusions are noted. LIVER: Unremarkable. GALLBLADDER AND BILE DUCTS: The gallbladder appears within normal limits. No radioopaque gallstones are seen. No biliary ductal dilatation is evident. PANCREAS: Unremarkable. SPLEEN: Unremarkable. ADRENAL GLANDS: Unremarkable. KIDNEYS, URETERS, AND BLADDER: The kidneys appear within normal limits. There is no hydronephrosis or hydroureter. No urinary calculi are seen. The balloon tip of a Jessica catheter is seen within the urinary bladder which is predominantly decompressed. STOMACH AND BOWEL: A nasogastric tube is seen with its tip in the body of the stomach. A large right parasagittal pelvic ventral hernia is noted contains a segment of small intestine with evidence of strangulation and free air compatible with perforation. Surgical evaluation is recommended. There is mucosal wall thickening and fluid throughout the lumen of the small and large intestine compatible with diffuse enterocolitis. No pneumatosis intestinalis is detected. APPENDIX: No evidence of acute appendicitis on CT examination. PERITONEUM: A small-moderate volume of free fluid is seen in the abdomen and pelvis likely compatible with intraperitoneal blood. Massive pneumoperitoneum identified thought indicative of a perforated hollow viscus. LYMPH NODES: No lymphadenopathy is evident. REPRODUCTIVE: Unremarkable as visualized. VASCULATURE: No evidence of abdominal aortic aneurysm. Extensive atherosclerotic vascular plaquing is present. BONES: No aggressive appearing osseous lesion. No acute osseous pathology evident. Streak artifact arises from a right hip internal fixation screw and int ramedullary don. IMPRESSION: 1. Right parasagittal pelvic ventral hernia containing a segment of strangulated small intestine and free air thought compatible with perforation. Surgical consultation advised. 2. Massive pneumoperitoneum from perforated hollow viscus. 3. Small-moderate volume of intraperitoneal fluid; likely blood. 4. Nasogastric tube is present within the body of the stomach. 5. Diffuse enterocolitis. 6. A Jessica catheter is present within the urinary bladder. 7. Bibasilar pneumonic consolidations and associated pleural effusions. Electronically signed on Nov 24, 2018 10:10:37 PM EDT by: Trell Caraballo M.D., LUIS Certified By [employer] Fellowship Trained MRI and CT Specialist Surgery consult placed, paged both resident and attending. Attending did not call back, patient came to evaluate at the bedside. Time: 36 -- Notified by RN that patient did not have pulse. Examined patient who was pulseless. Code Blue activated again and compression initiated Time: 40 -- One epinephrine and bicarb given. No pulse found, continued compression. Time: 43 -- Regained pulse at this time. Patient to be placed on epi drip. -- BP = 123/65 -- 96 O2Sat Time: 100 --Patient lost pulse again. Code blue activated and compression initiated. Time: 101 --One epinephrine given at this time. No pulse found, continued compression Time: 102 --Regained pulse at this time. Time: 103 --Patient has no pulse again. Compression initiated. Time: 104 --One epinephrine given at this time. No pulse found. Time: 105 --Regained pulse at this time. Discussed with family about gravity of situation and that patient is too unstable for surgery. Explained that due to bowel perforation, he is becoming septic and despite antibiotics, aggressive fluids, and pressors, including dobutamine, patient has a very poor prognosis and is unlikely to survive the night. --BP= 97/62 Time: 130 ---- Notified by RN that patient did not have pulse. Examined patient who was pulseless. Code Blue activated again and compression initiated Time: 0133 One epinephrine given at this time. No pulse found Time: 4 --One bicarb given at this time. No pulse found Time: 0135 --Patient remains pulseless on pulse check. Continue epinephrine and compressions Time: 7 --Patient remains pulseless on pulse check. Continue compressions Time: 8 --Epinephrine given at this time. No pulse found Time: 138 --Patient remains pulseless on pulse check. Discussed with family who wishes for no further intervention at this time and are grateful for all efforts made by staff. Time: 014 --Patient pronounced . Disposition - Clinical Impression Clinical Impression: Respiratory failure, Perforated bowel, Cardiac arrest - POA Present On Arrival: None - Disposition Disposition: Admitted as In-Patient ( after being admitted) Disposition Time: 01:41 Condition:
[2018-11-25 05:08] VITALS: TEMP 93.2
[2018-11-25 05:50] VITALS: PULSE 0
[2018-11-25 07:17] LABS: SQUAMOUS EPITHIAL < 1 /hpf (0-5); URINE BACTERIA RARE (<OCC); URINE BILIRUBIN NEGATIVE (NEGATIVE); URINE BLOOD NEGATIVE (NEGATIVE); URINE CLARITY SLIGHTY-CLOUDY (Clear); URINE COLOR AMBER (YELLOW); URINE GLUCOSE (UA) NEG (NEGATIVE); URINE LEUKOCYTE ESTERASE NEG Leu/uL (Negative); URINE PROTEIN NEGATIVE (NEGATIVE)
[2018-11-25 07:20] VITALS: BP 0/0; RESP 0
[2018-11-25 07:33] LABS: URINE HYALINE CAST 0 - 2 /hpf (0-2)
--- NOTE | 2018-11-25 10:27 | CT ---
Date of service: 11/24/2018 PROCEDURE: CT HEAD WITHOUT CONTRAST. HISTORY: AMS COMPARISON: Comparison made with prior CT scan brain 11/17/2018. TECHNIQUE: Axial computed tomography images were obtained through the head/brain without intravenous contrast. Radiation dose: Total exam DLP = 1043.69 mGy-cm. This CT exam was performed using one or more of the following dose reduction techniques: Automated exposure control, adjustment of the mA and/or kV according to patient size, and/or use of iterative reconstruction technique. FINDINGS: HEMORRHAGE: No acute parenchymal, subarachnoid or extra-axial hemorrhage. BRAIN: Mild chronic periventricular white matter ischemic changes. [id number] generalized volume loss. Partially empty sella. Mild vascular calcifications both carotid siphons VENTRICLES: Unremarkable. No hydrocephalus. CALVARIUM: Unremarkable. PARANASAL SINUSES: There is a small fluid level seen in the right maxillary antrum. Minor mucosal thickening seen within a few ethmoid air cells. MASTOID AIR CELLS: Unremarkable as visualized. No inflammatory changes. OTHER FINDINGS: In situ ETT and NGT. Changes of bilateral exophthalmos present however correlation with ophthalmologic examination. IMPRESSION: No acute intracranial hemorrhage. Mild chronic periventricular white matter ischemic changes. [id number] generalized volume loss.
--- NOTE | 2018-11-25 11:55 | CT ---
Date of service: 11/24/2018 PROCEDURE: CT Chest with contrast (Pulmonary Angiogram) HISTORY: Respiratory failure. COMPARISON: None available. TECHNIQUE: Axial computed tomography images were obtained of the chest in the pulmonary arterial phase of enhancement. Coronal and sagittal reformatted images were created and reviewed. Intravenous contrast dose: Radiation dose: Total exam DLP = 1224.27 mGy-cm. This CT exam was performed using one or more of the following dose reduction techniques: Automated exposure control, adjustment of the mA and/or kV according to patient size, and/or use of iterative reconstruction technique. FINDINGS: Note that the examination is limited for evaluation for PE due to suboptimal opacification of the pulmonary arteries.. Study is further limited by crossing streak and beam hardening artifact arising from the upper extremities which have not been moved from the field of view. In situ ETT, tip of which lies approximately 3.6 cm above shelly. NGT is present, the tip of which lies within the gastric lumen. PULMONARY ARTERIES: The visualized portions of the pulmonary trunk, right and left main, lobar, proximal segmental branches of the pulmonary arteries are relatively well opacified. The distal segmental and subsegmental branches are less delineated due to the aforementioned limitations AORTA: No acute findings. No thoracic aortic aneurysm. Mild aortic atherosclerotic calcification or mural plaque present. LUNGS: Bilateral small to medium-sized effusions and bibasilar atelectasis and/or infiltrate.. PLEURAL SPACES: As above. No evidence of pneumothorax. HEART: Heart is enlarged.. LYMPH NODES: No significant mediastinal or hilar adenopathy. BONES, CHEST WALL: Multilevel degenerative spondylosis of the thoracic spine. OTHER FINDINGS: Massive amount of free intraperitoneal air present.. IMPRESSION: Massive pneumoperitoneum. Recommend more immediate surgical consultation Limited study demonstrating no definitive evidence of acute central pulmonary embolus. Cardiomegaly. Small to medium-sized bilateral effusions and bibasilar atelectasis/infiltrate changes. Concordant preliminary report findings provided by overnight radiology surface
--- NOTE | 2018-11-25 14:25 | CT ---
Date of service: 11/24/2018 PROCEDURE: CT abdomen and pelvis. HISTORY: Rule out kidney stone. COMPARISON: Comparison made with concurrent CTA chest and prior CT scan of the abdomen and pelvis dated 09/13/2018. TECHNIQUE: Contiguous axial images of the abdomen and pelvis performed following intravenous injection of approximately 95 cc Visipaque 320 contrast material. Reformats generated. Radiation dose: Total exam DLP = 1224.27 mGy-cm. This CT exam was performed using one or more of the following dose reduction techniques: Automated exposure control, adjustment of the mA and/or kV according to patient size, and/or use of iterative reconstruction technique. FINDINGS: Note that the exam is somewhat limited due to crossing streak and beam hardening artifact arising from the upper extremities which have not been moved from the field of view. There LOWER THORAX: Heart is enlarged. No significant pericardial effusion. Bilateral effusions and bibasilar atelectasis. In situ NGT is present the tip of which is located in the proximal gastric lumen near the EG junction. LIVER: Liver exhibits relatively normal size measuring approximately 16 cm in CC dimension. Perihepatic ascites present. GALLBLADDER AND BILE DUCTS: Unremarkable. PANCREAS: Pancreas is slightly atrophic and fatty replaced. No obvious pancreatic mass collection or calcification. SPLEEN: Spleen is of borderline/mildly enlarged measuring over 13 cm in AP dimension. Appear to be a few tiny calcifications within the anterior margin of the splenic parenchyma.. The spleen also exhibits a somewhat homogeneous low-attenuation appearance.. ADRENALS: No obvious adrenal lesions KIDNEYS AND URETERS: Kidneys demonstrate relatively symmetric nephrograms. No evidence of nephrolithiasis or hydronephrosis. BLADDER: Urinary bladder is collapsed about an in situ unclamped Jessica catheter. Wall thickening in part due to incomplete distension however muscular hypertrophy may contribute. Possibility of cystitis or other intrinsic/invasive wall lesion not excluded. REPRODUCTIVE: Prostate gland measures approximately 3.75 cm in transverse dimension. Prostatic calcifications are present. APPENDIX: Appendix is not positively identified. BOWEL: Evaluation of the bowel is limited due to the lack of oral contrast material. Of the study is further limited by a massive amount of free air which compresses and posteriorly displaces loops of bowel. The stomach appears collapsed. Multiple fluid-filled minimally distended loops of small bowel some of which exhibit slight thick-walled appearance. Fluid appears to be present within a good portion of the large bowel which is partially compressed. PERITONEUM: There is a massive amount of free intraperitoneal air consistent with perforated hollow viscus. Abdominal ascites slightly proteinaceous also present. Questionable hemoperitoneum. Clinical correlation recommended. There is a hernia right lateral lower abdomen/pelvis region that contains mesenteric fat and free air as well as knuckle of bowel arising LYMPH NODES: Unremarkable. No enlarged lymph nodes. VASCULATURE: Unremarkable. No aortic aneurysm. Mild aortic atherosclerotic calcification or mural plaque present. BONES: ORIF hardware right femoral head neck and proximal femur. Moderate multilevel degenerative spondylosis of the lower thoracic and lumbar spine. OTHER FINDINGS: None. IMPRESSION: There is a massive amount of free air and this small amount small to medium amount of ascites (questionable pneumoperitoneum). Findings suggest perforated hollow viscus however clinical correlation recommended.. Emergent surgical consultation recommended. Multiple minimally distended loops of small bowel some of which exhibit slight thick-walled appearance. Rule out enteritis and concomitant ileus.. There is a hernia right lateral lower abdomen/pelvis region that contains mesenteric fat and free air as well as knuckle of bowel arising Fluid also present throughout somewhat compressed:. Spleen exhibits mild diffuse homogeneous low-attenuation appearance nonspecific. Bilateral effusions and bibasilar atelectasis. Urinary bladder is collapsed about an in situ unclamped Jessica catheter with slight of wall thickening as above.
--- NOTE | 2018-11-25 18:59 | CARD ---
APPROVED REPORT Date of service: 11/24/2018 EKG Measurement Heart [id number] <Conclusion> Sinus tachycardia ST depression, consider anterolateral ischemia Abnormal ECG
== END 2018-11-25 05:30 ==
LOC: H.ER 16:47 → UNDOADMIN 17:49 → H.ERHOLD 17:49 → UNDODISIN 11-25 05:30
DX: E11.9 Type 2 diabetes mellitus without complications (principal); I10 Essential (primary) hypertension; J96.91 Respiratory failure, unspecified with hypoxia; G93.40 Encephalopathy, unspecified; E87.2 Acidosis; S37.009A Unspecified injury of unspecified kidney, initial encounter; E80.6 Other disorders of bilirubin metabolism; D53.9 Nutritional anemia, unspecified; I82.90 Acute embolism and thrombosis of unspecified vein
CPT/HCPCS: 31500; 36600; 70450; 71045; 71275; 74177; 80053; 81003; 82803; 82948; 83735; 83880; 84100; 84484; 85025; 85610; 85730; 86850; 86900; 86920; 87040; 87086; 87181; 87205; 92950; 93005; 96361; 96365; 96366; 96367; 96368; 96375; 96376; 99285; J0171; J1250; J2543; J7030; J7070; Q9967